=== PATIENT | female | born 1945 | race Two or more races ===

== ENCOUNTER 2018-06-20 12:18 | Inpatient (IN) | payer MEDICARE ==
[~2018-06-20] VITALS: Ht 157.5 cm; Wt 47.4 kg
[2018-06-20] MEDS ORDERED: MAG HYDROX/AL HYDROX/SIMETH 30 ML ORAL.SUSP PO PRN (15:30)
[2018-06-20] MEDS ORDERED: MAGNESIUM HYDROXIDE 2,400 MG/30 ML ORAL.SUSP. PO PRN (15:30)
[2018-06-20] MEDS ORDERED: HEPA500041 IV (16:03)
[2018-06-20] MEDS ORDERED: PANT40TA3 PO (16:03)
[2018-06-20] MEDS ORDERED: ATOR20TA58 PO (16:03)
[2018-06-20] MEDS ORDERED: MECL25TA3 PO (16:03)
[2018-06-20] MEDS ORDERED: NICO1PAT25 TD (16:03)
[2018-06-20] MEDS ORDERED: BUTA1CAP5 PO (16:03)
[2018-06-20] MEDS ORDERED: ZOLP5TAB5 PO (16:03)
[2018-06-20] MEDS ORDERED: ASPI1CPM9 PO (16:03)
[2018-06-20] MEDS ORDERED: LISI-334 PO (16:03)
[2018-06-20 16:13] LABS: BASO % 0 % (0-3); EOS # 0.1 x10^3/uL (0.0-0.7); EOS % 1 % (0-3); HEMATOCRIT 43.7 % (36.0-47.0); HEMOGLOBIN 14.1 g/dL (12.0-15.5); LYMPH # 1.7 x10^3/uL (1.0-4.8); LYMPH % 14 % (24-48); MEAN CORPUSCULAR HEMOGLOBIN 28 pg (25-35); MEAN CORPUSCULAR HGB CONC 32 g/dL (31-37); MEAN CORPUSCULAR VOLUME 85 fL (79-100); MONO % 8 % (0-9); NEUT # 9.7 x10^3uL (1.8-7.7); NEUT % 77 % (31-73); PLATELET COUNT 345 x10^3/uL (140-400); RED BLOOD COUNT 5.13 x10^6/uL (3.50-5.40); RED CELL DISTRIBUTION WIDTH 15.2 % (11.5-14.5); WHITE BLOOD COUNT 12.5 x10^3/uL (4.0-11.0)
[2018-06-20 16:20] LABS: ALBUMIN 3.3 g/dL (3.4-5.0); ALBUMIN/GLOBULIN RATIO 0.8 (1.0-1.7); CALCIUM 9.4 mg/dL (8.5-10.1); CREATININE 0.7 mg/dL (0.6-1.0); GFR 82.5; MAGNESIUM 1.9 mg/dL (1.8-2.4); POTASSIUM 3.6 mmol/L (3.5-5.1); TOTAL BILIRUBIN 0.3 mg/dL (0.2-1.0); TOTAL PROTEIN 7.2 g/dL (6.4-8.2)
[2018-06-20 16:38] VITALS: BP 114/68
[2018-06-20] MEDS ORDERED: BUTALB/APAP/CAFEIN 50/325/40MG TABLET. PO PRN (16:45)
[2018-06-20] MEDS: PANTOPRAZOLE 40 MG TABLET. PO SCH ×2 (17:00→21:01)
[2018-06-20] MEDS: MECLIZINE 12.5 MG TABLET. PO SCH ×2 (21:00→21:01)
[2018-06-20] MEDS: HEPARIN for SUB-Q USE 5,000 UNIT/ML VIAL. SQ SCH ×2 (21:00→21:04)
[2018-06-20] MEDS ORDERED: Influenza vaccine per PROTOCOL. MC PRN (21:00)
[2018-06-20] MEDS: ATORVASTATIN CALCIUM 20 MG TABLET PO SCH (21:01)
[2018-06-20] MEDS: ZOLPIDEM 5 MG TABLET. PO PRN (22:25)
--- NOTE | 2018-06-20 22:44 | PDOC ---
Exam Note: Santosh Note: Please also refer to the separate dictated note~for this date of service dictated separately. Discussed the patient with Nursing staff reviewed the chart.~Reviewed interim history and current functioning. Reviewed vital signs,~ Labs/ Radiology~and current medications noted below. Continue current treatment with the changes noted in the dictated addendum note Assessment: Vital Signs: Vital Signs Date Time Temp Pulse Resp B/P (MAP) Pulse Ox O2 Delivery O2 Flow Rate FiO2 06/20/18 16:38 98.3 87 20 114/68 (83) 95 Labs: Laboratory Tests Test 06/20/18 15:50 White Blood Count 12.5 x10^3/uL (4.0-11.0) H Red Blood Count 5.13 x10^6/uL (3.50-5.40) Hemoglobin 14.1 g/dL (12.0-15.5) Hematocrit 43.7 % (36.0-47.0) Mean Corpuscular Volume 85 fL (79-100) Mean Corpuscular Hemoglobin 28 pg (25-35) Mean Corpuscular Hemoglobin Concent 32 g/dL (31-37) Red Cell Distribution Width 15.2 % (11.5-14.5) H Platelet Count 345 x10^3/uL (140-400) Neutrophils (%) (Auto) 77 % (31-73) H Lymphocytes (%) (Auto) 14 % (24-48) L Monocytes (%) (Auto) 8 % (0-9) Eosinophils (%) (Auto) 1 % (0-3) Basophils (%) (Auto) 0 % (0-3) Neutrophils # (Auto) 9.7 x10^3uL (1.8-7.7) H Lymphocytes # (Auto) 1.7 x10^3/uL (1.0-4.8) Monocytes # (Auto) 1.0 x10^3/uL (0.0-1.1) Eosinophils # (Auto) 0.1 x10^3/uL (0.0-0.7) Basophils # (Auto) 0.0 x10^3/uL (0.0-0.2) Sodium Level 135 mmol/L (136-145) L Potassium Level 3.6 mmol/L (3.5-5.1) Chloride Level 99 mmol/L (98-107) Carbon Dioxide Level 29 mmol/L (21-32) Anion Gap 7 (6-14) Blood Urea Nitrogen 14 mg/dL (7-20) Creatinine 0.7 mg/dL (0.6-1.0) Estimated GFR (Cockcroft-Gault) 82.5 BUN/Creatinine Ratio 20 (6-20) Glucose Level 115 mg/dL (70-99) H Calcium Level 9.4 mg/dL (8.5-10.1) Magnesium Level 1.9 mg/dL (1.8-2.4) Total Bilirubin 0.3 mg/dL (0.2-1.0) Aspartate Amino Transferase (AST) 17 U/L (15-37) Alanine Aminotransferase (ALT) 15 U/L (14-59) Alkaline Phosphatase 87 U/L (46-116) Total Protein 7.2 g/dL (6.4-8.2) Albumin 3.3 g/dL (3.4-5.0) L Albumin/Globulin Ratio 0.8 (1.0-1.7) L Current Medications: Meds: Current Medications Acetaminophen (Tylenol) 650 mg PRN Q6HRS PRN PO PAIN / TEMP; Start 06/20/18 at 15:30 Multi-Ingredient Ointment (Analgesic [place]) 1 paula PRN QID PRN TP MUSCLE PAIN; Start 06/20/18 at 15:30 Al Hydroxide/Mg Hydroxide (Mylanta Plus Xs) 15 ml PRN AFTMEALHC PRN PO DYSPEPSIA; Start 06/20/18 at 15:30 Magnesium Hydroxide (Milk Of Magnesia) 2,400 mg PRN QHS PRN PO CONSTIPATION; Start 06/20/18 at 15:30 Nicotine (Nicoderm Cq 21mg) 1 patch DAILY TD ; Start 06/21/18 at 09:00 Heparin Sodium (Porcine) (Heparin Sodium) 5,000 unit Q12HR SQ ; Start 06/20/18 at 21:00 Atorvastatin Calcium (Lipitor) 20 mg QHS PO Last administered on 06/20/18at 21: 01; Start 06/20/18 at 21:00 Lisinopril (Prinivil) 20 mg DAILY PO ; Start 06/21/18 at 09:00 Zolpidem Tartrate (Ambien) 5 mg PRN QHS PRN PO INSOMNIA Last administered on at 22:25; Start 06/20/18 at 16:15 Acetaminophen/ Butalbital/ Caffeine (Fioricet) 1 tab PRN Q6HRS PRN PO MIGRAINE HEADACHE; Start 06/20/18 at 16:45 Meclizine HCl (Antivert) 25 mg TID PO ; Start 06/20/18 at 21:00 Non-Formulary Medication (Nicotine (NICODERM CQ 14mg)) 1 patch DAILY TD ; Start 06/21/18 at 09:00; Stop 06/21/18 at 09:00; Status DC Pantoprazole Sodium (Protonix) 40 mg BIDWMEALS PO ; Start 06/20/18 at 17:00 Info (FLU VACCINE per PROTOCOL) 1 ea PRN 1X PRN MC PER PROTOCOL; Start at 21:00; Stop 06/20/18 at 21:00; Status DC Influenza Virus Vaccine ([place]uria Trivalent Syringe) 0.5 ml ONCE ONCE VAX IM ; Start 06/20/18 at 21:00; Stop 06/20/18 at 21:16; Status DC Influenza Virus Vaccine (Afluria Trivalent Syringe) 0.5 ml ONCE ONCE VAX IM ; Start 06/22/18 at 09:00; Stop 06/22/18 at 09:01 Active Scripts Active Reported Zolpidem Tartrate 5 Mg Tablet 5 Mg PO HS PRN Protonix (Pantoprazole Sodium) 40 Mg Tablet.dr 40 Mg PO BIDWMEALS NICODERM CQ 14mg (Nicotine) 1 Each Patch.td24 1 Patch TD DAILY Meclizine Hcl 25 Mg Tablet 25 Mg PO TID Lisinopril 20 Mg Tablet 20 Mg PO DAILY Heparin 5,000 Unit/5 ml-Ns (Heparin Sod,Porcine/0.9 % NaCl) 5,000 Unit/5 Ml Syringe 5,000 Unit IV Q12HR Aggrenox 25 Mg-200 Mg Capsule (Aspirin/Dipyridamole) 1 Each Cpmp.12hr 1 Cap PO BID Iowdnbvejt-Nae-Rrcgmoqw Cap (Butalbital/Aspirin/Caffeine) 1 Each Capsule 1 Each PO PRN Q6HRS PRN Atorvastatin Calcium 20 Mg Tablet 20 Mg PO QHS I have reviewed the current psychotropics carefully including drug interactions. Risk benefit ratio favors no change other than as noted in my dictated progress note. Diagnosis: Problems: (1) Major depression with psychotic features (2) Anxiety disorder (3) Impulse control disorder AIME LACKEY MD Jun 20, 2018 22:44
[2018-06-21 01:07] LABS: THYROXINE 6.4 ug/dL (4.5-12.0)
[2018-06-21 02:06] LABS: HEMOGLOBIN A1C 5.8 % (4.8-5.6)
[2018-06-21 06:25] LABS: BACTERIA,URINE 0 /HPF (0-FEW); BILIRUBIN,URINE NEG (NEG); CLARITY,URINE CLEAR; COLOR,URINE YELLOW; GLUCOSE,URINE NEG (NEG); NITRITE,URINE NEG (NEG); RBC,URINE 0 /HPF (0-2); UROBILINOGEN,URINE 0.2 mg/dL (0.2 mg/dL); WBC,URINE 0 /HPF (0-4)
[2018-06-21 06:34] VITALS: BP 128/64
[2018-06-21] MEDS: MECLIZINE 12.5 MG TABLET. PO SCH ×3 (07:51→13:30)
[2018-06-21] MEDS: PANTOPRAZOLE 40 MG TABLET. PO SCH ×2 (07:51→17:19)
[2018-06-21] MEDS: LISINOPRIL 20 MG TABLET PO SCH (07:52)
[2018-06-21] MEDS: HEPARIN for SUB-Q USE 5,000 UNIT/ML VIAL. SQ SCH ×2 (07:54→08:23)
[2018-06-21] MEDS: NICOTINE 21MG PATCH. TD SCH ×2 (08:03→08:23)
--- NOTE | 2018-06-21 08:35 | HP ---
ADMIT DATE: 06/20/2018 PSYCHIATRIC ADMISSION HISTORY/EVALUATION This late entry 06/20/2017 covers elements not covered in my initial note. I met with the patient evening of 06/20/2017 shortly after she arrived on the unit. IDENTIFYING DATA: The patient is a 72-year-old female referred to us from [facility] in [place] after she was admitted there from home where she was taking care of her 91-year-old mother. The patient had been neglecting herself, possibly neglecting her 91-year-old mother. Adult Protective Services were involved with this. She had been depressed, eating bizarre diet of soup and ice, not bathing for 2 years. She had appeared paranoid, psychotic, angry, irritable, labile, unmanageable, at a lower level of care and referred to us from the inpatient stay at [facility] for psychiatric stabilization and further appropriate placement. I met with the patient in her room at length the evening of 06/20/2018. CHIEF COMPLAINT: "My daughter put me here." She has done this in the past. HISTORY OF PRESENT ILLNESS: The patient minimizes most of her symptoms, but from the history available in records from [facility] and the report from the psychologist there, the patient reportedly has had worsening symptoms of depression. She has been withdrawn, irritable, angry, refusing to bath, somewhat paranoid, delusional. She has also had short-term memory deficits, but generally reasonably oriented. No alcohol or drug abuse history. No clear history of bipolar disorder. She has been apathetically motivated and extremely withdrawn, delusional. PAST PSYCHIATRIC HISTORY: As above. MEDICAL HISTORY: Positive for dizziness, right knee pain, repeated falls, status post CVA, hypertension, reflux. PAST SURGICAL HISTORY: Status post hysterectomy. ACCU-CHEKS: None. DIET: Regular. Meds have to be hidden due to her refusal. ALLERGIES: CELEBREX, CODEINE, ERYTHROMYCIN, HYDROCODONE, KETOROLAC, OXYCODONE, PENICILLIN, ROFECOXIB, TETRACYCLINE, TRAMADOL. FAMILY HISTORY: Noncontributory. CODE STATUS: Full code. SOCIAL HISTORY: No history of alcohol, drug abuse, physical, sexual or elder abuse history is noted. Not known to be a perpetrator. REACTION TO HOSPITALIZATION: The patient not entirely agreeable, blaming daughter for this. ASSETS: Supportive family. MENTAL STATUS EXAMINATION: The patient was seen individually evening of 06/20/2017. She is quite adamant, she was very hot in the room. The temperature of the room is at 73 degrees and her roommate is feeling somewhat cold and I addressed this with her. She is oriented to herself, situation extremely irritable, anxious, dismissive. Speech is coherent, has some latency. Abstraction fair, computation impaired, language function intact, attention span short. Mood is depressed, anxious, paranoid, and affect is mood congruent. No active suicidal or homicidal ideation. IMPRESSION: Major depressive disorder with psychotic features; anxiety disorder, unspecified; impulse control disorder, unspecified; cognitive disorder, unspecified. Rest as above. PLAN: Admit to Geropsychiatry Unit at [facility]. I will see the patient daily individually from a psychiatric standpoint, medical followup with Dr. Briseno. Continue the patient on her current psychotropics, Ambien 5 mg at bedtime, but given her significant symptoms of depression, paranoia, we may consider treatment on Cymbalta, which might also help her knee pain and adding Seroquel as an atypical antipsychotic. We will make decisions post baseline assessment. Estimated length of stay 10-12 days. DISPOSITION: To a lower level of care when she is stable. MAN Alexander LACKEY MD DR: DEBRA/alisha JOB#: [id number] / [id number]
[2018-06-21] MEDS ORDERED: NON FORMULARY ITEM (Nicotine (NICODERM CQ 14mg) 1 PATCH) TD SCH (09:00)
[2018-06-21 13:40] LABS: THYROID STIM HORMONE (TSH) 0.692 uIU/mL (0.358-3.740)
[2018-06-21] MEDS ORDERED: MECLIZINE 12.5 MG TABLET. PO PRN (15:30)
[2018-06-21 16:58] VITALS: BP 131/73
[2018-06-21] MEDS: ATORVASTATIN CALCIUM 20 MG TABLET PO SCH (19:31)
--- NOTE | 2018-06-21 21:17 | CONS ---
DATE OF CONSULTATION: 06/21/2018 REASON FOR CONSULTATION: Medical management. HISTORY OF PRESENT ILLNESS: The patient is a 72-year-old female patient who was referred from [facility] in [place] where she was admitted from home. She apparently has been neglecting herself and possibly neglecting her 91-year-old mother. Adult Protective Services were involved with this. She has been depressed, eating bizarre diet of soup and ice, has not bathed for almost 2 years. She apparently was paranoid, psychotic, angry, irritable, labile, unmanageable and was admitted for inpatient psychiatric stabilization. PAST MEDICAL HISTORY: Significant for recurrent falls, severe osteoarthritis with right knee pain, dizziness, CVA, hypertension, and gastroesophageal reflux disease. PAST SURGICAL HISTORY: Significant for cholecystectomy, appendectomy, total abdominal hysterectomy, bilateral salpingo-oophorectomy. ALLERGIES: SHE IS ALLERGIC TO CELEBREX, CODEINE, ERYTHROMYCIN, HYDROCODONE, KETOROLAC, OXYCODONE, PENICILLIN, TETRACYCLINE, AND TRAMADOL. FAMILY HISTORY: Noncontributory. SOCIAL HISTORY: She apparently lives at home and takes care of her 91-year-old. She continue apparently to smoke, but does not drink alcohol or use recreational drugs. PHYSICAL EXAMINATION: GENERAL: When I examined her, she was sitting comfortably in her wheelchair in no apparent respiratory distress. There was no pallor, jaundice, cyanosis. No lymphadenopathy, no thyromegaly. No jugular venous distension. No lower limb edema. VITAL SIGNS: Her heart rate was 118, blood pressure was 128/64, temperature was 98.6, respiratory rate was 20, and oxygen saturation was 94% on room air. HEAD, EYES, EARS, NOSE, THROAT: Showed normocephalic, atraumatic. NECK: Supple. NEUROLOGIC: She was apparently mostly wheelchair bound as she had severe advanced osteoarthritis of right knee joint. LABORATORY DATA: Lab work showed white cell count of 12,500, hemoglobin 14, hematocrit 44, MCV 85, and platelet count of 345,000 with normal manual differential. Her chemistry showed serum sodium 135, potassium 3.6, chloride 99, bicarbonate 29, anion gap of 7, BUN 14, creatinine 0.7, estimated GFR was 82 mL/min. Her glucose was 115. Hemoglobin A1c was 5.8%. Calcium 9.4, magnesium was 1.9. Total bilirubin, AST, ALT, alkaline phosphatase were normal. Total protein was 7.2, albumin 3.3. Her TSH was normal as well as total T4 and total T3. Her serum iron was 29, TIBC was 403, and iron saturation was 7%. Her serum triglyceride was 716, total cholesterol 168, LDL was 94, VLDL was 12, HDL was 62, and ratio was 2. Her urinalysis was essentially unremarkable. MEDICATIONS: The patient is currently on following medications: She is on Nicoderm patch 14 mg topically daily, heparin 5000 units subcutaneous twice a day, atorvastatin calcium 20 mg at bedtime. She is on Aggrenox 25/200 twice a day; lisinopril 20 mg once a day; butalbital, aspirin, caffeine one tablet every 6 hours; Ambien 5 mg at bedtime; meclizine 25 mg 3 times a day; and Protonix 40 mg p.o. b.i.d. ASSESSMENT AND PLAN: In summary, this is a 72-year-old female patient who was admitted as a transfer from [facility] in [place]. She apparently is paranoid, psychotic, angry, irritable, labile, and unmanageable. She apparently lives at home neglecting herself and possibly neglecting her 91-year-old mother. She has been depressed, eating bizarre diet of soup and ice, not bathing for almost 2 years. Medically, however, she seems to be fairly stable. All her vital signs are normal. All her lab works are within acceptable range. I will definitely continue with all her current medications. She claims that she does not have any dizziness or lightheadedness and she does not like meclizine, so I have it administrative assistant change it to an as needed basis. Thank you Dr. Turcios for allowing me to participate in the care of this patient. KAITLIN MATA MD DR: OXANA/alisha JOB#: [id number] / [id number]
[2018-06-21] MEDS: ZOLPIDEM 5 MG TABLET. PO PRN (22:12)
--- NOTE | 2018-06-21 22:42 | PDOC ---
Exam Note: Santosh Note: Please also refer to the separate dictated note~for this date of service dictated separately.~Patient seen individually. Discussed the patient with Nursing staff reviewed the chart.~Reviewed interim history and current functioning. Reviewed vital signs,~Labs/ Radiology~and current medications noted below. Continue current treatment with the changes noted in the dictated addendum note Assessment: Vital Signs: Vital Signs Date Time Temp Pulse Resp B/P (MAP) Pulse Ox O2 Delivery O2 Flow Rate FiO2 06/21/18 16:58 98.1 94 20 131/73 (92) 97 Room Air I&O Intake and Output 06/21/18 07:00 Intake Total 990 ml Balance 990 ml Intake Oral 990 ml # Voids 1 Labs: Laboratory Tests Test 06/21/18 05:15 Urine Collection Type Unknown Urine Color Yellow Urine Clarity Clear Urine pH 6.5 Urine Specific Gary <=1.005 Urine Protein Neg (NEG-TRACE) Urine Glucose (UA) Neg mg/dL (NEG) Urine Ketones (Stick) Neg mg/dL (NEG) Urine Blood Neg (NEG) Urine Nitrite Neg (NEG) Urine Bilirubin Neg (NEG) Urine Urobilinogen Dipstick 0.2 mg/dL (0.2 mg/dL) Urine Leukocyte Esterase Neg (NEG) Urine RBC 0 /HPF (0-2) Urine WBC 0 /HPF (0-4) Urine Squamous Epithelial Cells None /LPF Urine Transitional Epithelial Cells Occ /LPF Urine Bacteria 0 /HPF (0-FEW) Current Medications: Meds: Current Medications Acetaminophen (Tylenol) 650 mg PRN Q6HRS PRN PO PAIN / TEMP; Start 06/20/18 at 15:30 Multi-Ingredient Ointment (Analgesic [place]) 1 paula PRN QID PRN TP MUSCLE PAIN; Start 06/20/18 at 15:30 Al Hydroxide/Mg Hydroxide (Mylanta Plus Xs) 15 ml PRN AFTMEALHC PRN PO DYSPEPSIA; Start 06/20/18 at 15:30 Magnesium Hydroxide (Milk Of Magnesia) 2,400 mg PRN QHS PRN PO CONSTIPATION; Start 06/20/18 at 15:30 Nicotine (Nicoderm Cq 21mg) 1 patch DAILY TD ; Start 06/21/18 at 09:00 Heparin Sodium (Porcine) (Heparin Sodium) 5,000 unit Q12HR SQ ; Start 06/20/18 at 21:00; Stop 06/21/18 at 15:19; Status DC Atorvastatin Calcium (Lipitor) 20 mg QHS PO Last administered on 06/21/18at 19: 31; Start 06/20/18 at 21:00 Lisinopril (Prinivil) 20 mg DAILY PO Last administered on 06/21/18at 07:52; Start 06/21/18 at 09:00 Zolpidem Tartrate (Ambien) 5 mg PRN QHS PRN PO INSOMNIA Last administered on at 22:12; Start 06/20/18 at 16:15 Acetaminophen/ Butalbital/ Caffeine (Fioricet) 1 tab PRN Q6HRS PRN PO MIGRAINE HEADACHE; Start 06/20/18 at 16:45 Meclizine HCl (Antivert) 25 mg TID PO Last administered on 06/21/18at 07:51; Start 06/20/18 at 21:00; Stop 06/21/18 at 15:20; Status DC Non-Formulary Medication (Nicotine (NICODERM CQ 14mg)) 1 patch DAILY TD ; Start 06/21/18 at 09:00; Stop 06/21/18 at 09:00; Status DC Pantoprazole Sodium (Protonix) 40 mg BIDWMEALS PO Last administered on at 17:19; Start 06/20/18 at 17:00 Info (FLU VACCINE per PROTOCOL) 1 ea PRN 1X PRN MC PER PROTOCOL; Start at 21:00; Stop 06/20/18 at 21:00; Status DC Influenza Virus Vaccine (Afluria Trivalent Syringe) 0.5 ml ONCE ONCE VAX IM ; Start 06/20/18 at 21:00; Stop 06/20/18 at 21:16; Status DC Influenza Virus Vaccine (Afluria Trivalent Syringe) 0.5 ml ONCE ONCE VAX IM ; Start 06/22/18 at 09:00; Stop 06/22/18 at 09:01 Meclizine HCl (Antivert) 25 mg PRN TID PRN PO DIZZINESS; Start 06/21/18 at 15: 30 Fluvoxamine Maleate (Luvox) 25 mg QHS PO Last administered on 06/21/18at 19:31; Start 06/21/18 at 21:00 Active Scripts Active Reported Zolpidem Tartrate 5 Mg Tablet 5 Mg PO HS PRN Protonix (Pantoprazole Sodium) 40 Mg Tablet.dr 40 Mg PO BIDWMEALS NICODERM CQ 14mg (Nicotine) 1 Each Patch.td24 1 Patch TD DAILY Meclizine Hcl 25 Mg Tablet 25 Mg PO TID Lisinopril 20 Mg Tablet 20 Mg PO DAILY Heparin 5,000 Unit/5 ml-Ns (Heparin Sod,Porcine/0.9 % NaCl) 5,000 Unit/5 Ml Syringe 5,000 Unit IV Q12HR Aggrenox 25 Mg-200 Mg Capsule (Aspirin/Dipyridamole) 1 Each Cpmp.12hr 1 Cap PO BID [id number]-Ivaqwqzp Cap (Butalbital/Aspirin/Caffeine) 1 Each Capsule 1 Each PO PRN Q6HRS PRN Atorvastatin Calcium 20 Mg Tablet 20 Mg PO QHS I have reviewed the current psychotropics carefully including drug interactions. Risk benefit ratio favors no change other than as noted in my dictated progress note. Diagnosis: Problems: (1) Major depression with psychotic features (2) Anxiety disorder (3) Impulse control disorder AIME LACKEY MD Jun 21, 2018 22:42
[2018-06-22 07:00] VITALS: BP 96/55
[2018-06-22] MEDS: LISINOPRIL 20 MG TABLET PO SCH (09:00)
[2018-06-22] MEDS: NICOTINE 21MG PATCH. TD SCH (09:13)
[2018-06-22] MEDS: PANTOPRAZOLE 40 MG TABLET. PO SCH ×2 (09:13→17:00)
[2018-06-22 16:16] VITALS: BP 150/77
[2018-06-22] MEDS: ATORVASTATIN CALCIUM 20 MG TABLET PO SCH (20:12)
[2018-06-22] MEDS: ZOLPIDEM 5 MG TABLET. PO PRN (20:15)
--- NOTE | 2018-06-22 22:02 | PDOC ---
Exam Note: Santosh Note: Please also refer to the separate dictated note~for this date of service dictated separately.~Patient seen individually. Discussed the patient with Nursing staff reviewed the chart.~Reviewed interim history and current functioning. Reviewed vital signs,~Labs/ Radiology~and current medications noted below. Continue current treatment with the changes noted in the dictated addendum note Assessment: Vital Signs: Vital Signs Date Time Temp Pulse Resp B/P (MAP) Pulse Ox O2 Delivery O2 Flow Rate FiO2 06/22/18 16:16 98.2 94 18 150/77 (101) 96 06/21/18 16:58 Room Air I&O Intake and Output 06/22/18 07:00 Intake Total 1470 ml Balance 1470 ml Intake Oral 1470 ml # Bowel Movements 2 Current Medications: Meds: Current Medications Acetaminophen (Tylenol) 650 mg PRN Q6HRS PRN PO PAIN / TEMP; Start 06/20/18 at 15:30 Multi-Ingredient Ointment (Analgesic [place]) 1 paula PRN QID PRN TP MUSCLE PAIN; Start 06/20/18 at 15:30 Al Hydroxide/Mg Hydroxide (Mylanta Plus Xs) 15 ml PRN AFTMEALHC PRN PO DYSPEPSIA; Start 06/20/18 at 15:30 Magnesium Hydroxide (Milk Of Magnesia) 2,400 mg PRN QHS PRN PO CONSTIPATION; Start 06/20/18 at 15:30 Nicotine (Nicoderm Cq 21mg) 1 patch DAILY TD Last administered on 06/22/18at 09: 13; Start 06/21/18 at 09:00 Heparin Sodium (Porcine) (Heparin Sodium) 5,000 unit Q12HR SQ ; Start 06/20/18 at 21:00; Stop 06/21/18 at 15:19; Status DC Atorvastatin Calcium (Lipitor) 20 mg QHS PO Last administered on 06/22/18at 20: 12; Start 06/20/18 at 21:00 Lisinopril (Prinivil) 20 mg DAILY PO Last administered on 06/21/18at 07:52; Start 06/21/18 at 09:00 Zolpidem Tartrate (Ambien) 5 mg PRN QHS PRN PO INSOMNIA Last administered on at 20:15; Start 06/20/18 at 16:15 Acetaminophen/ Butalbital/ Caffeine (Fioricet) 1 tab PRN Q6HRS PRN PO MIGRAINE HEADACHE; Start 06/20/18 at 16:45 Meclizine HCl (Antivert) 25 mg TID PO Last administered on 06/21/18at 07:51; Start 06/20/18 at 21:00; Stop 06/21/18 at 15:20; Status DC Non-Formulary Medication (Nicotine (NICODERM CQ 14mg)) 1 patch DAILY TD ; Start 06/21/18 at 09:00; Stop 06/21/18 at 09:00; Status DC Pantoprazole Sodium (Protonix) 40 mg BIDWMEALS PO Last administered on at 09:13; Start 06/20/18 at 17:00 Info (FLU VACCINE per PROTOCOL) 1 ea PRN 1X PRN MC PER PROTOCOL; Start at 21:00; Stop 06/20/18 at 21:00; Status DC Influenza Virus Vaccine (Afluria Trivalent Syringe) 0.5 ml ONCE ONCE VAX IM ; Start 06/20/18 at 21:00; Stop 06/20/18 at 21:16; Status DC Influenza Virus Vaccine (Afluria Trivalent Syringe) 0.5 ml ONCE ONCE VAX IM Last administered on 06/22/18at 09:00; Start 06/22/18 at 09:00; Stop at 09:01; Status DC Meclizine HCl (Antivert) 25 mg PRN TID PRN PO DIZZINESS; Start 06/21/18 at 15: 30 Fluvoxamine Maleate (Luvox) 25 mg QHS PO Last administered on 06/22/18at 20:12; Start 06/21/18 at 21:00 Active Scripts Active Reported Zolpidem Tartrate 5 Mg Tablet 5 Mg PO HS PRN Protonix (Pantoprazole Sodium) 40 Mg Tablet.dr 40 Mg PO BIDWMEALS NICODERM CQ 14mg (Nicotine) 1 Each Patch.td24 1 Patch TD DAILY Meclizine Hcl 25 Mg Tablet 25 Mg PO TID Lisinopril 20 Mg Tablet 20 Mg PO DAILY Heparin 5,000 Unit/5 ml-Ns (Heparin Sod,Porcine/0.9 % NaCl) 5,000 Unit/5 Ml Syringe 5,000 Unit IV Q12HR Aggrenox 25 Mg-200 Mg Capsule (Aspirin/Dipyridamole) 1 Each Cpmp.12hr 1 Cap PO BID Nmylmdukaj-Lsz-Sdbowdll Cap (Butalbital/Aspirin/Caffeine) 1 Each Capsule 1 Each PO PRN Q6HRS PRN Atorvastatin Calcium 20 Mg Tablet 20 Mg PO QHS I have reviewed the current psychotropics carefully including drug interactions. Risk benefit ratio favors no change other than as noted in my dictated progress note. Diagnosis: Problems: (1) Major depression with psychotic features (2) Anxiety disorder (3) Impulse control disorder (4) Obsessive compulsive disorder AIME LACKEY MD Jun 22, 2018 22:02
[2018-06-23 06:00] VITALS: BP 115/57
[2018-06-23] MEDS: NICOTINE 21MG PATCH. TD SCH (08:42)
[2018-06-23] MEDS: PANTOPRAZOLE 40 MG TABLET. PO SCH (08:48)
[2018-06-23] MEDS: LISINOPRIL 20 MG TABLET PO SCH (08:49)
[2018-06-23 16:22] VITALS: BP 156/74
[2018-06-23] MEDS: ZOLPIDEM 5 MG TABLET. PO PRN (19:55)
[2018-06-23] MEDS: ATORVASTATIN CALCIUM 20 MG TABLET PO SCH (19:56)
--- NOTE | 2018-06-23 22:42 | PDOC ---
Exam Note: Santosh Note: Please also refer to the separate dictated note~for this date of service dictated separately.~Patient seen individually. Discussed the patient with Nursing staff reviewed the chart.~Reviewed interim history and current functioning. Reviewed vital signs,~Labs/ Radiology~and current medications noted below. Continue current treatment with the changes noted in the dictated addendum note Assessment: Vital Signs: Vital Signs Date Time Temp Pulse Resp B/P (MAP) Pulse Ox O2 Delivery O2 Flow Rate FiO2 06/23/18 16:22 97.8 103 18 156/74 (101) 94 06/21/18 16:58 Room Air I&O Intake and Output 06/23/18 07:00 Intake Total 1260 ml Balance 1260 ml Intake Oral 1260 ml # Bowel Movements 1 Current Medications: Meds: Current Medications Acetaminophen (Tylenol) 650 mg PRN Q6HRS PRN PO PAIN / TEMP; Start 06/20/18 at 15:30 Multi-Ingredient Ointment (Analgesic [place]) 1 paula PRN QID PRN TP MUSCLE PAIN; Start 06/20/18 at 15:30 Al Hydroxide/Mg Hydroxide (Mylanta Plus Xs) 15 ml PRN AFTMEALHC PRN PO DYSPEPSIA; Start 06/20/18 at 15:30 Magnesium Hydroxide (Milk Of Magnesia) 2,400 mg PRN QHS PRN PO CONSTIPATION; Start 06/20/18 at 15:30 Nicotine (Nicoderm Cq 21mg) 1 patch DAILY TD Last administered on 06/22/18at 09: 13; Start 06/21/18 at 09:00 Heparin Sodium (Porcine) (Heparin Sodium) 5,000 unit Q12HR SQ ; Start 06/20/18 at 21:00; Stop 06/21/18 at 15:19; Status DC Atorvastatin Calcium (Lipitor) 20 mg QHS PO Last administered on 06/23/18at 19: 56; Start 06/20/18 at 21:00 Lisinopril (Prinivil) 20 mg DAILY PO Last administered on 06/21/18at 07:52; Start 06/21/18 at 09:00 Zolpidem Tartrate (Ambien) 5 mg PRN QHS PRN PO INSOMNIA Last administered on at 19:55; Start 06/20/18 at 16:15 Acetaminophen/ Butalbital/ Caffeine (Fioricet) 1 tab PRN Q6HRS PRN PO MIGRAINE HEADACHE; Start 06/20/18 at 16:45 Meclizine HCl (Antivert) 25 mg TID PO Last administered on 06/21/18at 07:51; Start 06/20/18 at 21:00; Stop 06/21/18 at 15:20; Status DC Non-Formulary Medication (Nicotine (NICODERM CQ 14mg)) 1 patch DAILY TD ; Start 06/21/18 at 09:00; Stop 06/21/18 at 09:00; Status DC Pantoprazole Sodium (Protonix) 40 mg BIDWMEALS PO Last administered on at 08:48; Start 06/20/18 at 17:00; Stop 06/23/18 at 14:07; Status DC Info (FLU VACCINE per PROTOCOL) 1 ea PRN 1X PRN MC PER PROTOCOL; Start at 21:00; Stop 06/20/18 at 21:00; Status DC Influenza Virus Vaccine (Afluria Trivalent Syringe) 0.5 ml ONCE ONCE VAX IM ; Start 06/20/18 at 21:00; Stop 06/20/18 at 21:16; Status DC Influenza Virus Vaccine (Afluria Trivalent Syringe) 0.5 ml ONCE ONCE VAX IM Last administered on 06/22/18at 09:00; Start 06/22/18 at 09:00; Stop at 09:01; Status DC Meclizine HCl (Antivert) 25 mg PRN TID PRN PO DIZZINESS; Start 06/21/18 at 15: 30 Fluvoxamine Maleate (Luvox) 25 mg QHS PO Last administered on 06/23/18at 19:56; Start 06/21/18 at 21:00 Pantoprazole Sodium (Protonix) 40 mg PRN DAILY PRN PO HEARTBURN / GAS; Start at 09:00 Active Scripts Active Reported Zolpidem Tartrate 5 Mg Tablet 5 Mg PO HS PRN Protonix (Pantoprazole Sodium) 40 Mg Tablet.dr 40 Mg PO BIDWMEALS NICODERM CQ 14mg (Nicotine) 1 Each Patch.td24 1 Patch TD DAILY Meclizine Hcl 25 Mg Tablet 25 Mg PO TID Lisinopril 20 Mg Tablet 20 Mg PO DAILY Heparin 5,000 Unit/5 ml-Ns (Heparin Sod,Porcine/0.9 % NaCl) 5,000 Unit/5 Ml Syringe 5,000 Unit IV Q12HR Aggrenox 25 Mg-200 Mg Capsule (Aspirin/Dipyridamole) 1 Each Cpmp.12hr 1 Cap PO BID Secqlwrobz-Jqo-Sppwyedj Cap (Butalbital/Aspirin/Caffeine) 1 Each Capsule 1 Each PO PRN Q6HRS PRN Atorvastatin Calcium 20 Mg Tablet 20 Mg PO QHS I have reviewed the current psychotropics carefully including drug interactions. Risk benefit ratio favors no change other than as noted in my dictated progress note. Diagnosis: Problems: (1) Major depression with psychotic features (2) Anxiety disorder (3) Impulse control disorder (4) Obsessive compulsive disorder AIME LACKEY MD Jun 23, 2018 22:42
--- NOTE | 2018-06-23 23:33 | PN ---
DATE: 06/21/2018 PSYCHIATRIC PROGRESS NOTE This late entry 06/21/2018 covers elements not covered in my initial note. SUBJECTIVE: I met with the patient in the evening at length. She slept 5 hours previous evening. She is obsessed and wanting ice in a jug right next to her at all times, ruminating about this. Alicia, director of social work has sent me an email from the daughter, showing pictures about the patient's living at home, hoarding things, collecting things, extremely obsessive, compulsive. We will address this from a psychopharmacological standpoint. REVIEW OF SYSTEMS: Impaired ambulation. No CV, , pulmonary, eye system symptoms on review. MENTAL STATUS EXAM: Oriented to herself and situation. Speech has some latency, coherent, often responses monosyllabic. Abstraction fair, computation impaired, language function intact, attention span short. Mood and affect withdrawn, paranoid, psychotic, obsessive. LABORATORY DATA: Reviewed. IMPRESSION: Major depressive disorder, severe with psychotic features, obsessive-compulsive disorder, anxiety disorder, unspecified; cognitive disorder, unspecified. PLAN: Start Luvox 25 mg at bedtime. We will gradually increase this. Maintain Ambien 5 mg at bedtime for insomnia. Rest unchanged for now. AIME LACKEY MD DR: DEBRA/alisha JOB#: [id number] / [id number]
[2018-06-24 06:21] VITALS: BP 162/65
[2018-06-24] MEDS: LISINOPRIL 20 MG TABLET PO SCH (08:27)
[2018-06-24] MEDS: NICOTINE 21MG PATCH. TD SCH ×2 (08:27→08:46)
[2018-06-24] MEDS ORDERED: PANTOPRAZOLE 40 MG TABLET. PO PRN (09:00)
[2018-06-24 16:26] VITALS: BP 144/86
[2018-06-24] MEDS: ASPIRIN/DIPYRIDAMOLE 200/25MG CAP.ER.12H PO SCH (20:09)
[2018-06-24] MEDS: ATORVASTATIN CALCIUM 20 MG TABLET PO SCH (20:09)
[2018-06-24] MEDS: ZOLPIDEM 5 MG TABLET. PO PRN (22:08)
--- NOTE | 2018-06-24 22:30 | PDOC ---
Exam Note: Santosh Note: Please also refer to the separate dictated note~for this date of service dictated separately.~Patient seen individually. Discussed the patient with Nursing staff reviewed the chart.~Reviewed interim history and current functioning. Reviewed vital signs,~Labs/ Radiology~and current medications noted below. Continue current treatment with the changes noted in the dictated addendum note Assessment: Vital Signs: Vital Signs Date Time Temp Pulse Resp B/P (MAP) Pulse Ox O2 Delivery O2 Flow Rate FiO2 06/24/18 16:26 97.8 102 22 144/86 (105) 99 06/21/18 16:58 Room Air I&O Intake and Output 06/24/18 07:00 Intake Total 1200 ml Balance 1200 ml Intake Oral 1200 ml Current Medications: Meds: Current Medications Acetaminophen (Tylenol) 650 mg PRN Q6HRS PRN PO PAIN / TEMP; Start 06/20/18 at 15:30 Multi-Ingredient Ointment (Analgesic [place]) 1 paula PRN QID PRN TP MUSCLE PAIN; Start 06/20/18 at 15:30 Al Hydroxide/Mg Hydroxide (Mylanta Plus Xs) 15 ml PRN AFTMEALHC PRN PO DYSPEPSIA; Start 06/20/18 at 15:30 Magnesium Hydroxide (Milk Of Magnesia) 2,400 mg PRN QHS PRN PO CONSTIPATION; Start 06/20/18 at 15:30 Nicotine (Nicoderm Cq 21mg) 1 patch DAILY TD Last administered on 06/22/18at 09: 13; Start 06/21/18 at 09:00 Heparin Sodium (Porcine) (Heparin Sodium) 5,000 unit Q12HR SQ ; Start 06/20/18 at 21:00; Stop 06/21/18 at 15:19; Status DC Atorvastatin Calcium (Lipitor) 20 mg QHS PO Last administered on 06/24/18at 20: 09; Start 06/20/18 at 21:00 Lisinopril (Prinivil) 20 mg DAILY PO Last administered on 06/24/18at 08:27; Start 06/21/18 at 09:00 Zolpidem Tartrate (Ambien) 5 mg PRN QHS PRN PO INSOMNIA Last administered on at 22:08; Start 06/20/18 at 16:15 Acetaminophen/ Butalbital/ Caffeine (Fioricet) 1 tab PRN Q6HRS PRN PO MIGRAINE HEADACHE; Start 06/20/18 at 16:45 Meclizine HCl (Antivert) 25 mg TID PO Last administered on 06/21/18at 07:51; Start 06/20/18 at 21:00; Stop 06/21/18 at 15:20; Status DC Non-Formulary Medication (Nicotine (NICODERM CQ 14mg)) 1 patch DAILY TD ; Start 06/21/18 at 09:00; Stop 06/21/18 at 09:00; Status DC Pantoprazole Sodium (Protonix) 40 mg BIDWMEALS PO Last administered on at 08:48; Start 06/20/18 at 17:00; Stop 06/23/18 at 14:07; Status DC Info (FLU VACCINE per PROTOCOL) 1 ea PRN 1X PRN MC PER PROTOCOL; Start at 21:00; Stop 06/20/18 at 21:00; Status DC Influenza Virus Vaccine (Afluria Trivalent Syringe) 0.5 ml ONCE ONCE VAX IM ; Start 06/20/18 at 21:00; Stop 06/20/18 at 21:16; Status DC Influenza Virus Vaccine (Afluria Trivalent Syringe) 0.5 ml ONCE ONCE VAX IM Last administered on 06/22/18at 09:00; Start 06/22/18 at 09:00; Stop at 09:01; Status DC Meclizine HCl (Antivert) 25 mg PRN TID PRN PO DIZZINESS; Start 06/21/18 at 15: 30 Fluvoxamine Maleate (Luvox) 25 mg QHS PO Last administered on 06/23/18at 19:56; Start 06/21/18 at 21:00; Stop 06/24/18 at 03:10; Status DC Pantoprazole Sodium (Protonix) 40 mg PRN DAILY PRN PO HEARTBURN / GAS; Start at 09:00 Fluvoxamine Maleate (Luvox) 50 mg QHS PO Last administered on 06/24/18at 20:09; Start 06/24/18 at 21:00 Dipyridamole/ Aspirin (Aggrenox) 1 cap BID PO Last administered on 2/18/19at 20 :09; Start 06/24/18 at 21:00 Active Scripts Active Reported Zolpidem Tartrate 5 Mg Tablet 5 Mg PO HS PRN Protonix (Pantoprazole Sodium) 40 Mg Tablet.dr 40 Mg PO BIDWMEALS NICODERM CQ 14mg (Nicotine) 1 Each Patch.td24 1 Patch TD DAILY Meclizine Hcl 25 Mg Tablet 25 Mg PO TID Lisinopril 20 Mg Tablet 20 Mg PO DAILY Heparin 5,000 Unit/5 ml-Ns (Heparin Sod,Porcine/0.9 % NaCl) 5,000 Unit/5 Ml Syringe 5,000 Unit IV Q12HR Aggrenox 25 Mg-200 Mg Capsule (Aspirin/Dipyridamole) 1 Each Cpmp.12hr 1 Cap PO BID Nipsywnpmx-Cza-Kikpdlht Cap (Butalbital/Aspirin/Caffeine) 1 Each Capsule 1 Each PO PRN Q6HRS PRN Atorvastatin Calcium 20 Mg Tablet 20 Mg PO QHS I have reviewed the current psychotropics carefully including drug interactions. Risk benefit ratio favors no change other than as noted in my dictated progress note. Diagnosis: Problems: (1) Major depression with psychotic features (2) Anxiety disorder (3) Impulse control disorder (4) Obsessive compulsive disorder AIME LACKEY MD Jun 24, 2018 22:30
[2018-06-25 06:08] VITALS: BP 102/55
[2018-06-25] MEDS: NICOTINE 21MG PATCH. TD SCH (07:58)
[2018-06-25] MEDS: ASPIRIN/DIPYRIDAMOLE 200/25MG CAP.ER.12H PO SCH ×2 (08:03→19:51)
[2018-06-25] MEDS: LISINOPRIL 20 MG TABLET PO SCH (08:21)
[2018-06-25 16:33] VITALS: BP 152/72
[2018-06-25] MEDS: ATORVASTATIN CALCIUM 20 MG TABLET PO SCH (19:51)
[2018-06-25] MEDS: ZOLPIDEM 5 MG TABLET. PO PRN (22:13)
--- NOTE | 2018-06-25 22:28 | PN ---
DATE: 06/23/2018 PSYCHIATRIC PROGRESS NOTE This late entry 06/23/2018 covers elements not covered in my initial note. SUBJECTIVE: I met with the patient in the evening. The patient slept 5-3/4 hours previous night. She is obsessed about keeping ice in her mouth and every half hour she wants a new bucket of ice. Nursing staff were intervening with behavior modification. She is quite obsessive about this. REVIEW OF SYSTEMS: Ambulation impaired, in wheelchair, complains of pain in her lower jaw, which is relieved by the ice. No CV, , pulmonary, eye system symptoms on review. MENTAL STATUS EXAM: Oriented to herself and situation. Speech has some latency, coherent. Abstraction fair, computation impaired, language function intact. No suicidal or homicidal ideation. Mood and affect depressed, obsessive. LABORATORY DATA: Reviewed. IMPRESSION: Unchanged from initial note. PLAN: Increase Luvox to 50 mg at bedtime after she has been on 25 for 3 days. Rest unchanged per initial note. MAN Alexander LACKEY MD DR: DEBRA/alisha JOB#: [id number] / [id number]
--- NOTE | 2018-06-25 22:32 | PN ---
DATE: 06/24/2018 PSYCHIATRIC PROGRESS NOTE This late entry 06/24/2018 covers elements not covered in my initial note. SUBJECTIVE: I met with the patient in the evening. The patient slept 6 hours previous night. She remains quite obsessive about ice and spent a long time talking to me that she should be able to get this as often as she wants. REVIEW OF SYSTEMS: Ambulation impaired, in wheelchair. No CV, , pulmonary, eye system symptoms on review. MENTAL STATUS EXAM: Reasonably oriented. Speech is coherent, abstraction fair, computation impaired, language function intact. Attention span short. She is quite obsessive, ruminative as above. No suicidal or homicidal ideation. LABORATORY DATA: Reviewed. IMPRESSION: Obsessive-compulsive disorder, major depressive disorder with psychotic features. Rest unchanged. PLAN: Increase Luvox gradually. Continue rest of psychotropics for now. MAN Alexander LACKEY MD DR: DEBRA/alisha JOB#: [id number] / [id number]
--- NOTE | 2018-06-25 22:46 | PDOC ---
Exam Note: Santosh Note: Please also refer to the separate dictated note~for this date of service dictated separately.~Patient seen individually. Discussed the patient with Nursing staff reviewed the chart.~Reviewed interim history and current functioning. Reviewed vital signs,~Labs/ Radiology~and current medications noted below. Continue current treatment with the changes noted in the dictated addendum note Assessment: Vital Signs: Vital Signs Date Time Temp Pulse Resp B/P (MAP) Pulse Ox O2 Delivery O2 Flow Rate FiO2 06/25/18 16:33 97.8 99 19 152/72 (98) 98 Room Air I&O Intake and Output 06/25/18 07:00 Intake Total 1680 ml Balance 1680 ml Intake Oral 1680 ml Current Medications: Meds: Current Medications Acetaminophen (Tylenol) 650 mg PRN Q6HRS PRN PO PAIN / TEMP; Start 06/20/18 at 15:30 Multi-Ingredient Ointment (Analgesic [place]) 1 paula PRN QID PRN TP MUSCLE PAIN; Start 06/20/18 at 15:30 Al Hydroxide/Mg Hydroxide (Mylanta Plus Xs) 15 ml PRN AFTMEALHC PRN PO DYSPEPSIA Last administered on 06/25/18at 08:21; Start 06/20/18 at 15:30 Magnesium Hydroxide (Milk Of Magnesia) 2,400 mg PRN QHS PRN PO CONSTIPATION; Start 06/20/18 at 15:30 Nicotine (Nicoderm Cq 21mg) 1 patch DAILY TD Last administered on 06/22/18at 09: 13; Start 06/21/18 at 09:00 Heparin Sodium (Porcine) (Heparin Sodium) 5,000 unit Q12HR SQ ; Start 06/20/18 at 21:00; Stop 06/21/18 at 15:19; Status DC Atorvastatin Calcium (Lipitor) 20 mg QHS PO Last administered on 06/25/18at 19: 51; Start 06/20/18 at 21:00 Lisinopril (Prinivil) 20 mg DAILY PO Last administered on 06/24/18at 08:27; Start 06/21/18 at 09:00 Zolpidem Tartrate (Ambien) 5 mg PRN QHS PRN PO INSOMNIA Last administered on at 22:13; Start 06/20/18 at 16:15 Acetaminophen/ Butalbital/ Caffeine (Fioricet) 1 tab PRN Q6HRS PRN PO MIGRAINE HEADACHE; Start 06/20/18 at 16:45 Meclizine HCl (Antivert) 25 mg TID PO Last administered on 06/21/18at 07:51; Start 06/20/18 at 21:00; Stop 06/21/18 at 15:20; Status DC Non-Formulary Medication (Nicotine (NICODERM CQ 14mg)) 1 patch DAILY TD ; Start 06/21/18 at 09:00; Stop 06/21/18 at 09:00; Status DC Pantoprazole Sodium (Protonix) 40 mg BIDWMEALS PO Last administered on at 08:48; Start 06/20/18 at 17:00; Stop 06/23/18 at 14:07; Status DC Info (FLU VACCINE per PROTOCOL) 1 ea PRN 1X PRN MC PER PROTOCOL; Start at 21:00; Stop 06/20/18 at 21:00; Status DC Influenza Virus Vaccine (Afluria Trivalent Syringe) 0.5 ml ONCE ONCE VAX IM ; Start 06/20/18 at 21:00; Stop 06/20/18 at 21:16; Status DC Influenza Virus Vaccine (Afluria Trivalent Syringe) 0.5 ml ONCE ONCE VAX IM Last administered on 06/22/18at 09:00; Start 06/22/18 at 09:00; Stop at 09:01; Status DC Meclizine HCl (Antivert) 25 mg PRN TID PRN PO DIZZINESS; Start 06/21/18 at 15: 30 Fluvoxamine Maleate (Luvox) 25 mg QHS PO Last administered on 06/23/18at 19:56; Start 06/21/18 at 21:00; Stop 06/24/18 at 03:10; Status DC Pantoprazole Sodium (Protonix) 40 mg PRN DAILY PRN PO HEARTBURN / GAS; Start at 09:00 Fluvoxamine Maleate (Luvox) 50 mg QHS PO Last administered on 06/25/18at 20:03; Start 06/24/18 at 21:00; Stop 06/27/18 at 19:00 Dipyridamole/ Aspirin (Aggrenox) 1 cap BID PO Last administered on 06/25/18at 19 :51; Start 06/24/18 at 21:00 Fluvoxamine Maleate (Luvox) 75 mg QHS PO ; Start 06/25/18 at 21:00; Stop at 21:00; Status DC Fluvoxamine Maleate (Luvox) 75 mg QHS PO ; Start 06/27/18 at 21:00 Active Scripts Active Reported Zolpidem Tartrate 5 Mg Tablet 5 Mg PO HS PRN Protonix (Pantoprazole Sodium) 40 Mg Tablet.dr 40 Mg PO BIDWMEALS NICODERM CQ 14mg (Nicotine) 1 Each Patch.td24 1 Patch TD DAILY Meclizine Hcl 25 Mg Tablet 25 Mg PO TID Lisinopril 20 Mg Tablet 20 Mg PO DAILY Heparin 5,000 Unit/5 ml-Ns (Heparin Sod,Porcine/0.9 % NaCl) 5,000 Unit/5 Ml Syringe 5,000 Unit IV Q12HR Aggrenox 25 Mg-200 Mg Capsule (Aspirin/Dipyridamole) 1 Each Cpmp.12hr 1 Cap PO BID Mzdphnzthj-Nym-Svayewdg Cap (Butalbital/Aspirin/Caffeine) 1 Each Capsule 1 Each PO PRN Q6HRS PRN Atorvastatin Calcium 20 Mg Tablet 20 Mg PO QHS I have reviewed the current psychotropics carefully including drug interactions. Risk benefit ratio favors no change other than as noted in my dictated progress note. Diagnosis: Problems: (1) Major depression with psychotic features (2) Anxiety disorder (3) Impulse control disorder (4) Obsessive compulsive disorder AIME LACKEY MD Jun 25, 2018 22:45
[2018-06-26 05:53] VITALS: BP 107/62
[2018-06-26] MEDS: LISINOPRIL 20 MG TABLET PO SCH (07:52)
[2018-06-26] MEDS: NICOTINE 21MG PATCH. TD SCH (07:52)
[2018-06-26] MEDS: ASPIRIN/DIPYRIDAMOLE 200/25MG CAP.ER.12H PO SCH ×2 (07:52→21:02)
[2018-06-26 15:26] VITALS: BP 122/69
[2018-06-26] MEDS: ATORVASTATIN CALCIUM 20 MG TABLET PO SCH (21:02)
[2018-06-26] MEDS: ZOLPIDEM 5 MG TABLET. PO PRN (21:38)
--- NOTE | 2018-06-26 21:50 | PN ---
DATE: 06/25/2018 PSYCHIATRIC PROGRESS NOTE This late entry 06/25/2018 covers elements not covered in my initial note. SUBJECTIVE: I met with the patient at length in the evening. Per nursing report, the patient remains extremely obsessive, he has been obsessed about wanting a Band-Aid and keeping her jug full of ice and wants it refilled every half an hour. She has many somatic reasons for this including pain in the gums, but the nursing observation indicates this is part of her obsessive ritualistic behaviors. She slept 5-1/4 hours, refused the nicotine patch. makes her sick. REVIEW OF SYSTEMS: Ambulation impaired, in wheelchair, complains of discomfort of her gum. No CV, , GI, or pulmonary system symptoms on review. MENTAL STATUS EXAM: Oriented to herself and situation. Speech has some latency, coherent. Abstraction fair, computation impaired, language function intact, attention span short. Mood and affect somewhat anxious, labile, obsessive. No suicidal or homicidal ideation. LABORATORY DATA: Reviewed. IMPRESSION: Unchanged from initial note. PLAN: No change from initial note and after she has been on Luvox 50 mg at bedtime for 3 days, we will increase to 75 mg at bedtime. Maintain Ambien 5 mg at bedtime p.r.n. insomnia. AIME LACKEY MD DR: DEBRA/alisha JOB#: [id number] / [id number]
--- NOTE | 2018-06-26 22:22 | PDOC ---
Exam Note: Santosh Note: Please also refer to the separate dictated note~for this date of service dictated separately.~Patient seen individually. Discussed the patient with Nursing staff reviewed the chart.~Reviewed interim history and current functioning. Reviewed vital signs,~Labs/ Radiology~and current medications noted below. Continue current treatment with the changes noted in the dictated addendum note Assessment: Vital Signs: Vital Signs Date Time Temp Pulse Resp B/P (MAP) Pulse Ox O2 Delivery O2 Flow Rate FiO2 06/26/18 15:26 98.6 106 18 122/69 (86) 98 06/25/18 16:33 Room Air I&O Intake and Output 06/26/18 07:00 Intake Total 2040 ml Balance 2040 ml Intake Oral 2040 ml Current Medications: Meds: Current Medications Acetaminophen (Tylenol) 650 mg PRN Q6HRS PRN PO PAIN / TEMP; Start 06/20/18 at 15:30 Multi-Ingredient Ointment (Analgesic [place]) 1 paula PRN QID PRN TP MUSCLE PAIN; Start 06/20/18 at 15:30 Al Hydroxide/Mg Hydroxide (Mylanta Plus Xs) 15 ml PRN AFTMEALHC PRN PO DYSPEPSIA Last administered on 06/25/18at 08:21; Start 06/20/18 at 15:30 Magnesium Hydroxide (Milk Of Magnesia) 2,400 mg PRN QHS PRN PO CONSTIPATION; Start 06/20/18 at 15:30 Nicotine (Nicoderm Cq 21mg) 1 patch DAILY TD Last administered on 06/22/18at 09: 13; Start 06/21/18 at 09:00; Stop 06/26/18 at 18:55; Status DC Heparin Sodium (Porcine) (Heparin Sodium) 5,000 unit Q12HR SQ ; Start 06/20/18 at 21:00; Stop 06/21/18 at 15:19; Status DC Atorvastatin Calcium (Lipitor) 20 mg QHS PO Last administered on 06/26/18at 21: 02; Start 06/20/18 at 21:00 Lisinopril (Prinivil) 20 mg DAILY PO Last administered on 06/26/18at 07:52; Start 06/21/18 at 09:00 Zolpidem Tartrate (Ambien) 5 mg PRN QHS PRN PO INSOMNIA Last administered on at 21:38; Start 06/20/18 at 16:15 Acetaminophen/ Butalbital/ Caffeine (Fioricet) 1 tab PRN Q6HRS PRN PO MIGRAINE HEADACHE; Start 06/20/18 at 16:45 Meclizine HCl (Antivert) 25 mg TID PO Last administered on 06/21/18at 07:51; Start 06/20/18 at 21:00; Stop 06/21/18 at 15:20; Status DC Non-Formulary Medication (Nicotine (NICODERM CQ 14mg)) 1 patch DAILY TD ; Start 06/21/18 at 09:00; Stop 06/21/18 at 09:00; Status DC Pantoprazole Sodium (Protonix) 40 mg BIDWMEALS PO Last administered on at 08:48; Start 06/20/18 at 17:00; Stop 06/23/18 at 14:07; Status DC Info (FLU VACCINE per PROTOCOL) 1 ea PRN 1X PRN MC PER PROTOCOL; Start at 21:00; Stop 06/20/18 at 21:00; Status DC Influenza Virus Vaccine (foodjunkyuria Trivalent Syringe) 0.5 ml ONCE ONCE VAX IM ; Start 06/20/18 at 21:00; Stop 06/20/18 at 21:16; Status DC Influenza Virus Vaccine ([facility] [place] [facility] Trivalent Syringe) 0.5 ml ONCE ONCE VAX IM Last administered on 06/22/18at 09:00; Start 06/22/18 at 09:00; Stop at 09:01; Status DC Meclizine HCl (Antivert) 25 mg PRN TID PRN PO DIZZINESS; Start 06/21/18 at 15: 30 Fluvoxamine Maleate (Luvox) 25 mg QHS PO Last administered on 06/23/18at 19:56; Start 06/21/18 at 21:00; Stop 06/24/18 at 03:10; Status DC Pantoprazole Sodium (Protonix) 40 mg PRN DAILY PRN PO HEARTBURN / GAS; Start at 09:00 Fluvoxamine Maleate (Luvox) 50 mg QHS PO Last administered on 06/26/18at 21:02; Start 06/24/18 at 21:00; Stop 06/27/18 at 19:00 Dipyridamole/ Aspirin (Aggrenox) 1 cap BID PO Last administered on 06/26/18at 21 :02; Start 06/24/18 at 21:00 Fluvoxamine Maleate (Luvox) 75 mg QHS PO ; Start 06/25/18 at 21:00; Stop at 21:00; Status DC Fluvoxamine Maleate (Luvox) 75 mg QHS PO ; Start 06/27/18 at 21:00 Active Scripts Active Reported Zolpidem Tartrate 5 Mg Tablet 5 Mg PO HS PRN Protonix (Pantoprazole Sodium) 40 Mg Tablet.dr 40 Mg PO BIDWMEALS NICODERM CQ 14mg (Nicotine) 1 Each Patch.td24 1 Patch TD DAILY Meclizine Hcl 25 Mg Tablet 25 Mg PO TID Lisinopril 20 Mg Tablet 20 Mg PO DAILY Heparin 5,000 Unit/5 ml-Ns (Heparin Sod,Porcine/0.9 % NaCl) 5,000 Unit/5 Ml Syringe 5,000 Unit IV Q12HR Aggrenox 25 Mg-200 Mg Capsule (Aspirin/Dipyridamole) 1 Each Cpmp.12hr 1 Cap PO BID Umdhescouw-Dus-Tbnlakxr Cap (Butalbital/Aspirin/Caffeine) 1 Each Capsule 1 Each PO PRN Q6HRS PRN Atorvastatin Calcium 20 Mg Tablet 20 Mg PO QHS I have reviewed the current psychotropics carefully including drug interactions. Risk benefit ratio favors no change other than as noted in my dictated progress note. Diagnosis: Problems: (1) Major depression with psychotic features (2) Anxiety disorder (3) Impulse control disorder (4) Obsessive compulsive disorder AIME LACKEY MD Jun 26, 2018 22:22
[2018-06-27 06:22] VITALS: BP 107/63
[2018-06-27] MEDS: ASPIRIN/DIPYRIDAMOLE 200/25MG CAP.ER.12H PO SCH ×2 (07:59→20:50)
[2018-06-27] MEDS: LISINOPRIL 20 MG TABLET PO SCH (08:00)
[2018-06-27 16:08] VITALS: BP 129/75
[2018-06-27] MEDS: ATORVASTATIN CALCIUM 20 MG TABLET PO SCH (20:50)
[2018-06-27] MEDS: ZOLPIDEM 5 MG TABLET. PO PRN (20:52)
--- NOTE | 2018-06-27 22:20 | PDOC ---
Exam Note: Santosh Note: Please also refer to the separate dictated note~for this date of service dictated separately.~Patient seen individually. Discussed the patient with Nursing staff reviewed the chart.~Reviewed interim history and current functioning. Reviewed vital signs,~Labs/ Radiology~and current medications noted below. Continue current treatment with the changes noted in the dictated addendum note Assessment: Vital Signs: Vital Signs Date Time Temp Pulse Resp B/P (MAP) Pulse Ox O2 Delivery O2 Flow Rate FiO2 06/27/18 16:08 97.4 89 16 129/75 (93) 96 06/25/18 16:33 Room Air I&O Intake and Output 06/27/18 07:00 Intake Total 1340 ml Balance 1340 ml Intake Oral 1340 ml # Voids 1 # Bowel Movements 1 Current Medications: Meds: Current Medications Acetaminophen (Tylenol) 650 mg PRN Q6HRS PRN PO PAIN / TEMP; Start 06/20/18 at 15:30 Multi-Ingredient Ointment (Analgesic [place]) 1 paula PRN QID PRN TP MUSCLE PAIN; Start 06/20/18 at 15:30 Al Hydroxide/Mg Hydroxide (Mylanta Plus Xs) 15 ml PRN AFTMEALHC PRN PO DYSPEPSIA Last administered on 06/25/18at 08:21; Start 06/20/18 at 15:30 Magnesium Hydroxide (Milk Of Magnesia) 2,400 mg PRN QHS PRN PO CONSTIPATION; Start 06/20/18 at 15:30 Nicotine (Nicoderm Cq 21mg) 1 patch DAILY TD Last administered on 06/22/18at 09: 13; Start 06/21/18 at 09:00; Stop 06/26/18 at 18:55; Status DC Heparin Sodium (Porcine) (Heparin Sodium) 5,000 unit Q12HR SQ ; Start 06/20/18 at 21:00; Stop 06/21/18 at 15:19; Status DC Atorvastatin Calcium (Lipitor) 20 mg QHS PO Last administered on 06/27/18at 20: 50; Start 06/20/18 at 21:00 Lisinopril (Prinivil) 20 mg DAILY PO Last administered on 06/27/18at 08:00; Start 06/21/18 at 09:00 Zolpidem Tartrate (Ambien) 5 mg PRN QHS PRN PO INSOMNIA Last administered on at 20:52; Start 06/20/18 at 16:15 Acetaminophen/ Butalbital/ Caffeine (Fioricet) 1 tab PRN Q6HRS PRN PO MIGRAINE HEADACHE; Start 06/20/18 at 16:45 Meclizine HCl (Antivert) 25 mg TID PO Last administered on 06/21/18at 07:51; Start 06/20/18 at 21:00; Stop 06/21/18 at 15:20; Status DC Non-Formulary Medication (Nicotine (NICODERM CQ 14mg)) 1 patch DAILY TD ; Start 06/21/18 at 09:00; Stop 06/21/18 at 09:00; Status DC Pantoprazole Sodium (Protonix) 40 mg BIDWMEALS PO Last administered on at 08:48; Start 06/20/18 at 17:00; Stop 06/23/18 at 14:07; Status DC Info (FLU VACCINE per PROTOCOL) 1 ea PRN 1X PRN MC PER PROTOCOL; Start at 21:00; Stop 06/20/18 at 21:00; Status DC Influenza Virus Vaccine ([place] Trivalent Syringe) 0.5 ml ONCE ONCE VAX IM ; Start 06/20/18 at 21:00; Stop 06/20/18 at 21:16; Status DC Influenza Virus Vaccine ([employer]uria Trivalent Syringe) 0.5 ml ONCE ONCE VAX IM Last administered on 06/22/18at 09:00; Start 06/22/18 at 09:00; Stop at 09:01; Status DC Meclizine HCl (Antivert) 25 mg PRN TID PRN PO DIZZINESS; Start 06/21/18 at 15: 30 Fluvoxamine Maleate (Luvox) 25 mg QHS PO Last administered on 06/23/18at 19:56; Start 06/21/18 at 21:00; Stop 06/24/18 at 03:10; Status DC Pantoprazole Sodium (Protonix) 40 mg PRN DAILY PRN PO HEARTBURN / GAS; Start at 09:00 Fluvoxamine Maleate (Luvox) 50 mg QHS PO Last administered on 06/26/18at 21:02; Start 06/24/18 at 21:00; Stop 06/27/18 at 19:00; Status DC Dipyridamole/ Aspirin (Aggrenox) 1 cap BID PO Last administered on 06/27/18at 20 :50; Start 06/24/18 at 21:00 Fluvoxamine Maleate (Luvox) 75 mg QHS PO ; Start 06/25/18 at 21:00; Stop at 21:00; Status DC Fluvoxamine Maleate (Luvox) 75 mg QHS PO Last administered on 06/27/18at 20:50; Start 06/27/18 at 21:00 Active Scripts Active Reported Zolpidem Tartrate 5 Mg Tablet 5 Mg PO HS PRN Protonix (Pantoprazole Sodium) 40 Mg Tablet.dr 40 Mg PO BIDWMEALS NICODERM CQ 14mg (Nicotine) 1 Each Patch.td24 1 Patch TD DAILY Meclizine Hcl 25 Mg Tablet 25 Mg PO TID Lisinopril 20 Mg Tablet 20 Mg PO DAILY Heparin 5,000 Unit/5 ml-Ns (Heparin Sod,Porcine/0.9 % NaCl) 5,000 Unit/5 Ml Syringe 5,000 Unit IV Q12HR Aggrenox 25 Mg-200 Mg Capsule (Aspirin/Dipyridamole) 1 Each Cpmp.12hr 1 Cap PO BID Muhpjkplvd-Dul-Ackmapks Cap (Butalbital/Aspirin/Caffeine) 1 Each Capsule 1 Each PO PRN Q6HRS PRN Atorvastatin Calcium 20 Mg Tablet 20 Mg PO QHS I have reviewed the current psychotropics carefully including drug interactions. Risk benefit ratio favors no change other than as noted in my dictated progress note. Diagnosis: Problems: (1) Major depression with psychotic features (2) Anxiety disorder (3) Impulse control disorder (4) Obsessive compulsive disorder AIME LACKEY MD Jun 27, 2018 22:20
[2018-06-28 06:31] VITALS: BP 116/62
[2018-06-28 07:53] LABS: BASO # 0.1 x10^3/uL (0.0-0.2); BASO % 1 % (0-3); EOS # 0.1 x10^3/uL (0.0-0.7); EOS % 1 % (0-3); HEMATOCRIT 42.8 % (36.0-47.0); LYMPH # 1.5 x10^3/uL (1.0-4.8); LYMPH % 22 % (24-48); MEAN CORPUSCULAR HEMOGLOBIN 28 pg (25-35); MEAN CORPUSCULAR HGB CONC 33 g/dL (31-37); MEAN CORPUSCULAR VOLUME 84 fL (79-100); MONO # 0.7 x10^3/uL (0.0-1.1); MONO % 11 % (0-9); NEUT # 4.4 x10^3uL (1.8-7.7); NEUT % 65 % (31-73); PLATELET COUNT 378 x10^3/uL (140-400); RED BLOOD COUNT 5.08 x10^6/uL (3.50-5.40); RED CELL DISTRIBUTION WIDTH 14.5 % (11.5-14.5); WHITE BLOOD COUNT 6.7 x10^3/uL (4.0-11.0)
[2018-06-28 08:03] LABS: ALBUMIN 3.2 g/dL (3.4-5.0); ALBUMIN/GLOBULIN RATIO 0.9 (1.0-1.7); CALCIUM 8.9 mg/dL (8.5-10.1); CREATININE 0.7 mg/dL (0.6-1.0); GFR 82.5; POTASSIUM 4.1 mmol/L (3.5-5.1); TOTAL BILIRUBIN 0.3 mg/dL (0.2-1.0); TOTAL PROTEIN 6.7 g/dL (6.4-8.2)
[2018-06-28] MEDS: ASPIRIN/DIPYRIDAMOLE 200/25MG CAP.ER.12H PO SCH ×2 (09:11→21:21)
[2018-06-28] MEDS: LISINOPRIL 20 MG TABLET PO SCH (09:13)
[2018-06-28 16:03] VITALS: BP 125/63
[2018-06-28] MEDS ORDERED: CHOLECALCIFEROL (VITAMIN D3) 50,000 UNIT CAPSULE PO SCH (18:00)
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
[2018-06-28] MEDS: CHOLECALCIFEROL (VITAMIN D3) 50,000 UNIT CAPSULE PO SCH (21:20)
[2018-06-28] MEDS: ATORVASTATIN CALCIUM 20 MG TABLET PO SCH (21:20)
[2018-06-28] MEDS: risperiDONE 0.25 MG TABLET. PO SCH (21:22)
--- NOTE | 2018-06-28 22:05 | PN ---
DATE: 06/27/2018 PSYCHIATRIC PROGRESS NOTE This late entry 06/27/2018 covers elements not covered in my initial note. SUBJECTIVE: I met with the patient in the evening. The patient slept 5 hours previous night. She remains extremely obsessive, ritualistic, wanting the ice bucket changed every half hour. Quite somatically preoccupied, stuffing things in her ear. She came in walking and currently remains in a wheelchair with many somatic symptoms. REVIEW OF SYSTEMS: No specific CV, GI system symptoms on review. MENTAL STATUS EXAM: The patient is reasonably oriented. Speech is coherent, can be rapid at times when he complains against nursing staff for not giving her the ice on times, slept 5 hours previous night. Abstraction fair, computation impaired, language function intact. Mood and affect remains anxious, labile, distractable. LABORATORY DATA: Reviewed. IMPRESSION: Major depressive disorder with psychotic features, obsessive-compulsive disorder, anxiety disorder, unspecified. Rest unchanged. PLAN: Check CBC, CMP in the morning of 06/28/2018. Continue current psychotropics. Consider Risperdal to augment the Luvox for her severe OCD symptoms and psychotic symptoms. We will give another 24 hours and decide. AIME LACKEY MD DR: DEBRA/alisha JOB#: [id number] / [id number]
[2018-06-28] MEDS: ZOLPIDEM 5 MG TABLET. PO PRN (22:10)
--- NOTE | 2018-06-28 22:47 | PDOC ---
Exam Note: Santosh Note: Please also refer to the separate dictated note~for this date of service dictated separately.~Patient seen individually. Discussed the patient with Nursing staff reviewed the chart.~Reviewed interim history and current functioning. Reviewed vital signs,~Labs/ Radiology~and current medications noted below. Continue current treatment with the changes noted in the dictated addendum note Assessment: Vital Signs: Vital Signs Date Time Temp Pulse Resp B/P (MAP) Pulse Ox O2 Delivery O2 Flow Rate FiO2 06/28/18 16:03 97.3 92 18 125/63 (83) 95 06/28/18 06:31 Room Air I&O Intake and Output 06/28/18 07:00 Intake Total 1780 ml Balance 1780 ml Intake Oral 1780 ml # Voids 1 Labs: Laboratory Tests Test 06/28/18 07:32 White Blood Count 6.7 x10^3/uL (4.0-11.0) Red Blood Count 5.08 x10^6/uL (3.50-5.40) Hemoglobin 14.0 g/dL (12.0-15.5) Hematocrit 42.8 % (36.0-47.0) Mean Corpuscular Volume 84 fL (79-100) Mean Corpuscular Hemoglobin 28 pg (25-35) Mean Corpuscular Hemoglobin Concent 33 g/dL (31-37) Red Cell Distribution Width 14.5 % (11.5-14.5) Platelet Count 378 x10^3/uL (140-400) Neutrophils (%) (Auto) 65 % (31-73) Lymphocytes (%) (Auto) 22 % (24-48) L Monocytes (%) (Auto) 11 % (0-9) H Eosinophils (%) (Auto) 1 % (0-3) Basophils (%) (Auto) 1 % (0-3) Neutrophils # (Auto) 4.4 x10^3uL (1.8-7.7) Lymphocytes # (Auto) 1.5 x10^3/uL (1.0-4.8) Monocytes # (Auto) 0.7 x10^3/uL (0.0-1.1) Eosinophils # (Auto) 0.1 x10^3/uL (0.0-0.7) Basophils # (Auto) 0.1 x10^3/uL (0.0-0.2) Sodium Level 135 mmol/L (136-145) L Potassium Level 4.1 mmol/L (3.5-5.1) Chloride Level 100 mmol/L (98-107) Carbon Dioxide Level 25 mmol/L (21-32) Anion Gap 10 (6-14) Blood Urea Nitrogen 12 mg/dL (7-20) Creatinine 0.7 mg/dL (0.6-1.0) Estimated GFR (Cockcroft-Gault) 82.5 BUN/Creatinine Ratio 17 (6-20) Glucose Level 135 mg/dL (70-99) H Calcium Level 8.9 mg/dL (8.5-10.1) Total Bilirubin 0.3 mg/dL (0.2-1.0) Aspartate Amino Transferase (AST) 14 U/L (15-37) L Alanine Aminotransferase (ALT) 15 U/L (14-59) Alkaline Phosphatase 97 U/L (46-116) Total Protein 6.7 g/dL (6.4-8.2) Albumin 3.2 g/dL (3.4-5.0) L Albumin/Globulin Ratio 0.9 (1.0-1.7) L Current Medications: Meds: Current Medications Acetaminophen (Tylenol) 650 mg PRN Q6HRS PRN PO PAIN / TEMP; Start 06/20/18 at 15:30 Multi-Ingredient Ointment (Analgesic [place]) 1 paula PRN QID PRN TP MUSCLE PAIN; Start 06/20/18 at 15:30 Al Hydroxide/Mg Hydroxide (Mylanta Plus Xs) 15 ml PRN AFTMEALHC PRN PO DYSPEPSIA Last administered on 06/25/18at 08:21; Start 06/20/18 at 15:30 Magnesium Hydroxide (Milk Of Magnesia) 2,400 mg PRN QHS PRN PO CONSTIPATION; Start 06/20/18 at 15:30 Nicotine (Nicoderm Cq 21mg) 1 patch DAILY TD Last administered on 06/22/18at 09: 13; Start 06/21/18 at 09:00; Stop 06/26/18 at 18:55; Status DC Heparin Sodium (Porcine) (Heparin Sodium) 5,000 unit Q12HR SQ ; Start 06/20/18 at 21:00; Stop 06/21/18 at 15:19; Status DC Atorvastatin Calcium (Lipitor) 20 mg QHS PO Last administered on 06/28/18at 21: 20; Start 06/20/18 at 21:00 Lisinopril (Prinivil) 20 mg DAILY PO Last administered on 06/28/18at 09:13; Start 06/21/18 at 09:00 Zolpidem Tartrate (Ambien) 5 mg PRN QHS PRN PO INSOMNIA Last administered on at 22:10; Start 06/20/18 at 16:15 Acetaminophen/ Butalbital/ Caffeine (Fioricet) 1 tab PRN Q6HRS PRN PO MIGRAINE HEADACHE; Start 06/20/18 at 16:45 Meclizine HCl (Antivert) 25 mg TID PO Last administered on 06/21/18at 07:51; Start 06/20/18 at 21:00; Stop 06/21/18 at 15:20; Status DC Non-Formulary Medication (Nicotine (NICODERM CQ 14mg)) 1 patch DAILY TD ; Start 06/21/18 at 09:00; Stop 06/21/18 at 09:00; Status DC Pantoprazole Sodium (Protonix) 40 mg BIDWMEALS PO Last administered on at 08:48; Start 06/20/18 at 17:00; Stop 06/23/18 at 14:07; Status DC Info (FLU VACCINE per PROTOCOL) 1 ea PRN 1X PRN MC PER PROTOCOL; Start at 21:00; Stop 06/20/18 at 21:00; Status DC Influenza Virus Vaccine ([place]uria Trivalent Syringe) 0.5 ml ONCE ONCE VAX IM ; Start 06/20/18 at 21:00; Stop 06/20/18 at 21:16; Status DC Influenza Virus Vaccine (Afluria Trivalent Syringe) 0.5 ml ONCE ONCE VAX IM Last administered on 06/22/18at 09:00; Start 06/22/18 at 09:00; Stop at 09:01; Status DC Meclizine HCl (Antivert) 25 mg PRN TID PRN PO DIZZINESS; Start 06/21/18 at 15: 30 Fluvoxamine Maleate (Luvox) 25 mg QHS PO Last administered on 06/23/18at 19:56; Start 06/21/18 at 21:00; Stop 06/24/18 at 03:10; Status DC Pantoprazole Sodium (Protonix) 40 mg PRN DAILY PRN PO HEARTBURN / GAS; Start at 09:00 Fluvoxamine Maleate (Luvox) 50 mg QHS PO Last administered on 06/26/18at 21:02; Start 06/24/18 at 21:00; Stop 06/27/18 at 19:00; Status DC Dipyridamole/ Aspirin (Aggrenox) 1 cap BID PO Last administered on 06/28/18at 21 :21; Start 06/24/18 at 21:00 Fluvoxamine Maleate (Luvox) 75 mg QHS PO ; Start 06/25/18 at 21:00; Stop at 21:00; Status DC Fluvoxamine Maleate (Luvox) 75 mg QHS PO Last administered on 06/28/18at 21:21; Start 06/27/18 at 21:00 Risperidone (RisperDAL) 0.25 mg HS PO Last administered on 06/28/18at 21:22; Start 06/28/18 at 21:00 Vitamin D (Vitamin D3) 50,000 unit WEEKLY PO ; Start 06/28/18 at 18:00; Stop at 18:07; Status DC Vitamin D (Vitamin D3) 50,000 unit WEEKLY PO Last administered on 06/28/18at 21: 20; Start 06/28/18 at 20:00 Active Scripts Active Reported Zolpidem Tartrate 5 Mg Tablet 5 Mg PO HS PRN Protonix (Pantoprazole Sodium) 40 Mg Tablet.dr 40 Mg PO BIDWMEALS NICODERM CQ 14mg (Nicotine) 1 Each Patch.td24 1 Patch TD DAILY Meclizine Hcl 25 Mg Tablet 25 Mg PO TID Lisinopril 20 Mg Tablet 20 Mg PO DAILY Heparin 5,000 Unit/5 ml-Ns (Heparin Sod,Porcine/0.9 % NaCl) 5,000 Unit/5 Ml Syringe 5,000 Unit IV Q12HR Aggrenox 25 Mg-200 Mg Capsule (Aspirin/Dipyridamole) 1 Each Cpmp.12hr 1 Cap PO BID Pbcqimpzui-Ubu-Fnqzwpfx Cap (Butalbital/Aspirin/Caffeine) 1 Each Capsule 1 Each PO PRN Q6HRS PRN Atorvastatin Calcium 20 Mg Tablet 20 Mg PO QHS I have reviewed the current psychotropics carefully including drug interactions. Risk benefit ratio favors no change other than as noted in my dictated progress note. Diagnosis: Problems: (1) Major depression with psychotic features (2) Anxiety disorder (3) Impulse control disorder (4) Obsessive compulsive disorder AIME LACKEY MD Jun 28, 2018 22:47
[2018-06-29 07:17] VITALS: BP 103/52
[2018-06-29] MEDS: ASPIRIN/DIPYRIDAMOLE 200/25MG CAP.ER.12H PO SCH ×2 (08:10→20:57)
[2018-06-29] MEDS: LISINOPRIL 20 MG TABLET PO SCH (08:59)
[2018-06-29 16:13] VITALS: BP 125/60
[2018-06-29] MEDS: ATORVASTATIN CALCIUM 20 MG TABLET PO SCH (20:57)
[2018-06-29] MEDS: risperiDONE 0.25 MG TABLET. PO SCH (20:57)
--- NOTE | 2018-06-29 21:43 | PDOC ---
Exam Note: Santosh Note: Please also refer to the separate dictated note~for this date of service dictated separately.~Patient seen individually. Discussed the patient with Nursing staff reviewed the chart.~Reviewed interim history and current functioning. Reviewed vital signs,~Labs/ Radiology~and current medications noted below. Continue current treatment with the changes noted in the dictated addendum note Assessment: Vital Signs: Vital Signs Date Time Temp Pulse Resp B/P (MAP) Pulse Ox O2 Delivery O2 Flow Rate FiO2 06/29/18 16:13 97.6 91 20 125/60 (81) 94 Room Air I&O Intake and Output 06/29/18 07:00 Intake Total 1260 ml Balance 1260 ml Intake Oral 1260 ml # Voids 1 Current Medications: Meds: Current Medications Acetaminophen (Tylenol) 650 mg PRN Q6HRS PRN PO PAIN / TEMP; Start 06/20/18 at 15:30 Multi-Ingredient Ointment (Analgesic [place]) 1 paula PRN QID PRN TP MUSCLE PAIN; Start 06/20/18 at 15:30 Al Hydroxide/Mg Hydroxide (Mylanta Plus Xs) 15 ml PRN AFTMEALHC PRN PO DYSPEPSIA Last administered on 06/25/18at 08:21; Start 06/20/18 at 15:30 Magnesium Hydroxide (Milk Of Magnesia) 2,400 mg PRN QHS PRN PO CONSTIPATION; Start 06/20/18 at 15:30 Nicotine (Nicoderm Cq 21mg) 1 patch DAILY TD Last administered on 06/22/18at 09: 13; Start 06/21/18 at 09:00; Stop 06/26/18 at 18:55; Status DC Heparin Sodium (Porcine) (Heparin Sodium) 5,000 unit Q12HR SQ ; Start 06/20/18 at 21:00; Stop 06/21/18 at 15:19; Status DC Atorvastatin Calcium (Lipitor) 20 mg QHS PO Last administered on 06/29/18at 20: 57; Start 06/20/18 at 21:00 Lisinopril (Prinivil) 20 mg DAILY PO Last administered on 06/28/18at 09:13; Start 06/21/18 at 09:00 Zolpidem Tartrate (Ambien) 5 mg PRN QHS PRN PO INSOMNIA Last administered on at 22:10; Start 06/20/18 at 16:15 Acetaminophen/ Butalbital/ Caffeine (Fioricet) 1 tab PRN Q6HRS PRN PO MIGRAINE HEADACHE; Start 06/20/18 at 16:45 Meclizine HCl (Antivert) 25 mg TID PO Last administered on 06/21/18at 07:51; Start 06/20/18 at 21:00; Stop 06/21/18 at 15:20; Status DC Non-Formulary Medication (Nicotine (NICODERM CQ 14mg)) 1 patch DAILY TD ; Start 06/21/18 at 09:00; Stop 06/21/18 at 09:00; Status DC Pantoprazole Sodium (Protonix) 40 mg BIDWMEALS PO Last administered on at 08:48; Start 06/20/18 at 17:00; Stop 06/23/18 at 14:07; Status DC Info (FLU VACCINE per PROTOCOL) 1 ea PRN 1X PRN MC PER PROTOCOL; Start at 21:00; Stop 06/20/18 at 21:00; Status DC Influenza Virus Vaccine ([place]uria Trivalent Syringe) 0.5 ml ONCE ONCE VAX IM ; Start 06/20/18 at 21:00; Stop 06/20/18 at 21:16; Status DC Influenza Virus Vaccine ([facility] Trivalent Syringe) 0.5 ml ONCE ONCE VAX IM Last administered on 06/22/18at 09:00; Start 06/22/18 at 09:00; Stop at 09:01; Status DC Meclizine HCl (Antivert) 25 mg PRN TID PRN PO DIZZINESS; Start 06/21/18 at 15: 30 Fluvoxamine Maleate (Luvox) 25 mg QHS PO Last administered on 06/23/18at 19:56; Start 06/21/18 at 21:00; Stop 06/24/18 at 03:10; Status DC Pantoprazole Sodium (Protonix) 40 mg PRN DAILY PRN PO HEARTBURN / GAS; Start at 09:00 Fluvoxamine Maleate (Luvox) 50 mg QHS PO Last administered on 06/26/18at 21:02; Start 06/24/18 at 21:00; Stop 06/27/18 at 19:00; Status DC Dipyridamole/ Aspirin (Aggrenox) 1 cap BID PO Last administered on 06/29/18at 20 :57; Start 06/24/18 at 21:00 Fluvoxamine Maleate (Luvox) 75 mg QHS PO ; Start 06/25/18 at 21:00; Stop at 21:00; Status DC Fluvoxamine Maleate (Luvox) 75 mg QHS PO Last administered on 06/29/18at 20:57; Start 06/27/18 at 21:00 Risperidone (RisperDAL) 0.25 mg HS PO Last administered on 06/29/18 20:57; Start 06/28/18 at 21:00 Vitamin D (Vitamin D3) 50,000 unit WEEKLY PO ; Start 06/28/18 at 18:00; Stop at 18:07; Status DC Vitamin D (Vitamin D3) 50,000 unit WEEKLY PO Last administered on 06/28/18at 21: 20; Start 06/28/18 at 20:00 Active Scripts Active Reported Zolpidem Tartrate 5 Mg Tablet 5 Mg PO HS PRN Protonix (Pantoprazole Sodium) 40 Mg Tablet.dr 40 Mg PO BIDWMEALS NICODERM CQ 14mg (Nicotine) 1 Each Patch.td24 1 Patch TD DAILY Meclizine Hcl 25 Mg Tablet 25 Mg PO TID Lisinopril 20 Mg Tablet 20 Mg PO DAILY Heparin 5,000 Unit/5 ml-Ns (Heparin Sod,Porcine/0.9 % NaCl) 5,000 Unit/5 Ml Syringe 5,000 Unit IV Q12HR Aggrenox 25 Mg-200 Mg Capsule (Aspirin/Dipyridamole) 1 Each Cpmp.12hr 1 Cap PO BID Mkjijptvqe-Tez-Mjpdjk[place] Cap (Butalbital/Aspirin/Caffeine) 1 Each Capsule 1 Each PO PRN Q6HRS PRN Atorvastatin Calcium 20 Mg Tablet 20 Mg PO QHS I have reviewed the current psychotropics carefully including drug interactions. Risk benefit ratio favors no change other than as noted in my dictated progress note. Diagnosis: Problems: (1) Major depression with psychotic features (2) Anxiety disorder (3) Impulse control disorder (4) Obsessive compulsive disorder AIME LACKEY MD Jun 29, 2018 21:43
[2018-06-29] MEDS: ZOLPIDEM 5 MG TABLET. PO PRN (23:25)
[2018-06-30 06:21] VITALS: BP 107/62
[2018-06-30] MEDS: ASPIRIN/DIPYRIDAMOLE 200/25MG CAP.ER.12H PO SCH ×2 (08:26→20:26)
[2018-06-30] MEDS: LISINOPRIL 20 MG TABLET PO SCH (09:00)
[2018-06-30 16:22] VITALS: BP 161/78
--- NOTE | 2018-06-30 19:26 | PN ---
DATE: 06/28/2018 PSYCHIATRIC PROGRESS NOTE This late entry from 06/28/2018 covers elements not covered in my initial note. SUBJECTIVE: I met with the patient in the evening. I met with her in her room at some length. She slept 4-1/2 hours the previous night. She has been encouraged to get out of her wheelchair because she came in walking. She complains of diarrhea, has been "shoving" gauze into her ears and then tissues when the nursing removed the gauze. She is somatically preoccupied, obsessive, and only wants to eat desserts and puddings. Angry that she is not given, several helpings of this. REVIEW OF SYSTEMS: Ambulation impaired, various somatic symptoms, wanting her ice at all times. REVIEW OF SYSTEMS: No CV, , pulmonary, eye system symptoms on review other than above. MENTAL STATUS EXAM: Reasonably oriented. Speech is coherent, somewhat pressured at times. Abstraction fair, computation impaired, language function intact, attention span short. Mood and affect quite obsessive, anxious, and at times labile. LABORATORY DATA: Reviewed. IMPRESSION: Unchanged from initial note. PLAN: No change from initial note. Start Risperdal 0.25 mg p.o. at bedtime to augment the Luvox for her OCD, rest unchanged. Increase Luvox gradually. AIME LACKEY MD DR: DEBRA/alisha JOB#: [id number] / [id number]
--- NOTE | 2018-06-30 19:47 | PDOC ---
Exam Note: Santosh Note: Please also refer to the separate dictated note~for this date of service dictated separately.~Patient seen individually. Discussed the patient with Nursing staff reviewed the chart.~Reviewed interim history and current functioning. Reviewed vital signs,~Labs/ Radiology~and current medications noted below. Continue current treatment with the changes noted in the dictated addendum note Assessment: Vital Signs: Vital Signs Date Time Temp Pulse Resp B/P (MAP) Pulse Ox O2 Delivery O2 Flow Rate FiO2 06/30/18 16:22 98.0 100 20 161/78 (105) 96 06/29/18 16:13 Room Air I&O Intake and Output 06/30/18 06:59 Intake Total 1850 ml Balance 1850 ml Intake Oral 1850 ml # Voids 1 Current Medications: Meds: Current Medications Acetaminophen (Tylenol) 650 mg PRN Q6HRS PRN PO PAIN / TEMP; Start 06/20/18 at 15:30 Multi-Ingredient Ointment (Analgesic [place]) 1 paula PRN QID PRN TP MUSCLE PAIN; Start 06/20/18 at 15:30 Al Hydroxide/Mg Hydroxide (Mylanta Plus Xs) 15 ml PRN AFTMEALHC PRN PO DYSPEPSIA Last administered on 06/25/18at 08:21; Start 06/20/18 at 15:30 Magnesium Hydroxide (Milk Of Magnesia) 2,400 mg PRN QHS PRN PO CONSTIPATION; Start 06/20/18 at 15:30 Nicotine (Nicoderm Cq 21mg) 1 patch DAILY TD Last administered on 06/22/18at 09: 13; Start 06/21/18 at 09:00; Stop 06/26/18 at 18:55; Status DC Heparin Sodium (Porcine) (Heparin Sodium) 5,000 unit Q12HR SQ ; Start 06/20/18 at 21:00; Stop 06/21/18 at 15:19; Status DC Atorvastatin Calcium (Lipitor) 20 mg QHS PO Last administered on 06/29/18at 20: 57; Start 06/20/18 at 21:00 Lisinopril (Prinivil) 20 mg DAILY PO Last administered on 06/28/18at 09:13; Start 06/21/18 at 09:00 Zolpidem Tartrate (Ambien) 5 mg PRN QHS PRN PO INSOMNIA Last administered on at 23:25; Start 06/20/18 at 16:15 Acetaminophen/ Butalbital/ Caffeine (Fioricet) 1 tab PRN Q6HRS PRN PO MIGRAINE HEADACHE; Start 06/20/18 at 16:45 Meclizine HCl (Antivert) 25 mg TID PO Last administered on 06/21/18at 07:51; Start 06/20/18 at 21:00; Stop 06/21/18 at 15:20; Status DC Non-Formulary Medication (Nicotine (NICODERM CQ 14mg)) 1 patch DAILY TD ; Start 06/21/18 at 09:00; Stop 06/21/18 at 09:00; Status DC Pantoprazole Sodium (Protonix) 40 mg BIDWMEALS PO Last administered on at 08:48; Start 06/20/18 at 17:00; Stop 06/23/18 at 14:07; Status DC Info (FLU VACCINE per PROTOCOL) 1 ea PRN 1X PRN MC PER PROTOCOL; Start at 21:00; Stop 06/20/18 at 21:00; Status DC Influenza Virus Vaccine (Pledge51uria Trivalent Syringe) 0.5 ml ONCE ONCE VAX IM ; Start 06/20/18 at 21:00; Stop 06/20/18 at 21:16; Status DC Influenza Virus Vaccine (Pledge51uria Trivalent Syringe) 0.5 ml ONCE ONCE VAX IM Last administered on 06/22/18at 09:00; Start 06/22/18 at 09:00; Stop at 09:01; Status DC Meclizine HCl (Antivert) 25 mg PRN TID PRN PO DIZZINESS; Start 06/21/18 at 15: 30 Fluvoxamine Maleate (Luvox) 25 mg QHS PO Last administered on 06/23/18at 19:56; Start 06/21/18 at 21:00; Stop 06/24/18 at 03:10; Status DC Pantoprazole Sodium (Protonix) 40 mg PRN DAILY PRN PO HEARTBURN / GAS; Start at 09:00 Fluvoxamine Maleate (Luvox) 50 mg QHS PO Last administered on 06/26/18at 21:02; Start 06/24/18 at 21:00; Stop 06/27/18 at 19:00; Status DC Dipyridamole/ Aspirin (Aggrenox) 1 cap BID PO Last administered on 06/30/18at 08 :26; Start 06/24/18 at 21:00 Fluvoxamine Maleate (Luvox) 75 mg QHS PO ; Start 06/25/18 at 21:00; Stop at 21:00; Status DC Fluvoxamine Maleate (Luvox) 75 mg QHS PO Last administered on 06/29/18at 20:57; Start 06/27/18 at 21:00 Risperidone (RisperDAL) 0.25 mg HS PO Last administered on 06/29/18at 20:57; Start 06/28/18 at 21:00 Vitamin D (Vitamin D3) 50,000 unit WEEKLY PO ; Start 06/28/18 at 18:00; Stop at 18:07; Status DC Vitamin D (Vitamin D3) 50,000 unit WEEKLY PO Last administered on 06/28/18at 21: 20; Start 06/28/18 at 20:00 Active Scripts Active Reported Zolpidem Tartrate 5 Mg Tablet 5 Mg PO HS PRN Protonix (Pantoprazole Sodium) 40 Mg Tablet.dr 40 Mg PO BIDWMEALS NICODERM CQ 14mg (Nicotine) 1 Each Patch.td24 1 Patch TD DAILY Meclizine Hcl 25 Mg Tablet 25 Mg PO TID Lisinopril 20 Mg Tablet 20 Mg PO DAILY Heparin 5,000 Unit/5 ml-Ns (Heparin Sod,Porcine/0.9 % NaCl) 5,000 Unit/5 Ml Syringe 5,000 Unit IV Q12HR Aggrenox 25 Mg-200 Mg Capsule (Aspirin/Dipyridamole) 1 Each Cpmp.12hr 1 Cap PO BID Pnrmeaccim-Lxr-Rfylwasy Cap (Butalbital/Aspirin/Caffeine) 1 Each Capsule 1 Each PO PRN Q6HRS PRN Atorvastatin Calcium 20 Mg Tablet 20 Mg PO QHS I have reviewed the current psychotropics carefully including drug interactions. Risk benefit ratio favors no change other than as noted in my dictated progress note. Diagnosis: Problems: (1) Major depression with psychotic features (2) Anxiety disorder (3) Impulse control disorder (4) Obsessive compulsive disorder AIME LACKEY MD Jun 30, 2018 19:47
[2018-06-30] MEDS: ATORVASTATIN CALCIUM 20 MG TABLET PO SCH (20:26)
[2018-06-30] MEDS: risperiDONE 0.25 MG TABLET. PO SCH (20:27)
[2018-06-30] MEDS: ZOLPIDEM 5 MG TABLET. PO PRN (22:36)
[2018-07-01] MEDS: ACETAMINOPHEN 325 MG TABLET PO PRN (00:14)
[2018-07-01 06:16] VITALS: BP 126/56
[2018-07-01] MEDS: ASPIRIN/DIPYRIDAMOLE 200/25MG CAP.ER.12H PO SCH ×2 (08:18→20:25)
[2018-07-01] MEDS: LISINOPRIL 20 MG TABLET PO SCH (09:00)
[2018-07-01] MEDS ORDERED: BENZOCAINE 20% ORAL GEL 11.9GM TUBE. TP PRN (11:30)
[2018-07-01 16:01] VITALS: BP 145/69
[2018-07-01] MEDS ORDERED: traZODone 50 MG TABLET. PO PRN (18:00)
--- NOTE | 2018-07-01 19:02 | PN ---
DATE: 06/30/2018 PSYCHIATRIC PROGRESS NOTE This late entry 06/30/2018 covers elements not covered in my initial note. SUBJECTIVE: I met with the patient in the evening. The patient slept for 3/4 hours previous night. She remains extremely obsessive, anxious, fixated on wanting extra desserts and had stuff tissue paper in her ears. I processed this with her at some length. She has many complains towards nursing staff, behavior modification being instituted for OCD behaviors. No CV, , pulmonary, eye system symptoms on review. MENTAL STATUS EXAM: Oriented reasonably. Speech is coherent, rapid at times. Abstraction fair, computation impaired, language function intact. Mood and affect somewhat anxious, labile. LABORATORY DATA: Reviewed. IMPRESSION: Unchanged from initial note. PLAN: Increase Luvox to 100 mg at bedtime after she has been on 75 for 3 days. Rest unchanged including Risperdal 0.25 mg at bedtime. MAN Alexander LACKEY MD DR: DEBRA/alisha JOB#: [id number] / [id number]
--- NOTE | 2018-07-01 19:03 | PN ---
DATE: 06/29/2018 PSYCHIATRIC PROGRESS NOTE This late entry 06/29/2018 covers elements, not covered in my initial note. SUBJECTIVE: I met with the patient in the evening. The patient slept 6-3/4 hours previous night. She remains somewhat anxious, obsessive, stuffing cotton into her ear, obsessing about wanting Extra Dessert, somewhat withdrawn, received Risperdal at night, which we are starting at 0.25 mg p.o. at bedtime to augment the Luvox for her OCD. REVIEW OF SYSTEMS: Ambulation impaired with walker, wanting constant ice for her perceived pain in the mouth. No CV, , pulmonary, eye system symptoms on review. MENTAL STATUS EXAM: Reasonably oriented. Speech coherent, abstraction fair, computation impaired, language function intact. Mood and affect somewhat labile. IMPRESSION: Unchanged from initial note. PLAN: Start Risperdal 0.25 mg at bedtime. Rest unchanged. AIME LACKEY MD DR: DEBRA/alisha JOB#: [id number] / [id number]
[2018-07-01] MEDS: ATORVASTATIN CALCIUM 20 MG TABLET PO SCH (20:25)
[2018-07-01] MEDS: risperiDONE 0.25 MG TABLET. PO SCH (20:25)
[2018-07-01] MEDS: traZODone 50 MG TABLET. PO SCH (20:27)
[2018-07-01] MEDS: METHYL SALICYLATE/MENTHOL TOPICAL OINTMENT 29GM TUBE. TP PRN (21:20)
--- NOTE | 2018-07-01 22:27 | PDOC ---
Exam Note: Santosh Note: Please also refer to the separate dictated note~for this date of service dictated separately.~Patient seen individually. Discussed the patient with Nursing staff reviewed the chart.~Reviewed interim history and current functioning. Reviewed vital signs,~Labs/ Radiology~and current medications noted below. Continue current treatment with the changes noted in the dictated addendum note Assessment: Vital Signs: Vital Signs Date Time Temp Pulse Resp B/P (MAP) Pulse Ox O2 Delivery O2 Flow Rate FiO2 07/01/18 16:01 99.7 93 18 145/69 (94) 97 06/29/18 16:13 Room Air I&O Intake and Output 07/01/18 07:00 Intake Total 960 ml Balance 960 ml Intake Oral 960 ml # Voids 1 Current Medications: Meds: Current Medications Acetaminophen (Tylenol) 650 mg PRN Q6HRS PRN PO PAIN / TEMP Last administered on 07/01/18 00:14; Start 06/20/18 at 15:30 Multi-Ingredient Ointment (Analgesic [place]) 1 paula PRN QID PRN TP MUSCLE PAIN Last administered on 07/01/18 21:20; Start 06/20/18 at 15:30 Al Hydroxide/Mg Hydroxide (Mylanta Plus Xs) 15 ml PRN AFTMEALHC PRN PO DYSPEPSIA Last administered on 06/25/18 08:21; Start 06/20/18 at 15:30 Magnesium Hydroxide (Milk Of Magnesia) 2,400 mg PRN QHS PRN PO CONSTIPATION; Start 06/20/18 at 15:30 Nicotine (Nicoderm Cq 21mg) 1 patch DAILY TD Last administered on 06/22/18 09: 13; Start 06/21/18 at 09:00; Stop 06/26/18 at 18:55; Status DC Heparin Sodium (Porcine) (Heparin Sodium) 5,000 unit Q12HR SQ ; Start 06/20/18 at 21:00; Stop 06/21/18 at 15:19; Status DC Atorvastatin Calcium (Lipitor) 20 mg QHS PO Last administered on 07/01/18 20: 25; Start 06/20/18 at 21:00 Lisinopril (Prinivil) 20 mg DAILY PO Last administered on 06/28/18 09:13; Start 06/21/18 at 09:00; Stop 07/01/18 at 13:55; Status DC Zolpidem Tartrate (Ambien) 5 mg PRN QHS PRN PO INSOMNIA Last administered on at 22:36; Start 06/20/18 at 16:15 Acetaminophen/ Butalbital/ Caffeine (Fioricet) 1 tab PRN Q6HRS PRN PO MIGRAINE HEADACHE; Start 06/20/18 at 16:45 Meclizine HCl (Antivert) 25 mg TID PO Last administered on 06/21/18at 07:51; Start 06/20/18 at 21:00; Stop 06/21/18 at 15:20; Status DC Non-Formulary Medication (Nicotine (NICODERM CQ 14mg)) 1 patch DAILY TD ; Start 06/21/18 at 09:00; Stop 06/21/18 at 09:00; Status DC Pantoprazole Sodium (Protonix) 40 mg BIDWMEALS PO Last administered on at 08:48; Start 06/20/18 at 17:00; Stop 06/23/18 at 14:07; Status DC Info (FLU VACCINE per PROTOCOL) 1 ea PRN 1X PRN MC PER PROTOCOL; Start at 21:00; Stop 06/20/18 at 21:00; Status DC Influenza Virus Vaccine (Afluria Trivalent Syringe) 0.5 ml ONCE ONCE VAX IM ; Start 06/20/18 at 21:00; Stop 06/20/18 at 21:16; Status DC Influenza Virus Vaccine (Afluria Trivalent Syringe) 0.5 ml ONCE ONCE VAX IM Last administered on 06/22/18at 09:00; Start 06/22/18 at 09:00; Stop at 09:01; Status DC Meclizine HCl (Antivert) 25 mg PRN TID PRN PO DIZZINESS; Start 06/21/18 at 15: 30 Fluvoxamine Maleate (Luvox) 25 mg QHS PO Last administered on 06/23/18at 19:56; Start 06/21/18 at 21:00; Stop 06/24/18 at 03:10; Status DC Pantoprazole Sodium (Protonix) 40 mg PRN DAILY PRN PO HEARTBURN / GAS; Start at 09:00 Fluvoxamine Maleate (Luvox) 50 mg QHS PO Last administered on 06/26/18at 21:02; Start 06/24/18 at 21:00; Stop 06/27/18 at 19:00; Status DC Dipyridamole/ Aspirin (Aggrenox) 1 cap BID PO Last administered on 07/01/18 20 :25; Start 06/24/18 at 21:00 Fluvoxamine Maleate (Luvox) 75 mg QHS PO ; Start 06/25/18 at 21:00; Stop at 21:00; Status DC Fluvoxamine Maleate (Luvox) 75 mg QHS PO Last administered on 06/30/18 20:26; Start 06/27/18 at 21:00; Stop 06/30/18 at 23:24; Status DC Risperidone (RisperDAL) 0.25 mg HS PO Last administered on 07/01/18 20:25; Start 06/28/18 at 21:00 Vitamin D (Vitamin D3) 50,000 unit WEEKLY PO ; Start 06/28/18 at 18:00; Stop at 18:07; Status DC Vitamin D (Vitamin D3) 50,000 unit WEEKLY PO Last administered on 06/28/18at 21: 20; Start 06/28/18 at 20:00 Fluvoxamine Maleate (Luvox) 100 mg QHS PO Last administered on 07/01/18at 20:27 ; Start 07/01/18 at 21:00 Benzocaine (Ora-Jel Maximum) 1 paula PRN QID PRN TP ORAL PAIN; Start 07/01/18 at 11:30 Lisinopril (Prinivil) 10 mg DAILY PO ; Start 07/02/18 at 09:00 Trazodone HCl (Desyrel) 50 mg QHS PO Last administered on 07/01/18at 20:27; Start 07/01/18 at 21:00 Trazodone HCl (Desyrel) 50 mg QHS PRN PO INSOMNIA Last administered on at 21:51; Start 07/01/18 at 18:00 Active Scripts Active Reported Zolpidem Tartrate 5 Mg Tablet 5 Mg PO HS PRN Protonix (Pantoprazole Sodium) 40 Mg Tablet.dr 40 Mg PO BIDWMEALS NICODERM CQ 14mg (Nicotine) 1 Each Patch.td24 1 Patch TD DAILY Meclizine Hcl 25 Mg Tablet 25 Mg PO TID Lisinopril 20 Mg Tablet 20 Mg PO DAILY Heparin 5,000 Unit/5 ml-Ns (Heparin Sod,Porcine/0.9 % NaCl) 5,000 Unit/5 Ml Syringe 5,000 Unit IV Q12HR Aggrenox 25 Mg-200 Mg Capsule (Aspirin/Dipyridamole) 1 Each Cpmp.12hr 1 Cap PO BID Imyhevetlp-Lvg-Qlkrlwzp Cap (Butalbital/Aspirin/Caffeine) 1 Each Capsule 1 Each PO PRN Q6HRS PRN Atorvastatin Calcium 20 Mg Tablet 20 Mg PO QHS I have reviewed the current psychotropics carefully including drug interactions. Risk benefit ratio favors no change other than as noted in my dictated progress note. Diagnosis: Problems: (1) Major depression with psychotic features (2) Anxiety disorder (3) Impulse control disorder (4) Obsessive compulsive disorder AIME LACKEY MD Jul 01, 2018 22:27
[2018-07-01] MEDS: ZOLPIDEM 5 MG TABLET. PO PRN (22:42)
[2018-07-02 06:13] VITALS: BP 94/65
[2018-07-02] MEDS: ASPIRIN/DIPYRIDAMOLE 200/25MG CAP.ER.12H PO SCH ×2 (08:19→21:38)
[2018-07-02 09:10] VITALS: BP 99/60
[2018-07-02] MEDS: LISINOPRIL 10 MG TABLET PO SCH (11:00)
[2018-07-02 16:27] VITALS: BP 126/73
[2018-07-02] MEDS: traZODone 50 MG TABLET. PO SCH (21:38)
[2018-07-02] MEDS: ATORVASTATIN CALCIUM 20 MG TABLET PO SCH (21:38)
[2018-07-02] MEDS: risperiDONE 0.25 MG TABLET. PO SCH (21:38)
--- NOTE | 2018-07-02 22:19 | PN ---
DATE: 07/01/2018 PSYCHIATRIC PROGRESS NOTE This late entry 07/01/2017 covers elements not covered in my initial note. SUBJECTIVE: Met with the patient in the evening in her room at length. The patient had a difficult day, per nursing report. She slept 3-1/2 hours previous night. Nursing staff is instituting behavior modification to help. DICTATION ENDS HERE AIME LACKEY MD DR: DEBRA/alisha JOB#: [id number] / [id number]
--- NOTE | 2018-07-02 22:24 | PN ---
DATE: 07/01/2018 PSYCHIATRIC PROGRESS NOTE This late entry 07/01/2018 covers elements not covered in my initial note. SUBJECTIVE: Met with the patient in the evening at some length in her room. The patient slept 3-1/2 hours previous night. Nursing staff is instituting behavior modification and have removed the ice cup that she was obsessed with. She has been complaining of being more anxious and agitated since then as I met with her, but in fact, seems to be responding to the behavioral modification. She is eating 50% of her meals, frequently wanting extra puddings. REVIEW OF SYSTEMS: She has vague somatic symptoms, impaired ambulation with walker; complains of ear discomfort, wanting to plug it with tissues. Part of her obsessiveness pain, complains of pain in her mouth and wanting the ice for this. No CV, , pulmonary, eye system symptoms on review. MENTAL STATUS EXAM: Reasonably oriented. Speech is coherent, has some latency. Abstraction is fair, computation impaired, language function intact, attention span short. Mood and affect are somewhat obsessive, anxious, at times withdrawn. LABORATORY DATA: Reviewed. IMPRESSION: Unchanged from initial note. PLAN: Start trazodone 50 mg at bedtime schedule, may repeat x 1 for insomnia. Rest is unchanged. Luvox has been increased to 100 mg a day, Risperdal maintain at 0.25 mg at bedtime. MAN Alexander LACKEY MD DR: DEBRA/alisha JOB#: [id number] / [id number]
[2018-07-02] MEDS: ZOLPIDEM 5 MG TABLET. PO PRN (22:32)
--- NOTE | 2018-07-02 22:32 | PDOC ---
Exam Note: Santosh Note: Please also refer to the separate dictated note~for this date of service dictated separately.~Patient seen individually. Discussed the patient with Nursing staff reviewed the chart.~Reviewed interim history and current functioning. Reviewed vital signs,~Labs/ Radiology~and current medications noted below. Continue current treatment with the changes noted in the dictated addendum note Assessment: Vital Signs: Vital Signs Date Time Temp Pulse Resp B/P (MAP) Pulse Ox O2 Delivery O2 Flow Rate FiO2 07/02/18 16:27 98.2 116 18 126/73 (90) 95 07/02/18 09:10 Room Air I&O Intake and Output 07/02/18 06:59 Intake Total 240 ml Balance 240 ml Intake Oral 240 ml Current Medications: Meds: Current Medications Acetaminophen (Tylenol) 650 mg PRN Q6HRS PRN PO PAIN / TEMP Last administered on 07/01/18 00:14; Start 06/20/18 at 15:30 Multi-Ingredient Ointment (Analgesic [place]) 1 paula PRN QID PRN TP MUSCLE PAIN Last administered on 07/01/18 21:20; Start 06/20/18 at 15:30 Al Hydroxide/Mg Hydroxide (Mylanta Plus Xs) 15 ml PRN AFTMEALHC PRN PO DYSPEPSIA Last administered on 06/25/18 08:21; Start 06/20/18 at 15:30 Magnesium Hydroxide (Milk Of Magnesia) 2,400 mg PRN QHS PRN PO CONSTIPATION; Start 06/20/18 at 15:30 Nicotine (Nicoderm Cq 21mg) 1 patch DAILY TD Last administered on 06/22/18 09: 13; Start 06/21/18 at 09:00; Stop 06/26/18 at 18:55; Status DC Heparin Sodium (Porcine) (Heparin Sodium) 5,000 unit Q12HR SQ ; Start 06/20/18 at 21:00; Stop 06/21/18 at 15:19; Status DC Atorvastatin Calcium (Lipitor) 20 mg QHS PO Last administered on 07/02/18at 21: 38; Start 06/20/18 at 21:00 Lisinopril (Prinivil) 20 mg DAILY PO Last administered on 06/28/18 09:13; Start 06/21/18 at 09:00; Stop 07/01/18 at 13:55; Status DC Zolpidem Tartrate (Ambien) 5 mg PRN QHS PRN PO INSOMNIA Last administered on at 22:42; Start 06/20/18 at 16:15 Acetaminophen/ Butalbital/ Caffeine (Fioricet) 1 tab PRN Q6HRS PRN PO MIGRAINE HEADACHE; Start 06/20/18 at 16:45 Meclizine HCl (Antivert) 25 mg TID PO Last administered on 06/21/18at 07:51; Start 06/20/18 at 21:00; Stop 06/21/18 at 15:20; Status DC Non-Formulary Medication (Nicotine (NICODERM CQ 14mg)) 1 patch DAILY TD ; Start 06/21/18 at 09:00; Stop 06/21/18 at 09:00; Status DC Pantoprazole Sodium (Protonix) 40 mg BIDWMEALS PO Last administered on at 08:48; Start 06/20/18 at 17:00; Stop 06/23/18 at 14:07; Status DC Info (FLU VACCINE per PROTOCOL) 1 ea PRN 1X PRN MC PER PROTOCOL; Start at 21:00; Stop 06/20/18 at 21:00; Status DC Influenza Virus Vaccine (Afluria Trivalent Syringe) 0.5 ml ONCE ONCE VAX IM ; Start 06/20/18 at 21:00; Stop 06/20/18 at 21:16; Status DC Influenza Virus Vaccine (Afluria Trivalent Syringe) 0.5 ml ONCE ONCE VAX IM Last administered on 06/22/18at 09:00; Start 06/22/18 at 09:00; Stop at 09:01; Status DC Meclizine HCl (Antivert) 25 mg PRN TID PRN PO DIZZINESS; Start 06/21/18 at 15: 30 Fluvoxamine Maleate (Luvox) 25 mg QHS PO Last administered on 06/23/18at 19:56; Start 06/21/18 at 21:00; Stop 06/24/18 at 03:10; Status DC Pantoprazole Sodium (Protonix) 40 mg PRN DAILY PRN PO HEARTBURN / GAS; Start at 09:00 Fluvoxamine Maleate (Luvox) 50 mg QHS PO Last administered on 06/26/18at 21:02; Start 06/24/18 at 21:00; Stop 06/27/18 at 19:00; Status DC Dipyridamole/ Aspirin (Aggrenox) 1 cap BID PO Last administered on 07/02/18at 21 :38; Start 06/24/18 at 21:00 Fluvoxamine Maleate (Luvox) 75 mg QHS PO ; Start 06/25/18 at 21:00; Stop at 21:00; Status DC Fluvoxamine Maleate (Luvox) 75 mg QHS PO Last administered on 06/30/18 20:26; Start 06/27/18 at 21:00; Stop 06/30/18 at 23:24; Status DC Risperidone (RisperDAL) 0.25 mg HS PO Last administered on 07/02/18 21:38; Start 06/28/18 at 21:00 Vitamin D (Vitamin D3) 50,000 unit WEEKLY PO ; Start 06/28/18 at 18:00; Stop at 18:07; Status DC Vitamin D (Vitamin D3) 50,000 unit WEEKLY PO Last administered on 06/28/18 21: 20; Start 06/28/18 at 20:00 Fluvoxamine Maleate (Luvox) 100 mg QHS PO Last administered on 07/02/18 21:38 ; Start 07/01/18 at 21:00 Benzocaine (Ora-Jel Maximum) 1 paula PRN QID PRN TP ORAL PAIN; Start 07/01/18 at 11:30 Lisinopril (Prinivil) 10 mg DAILY PO ; Start 07/02/18 at 09:00 Trazodone HCl (Desyrel) 50 mg QHS PO Last administered on 07/02/18 21:38; Start 07/01/18 at 21:00 Trazodone HCl (Desyrel) 50 mg QHS PRN PO INSOMNIA Last administered on at 21:51; Start 07/01/18 at 18:00 Active Scripts Active Reported Zolpidem Tartrate 5 Mg Tablet 5 Mg PO HS PRN Protonix (Pantoprazole Sodium) 40 Mg Tablet.dr 40 Mg PO BIDWMEALS NICODERM CQ 14mg (Nicotine) 1 Each Patch.td24 1 Patch TD DAILY Meclizine Hcl 25 Mg Tablet 25 Mg PO TID Lisinopril 20 Mg Tablet 20 Mg PO DAILY Heparin 5,000 Unit/5 ml-Ns (Heparin Sod,Porcine/0.9 % NaCl) 5,000 Unit/5 Ml Syringe 5,000 Unit IV Q12HR Aggrenox 25 Mg-200 Mg Capsule (Aspirin/Dipyridamole) 1 Each Cpmp.12hr 1 Cap PO BID Abkjalzupp-Dyv-Ilzkngly Cap (Butalbital/Aspirin/Caffeine) 1 Each Capsule 1 Each PO PRN Q6HRS PRN Atorvastatin Calcium 20 Mg Tablet 20 Mg PO QHS I have reviewed the current psychotropics carefully including drug interactions. Risk benefit ratio favors no change other than as noted in my dictated progress note. Diagnosis: Problems: (1) Major depression with psychotic features (2) Anxiety disorder (3) Impulse control disorder (4) Obsessive compulsive disorder AIME LACKEY MD Jul 02, 2018 22:32
[2018-07-03 06:09] VITALS: BP 119/46
[2018-07-03] MEDS: ASPIRIN/DIPYRIDAMOLE 200/25MG CAP.ER.12H PO SCH ×2 (08:58→21:04)
[2018-07-03] MEDS: LISINOPRIL 10 MG TABLET PO SCH (09:00)
[2018-07-03 16:07] VITALS: BP 107/58
[2018-07-03] MEDS: risperiDONE 0.25 MG TABLET. PO SCH (21:04)
[2018-07-03] MEDS: ZOLPIDEM 5 MG TABLET. PO PRN (21:04)
[2018-07-03] MEDS: ATORVASTATIN CALCIUM 20 MG TABLET PO SCH (21:04)
--- NOTE | 2018-07-03 21:43 | PN ---
DATE: 07/02/2018 PSYCHIATRIC PROGRESS NOTE This late entry 07/02/2018 covers elements not covered in my initial note. SUBJECTIVE: I met with the patient at length in her room. She is fixated on wanting extra desserts, processed this with her. She slept 4-3/4 hours previous night. Early in the morning, she had many somatic complaints as behavior modification is being instituted her. Ice has been curtailed and she has been encouraged to eat across all food items. She did receive Ambien and trazodone at night. She has not been stuffing her ear with gauze and has been complaining to the nursing staff, "I will dehydrated." REVIEW OF SYSTEMS: Ambulation impaired with walker. No CV, , pulmonary, eye system symptoms on review, vague somatic symptoms. MENTAL STATUS EXAM: Oriented reasonably. Speech coherent, has some latency. Abstraction fair, computation impaired, language function intact, attention span short. Mood and affect remains somewhat anxious, labile, withdrawn at times. LABORATORY DATA: Reviewed. IMPRESSION: Unchanged from initial note. PLAN: No change from initial note. MAN Alexander LACKEY MD DR: DEBRA/alisha JOB#: [id number] / [id number]
--- NOTE | 2018-07-03 22:37 | PDOC ---
Exam Note: Santosh Note: Please also refer to the separate dictated note~for this date of service dictated separately.~Patient seen individually. Discussed the patient with Nursing staff reviewed the chart.~Reviewed interim history and current functioning. Reviewed vital signs,~Labs/ Radiology~and current medications noted below. Continue current treatment with the changes noted in the dictated addendum note Assessment: Vital Signs: Vital Signs Date Time Temp Pulse Resp B/P (MAP) Pulse Ox O2 Delivery O2 Flow Rate FiO2 07/03/18 16:07 98.0 98 18 107/58 (74) 95 07/02/18 09:10 Room Air I&O Intake and Output 07/03/18 06:59 Intake Total 1320 ml Balance 1320 ml Intake Oral 1320 ml Current Medications: Meds: Current Medications Acetaminophen (Tylenol) 650 mg PRN Q6HRS PRN PO PAIN / TEMP Last administered on 07/01/18 00:14; Start 06/20/18 at 15:30 Multi-Ingredient Ointment (Analgesic [place]) 1 paula PRN QID PRN TP MUSCLE PAIN Last administered on 07/01/18 21:20; Start 06/20/18 at 15:30 Al Hydroxide/Mg Hydroxide (Mylanta Plus Xs) 15 ml PRN AFTMEALHC PRN PO DYSPEPSIA Last administered on 06/25/18 08:21; Start 06/20/18 at 15:30 Magnesium Hydroxide (Milk Of Magnesia) 2,400 mg PRN QHS PRN PO CONSTIPATION; Start 06/20/18 at 15:30 Nicotine (Nicoderm Cq 21mg) 1 patch DAILY TD Last administered on 06/22/18 09: 13; Start 06/21/18 at 09:00; Stop 06/26/18 at 18:55; Status DC Heparin Sodium (Porcine) (Heparin Sodium) 5,000 unit Q12HR SQ ; Start 06/20/18 at 21:00; Stop 06/21/18 at 15:19; Status DC Atorvastatin Calcium (Lipitor) 20 mg QHS PO Last administered on 07/03/18 21: 04; Start 06/20/18 at 21:00 Lisinopril (Prinivil) 20 mg DAILY PO Last administered on 06/28/18 09:13; Start 06/21/18 at 09:00; Stop 07/01/18 at 13:55; Status DC Zolpidem Tartrate (Ambien) 5 mg PRN QHS PRN PO INSOMNIA Last administered on at 21:04; Start 06/20/18 at 16:15 Acetaminophen/ Butalbital/ Caffeine (Fioricet) 1 tab PRN Q6HRS PRN PO MIGRAINE HEADACHE; Start 06/20/18 at 16:45 Meclizine HCl (Antivert) 25 mg TID PO Last administered on 06/21/18at 07:51; Start 06/20/18 at 21:00; Stop 06/21/18 at 15:20; Status DC Non-Formulary Medication (Nicotine (NICODERM CQ 14mg)) 1 patch DAILY TD ; Start 06/21/18 at 09:00; Stop 06/21/18 at 09:00; Status DC Pantoprazole Sodium (Protonix) 40 mg BIDWMEALS PO Last administered on at 08:48; Start 06/20/18 at 17:00; Stop 06/23/18 at 14:07; Status DC Info (FLU VACCINE per PROTOCOL) 1 ea PRN 1X PRN MC PER PROTOCOL; Start at 21:00; Stop 06/20/18 at 21:00; Status DC Influenza Virus Vaccine (Afluria Trivalent Syringe) 0.5 ml ONCE ONCE VAX IM ; Start 06/20/18 at 21:00; Stop 06/20/18 at 21:16; Status DC Influenza Virus Vaccine (Afluria Trivalent Syringe) 0.5 ml ONCE ONCE VAX IM Last administered on 06/22/18at 09:00; Start 06/22/18 at 09:00; Stop at 09:01; Status DC Meclizine HCl (Antivert) 25 mg PRN TID PRN PO DIZZINESS; Start 06/21/18 at 15: 30 Fluvoxamine Maleate (Luvox) 25 mg QHS PO Last administered on 06/23/18at 19:56; Start 06/21/18 at 21:00; Stop 06/24/18 at 03:10; Status DC Pantoprazole Sodium (Protonix) 40 mg PRN DAILY PRN PO HEARTBURN / GAS; Start at 09:00 Fluvoxamine Maleate (Luvox) 50 mg QHS PO Last administered on 06/26/18at 21:02; Start 06/24/18 at 21:00; Stop 06/27/18 at 19:00; Status DC Dipyridamole/ Aspirin (Aggrenox) 1 cap BID PO Last administered on 07/03/18at 21 :04; Start 06/24/18 at 21:00 Fluvoxamine Maleate (Luvox) 75 mg QHS PO ; Start 06/25/18 at 21:00; Stop at 21:00; Status DC Fluvoxamine Maleate (Luvox) 75 mg QHS PO Last administered on 06/30/18at 20:26; Start 06/27/18 at 21:00; Stop 06/30/18 at 23:24; Status DC Risperidone (RisperDAL) 0.25 mg HS PO Last administered on 07/03/18at 21:04; Start 06/28/18 at 21:00 Vitamin D (Vitamin D3) 50,000 unit WEEKLY PO ; Start 06/28/18 at 18:00; Stop at 18:07; Status DC Vitamin D (Vitamin D3) 50,000 unit WEEKLY PO Last administered on 06/28/18at 21: 20; Start 06/28/18 at 20:00 Fluvoxamine Maleate (Luvox) 100 mg QHS PO Last administered on 07/03/18at 21:04 ; Start 07/01/18 at 21:00 Benzocaine (Ora-Jel Maximum) 1 paula PRN QID PRN TP ORAL PAIN; Start 07/01/18 at 11:30 Lisinopril (Prinivil) 10 mg DAILY PO ; Start 07/02/18 at 09:00 Trazodone HCl (Desyrel) 50 mg QHS PO Last administered on 07/02/18at 21:38; Start 07/01/18 at 21:00; Stop 07/03/18 at 18:36; Status DC Trazodone HCl (Desyrel) 50 mg QHS PRN PO INSOMNIA Last administered on at 21:51; Start 07/01/18 at 18:00; Stop 07/03/18 at 18:36; Status DC Active Scripts Active Reported Zolpidem Tartrate 5 Mg Tablet 5 Mg PO HS PRN Protonix (Pantoprazole Sodium) 40 Mg Tablet.dr 40 Mg PO BIDWMEALS NICODERM CQ 14mg (Nicotine) 1 Each Patch.td24 1 Patch TD DAILY Meclizine Hcl 25 Mg Tablet 25 Mg PO TID Lisinopril 20 Mg Tablet 20 Mg PO DAILY Heparin 5,000 Unit/5 ml-Ns (Heparin Sod,Porcine/0.9 % NaCl) 5,000 Unit/5 Ml Syringe 5,000 Unit IV Q12HR Aggrenox 25 Mg-200 Mg Capsule (Aspirin/Dipyridamole) 1 Each Cpmp.12hr 1 Cap PO BID Qodijsijah-Ljl-Aylufjim Cap (Butalbital/Aspirin/Caffeine) 1 Each Capsule 1 Each PO PRN Q6HRS PRN Atorvastatin Calcium 20 Mg Tablet 20 Mg PO QHS I have reviewed the current psychotropics carefully including drug interactions. Risk benefit ratio favors no change other than as noted in my dictated progress note. Diagnosis: Problems: (1) Major depression with psychotic features (2) Anxiety disorder (3) Impulse control disorder (4) Obsessive compulsive disorder AIME LACKEY MD Jul 03, 2018 22:37
[2018-07-04 05:52] VITALS: BP 144/60
[2018-07-04] MEDS: LISINOPRIL 10 MG TABLET PO SCH (08:26)
[2018-07-04] MEDS: ASPIRIN/DIPYRIDAMOLE 200/25MG CAP.ER.12H PO SCH ×2 (08:26→20:40)
[2018-07-04 16:31] VITALS: BP 112/58
[2018-07-04] MEDS: risperiDONE 0.25 MG TABLET. PO SCH (20:40)
[2018-07-04] MEDS: ATORVASTATIN CALCIUM 20 MG TABLET PO SCH (20:40)
--- NOTE | 2018-07-04 22:33 | PDOC ---
Exam Note: Santosh Note: Please also refer to the separate dictated note~for this date of service dictated separately.~Patient seen individually. Discussed the patient with Nursing staff reviewed the chart.~Reviewed interim history and current functioning. Reviewed vital signs,~Labs/ Radiology~and current medications noted below. Continue current treatment with the changes noted in the dictated addendum note Assessment: Vital Signs: Vital Signs Date Time Temp Pulse Resp B/P (MAP) Pulse Ox O2 Delivery O2 Flow Rate FiO2 07/04/18 16:31 97.8 54 18 112/58 (76) 96 Room Air I&O Intake and Output 07/04/18 07:00 Intake Total 1320 ml Balance 1320 ml Intake Oral 1320 ml # Voids 1 Current Medications: Meds: Current Medications Acetaminophen (Tylenol) 650 mg PRN Q6HRS PRN PO PAIN / TEMP Last administered on 07/01/18 00:14; Start 06/20/18 at 15:30 Multi-Ingredient Ointment (Analgesic [place]) 1 paula PRN QID PRN TP MUSCLE PAIN Last administered on 07/01/18 21:20; Start 06/20/18 at 15:30 Al Hydroxide/Mg Hydroxide (Mylanta Plus Xs) 15 ml PRN AFTMEALHC PRN PO DYSPEPSIA Last administered on 06/25/18 08:21; Start 06/20/18 at 15:30 Magnesium Hydroxide (Milk Of Magnesia) 2,400 mg PRN QHS PRN PO CONSTIPATION; Start 06/20/18 at 15:30 Nicotine (Nicoderm Cq 21mg) 1 patch DAILY TD Last administered on 06/22/18 09: 13; Start 06/21/18 at 09:00; Stop 06/26/18 at 18:55; Status DC Heparin Sodium (Porcine) (Heparin Sodium) 5,000 unit Q12HR SQ ; Start 06/20/18 at 21:00; Stop 06/21/18 at 15:19; Status DC Atorvastatin Calcium (Lipitor) 20 mg QHS PO Last administered on 07/04/18at 20: 40; Start 06/20/18 at 21:00 Lisinopril (Prinivil) 20 mg DAILY PO Last administered on 06/28/18 09:13; Start 06/21/18 at 09:00; Stop 07/01/18 at 13:55; Status DC Zolpidem Tartrate (Ambien) 5 mg PRN QHS PRN PO INSOMNIA Last administered on at 21:04; Start 06/20/18 at 16:15 Acetaminophen/ Butalbital/ Caffeine (Fioricet) 1 tab PRN Q6HRS PRN PO MIGRAINE HEADACHE; Start 06/20/18 at 16:45 Meclizine HCl (Antivert) 25 mg TID PO Last administered on 06/21/18at 07:51; Start 06/20/18 at 21:00; Stop 06/21/18 at 15:20; Status DC Non-Formulary Medication (Nicotine (NICODERM CQ 14mg)) 1 patch DAILY TD ; Start 06/21/18 at 09:00; Stop 06/21/18 at 09:00; Status DC Pantoprazole Sodium (Protonix) 40 mg BIDWMEALS PO Last administered on at 08:48; Start 06/20/18 at 17:00; Stop 06/23/18 at 14:07; Status DC Info (FLU VACCINE per PROTOCOL) 1 ea PRN 1X PRN MC PER PROTOCOL; Start at 21:00; Stop 06/20/18 at 21:00; Status DC Influenza Virus Vaccine (Afluria Trivalent Syringe) 0.5 ml ONCE ONCE VAX IM ; Start 06/20/18 at 21:00; Stop 06/20/18 at 21:16; Status DC Influenza Virus Vaccine (Afluria Trivalent Syringe) 0.5 ml ONCE ONCE VAX IM Last administered on 06/22/18at 09:00; Start 06/22/18 at 09:00; Stop at 09:01; Status DC Meclizine HCl (Antivert) 25 mg PRN TID PRN PO DIZZINESS; Start 06/21/18 at 15: 30 Fluvoxamine Maleate (Luvox) 25 mg QHS PO Last administered on 06/23/18at 19:56; Start 06/21/18 at 21:00; Stop 06/24/18 at 03:10; Status DC Pantoprazole Sodium (Protonix) 40 mg PRN DAILY PRN PO HEARTBURN / GAS; Start at 09:00 Fluvoxamine Maleate (Luvox) 50 mg QHS PO Last administered on 06/26/18 21:02; Start 06/24/18 at 21:00; Stop 06/27/18 at 19:00; Status DC Dipyridamole/ Aspirin (Aggrenox) 1 cap BID PO Last administered on 07/04/18 20 :40; Start 06/24/18 at 21:00 Fluvoxamine Maleate (Luvox) 75 mg QHS PO ; Start 06/25/18 at 21:00; Stop at 21:00; Status DC Fluvoxamine Maleate (Luvox) 75 mg QHS PO Last administered on 06/30/18 20:26; Start 06/27/18 at 21:00; Stop 06/30/18 at 23:24; Status DC Risperidone (RisperDAL) 0.25 mg HS PO Last administered on 07/04/18 20:40; Start 06/28/18 at 21:00 Vitamin D (Vitamin D3) 50,000 unit WEEKLY PO ; Start 06/28/18 at 18:00; Stop at 18:07; Status DC Vitamin D (Vitamin D3) 50,000 unit WEEKLY PO Last administered on 06/28/18 21: 20; Start 06/28/18 at 20:00 Fluvoxamine Maleate (Luvox) 100 mg QHS PO Last administered on 07/04/18at 20:40 ; Start 07/01/18 at 21:00 Benzocaine (Ora-Jel Maximum) 1 paula PRN QID PRN TP ORAL PAIN; Start 07/01/18 at 11:30 Lisinopril (Prinivil) 10 mg DAILY PO Last administered on 07/04/18 08:26; Start 07/02/18 at 09:00 Trazodone HCl (Desyrel) 50 mg QHS PO Last administered on 07/02/18at 21:38; Start 07/01/18 at 21:00; Stop 07/03/18 at 18:36; Status DC Trazodone HCl (Desyrel) 50 mg QHS PRN PO INSOMNIA Last administered on at 21:51; Start 07/01/18 at 18:00; Stop 07/03/18 at 18:36; Status DC Active Scripts Active Reported Zolpidem Tartrate 5 Mg Tablet 5 Mg PO HS PRN Protonix (Pantoprazole Sodium) 40 Mg Tablet.dr 40 Mg PO BIDWMEALS NICODERM CQ 14mg (Nicotine) 1 Each Patch.td24 1 Patch TD DAILY Meclizine Hcl 25 Mg Tablet 25 Mg PO TID Lisinopril 20 Mg Tablet 20 Mg PO DAILY Heparin 5,000 Unit/5 ml-Ns (Heparin Sod,Porcine/0.9 % NaCl) 5,000 Unit/5 Ml Syringe 5,000 Unit IV Q12HR Aggrenox 25 Mg-200 Mg Capsule (Aspirin/Dipyridamole) 1 Each Cpmp.12hr 1 Cap PO BID Yuhguetune-Nvb-Uknteifp Cap (Butalbital/Aspirin/Caffeine) 1 Each Capsule 1 Each PO PRN Q6HRS PRN Atorvastatin Calcium 20 Mg Tablet 20 Mg PO QHS I have reviewed the current psychotropics carefully including drug interactions. Risk benefit ratio favors no change other than as noted in my dictated progress note. Diagnosis: Problems: (1) Major depression with psychotic features (2) Anxiety disorder (3) Impulse control disorder (4) Obsessive compulsive disorder AIME LACKEY MD Jul 04, 2018 22:33
[2018-07-04] MEDS: ZOLPIDEM 5 MG TABLET. PO PRN (22:46)
[2018-07-05 06:19] VITALS: BP 122/62
[2018-07-05] MEDS: ASPIRIN/DIPYRIDAMOLE 200/25MG CAP.ER.12H PO SCH ×2 (07:38→20:04)
[2018-07-05] MEDS: LISINOPRIL 10 MG TABLET PO SCH (07:39)
[2018-07-05] MEDS: CHOLECALCIFEROL (VITAMIN D3) 50,000 UNIT CAPSULE PO SCH (07:39)
[2018-07-05 15:53] VITALS: BP 147/57
[2018-07-05] MEDS: ATORVASTATIN CALCIUM 20 MG TABLET PO SCH (20:04)
[2018-07-05] MEDS: risperiDONE 0.25 MG TABLET. PO SCH (20:04)
[2018-07-05] MEDS: ZOLPIDEM 5 MG TABLET. PO PRN (21:50)
--- NOTE | 2018-07-05 21:54 | PDOC ---
Exam Note: Santosh Note: Please also refer to the separate dictated note~for this date of service dictated separately.~Patient seen individually. Discussed the patient with Nursing staff reviewed the chart.~Reviewed interim history and current functioning. Reviewed vital signs,~Labs/ Radiology~and current medications noted below. Continue current treatment with the changes noted in the dictated addendum note Assessment: Vital Signs: Vital Signs Date Time Temp Pulse Resp B/P (MAP) Pulse Ox O2 Delivery O2 Flow Rate FiO2 07/05/18 15:53 98.2 98 20 147/57 (87) 95 Room Air I&O Intake and Output 07/05/18 06:59 Intake Total 720 ml Balance 720 ml Intake Oral 720 ml # Voids 1 Current Medications: Meds: Current Medications Acetaminophen (Tylenol) 650 mg PRN Q6HRS PRN PO PAIN / TEMP Last administered on 07/01/18 00:14; Start 06/20/18 at 15:30 Multi-Ingredient Ointment (Analgesic [place]) 1 paula PRN QID PRN TP MUSCLE PAIN Last administered on 07/01/18at 21:20; Start 06/20/18 at 15:30 Al Hydroxide/Mg Hydroxide (Mylanta Plus Xs) 15 ml PRN AFTMEALHC PRN PO DYSPEPSIA Last administered on 06/25/18 08:21; Start 06/20/18 at 15:30 Magnesium Hydroxide (Milk Of Magnesia) 2,400 mg PRN QHS PRN PO CONSTIPATION; Start 06/20/18 at 15:30 Nicotine (Nicoderm Cq 21mg) 1 patch DAILY TD Last administered on 06/22/18 09: 13; Start 06/21/18 at 09:00; Stop 06/26/18 at 18:55; Status DC Heparin Sodium (Porcine) (Heparin Sodium) 5,000 unit Q12HR SQ ; Start 06/20/18 at 21:00; Stop 06/21/18 at 15:19; Status DC Atorvastatin Calcium (Lipitor) 20 mg QHS PO Last administered on 07/05/18 20:04 ; Start 06/20/18 at 21:00 Lisinopril (Prinivil) 20 mg DAILY PO Last administered on 06/28/18 09:13; Start 06/21/18 at 09:00; Stop 07/01/18 at 13:55; Status DC Zolpidem Tartrate (Ambien) 5 mg PRN QHS PRN PO INSOMNIA Last administered on 07/05/18at 21:50; Start 06/20/18 at 16:15 Acetaminophen/ Butalbital/ Caffeine (Fioricet) 1 tab PRN Q6HRS PRN PO MIGRAINE HEADACHE; Start 06/20/18 at 16:45 Meclizine HCl (Antivert) 25 mg TID PO Last administered on 06/21/18at 07:51; Start 06/20/18 at 21:00; Stop 06/21/18 at 15:20; Status DC Non-Formulary Medication (Nicotine (NICODERM CQ 14mg)) 1 patch DAILY TD ; Start 06/21/18 at 09:00; Stop 06/21/18 at 09:00; Status DC Pantoprazole Sodium (Protonix) 40 mg BIDWMEALS PO Last administered on at 08:48; Start 06/20/18 at 17:00; Stop 06/23/18 at 14:07; Status DC Info (FLU VACCINE per PROTOCOL) 1 ea PRN 1X PRN MC PER PROTOCOL; Start at 21:00; Stop 06/20/18 at 21:00; Status DC Influenza Virus Vaccine (Afluria Trivalent Syringe) 0.5 ml ONCE ONCE VAX IM ; Start 06/20/18 at 21:00; Stop 06/20/18 at 21:16; Status DC Influenza Virus Vaccine (Afluria Trivalent Syringe) 0.5 ml ONCE ONCE VAX IM Last administered on 06/22/18at 09:00; Start 06/22/18 at 09:00; Stop at 09:01; Status DC Meclizine HCl (Antivert) 25 mg PRN TID PRN PO DIZZINESS; Start 06/21/18 at 15: 30 Fluvoxamine Maleate (Luvox) 25 mg QHS PO Last administered on 06/23/18at 19:56; Start 06/21/18 at 21:00; Stop 06/24/18 at 03:10; Status DC Pantoprazole Sodium (Protonix) 40 mg PRN DAILY PRN PO HEARTBURN / GAS; Start at 09:00 Fluvoxamine Maleate (Luvox) 50 mg QHS PO Last administered on 06/26/18 21:02; Start 06/24/18 at 21:00; Stop 06/27/18 at 19:00; Status DC Dipyridamole/ Aspirin (Aggrenox) 1 cap BID PO Last administered on 07/05/18 20: 04; Start 06/24/18 at 21:00 Fluvoxamine Maleate (Luvox) 75 mg QHS PO ; Start 06/25/18 at 21:00; Stop at 21:00; Status DC Fluvoxamine Maleate (Luvox) 75 mg QHS PO Last administered on 06/30/18 20:26; Start 06/27/18 at 21:00; Stop 06/30/18 at 23:24; Status DC Risperidone (RisperDAL) 0.25 mg HS PO Last administered on 07/05/18 20:04; Start 06/28/18 at 21:00 Vitamin D (Vitamin D3) 50,000 unit WEEKLY PO ; Start 06/28/18 at 18:00; Stop at 18:07; Status DC Vitamin D (Vitamin D3) 50,000 unit WEEKLY PO Last administered on 07/05/18 07: 39; Start 06/28/18 at 20:00 Fluvoxamine Maleate (Luvox) 100 mg QHS PO Last administered on 07/05/18 20:04; Start 07/01/18 at 21:00 Benzocaine (Ora-Jel Maximum) 1 paula PRN QID PRN TP ORAL PAIN; Start 07/01/18 at 11:30 Lisinopril (Prinivil) 10 mg DAILY PO Last administered on 07/05/18at 07:39; Start 07/02/18 at 09:00 Trazodone HCl (Desyrel) 50 mg QHS PO Last administered on 07/02/18at 21:38; Start 07/01/18 at 21:00; Stop 07/03/18 at 18:36; Status DC Trazodone HCl (Desyrel) 50 mg QHS PRN PO INSOMNIA Last administered on at 21:51; Start 07/01/18 at 18:00; Stop 07/03/18 at 18:36; Status DC Active Scripts Active Reported Zolpidem Tartrate 5 Mg Tablet 5 Mg PO HS PRN Protonix (Pantoprazole Sodium) 40 Mg Tablet.dr 40 Mg PO BIDWMEALS NICODERM CQ 14mg (Nicotine) 1 Each Patch.td24 1 Patch TD DAILY Meclizine Hcl 25 Mg Tablet 25 Mg PO TID Lisinopril 20 Mg Tablet 20 Mg PO DAILY Heparin 5,000 Unit/5 ml-Ns (Heparin Sod,Porcine/0.9 % NaCl) 5,000 Unit/5 Ml Syringe 5,000 Unit IV Q12HR Aggrenox 25 Mg-200 Mg Capsule (Aspirin/Dipyridamole) 1 Each Cpmp.12hr 1 Cap PO BID Mkazlzpzqm-Kvs-Uvnflzar Cap (Butalbital/Aspirin/Caffeine) 1 Each Capsule 1 Each PO PRN Q6HRS PRN Atorvastatin Calcium 20 Mg Tablet 20 Mg PO QHS I have reviewed the current psychotropics carefully including drug interactions. Risk benefit ratio favors no change other than as noted in my dictated progress note. Diagnosis: Problems: (1) Major depression with psychotic features (2) Anxiety disorder (3) Impulse control disorder (4) Obsessive compulsive disorder AIME LACKEY MD Jul 05, 2018 21:54
--- NOTE | 2018-07-05 23:13 | PN ---
DATE: 07/03/2018 PSYCHIATRIC PROGRESS NOTE This is a late entry for 07/03/2018 and covers elements not covered in my initial note. SUBJECTIVE: I met with the patient in the evening. I met with her in her room. She slept 7-1/4 hours. Appetite is little better. She is less obsessive about getting the ice. She slept until 10 in the morning. She is requesting trazodone be discontinued, "I don't want that." We will go ahead and stop it and I have discussed with nursing staff. She continues to have vague somatic symptoms and obsessions about her diet and other things. No CV, , pulmonary, eye system symptoms on review. MENTAL STATUS EXAM: Oriented reasonably. Speech is coherent, abstraction fair, computation impaired, language function intact. Mood and affect is somewhat withdrawn, obsessive, anxious. LABORATORY DATA: Reviewed. IMPRESSION: Unchanged from initial note. PLAN: No change from initial note. AIME LACKEY MD DR: DEBRA/alisha JOB#: [id number] / [id number]
--- NOTE | 2018-07-05 23:17 | PN ---
DATE: 07/04/2018 PSYCHIATRIC PROGRESS NOTE This late entry 07/04/2018 covers elements not covered in my initial note. SUBJECTIVE: I met with the patient in the evening and staffed at a treatment team meeting with the entire team earlier in the day and also met at length with Dr. Bray who is completing the neuropsychological testing on the patient. Dr. Bray met with the entire treatment team. We discussed the patient's progress, results of the testing, background information, reviewed reasons for the testing amongst other things and the family dynamics. REVIEW OF SYSTEMS: Still complains of tiredness. No CV, , pulmonary, eye system symptoms on review, has vague somatic symptoms. MENTAL STATUS EXAM: Oriented. Reasonably speech, has some latency, coherent. Abstraction fair, computation impaired, language function intact, still obsessive, anxious, but no suicidal or homicidal ideation. LABORATORY DATA: Reviewed. IMPRESSION: Unchanged from initial note. PLAN: No change from initial note. We will continue to adjust Luvox gradually along with Risperdal. MAN Alexander LACKEY MD DR: DEBRA/alisha JOB#: [id number] / [id number]
[2018-07-06 05:39] VITALS: BP 155/78
[2018-07-06] MEDS: ASPIRIN/DIPYRIDAMOLE 200/25MG CAP.ER.12H PO SCH ×2 (08:56→19:41)
[2018-07-06] MEDS: LISINOPRIL 10 MG TABLET PO SCH (08:56)
[2018-07-06 15:36] VITALS: BP 144/63
[2018-07-06] MEDS: ATORVASTATIN CALCIUM 20 MG TABLET PO SCH (19:41)
[2018-07-06] MEDS: risperiDONE 0.25 MG TABLET. PO SCH (19:41)
[2018-07-06] MEDS: ZOLPIDEM 5 MG TABLET. PO PRN (21:15)
--- NOTE | 2018-07-06 21:57 | PDOC ---
Exam Note: Santosh Note: Please also refer to the separate dictated note~for this date of service dictated separately.~Patient seen individually. Discussed the patient with Nursing staff reviewed the chart.~Reviewed interim history and current functioning. Reviewed vital signs,~Labs/ Radiology~and current medications noted below. Continue current treatment with the changes noted in the dictated addendum note Assessment: Vital Signs: Vital Signs Date Time Temp Pulse Resp B/P (MAP) Pulse Ox O2 Delivery O2 Flow Rate FiO2 07/06/18 15:36 98.1 105 20 144/63 (90) 95 07/05/18 15:53 Room Air I&O Intake and Output 07/06/18 06:59 Intake Total 1240 ml Balance 1240 ml Intake Oral 1240 ml Current Medications: Meds: Current Medications Acetaminophen (Tylenol) 650 mg PRN Q6HRS PRN PO PAIN / TEMP Last administered on 07/01/18 00:14; Start 06/20/18 at 15:30 Multi-Ingredient Ointment (Analgesic [place]) 1 paula PRN QID PRN TP MUSCLE PAIN Last administered on 07/01/18 21:20; Start 06/20/18 at 15:30 Al Hydroxide/Mg Hydroxide (Mylanta Plus Xs) 15 ml PRN AFTMEALHC PRN PO DYSPEPSIA Last administered on 06/25/18 08:21; Start 06/20/18 at 15:30 Magnesium Hydroxide (Milk Of Magnesia) 2,400 mg PRN QHS PRN PO CONSTIPATION; Start 06/20/18 at 15:30 Nicotine (Nicoderm Cq 21mg) 1 patch DAILY TD Last administered on 06/22/18 09: 13; Start 06/21/18 at 09:00; Stop 06/26/18 at 18:55; Status DC Heparin Sodium (Porcine) (Heparin Sodium) 5,000 unit Q12HR SQ ; Start 06/20/18 at 21:00; Stop 06/21/18 at 15:19; Status DC Atorvastatin Calcium (Lipitor) 20 mg QHS PO Last administered on 07/06/18 19:41 ; Start 06/20/18 at 21:00 Lisinopril (Prinivil) 20 mg DAILY PO Last administered on 06/28/18 09:13; Start 06/21/18 at 09:00; Stop 07/01/18 at 13:55; Status DC Zolpidem Tartrate (Ambien) 5 mg PRN QHS PRN PO INSOMNIA Last administered on 07/06/18at 21:15; Start 06/20/18 at 16:15 Acetaminophen/ Butalbital/ Caffeine (Fioricet) 1 tab PRN Q6HRS PRN PO MIGRAINE HEADACHE; Start 06/20/18 at 16:45 Meclizine HCl (Antivert) 25 mg TID PO Last administered on 06/21/18at 07:51; Start 06/20/18 at 21:00; Stop 06/21/18 at 15:20; Status DC Non-Formulary Medication (Nicotine (NICODERM CQ 14mg)) 1 patch DAILY TD ; Start 06/21/18 at 09:00; Stop 06/21/18 at 09:00; Status DC Pantoprazole Sodium (Protonix) 40 mg BIDWMEALS PO Last administered on at 08:48; Start 06/20/18 at 17:00; Stop 06/23/18 at 14:07; Status DC Info (FLU VACCINE per PROTOCOL) 1 ea PRN 1X PRN MC PER PROTOCOL; Start at 21:00; Stop 06/20/18 at 21:00; Status DC Influenza Virus Vaccine (Afluria Trivalent Syringe) 0.5 ml ONCE ONCE VAX IM ; Start 06/20/18 at 21:00; Stop 06/20/18 at 21:16; Status DC Influenza Virus Vaccine (Afluria Trivalent Syringe) 0.5 ml ONCE ONCE VAX IM Last administered on 06/22/18at 09:00; Start 06/22/18 at 09:00; Stop at 09:01; Status DC Meclizine HCl (Antivert) 25 mg PRN TID PRN PO DIZZINESS; Start 06/21/18 at 15: 30 Fluvoxamine Maleate (Luvox) 25 mg QHS PO Last administered on 06/23/18at 19:56; Start 06/21/18 at 21:00; Stop 06/24/18 at 03:10; Status DC Pantoprazole Sodium (Protonix) 40 mg PRN DAILY PRN PO HEARTBURN / GAS; Start at 09:00 Fluvoxamine Maleate (Luvox) 50 mg QHS PO Last administered on 06/26/18 21:02; Start 06/24/18 at 21:00; Stop 06/27/18 at 19:00; Status DC Dipyridamole/ Aspirin (Aggrenox) 1 cap BID PO Last administered on 07/06/18 19: 41; Start 06/24/18 at 21:00 Fluvoxamine Maleate (Luvox) 75 mg QHS PO ; Start 06/25/18 at 21:00; Stop at 21:00; Status DC Fluvoxamine Maleate (Luvox) 75 mg QHS PO Last administered on 06/30/18 20:26; Start 06/27/18 at 21:00; Stop 06/30/18 at 23:24; Status DC Risperidone (RisperDAL) 0.25 mg HS PO Last administered on 07/06/18 19:41; Start 06/28/18 at 21:00 Vitamin D (Vitamin D3) 50,000 unit WEEKLY PO ; Start 06/28/18 at 18:00; Stop at 18:07; Status DC Vitamin D (Vitamin D3) 50,000 unit WEEKLY PO Last administered on 07/05/18 07: 39; Start 06/28/18 at 20:00 Fluvoxamine Maleate (Luvox) 100 mg QHS PO Last administered on 07/06/18 19:41; Start 07/01/18 at 21:00; Stop 07/06/18 at 20:17; Status DC Benzocaine (Ora-Jel Maximum) 1 paula PRN QID PRN TP ORAL PAIN; Start 07/01/18 at 11:30 Lisinopril (Prinivil) 10 mg DAILY PO Last administered on 07/06/18 08:56; Start 07/02/18 at 09:00 Trazodone HCl (Desyrel) 50 mg QHS PO Last administered on 07/02/18at 21:38; Start 07/01/18 at 21:00; Stop 07/03/18 at 18:36; Status DC Trazodone HCl (Desyrel) 50 mg QHS PRN PO INSOMNIA Last administered on at 21:51; Start 07/01/18 at 18:00; Stop 07/03/18 at 18:36; Status DC Fluvoxamine Maleate (Luvox) 125 mg QHS PO ; Start 07/07/18 at 21:00 Active Scripts Active Reported Zolpidem Tartrate 5 Mg Tablet 5 Mg PO HS PRN Protonix (Pantoprazole Sodium) 40 Mg Tablet.dr 40 Mg PO BIDWMEALS NICODERM CQ 14mg (Nicotine) 1 Each Patch.td24 1 Patch TD DAILY Meclizine Hcl 25 Mg Tablet 25 Mg PO TID Lisinopril 20 Mg Tablet 20 Mg PO DAILY Heparin 5,000 Unit/5 ml-Ns (Heparin Sod,Porcine/0.9 % NaCl) 5,000 Unit/5 Ml Syringe 5,000 Unit IV Q12HR Aggrenox 25 Mg-200 Mg Capsule (Aspirin/Dipyridamole) 1 Each Cpmp.12hr 1 Cap PO BID Kneijexpbj-Ied-Vliylpul Cap (Butalbital/Aspirin/Caffeine) 1 Each Capsule 1 Each PO PRN Q6HRS PRN Atorvastatin Calcium 20 Mg Tablet 20 Mg PO QHS I have reviewed the current psychotropics carefully including drug interactions. Risk benefit ratio favors no change other than as noted in my dictated progress note. Diagnosis: Problems: (1) Major depression with psychotic features (2) Anxiety disorder (3) Impulse control disorder (4) Obsessive compulsive disorder AIME LACKEY MD Jul 06, 2018 21:57
[2018-07-07 05:57] VITALS: BP 130/74
[2018-07-07] MEDS: LISINOPRIL 10 MG TABLET PO SCH (08:10)
[2018-07-07] MEDS: ASPIRIN/DIPYRIDAMOLE 200/25MG CAP.ER.12H PO SCH ×2 (08:10→19:47)
[2018-07-07 08:11] LABS: BASO # 0.1 x10^3/uL (0.0-0.2); BASO % 1 % (0-3); EOS # 0.1 x10^3/uL (0.0-0.7); EOS % 1 % (0-3); HEMATOCRIT 40.9 % (36.0-47.0); HEMOGLOBIN 13.2 g/dL (12.0-15.5); LYMPH # 1.6 x10^3/uL (1.0-4.8); LYMPH % 23 % (24-48); MEAN CORPUSCULAR HEMOGLOBIN 28 pg (25-35); MEAN CORPUSCULAR HGB CONC 32 g/dL (31-37); MEAN CORPUSCULAR VOLUME 86 fL (79-100); MONO # 0.8 x10^3/uL (0.0-1.1); MONO % 12 % (0-9); NEUT # 4.6 x10^3uL (1.8-7.7); NEUT % 64 % (31-73); PLATELET COUNT 401 x10^3/uL (140-400); RED BLOOD COUNT 4.76 x10^6/uL (3.50-5.40); RED CELL DISTRIBUTION WIDTH 14.6 % (11.5-14.5); WHITE BLOOD COUNT 7.2 x10^3/uL (4.0-11.0)
[2018-07-07 08:26] LABS: ALBUMIN 3.3 g/dL (3.4-5.0); ALBUMIN/GLOBULIN RATIO 0.8 (1.0-1.7); CREATININE 0.8 mg/dL (0.6-1.0); GFR 70.7; POTASSIUM 4.6 mmol/L (3.5-5.1); TOTAL BILIRUBIN 0.2 mg/dL (0.2-1.0); TOTAL PROTEIN 7.2 g/dL (6.4-8.2)
[2018-07-07 16:11] VITALS: BP 127/66
[2018-07-07] MEDS: ATORVASTATIN CALCIUM 20 MG TABLET PO SCH (19:47)
[2018-07-07] MEDS: risperiDONE 0.25 MG TABLET. PO SCH (19:47)
--- NOTE | 2018-07-07 22:20 | PN ---
DATE: 07/05/2018 PSYCHIATRIC PROGRESS NOTE This late entry 07/05/2018 covers elements not covered in my initial note. SUBJECTIVE: I met with the patient at length in her room in the evening. The patient slept 7 hours previous night. Quite obsessive about food, believes she is not getting enough, got her an extra desert, but when she saw it was chocolate, she refused saying she wanted vanilla. I went back, brought her vanilla as well; quite sarcastic at times, compliant with medications. REVIEW OF SYSTEMS: Positive for feeling hungry. No CV, , pulmonary system symptoms on review. Complains of ear problems. MENTAL STATUS EXAM: Oriented reasonably. Speech is coherent, has some latency. Abstraction fair, low in volume, computation impaired, language function intact, attention span short. Mood and affect withdrawn, quite obsessive. LABORATORY DATA: Reviewed. IMPRESSION: Unchanged from initial note. PLAN: No change from initial note. AIME LACKEY MD DR: DEBRA/alisha JOB#: [id number] / [id number]
[2018-07-07] MEDS: ZOLPIDEM 5 MG TABLET. PO PRN (22:32)
--- NOTE | 2018-07-07 22:44 | PDOC ---
Exam Note: Santosh Note: Please also refer to the separate dictated note~for this date of service dictated separately.~Patient seen individually. Discussed the patient with Nursing staff reviewed the chart.~Reviewed interim history and current functioning. Reviewed vital signs,~Labs/ Radiology~and current medications noted below. Continue current treatment with the changes noted in the dictated addendum note Assessment: Vital Signs: Vital Signs Date Time Temp Pulse Resp B/P (MAP) Pulse Ox O2 Delivery O2 Flow Rate FiO2 07/07/18 16:11 97.6 104 18 127/66 (86) 95 07/05/18 15:53 Room Air I&O Intake and Output 07/07/18 07:00 Intake Total 1320 ml Balance 1320 ml Intake Oral 1320 ml Labs: Laboratory Tests Test 07/07/18 08:00 White Blood Count 7.2 x10^3/uL (4.0-11.0) Red Blood Count 4.76 x10^6/uL (3.50-5.40) Hemoglobin 13.2 g/dL (12.0-15.5) Hematocrit 40.9 % (36.0-47.0) Mean Corpuscular Volume 86 fL (79-100) Mean Corpuscular Hemoglobin 28 pg (25-35) Mean Corpuscular Hemoglobin Concent 32 g/dL (31-37) Red Cell Distribution Width 14.6 % (11.5-14.5) H Platelet Count 401 x10^3/uL (140-400) H Neutrophils (%) (Auto) 64 % (31-73) Lymphocytes (%) (Auto) 23 % (24-48) L Monocytes (%) (Auto) 12 % (0-9) H Eosinophils (%) (Auto) 1 % (0-3) Basophils (%) (Auto) 1 % (0-3) Neutrophils # (Auto) 4.6 x10^3uL (1.8-7.7) Lymphocytes # (Auto) 1.6 x10^3/uL (1.0-4.8) Monocytes # (Auto) 0.8 x10^3/uL (0.0-1.1) Eosinophils # (Auto) 0.1 x10^3/uL (0.0-0.7) Basophils # (Auto) 0.1 x10^3/uL (0.0-0.2) Sodium Level 137 mmol/L (136-145) Potassium Level 4.6 mmol/L (3.5-5.1) Chloride Level 103 mmol/L (98-107) Carbon Dioxide Level 26 mmol/L (21-32) Anion Gap 8 (6-14) Blood Urea Nitrogen 17 mg/dL (7-20) Creatinine 0.8 mg/dL (0.6-1.0) Estimated GFR (Cockcroft-Gault) 70.7 BUN/Creatinine Ratio 21 (6-20) H Glucose Level 85 mg/dL (70-99) Calcium Level 9.0 mg/dL (8.5-10.1) Total Bilirubin 0.2 mg/dL (0.2-1.0) Aspartate Amino Transferase (AST) 20 U/L (15-37) Alanine Aminotransferase (ALT) 22 U/L (14-59) Alkaline Phosphatase 90 U/L (46-116) Total Protein 7.2 g/dL (6.4-8.2) Albumin 3.3 g/dL (3.4-5.0) L Albumin/Globulin Ratio 0.8 (1.0-1.7) L Current Medications: Meds: Current Medications Acetaminophen (Tylenol) 650 mg PRN Q6HRS PRN PO PAIN / TEMP Last administered on 07/01/18 00:14; Start 06/20/18 at 15:30 Multi-Ingredient Ointment (Analgesic [place]) 1 paula PRN QID PRN TP MUSCLE PAIN Last administered on 07/01/18 21:20; Start 06/20/18 at 15:30 Al Hydroxide/Mg Hydroxide (Mylanta Plus Xs) 15 ml PRN AFTMEALHC PRN PO DYSPEPSIA Last administered on 06/25/18 08:21; Start 06/20/18 at 15:30 Magnesium Hydroxide (Milk Of Magnesia) 2,400 mg PRN QHS PRN PO CONSTIPATION; Start 06/20/18 at 15:30 Nicotine (Nicoderm Cq 21mg) 1 patch DAILY TD Last administered on 06/22/18 09: 13; Start 06/21/18 at 09:00; Stop 06/26/18 at 18:55; Status DC Heparin Sodium (Porcine) (Heparin Sodium) 5,000 unit Q12HR SQ ; Start 06/20/18 at 21:00; Stop 06/21/18 at 15:19; Status DC Atorvastatin Calcium (Lipitor) 20 mg QHS PO Last administered on 07/07/18at 19:47 ; Start 06/20/18 at 21:00 Lisinopril (Prinivil) 20 mg DAILY PO Last administered on 06/28/18at 09:13; Start 06/21/18 at 09:00; Stop 07/01/18 at 13:55; Status DC Zolpidem Tartrate (Ambien) 5 mg PRN QHS PRN PO INSOMNIA Last administered on 07/07/18at 22:32; Start 06/20/18 at 16:15 Acetaminophen/ Butalbital/ Caffeine (Fioricet) 1 tab PRN Q6HRS PRN PO MIGRAINE HEADACHE; Start 06/20/18 at 16:45 Meclizine HCl (Antivert) 25 mg TID PO Last administered on 06/21/18at 07:51; Start 06/20/18 at 21:00; Stop 06/21/18 at 15:20; Status DC Non-Formulary Medication (Nicotine (NICODERM CQ 14mg)) 1 patch DAILY TD ; Start 06/21/18 at 09:00; Stop 06/21/18 at 09:00; Status DC Pantoprazole Sodium (Protonix) 40 mg BIDWMEALS PO Last administered on at 08:48; Start 06/20/18 at 17:00; Stop 06/23/18 at 14:07; Status DC Info (FLU VACCINE per PROTOCOL) 1 ea PRN 1X PRN MC PER PROTOCOL; Start at 21:00; Stop 06/20/18 at 21:00; Status DC Influenza Virus Vaccine ([facility]) 0.5 ml ONCE ONCE VAX IM ; Start 06/20/18 at 21:00; Stop 06/20/18 at 21:16; Status DC Influenza Virus Vaccine ([facility]) 0.5 ml ONCE ONCE VAX IM Last administered on 06/22/18at 09:00; Start 06/22/18 at 09:00; Stop at 09:01; Status DC Meclizine HCl (Antivert) 25 mg PRN TID PRN PO DIZZINESS; Start 06/21/18 at 15: 30 Fluvoxamine Maleate (Luvox) 25 mg QHS PO Last administered on 06/23/18 19:56; Start 06/21/18 at 21:00; Stop 06/24/18 at 03:10; Status DC Pantoprazole Sodium (Protonix) 40 mg PRN DAILY PRN PO HEARTBURN / GAS; Start at 09:00 Fluvoxamine Maleate (Luvox) 50 mg QHS PO Last administered on 06/26/18at 21:02; Start 06/24/18 at 21:00; Stop 06/27/18 at 19:00; Status DC Dipyridamole/ Aspirin (Aggrenox) 1 cap BID PO Last administered on 07/07/18 19: 47; Start 06/24/18 at 21:00 Fluvoxamine Maleate (Luvox) 75 mg QHS PO ; Start 06/25/18 at 21:00; Stop at 21:00; Status DC Fluvoxamine Maleate (Luvox) 75 mg QHS PO Last administered on 06/30/18 20:26; Start 06/27/18 at 21:00; Stop 06/30/18 at 23:24; Status DC Risperidone (RisperDAL) 0.25 mg HS PO Last administered on 07/07/18 19:47; Start 06/28/18 at 21:00 Vitamin D (Vitamin D3) 50,000 unit WEEKLY PO ; Start 06/28/18 at 18:00; Stop at 18:07; Status DC Vitamin D (Vitamin D3) 50,000 unit WEEKLY PO Last administered on 07/05/18 07: 39; Start 06/28/18 at 20:00 Fluvoxamine Maleate (Luvox) 100 mg QHS PO Last administered on 07/06/18 19:41; Start 07/01/18 at 21:00; Stop 07/06/18 at 20:17; Status DC Benzocaine (Ora-Jel Maximum) 1 paula PRN QID PRN TP ORAL PAIN; Start 07/01/18 at 11:30 Lisinopril (Prinivil) 10 mg DAILY PO Last administered on 07/07/18 08:10; Start 07/02/18 at 09:00 Trazodone HCl (Desyrel) 50 mg QHS PO Last administered on 07/02/18at 21:38; Start 07/01/18 at 21:00; Stop 07/03/18 at 18:36; Status DC Trazodone HCl (Desyrel) 50 mg QHS PRN PO INSOMNIA Last administered on at 21:51; Start 07/01/18 at 18:00; Stop 07/03/18 at 18:36; Status DC Fluvoxamine Maleate (Luvox) 125 mg QHS PO Last administered on 07/07/18 19:48; Start 07/07/18 at 21:00 Active Scripts Active Reported Zolpidem Tartrate 5 Mg Tablet 5 Mg PO HS PRN Protonix (Pantoprazole Sodium) 40 Mg Tablet.dr 40 Mg PO BIDWMEALS NICODERM CQ 14mg (Nicotine) 1 Each Patch.td24 1 Patch TD DAILY Meclizine Hcl 25 Mg Tablet 25 Mg PO TID Lisinopril 20 Mg Tablet 20 Mg PO DAILY Heparin 5,000 Unit/5 ml-Ns (Heparin Sod,Porcine/0.9 % NaCl) 5,000 Unit/5 Ml Syringe 5,000 Unit IV Q12HR Aggrenox 25 Mg-200 Mg Capsule (Aspirin/Dipyridamole) 1 Each Cpmp.12hr 1 Cap PO BID Rsqzbqsnih-Xsx-Ehtdmpgk Cap (Butalbital/Aspirin/Caffeine) 1 Each Capsule 1 Each PO PRN Q6HRS PRN Atorvastatin Calcium 20 Mg Tablet 20 Mg PO QHS I have reviewed the current psychotropics carefully including drug interactions. Risk benefit ratio favors no change other than as noted in my dictated progress note. Diagnosis: Problems: (1) Major depression with psychotic features (2) Anxiety disorder (3) Impulse control disorder (4) Obsessive compulsive disorder AIME LACKEY MD Jul 07, 2018 22:44
[2018-07-08 05:49] VITALS: BP 117/70
[2018-07-08] MEDS: ASPIRIN/DIPYRIDAMOLE 200/25MG CAP.ER.12H PO SCH ×2 (07:59→21:00)
[2018-07-08] MEDS: LISINOPRIL 10 MG TABLET PO SCH (08:00)
[2018-07-08 16:07] VITALS: BP 120/65
[2018-07-08] MEDS: ATORVASTATIN CALCIUM 20 MG TABLET PO SCH (20:59)
[2018-07-08] MEDS: risperiDONE 0.25 MG TABLET. PO SCH (21:00)
[2018-07-08] MEDS: ZOLPIDEM 5 MG TABLET. PO PRN (22:07)
--- NOTE | 2018-07-08 22:40 | PDOC ---
Exam Note: Santosh Note: Please also refer to the separate dictated note~for this date of service dictated separately.~Patient seen individually. Discussed the patient with Nursing staff reviewed the chart.~Reviewed interim history and current functioning. Reviewed vital signs,~Labs/ Radiology~and current medications noted below. Continue current treatment with the changes noted in the dictated addendum note Assessment: Vital Signs: Vital Signs Date Time Temp Pulse Resp B/P (MAP) Pulse Ox O2 Delivery O2 Flow Rate FiO2 07/08/18 16:07 97.7 110 18 120/65 (83) 95 07/05/18 15:53 Room Air I&O Intake and Output 07/08/18 07:00 Intake Total 1440 ml Balance 1440 ml Intake Oral 1440 ml Current Medications: Meds: Current Medications Acetaminophen (Tylenol) 650 mg PRN Q6HRS PRN PO PAIN / TEMP Last administered on 07/01/18 00:14; Start 06/20/18 at 15:30 Multi-Ingredient Ointment (Analgesic [place]) 1 paula PRN QID PRN TP MUSCLE PAIN Last administered on 07/01/18 21:20; Start 06/20/18 at 15:30 Al Hydroxide/Mg Hydroxide (Mylanta Plus Xs) 15 ml PRN AFTMEALHC PRN PO DYSPEPSIA Last administered on 06/25/18 08:21; Start 06/20/18 at 15:30 Magnesium Hydroxide (Milk Of Magnesia) 2,400 mg PRN QHS PRN PO CONSTIPATION; Start 06/20/18 at 15:30 Nicotine (Nicoderm Cq 21mg) 1 patch DAILY TD Last administered on 06/22/18 09: 13; Start 06/21/18 at 09:00; Stop 06/26/18 at 18:55; Status DC Heparin Sodium (Porcine) (Heparin Sodium) 5,000 unit Q12HR SQ ; Start 06/20/18 at 21:00; Stop 06/21/18 at 15:19; Status DC Atorvastatin Calcium (Lipitor) 20 mg QHS PO Last administered on 07/08/18 20:59 ; Start 06/20/18 at 21:00 Lisinopril (Prinivil) 20 mg DAILY PO Last administered on 06/28/18 09:13; Start 06/21/18 at 09:00; Stop 07/01/18 at 13:55; Status DC Zolpidem Tartrate (Ambien) 5 mg PRN QHS PRN PO INSOMNIA Last administered on 07/08/18at 22:07; Start 06/20/18 at 16:15 Acetaminophen/ Butalbital/ Caffeine (Fioricet) 1 tab PRN Q6HRS PRN PO MIGRAINE HEADACHE; Start 06/20/18 at 16:45 Meclizine HCl (Antivert) 25 mg TID PO Last administered on 06/21/18at 07:51; Start 06/20/18 at 21:00; Stop 06/21/18 at 15:20; Status DC Non-Formulary Medication (Nicotine (NICODERM CQ 14mg)) 1 patch DAILY TD ; Start 06/21/18 at 09:00; Stop 06/21/18 at 09:00; Status DC Pantoprazole Sodium (Protonix) 40 mg BIDWMEALS PO Last administered on at 08:48; Start 06/20/18 at 17:00; Stop 06/23/18 at 14:07; Status DC Info (FLU VACCINE per PROTOCOL) 1 ea PRN 1X PRN MC PER PROTOCOL; Start at 21:00; Stop 06/20/18 at 21:00; Status DC Influenza Virus Vaccine (Afluria Trivalent Syringe) 0.5 ml ONCE ONCE VAX IM ; Start 06/20/18 at 21:00; Stop 06/20/18 at 21:16; Status DC Influenza Virus Vaccine (Afluria Trivalent Syringe) 0.5 ml ONCE ONCE VAX IM Last administered on 06/22/18at 09:00; Start 06/22/18 at 09:00; Stop at 09:01; Status DC Meclizine HCl (Antivert) 25 mg PRN TID PRN PO DIZZINESS; Start 06/21/18 at 15: 30 Fluvoxamine Maleate (Luvox) 25 mg QHS PO Last administered on 06/23/18at 19:56; Start 06/21/18 at 21:00; Stop 06/24/18 at 03:10; Status DC Pantoprazole Sodium (Protonix) 40 mg PRN DAILY PRN PO HEARTBURN / GAS; Start at 09:00 Fluvoxamine Maleate (Luvox) 50 mg QHS PO Last administered on 06/26/18 21:02; Start 06/24/18 at 21:00; Stop 06/27/18 at 19:00; Status DC Dipyridamole/ Aspirin (Aggrenox) 1 cap BID PO Last administered on 07/08/18 21: 00; Start 06/24/18 at 21:00 Fluvoxamine Maleate (Luvox) 75 mg QHS PO ; Start 06/25/18 at 21:00; Stop at 21:00; Status DC Fluvoxamine Maleate (Luvox) 75 mg QHS PO Last administered on 06/30/18 20:26; Start 06/27/18 at 21:00; Stop 06/30/18 at 23:24; Status DC Risperidone (RisperDAL) 0.25 mg HS PO Last administered on 07/08/18 21:00; Start 06/28/18 at 21:00 Vitamin D (Vitamin D3) 50,000 unit WEEKLY PO ; Start 06/28/18 at 18:00; Stop at 18:07; Status DC Vitamin D (Vitamin D3) 50,000 unit WEEKLY PO Last administered on 07/05/18 07: 39; Start 06/28/18 at 20:00 Fluvoxamine Maleate (Luvox) 100 mg QHS PO Last administered on 07/06/18 19:41; Start 07/01/18 at 21:00; Stop 07/06/18 at 20:17; Status DC Benzocaine (Ora-Jel Maximum) 1 paula PRN QID PRN TP ORAL PAIN; Start 07/01/18 at 11:30 Lisinopril (Prinivil) 10 mg DAILY PO Last administered on 07/08/18 08:00; Start 07/02/18 at 09:00 Trazodone HCl (Desyrel) 50 mg QHS PO Last administered on 07/02/18at 21:38; Start 07/01/18 at 21:00; Stop 07/03/18 at 18:36; Status DC Trazodone HCl (Desyrel) 50 mg QHS PRN PO INSOMNIA Last administered on at 21:51; Start 07/01/18 at 18:00; Stop 07/03/18 at 18:36; Status DC Fluvoxamine Maleate (Luvox) 125 mg QHS PO Last administered on 07/08/18at 20:59; Start 07/07/18 at 21:00 Active Scripts Active Reported Zolpidem Tartrate 5 Mg Tablet 5 Mg PO HS PRN Protonix (Pantoprazole Sodium) 40 Mg Tablet.dr 40 Mg PO BIDWMEALS NICODERM CQ 14mg (Nicotine) 1 Each Patch.td24 1 Patch TD DAILY Meclizine Hcl 25 Mg Tablet 25 Mg PO TID Lisinopril 20 Mg Tablet 20 Mg PO DAILY Heparin 5,000 Unit/5 ml-Ns (Heparin Sod,Porcine/0.9 % NaCl) 5,000 Unit/5 Ml Syringe 5,000 Unit IV Q12HR Aggrenox 25 Mg-200 Mg Capsule (Aspirin/Dipyridamole) 1 Each Cpmp.12hr 1 Cap PO BID Ygpigssmyh-Qxo-Ndwyisyi Cap (Butalbital/Aspirin/Caffeine) 1 Each Capsule 1 Each PO PRN Q6HRS PRN Atorvastatin Calcium 20 Mg Tablet 20 Mg PO QHS I have reviewed the current psychotropics carefully including drug interactions. Risk benefit ratio favors no change other than as noted in my dictated progress note. Diagnosis: Problems: (1) Major depression with psychotic features (2) Anxiety disorder (3) Impulse control disorder (4) Obsessive compulsive disorder AIME LACKEY MD Jul 08, 2018 22:40
--- NOTE | 2018-07-08 22:49 | PN ---
DATE: 07/06/2018 This late entry for 07/06/2018 covers elements not covered in my initial note. SUBJECTIVE: I met with the patient in her room in the evening. The patient slept 5 hours previous night. She is obsessive, anxious, wanting her desserts instead of her meals. I processed this with her. REVIEW OF SYSTEMS: No CV, , pulmonary, eye system symptoms on review. Does have vague somatic symptoms. MENTAL STATUS EXAM: Reasonably oriented. Speech is coherent, abstraction fair, computation impaired, language function intact, attention span short. Mood and affect somewhat withdrawn. LABORATORY DATA: Reviewed. IMPRESSION: Unchanged per initial note. PLAN: Increase Luvox to 125 mg a day after she has been on 100 for 3 days. Rest unchanged. MAN Alexander LACKEY MD DR: DEBRA/alisha JOB#: [id number] / [id number]
--- NOTE | 2018-07-08 22:50 | PN ---
DATE: 07/07/2018 This late entry for 07/07/2018 covers elements not covered in my initial note. SUBJECTIVE: I met with the patient in the evening. The patient slept 6-1/2 hours previous night. She remains anxious, obsessive, fixated on wanting desserts and I processed this with her. I met with her in her room. REVIEW OF SYSTEMS: No CV, , pulmonary, eye system symptoms on review, does complain of weakness, feeling hungry. MENTAL STATUS EXAM: Oriented reasonably. Speech is coherent, has some latency. Abstraction fair, computation impaired, language function intact. Mood and affect somewhat withdrawn, obsessive. LABORATORY DATA: Reviewed. IMPRESSION: Unchanged from initial note. PLAN: No change from initial note. MAN Alexander LACKEY MD DR: DEBRA/alisha JOB#: [id number] / [id number]
[2018-07-08] MEDS: METHYL SALICYLATE/MENTHOL TOPICAL OINTMENT 29GM TUBE. TP PRN (23:12)
[2018-07-09 05:54] VITALS: BP 105/64
[2018-07-09] MEDS: ASPIRIN/DIPYRIDAMOLE 200/25MG CAP.ER.12H PO SCH ×2 (08:13→21:06)
[2018-07-09 10:04] VITALS: BP 94/58
[2018-07-09] MEDS: LISINOPRIL 10 MG TABLET PO SCH (10:26)
[2018-07-09 10:33] LABS: BASO % 1 % (0-3); EOS % 0 % (0-3); HEMATOCRIT 40.8 % (36.0-47.0); HEMOGLOBIN 13.3 g/dL (12.0-15.5); LYMPH # 1.3 x10^3/uL (1.0-4.8); LYMPH % 20 % (24-48); MEAN CORPUSCULAR HEMOGLOBIN 28 pg (25-35); MEAN CORPUSCULAR HGB CONC 33 g/dL (31-37); MEAN CORPUSCULAR VOLUME 85 fL (79-100); MONO # 0.9 x10^3/uL (0.0-1.1); MONO % 14 % (0-9); NEUT # 4.5 x10^3uL (1.8-7.7); NEUT % 66 % (31-73); PLATELET COUNT 407 x10^3/uL (140-400); RED BLOOD COUNT 4.81 x10^6/uL (3.50-5.40); RED CELL DISTRIBUTION WIDTH 15.1 % (11.5-14.5); WHITE BLOOD COUNT 6.8 x10^3/uL (4.0-11.0)
[2018-07-09 10:47] LABS: ALBUMIN 3.4 g/dL (3.4-5.0); ALBUMIN/GLOBULIN RATIO 0.9 (1.0-1.7); CALCIUM 9.9 mg/dL (8.5-10.1); CREATININE 0.7 mg/dL (0.6-1.0); GFR 82.5; POTASSIUM 4.2 mmol/L (3.5-5.1); TOTAL BILIRUBIN 0.2 mg/dL (0.2-1.0); TOTAL PROTEIN 7.2 g/dL (6.4-8.2)
--- NOTE | 2018-07-09 10:50 | RAD ---
EXAM: AP View of the chest DATE: 07/09/2018 9:43 AM INDICATION: tachycardia COMPARISON: No Prior FINDINGS: Patient's chin obscures a portion of the left lung apex. The heart is not enlarged. Atherosclerotic calcifications of the tortuous aorta are seen. Mediastinal and hilar contours are normal. No focal parenchymal airspace opacity. Background of emphysematous change No pleural effusion or pneumothorax. Minimal elevation left hemidiaphragm. Biapical pleural/parenchymal scarring/thickening. IMPRESSION: 1. No radiographic evidence for acute cardiopulmonary process. Electronically signed by: Dago Zurita MD (07/09/2018 10:47 AM) [facility]
[2018-07-09 11:04] LABS: BACTERIA,URINE MOD /HPF (0-FEW); BILIRUBIN,URINE NEG (NEG); CLARITY,URINE HAZY; COLOR,URINE YELLOW; GLUCOSE,URINE NEG (NEG); NITRITE,URINE NEG (NEG); RBC,URINE 0 /HPF (0-2); SQUAMOUS EPITHELIAL CELL,UR OCC /LPF; UROBILINOGEN,URINE 0.2 mg/dL (0.2 mg/dL); WBC,URINE RARE /HPF (0-4)
[2018-07-09 16:25] VITALS: BP 130/70
--- NOTE | 2018-07-09 20:07 | PN ---
DATE: 07/08/2018 PSYCHIATRIC PROGRESS NOTE This late entry 07/08/2018 covers elements not covered in my initial note. SUBJECTIVE: I met with the patient in the evening. The patient slept reasonably previous night. She remains isolated, spends much time in her room, fixated on wanting extra desserts and she states she talked to the dietitian about this. Remains somewhat obsessive. REVIEW OF SYSTEMS: No CV, , pulmonary, eye system symptoms on review other than feeling hungry. MENTAL STATUS EXAM: Oriented reasonably. Speech is coherent, has some latency. Abstraction fair, computation impaired, language function intact, attention span short. Mood and affect withdrawn. LABORATORY DATA: Reviewed. IMPRESSION: Unchanged from initial note, major depressive disorder, recurrent with psychotic features. Rest unchanged. Obsessive-compulsive disorder. PLAN: Continue current psychotropics; Risperdal, Luvox along with Ambien. MAN Alexander LACKEY MD DR: DEBRA/alisha JOB#: [id number] / [id number]
[2018-07-09] MEDS: risperiDONE 0.25 MG TABLET. PO SCH (21:06)
[2018-07-09] MEDS: ATORVASTATIN CALCIUM 20 MG TABLET PO SCH (21:06)
--- NOTE | 2018-07-09 22:12 | PDOC ---
Exam Note: Santosh Note: Please also refer to the separate dictated note~for this date of service dictated separately.~Patient seen individually. Discussed the patient with Nursing staff reviewed the chart.~Reviewed interim history and current functioning. Reviewed vital signs,~Labs/ Radiology~and current medications noted below. Continue current treatment with the changes noted in the dictated addendum note Assessment: Vital Signs: Vital Signs Date Time Temp Pulse Resp B/P (MAP) Pulse Ox O2 Delivery O2 Flow Rate FiO2 07/09/18 16:25 97.5 77 20 130/70 (90) 96 Room Air I&O Intake and Output 07/09/18 06:59 Intake Total 1560 ml Balance 1560 ml Intake Oral 1560 ml Labs: Laboratory Tests Test 07/09/18 10:20 07/09/18 10:25 White Blood Count 6.8 x10^3/uL (4.0-11.0) Red Blood Count 4.81 x10^6/uL (3.50-5.40) Hemoglobin 13.3 g/dL (12.0-15.5) Hematocrit 40.8 % (36.0-47.0) Mean Corpuscular Volume 85 fL (79-100) Mean Corpuscular Hemoglobin 28 pg (25-35) Mean Corpuscular Hemoglobin Concent 33 g/dL (31-37) Red Cell Distribution Width 15.1 % (11.5-14.5) H Platelet Count 407 x10^3/uL (140-400) H Neutrophils (%) (Auto) 66 % (31-73) Lymphocytes (%) (Auto) 20 % (24-48) L Monocytes (%) (Auto) 14 % (0-9) H Eosinophils (%) (Auto) 0 % (0-3) Basophils (%) (Auto) 1 % (0-3) Neutrophils # (Auto) 4.5 x10^3uL (1.8-7.7) Lymphocytes # (Auto) 1.3 x10^3/uL (1.0-4.8) Monocytes # (Auto) 0.9 x10^3/uL (0.0-1.1) Eosinophils # (Auto) 0.0 x10^3/uL (0.0-0.7) Basophils # (Auto) 0.0 x10^3/uL (0.0-0.2) Sodium Level 139 mmol/L (136-145) Potassium Level 4.2 mmol/L (3.5-5.1) Chloride Level 101 mmol/L (98-107) Carbon Dioxide Level 31 mmol/L (21-32) Anion Gap 7 (6-14) Blood Urea Nitrogen 19 mg/dL (7-20) Creatinine 0.7 mg/dL (0.6-1.0) Estimated GFR (Cockcroft-Gault) 82.5 BUN/Creatinine Ratio 27 (6-20) H Glucose Level 82 mg/dL (70-99) Lactic Acid Level 1.6 mmol/L (0.4-2.0) Calcium Level 9.9 mg/dL (8.5-10.1) Total Bilirubin 0.2 mg/dL (0.2-1.0) Aspartate Amino Transferase (AST) 22 U/L (15-37) Alanine Aminotransferase (ALT) 25 U/L (14-59) Alkaline Phosphatase 95 U/L (46-116) Total Protein 7.2 g/dL (6.4-8.2) Albumin 3.4 g/dL (3.4-5.0) Albumin/Globulin Ratio 0.9 (1.0-1.7) L Urine Collection Type Unknown Urine Color Yellow Urine Clarity Hazy Urine pH 7.0 Urine Specific [place] 1.010 Urine Protein Neg (NEG-TRACE) Urine Glucose (UA) Neg mg/dL (NEG) Urine Ketones (Stick) Neg mg/dL (NEG) Urine Blood Mod (NEG) Urine Nitrite Neg (NEG) Urine Bilirubin Neg (NEG) Urine Urobilinogen Dipstick 0.2 mg/dL (0.2 mg/dL) Urine Leukocyte Esterase Trace (NEG) Urine RBC 0 /HPF (0-2) Urine WBC Rare /HPF (0-4) Urine Squamous Epithelial Cells Occ /LPF Urine Bacteria Mod /HPF (0-FEW) Current Medications: Meds: Current Medications Acetaminophen (Tylenol) 650 mg PRN Q6HRS PRN PO PAIN / TEMP Last administered on 07/01/18at 00:14; Start 06/20/18 at 15:30 Multi-Ingredient Ointment (Analgesic [place]) 1 paula PRN QID PRN TP MUSCLE PAIN Last administered on 07/08/18at 23:12; Start 06/20/18 at 15:30 Al Hydroxide/Mg Hydroxide (Mylanta Plus Xs) 15 ml PRN AFTMEALHC PRN PO DYSPEPSIA Last administered on 06/25/18at 08:21; Start 06/20/18 at 15:30 Magnesium Hydroxide (Milk Of Magnesia) 2,400 mg PRN QHS PRN PO CONSTIPATION; Start 06/20/18 at 15:30 Nicotine (Nicoderm Cq 21mg) 1 patch DAILY TD Last administered on 06/22/18at 09: 13; Start 06/21/18 at 09:00; Stop 06/26/18 at 18:55; Status DC Heparin Sodium (Porcine) (Heparin Sodium) 5,000 unit Q12HR SQ ; Start 06/20/18 at 21:00; Stop 06/21/18 at 15:19; Status DC Atorvastatin Calcium (Lipitor) 20 mg QHS PO Last administered on 07/09/18 21:06 ; Start 06/20/18 at 21:00 Lisinopril (Prinivil) 20 mg DAILY PO Last administered on 06/28/18at 09:13; Start 06/21/18 at 09:00; Stop 07/01/18 at 13:55; Status DC Zolpidem Tartrate (Ambien) 5 mg PRN QHS PRN PO INSOMNIA Last administered on 22:07; Start 06/20/18 at 16:15 Acetaminophen/ Butalbital/ Caffeine (Fioricet) 1 tab PRN Q6HRS PRN PO MIGRAINE HEADACHE; Start 06/20/18 at 16:45 Meclizine HCl (Antivert) 25 mg TID PO Last administered on 06/21/18at 07:51; Start 06/20/18 at 21:00; Stop 06/21/18 at 15:20; Status DC Non-Formulary Medication (Nicotine (NICODERM CQ 14mg)) 1 patch DAILY TD ; Start 06/21/18 at 09:00; Stop 06/21/18 at 09:00; Status DC Pantoprazole Sodium (Protonix) 40 mg BIDWMEALS PO Last administered on at 08:48; Start 06/20/18 at 17:00; Stop 06/23/18 at 14:07; Status DC Info (FLU VACCINE per PROTOCOL) 1 ea PRN 1X PRN MC PER PROTOCOL; Start at 21:00; Stop 06/20/18 at 21:00; Status DC Influenza Virus Vaccine ([facility] Trivalent Syringe) 0.5 ml ONCE ONCE VAX IM ; Start 06/20/18 at 21:00; Stop 06/20/18 at 21:16; Status DC Influenza Virus Vaccine ([facility] Trivalent Syringe) 0.5 ml ONCE ONCE VAX IM Last administered on 06/22/18at 09:00; Start 06/22/18 at 09:00; Stop at 09:01; Status DC Meclizine HCl (Antivert) 25 mg PRN TID PRN PO DIZZINESS; Start 06/21/18 at 15: 30 Fluvoxamine Maleate (Luvox) 25 mg QHS PO Last administered on 06/23/18at 19:56; Start 06/21/18 at 21:00; Stop 06/24/18 at 03:10; Status DC Pantoprazole Sodium (Protonix) 40 mg PRN DAILY PRN PO HEARTBURN / GAS; Start at 09:00 Fluvoxamine Maleate (Luvox) 50 mg QHS PO Last administered on 06/26/18at 21:02; Start 06/24/18 at 21:00; Stop 06/27/18 at 19:00; Status DC Dipyridamole/ Aspirin (Aggrenox) 1 cap BID PO Last administered on 07/09/18at 21: 06; Start 06/24/18 at 21:00 Fluvoxamine Maleate (Luvox) 75 mg QHS PO ; Start 06/25/18 at 21:00; Stop at 21:00; Status DC Fluvoxamine Maleate (Luvox) 75 mg QHS PO Last administered on 06/30/18at 20:26; Start 06/27/18 at 21:00; Stop 06/30/18 at 23:24; Status DC Risperidone (RisperDAL) 0.25 mg HS PO Last administered on 07/09/18 21:06; Start 06/28/18 at 21:00 Vitamin D (Vitamin D3) 50,000 unit WEEKLY PO ; Start 06/28/18 at 18:00; Stop at 18:07; Status DC Vitamin D (Vitamin D3) 50,000 unit WEEKLY PO Last administered on 07/05/18at 07: 39; Start 06/28/18 at 20:00 Fluvoxamine Maleate (Luvox) 100 mg QHS PO Last administered on 07/06/18at 19:41; Start 07/01/18 at 21:00; Stop 07/06/18 at 20:17; Status DC Benzocaine (Ora-Jel Maximum) 1 paula PRN QID PRN TP ORAL PAIN; Start 07/01/18 at 11:30 Lisinopril (Prinivil) 10 mg DAILY PO Last administered on 07/08/18 08:00; Start 07/02/18 at 09:00 Trazodone HCl (Desyrel) 50 mg QHS PO Last administered on 07/02/18at 21:38; Start 07/01/18 at 21:00; Stop 07/03/18 at 18:36; Status DC Trazodone HCl (Desyrel) 50 mg QHS PRN PO INSOMNIA Last administered on at 21:51; Start 07/01/18 at 18:00; Stop 07/03/18 at 18:36; Status DC Fluvoxamine Maleate (Luvox) 125 mg QHS PO Last administered on 07/09/18at 21:06; Start 07/07/18 at 21:00 Active Scripts Active Reported Zolpidem Tartrate 5 Mg Tablet 5 Mg PO HS PRN Protonix (Pantoprazole Sodium) 40 Mg Tablet.dr 40 Mg PO BIDWMEALS NICODERM CQ 14mg (Nicotine) 1 Each Patch.td24 1 Patch TD DAILY Meclizine Hcl 25 Mg Tablet 25 Mg PO TID Lisinopril 20 Mg Tablet 20 Mg PO DAILY Heparin 5,000 Unit/5 ml-Ns (Heparin Sod,Porcine/0.9 % NaCl) 5,000 Unit/5 Ml Syringe 5,000 Unit IV Q12HR Aggrenox 25 Mg-200 Mg Capsule (Aspirin/Dipyridamole) 1 Each Cpmp.12hr 1 Cap PO BID Ttclxxlowk-Oed-Fqoxggii Cap (Butalbital/Aspirin/Caffeine) 1 Each Capsule 1 Each PO PRN Q6HRS PRN Atorvastatin Calcium 20 Mg Tablet 20 Mg PO QHS I have reviewed the current psychotropics carefully including drug interactions. Risk benefit ratio favors no change other than as noted in my dictated progress note. Diagnosis: Problems: (1) Major depression with psychotic features (2) Anxiety disorder (3) Impulse control disorder (4) Obsessive compulsive disorder AIME LACKEY MD Jul 09, 2018 22:12
[2018-07-09] MEDS: ZOLPIDEM 5 MG TABLET. PO PRN (22:35)
[2018-07-10 05:51] VITALS: BP 121/72
[2018-07-10] MEDS: ASPIRIN/DIPYRIDAMOLE 200/25MG CAP.ER.12H PO SCH ×2 (09:26→21:22)
[2018-07-10] MEDS: LISINOPRIL 10 MG TABLET PO SCH (09:27)
[2018-07-10 16:21] VITALS: BP 100/60
--- NOTE | 2018-07-10 20:50 | PN ---
DATE: 07/09/2018 PSYCHIATRIC PROGRESS NOTE This late entry 07/09/2018 covers elements not covered in my initial note. SUBJECTIVE: I met with the patient in the evening. The patient did not sleep at night, but she is in a bed most of the day, withdrawn, sleeping. She is still obsessive, fixated on certain foods, wanting desserts, complained of this to me as I met with her in her room in the evening. At one point, she was somewhat tachycardic. Dr. Briseno is addressing it, later this was normal. REVIEW OF SYSTEMS: Positive for feeling hungry for desserts. No CV, , pulmonary, eye system symptoms on review. She has vague somatic symptoms. MENTAL STATUS EXAM: Oriented reasonably. Speech is coherent, has some latency. Abstraction fair, computation impaired, language function intact. Mood and affect somewhat withdrawn. LABORATORY DATA: Reviewed. IMPRESSION: Unchanged from initial note. PLAN: No change from initial note. We will gradually increase the Luvox. She remains on Risperdal along with Itzel ordonez AIME LACKEY MD DR: DEBRA/alisha JOB#: [id number] / [id number]
[2018-07-10] MEDS: risperiDONE 0.25 MG TABLET. PO SCH (21:22)
[2018-07-10] MEDS: ATORVASTATIN CALCIUM 20 MG TABLET PO SCH (21:22)
--- NOTE | 2018-07-10 22:28 | PDOC ---
Exam Note: Santosh Note: Please also refer to the separate dictated note~for this date of service dictated separately.~Patient seen individually. Discussed the patient with Nursing staff reviewed the chart.~Reviewed interim history and current functioning. Reviewed vital signs,~Labs/ Radiology~and current medications noted below. Continue current treatment with the changes noted in the dictated addendum note Assessment: Vital Signs: Vital Signs Date Time Temp Pulse Resp B/P (MAP) Pulse Ox O2 Delivery O2 Flow Rate FiO2 07/10/18 16:21 98.5 94 20 100/60 (73) 98 07/09/18 16:25 Room Air I&O Intake and Output 07/10/18 06:59 Intake Total 1440 ml Balance 1440 ml Intake Oral 1440 ml Current Medications: Meds: Current Medications Acetaminophen (Tylenol) 650 mg PRN Q6HRS PRN PO PAIN / TEMP Last administered on 07/01/18 00:14; Start 06/20/18 at 15:30 Multi-Ingredient Ointment (Analgesic [place]) 1 paula PRN QID PRN TP MUSCLE PAIN Last administered on 07/08/18 23:12; Start 06/20/18 at 15:30 Al Hydroxide/Mg Hydroxide (Mylanta Plus Xs) 15 ml PRN AFTMEALHC PRN PO DYSPEPSIA Last administered on 06/25/18 08:21; Start 06/20/18 at 15:30 Magnesium Hydroxide (Milk Of Magnesia) 2,400 mg PRN QHS PRN PO CONSTIPATION; Start 06/20/18 at 15:30 Nicotine (Nicoderm Cq 21mg) 1 patch DAILY TD Last administered on 06/22/18 09: 13; Start 06/21/18 at 09:00; Stop 06/26/18 at 18:55; Status DC Heparin Sodium (Porcine) (Heparin Sodium) 5,000 unit Q12HR SQ ; Start 06/20/18 at 21:00; Stop 06/21/18 at 15:19; Status DC Atorvastatin Calcium (Lipitor) 20 mg QHS PO Last administered on 07/10/18 21:22 ; Start 06/20/18 at 21:00 Lisinopril (Prinivil) 20 mg DAILY PO Last administered on 06/28/18 09:13; Start 06/21/18 at 09:00; Stop 07/01/18 at 13:55; Status DC Zolpidem Tartrate (Ambien) 5 mg PRN QHS PRN PO INSOMNIA Last administered on 07/09/18at 22:35; Start 06/20/18 at 16:15 Acetaminophen/ Butalbital/ Caffeine (Fioricet) 1 tab PRN Q6HRS PRN PO MIGRAINE HEADACHE; Start 06/20/18 at 16:45 Meclizine HCl (Antivert) 25 mg TID PO Last administered on 06/21/18at 07:51; Start 06/20/18 at 21:00; Stop 06/21/18 at 15:20; Status DC Non-Formulary Medication (Nicotine (NICODERM CQ 14mg)) 1 patch DAILY TD ; Start 06/21/18 at 09:00; Stop 06/21/18 at 09:00; Status DC Pantoprazole Sodium (Protonix) 40 mg BIDWMEALS PO Last administered on at 08:48; Start 06/20/18 at 17:00; Stop 06/23/18 at 14:07; Status DC Info (FLU VACCINE per PROTOCOL) 1 ea PRN 1X PRN MC PER PROTOCOL; Start at 21:00; Stop 06/20/18 at 21:00; Status DC Influenza Virus Vaccine (Afluria Trivalent Syringe) 0.5 ml ONCE ONCE VAX IM ; Start 06/20/18 at 21:00; Stop 06/20/18 at 21:16; Status DC Influenza Virus Vaccine (Afluria Trivalent Syringe) 0.5 ml ONCE ONCE VAX IM Last administered on 06/22/18at 09:00; Start 06/22/18 at 09:00; Stop at 09:01; Status DC Meclizine HCl (Antivert) 25 mg PRN TID PRN PO DIZZINESS; Start 06/21/18 at 15: 30 Fluvoxamine Maleate (Luvox) 25 mg QHS PO Last administered on 06/23/18at 19:56; Start 06/21/18 at 21:00; Stop 06/24/18 at 03:10; Status DC Pantoprazole Sodium (Protonix) 40 mg PRN DAILY PRN PO HEARTBURN / GAS; Start at 09:00 Fluvoxamine Maleate (Luvox) 50 mg QHS PO Last administered on 06/26/18 21:02; Start 06/24/18 at 21:00; Stop 06/27/18 at 19:00; Status DC Dipyridamole/ Aspirin (Aggrenox) 1 cap BID PO Last administered on 07/10/18 21: 22; Start 06/24/18 at 21:00 Fluvoxamine Maleate (Luvox) 75 mg QHS PO ; Start 06/25/18 at 21:00; Stop at 21:00; Status DC Fluvoxamine Maleate (Luvox) 75 mg QHS PO Last administered on 06/30/18at 20:26; Start 06/27/18 at 21:00; Stop 06/30/18 at 23:24; Status DC Risperidone (RisperDAL) 0.25 mg HS PO Last administered on 07/10/18 21:22; Start 06/28/18 at 21:00 Vitamin D (Vitamin D3) 50,000 unit WEEKLY PO ; Start 06/28/18 at 18:00; Stop at 18:07; Status DC Vitamin D (Vitamin D3) 50,000 unit WEEKLY PO Last administered on 07/05/18at 07: 39; Start 06/28/18 at 20:00 Fluvoxamine Maleate (Luvox) 100 mg QHS PO Last administered on 07/06/18 19:41; Start 07/01/18 at 21:00; Stop 07/06/18 at 20:17; Status DC Benzocaine (Ora-Jel Maximum) 1 paula PRN QID PRN TP ORAL PAIN; Start 07/01/18 at 11:30 Lisinopril (Prinivil) 10 mg DAILY PO Last administered on 07/10/18 09:27; Start 07/02/18 at 09:00; Stop 07/10/18 at 18:58; Status DC Trazodone HCl (Desyrel) 50 mg QHS PO Last administered on 07/02/18at 21:38; Start 07/01/18 at 21:00; Stop 07/03/18 at 18:36; Status DC Trazodone HCl (Desyrel) 50 mg QHS PRN PO INSOMNIA Last administered on at 21:51; Start 07/01/18 at 18:00; Stop 07/03/18 at 18:36; Status DC Fluvoxamine Maleate (Luvox) 125 mg QHS PO Last administered on 07/10/18at 21:22; Start 07/07/18 at 21:00; Stop 07/11/18 at 23:50 Fluvoxamine Maleate (Luvox) 150 mg QHS PO ; Start 07/12/18 at 21:00 Lisinopril (Prinivil) 5 mg DAILY PO ; Start 07/11/18 at 09:00 Active Scripts Active Reported Zolpidem Tartrate 5 Mg Tablet 5 Mg PO HS PRN Protonix (Pantoprazole Sodium) 40 Mg Tablet.dr 40 Mg PO BIDWMEALS NICODERM CQ 14mg (Nicotine) 1 Each Patch.td24 1 Patch TD DAILY Meclizine Hcl 25 Mg Tablet 25 Mg PO TID Lisinopril 20 Mg Tablet 20 Mg PO DAILY Heparin 5,000 Unit/5 ml-Ns (Heparin Sod,Porcine/0.9 % NaCl) 5,000 Unit/5 Ml Syringe 5,000 Unit IV Q12HR Aggrenox 25 Mg-200 Mg Capsule (Aspirin/Dipyridamole) 1 Each Cpmp.12hr 1 Cap PO BID Utngxjklmx-Gff-Ebuiojis Cap (Butalbital/Aspirin/Caffeine) 1 Each Capsule 1 Each PO PRN Q6HRS PRN Atorvastatin Calcium 20 Mg Tablet 20 Mg PO QHS I have reviewed the current psychotropics carefully including drug interactions. Risk benefit ratio favors no change other than as noted in my dictated progress note. Diagnosis: Problems: (1) Major depression with psychotic features (2) Anxiety disorder (3) Impulse control disorder (4) Obsessive compulsive disorder AIME LACKEY MD Jul 10, 2018 22:28
[2018-07-10] MEDS: ZOLPIDEM 5 MG TABLET. PO PRN (23:32)
[2018-07-11 06:14] VITALS: BP 98/58
[2018-07-11] MEDS: ASPIRIN/DIPYRIDAMOLE 200/25MG CAP.ER.12H PO SCH ×2 (07:52→21:07)
[2018-07-11] MEDS: LISINOPRIL 5 MG TABLET. PO SCH (07:57)
[2018-07-11 16:30] VITALS: BP 108/66
[2018-07-11] MEDS: ATORVASTATIN CALCIUM 20 MG TABLET PO SCH (21:07)
[2018-07-11] MEDS: risperiDONE 0.25 MG TABLET. PO SCH (21:07)
--- NOTE | 2018-07-11 22:25 | PDOC ---
Exam Note: Santosh Note: Please also refer to the separate dictated note~for this date of service dictated separately.~Patient seen individually. Discussed the patient with Nursing staff reviewed the chart.~Reviewed interim history and current functioning. Reviewed vital signs,~Labs/ Radiology~and current medications noted below. Continue current treatment with the changes noted in the dictated addendum note Assessment: Vital Signs: Vital Signs Date Time Temp Pulse Resp B/P (MAP) Pulse Ox O2 Delivery O2 Flow Rate FiO2 07/11/18 16:30 97.8 108 22 108/66 (80) 96 Room Air I&O Intake and Output 07/11/18 06:59 Intake Total 1200 ml Balance 1200 ml Intake Oral 1200 ml # Voids 1 Current Medications: Meds: Current Medications Acetaminophen (Tylenol) 650 mg PRN Q6HRS PRN PO PAIN / TEMP Last administered on 07/01/18 00:14; Start 06/20/18 at 15:30 Multi-Ingredient Ointment (Analgesic [place]) 1 paula PRN QID PRN TP MUSCLE PAIN Last administered on 07/08/18 23:12; Start 06/20/18 at 15:30 Al Hydroxide/Mg Hydroxide (Mylanta Plus Xs) 15 ml PRN AFTMEALHC PRN PO DYSPEPSIA Last administered on 06/25/18 08:21; Start 06/20/18 at 15:30 Magnesium Hydroxide (Milk Of Magnesia) 2,400 mg PRN QHS PRN PO CONSTIPATION; Start 06/20/18 at 15:30 Nicotine (Nicoderm Cq 21mg) 1 patch DAILY TD Last administered on 06/22/18 09: 13; Start 06/21/18 at 09:00; Stop 06/26/18 at 18:55; Status DC Heparin Sodium (Porcine) (Heparin Sodium) 5,000 unit Q12HR SQ ; Start 06/20/18 at 21:00; Stop 06/21/18 at 15:19; Status DC Atorvastatin Calcium (Lipitor) 20 mg QHS PO Last administered on 07/11/18 21:07 ; Start 06/20/18 at 21:00 Lisinopril (Prinivil) 20 mg DAILY PO Last administered on 06/28/18 09:13; Start 06/21/18 at 09:00; Stop 07/01/18 at 13:55; Status DC Zolpidem Tartrate (Ambien) 5 mg PRN QHS PRN PO INSOMNIA Last administered on 07/10/18at 23:32; Start 06/20/18 at 16:15 Acetaminophen/ Butalbital/ Caffeine (Fioricet) 1 tab PRN Q6HRS PRN PO MIGRAINE HEADACHE; Start 06/20/18 at 16:45 Meclizine HCl (Antivert) 25 mg TID PO Last administered on 06/21/18at 07:51; Start 06/20/18 at 21:00; Stop 06/21/18 at 15:20; Status DC Non-Formulary Medication (Nicotine (NICODERM CQ 14mg)) 1 patch DAILY TD ; Start 06/21/18 at 09:00; Stop 06/21/18 at 09:00; Status DC Pantoprazole Sodium (Protonix) 40 mg BIDWMEALS PO Last administered on at 08:48; Start 06/20/18 at 17:00; Stop 06/23/18 at 14:07; Status DC Info (FLU VACCINE per PROTOCOL) 1 ea PRN 1X PRN MC PER PROTOCOL; Start at 21:00; Stop 06/20/18 at 21:00; Status DC Influenza Virus Vaccine (Afluria Trivalent Syringe) 0.5 ml ONCE ONCE VAX IM ; Start 06/20/18 at 21:00; Stop 06/20/18 at 21:16; Status DC Influenza Virus Vaccine (Afluria Trivalent Syringe) 0.5 ml ONCE ONCE VAX IM Last administered on 06/22/18at 09:00; Start 06/22/18 at 09:00; Stop at 09:01; Status DC Meclizine HCl (Antivert) 25 mg PRN TID PRN PO DIZZINESS; Start 06/21/18 at 15: 30 Fluvoxamine Maleate (Luvox) 25 mg QHS PO Last administered on 06/23/18at 19:56; Start 06/21/18 at 21:00; Stop 06/24/18 at 03:10; Status DC Pantoprazole Sodium (Protonix) 40 mg PRN DAILY PRN PO HEARTBURN / GAS; Start at 09:00 Fluvoxamine Maleate (Luvox) 50 mg QHS PO Last administered on 06/26/18 21:02; Start 06/24/18 at 21:00; Stop 06/27/18 at 19:00; Status DC Dipyridamole/ Aspirin (Aggrenox) 1 cap BID PO Last administered on 07/11/18 21: 07; Start 06/24/18 at 21:00 Fluvoxamine Maleate (Luvox) 75 mg QHS PO ; Start 06/25/18 at 21:00; Stop at 21:00; Status DC Fluvoxamine Maleate (Luvox) 75 mg QHS PO Last administered on 06/30/18 20:26; Start 06/27/18 at 21:00; Stop 06/30/18 at 23:24; Status DC Risperidone (RisperDAL) 0.25 mg HS PO Last administered on 07/11/18 21:07; Start 06/28/18 at 21:00 Vitamin D (Vitamin D3) 50,000 unit WEEKLY PO ; Start 06/28/18 at 18:00; Stop at 18:07; Status DC Vitamin D (Vitamin D3) 50,000 unit WEEKLY PO Last administered on 07/05/18at 07: 39; Start 06/28/18 at 20:00 Fluvoxamine Maleate (Luvox) 100 mg QHS PO Last administered on 07/06/18 19:41; Start 07/01/18 at 21:00; Stop 07/06/18 at 20:17; Status DC Benzocaine (Ora-Jel Maximum) 1 paula PRN QID PRN TP ORAL PAIN; Start 07/01/18 at 11:30 Lisinopril (Prinivil) 10 mg DAILY PO Last administered on 07/10/18at 09:27; Start 07/02/18 at 09:00; Stop 07/10/18 at 18:58; Status DC Trazodone HCl (Desyrel) 50 mg QHS PO Last administered on 07/02/18at 21:38; Start 07/01/18 at 21:00; Stop 07/03/18 at 18:36; Status DC Trazodone HCl (Desyrel) 50 mg QHS PRN PO INSOMNIA Last administered on at 21:51; Start 07/01/18 at 18:00; Stop 07/03/18 at 18:36; Status DC Fluvoxamine Maleate (Luvox) 125 mg QHS PO Last administered on 07/11/18at 21:08; Start 07/07/18 at 21:00; Stop 07/11/18 at 23:50 Fluvoxamine Maleate (Luvox) 150 mg QHS PO ; Start 07/12/18 at 21:00 Lisinopril (Prinivil) 5 mg DAILY PO Last administered on 07/11/18at 07:57; Start 07/11/18 at 09:00 Active Scripts Active Reported Zolpidem Tartrate 5 Mg Tablet 5 Mg PO HS PRN Protonix (Pantoprazole Sodium) 40 Mg Tablet.dr 40 Mg PO BIDWMEALS NICODERM CQ 14mg (Nicotine) 1 Each Patch.td24 1 Patch TD DAILY Meclizine Hcl 25 Mg Tablet 25 Mg PO TID Lisinopril 20 Mg Tablet 20 Mg PO DAILY Heparin 5,000 Unit/5 ml-Ns (Heparin Sod,Porcine/0.9 % NaCl) 5,000 Unit/5 Ml Syringe 5,000 Unit IV Q12HR Aggrenox 25 Mg-200 Mg Capsule (Aspirin/Dipyridamole) 1 Each Cpmp.12hr 1 Cap PO BID Cirhhbyyum-Obw-Meeaxmkb Cap (Butalbital/Aspirin/Caffeine) 1 Each Capsule 1 Each PO PRN Q6HRS PRN Atorvastatin Calcium 20 Mg Tablet 20 Mg PO QHS I have reviewed the current psychotropics carefully including drug interactions. Risk benefit ratio favors no change other than as noted in my dictated progress note. Diagnosis: Problems: (1) Major depression with psychotic features (2) Anxiety disorder (3) Impulse control disorder (4) Obsessive compulsive disorder AIME LACKEY MD Jul 11, 2018 22:25
[2018-07-11] MEDS: ZOLPIDEM 5 MG TABLET. PO PRN (22:45)
[2018-07-12 06:56] VITALS: BP 104/55
[2018-07-12] MEDS: LISINOPRIL 5 MG TABLET. PO SCH (08:31)
[2018-07-12] MEDS: ASPIRIN/DIPYRIDAMOLE 200/25MG CAP.ER.12H PO SCH ×2 (08:31→19:58)
[2018-07-12] MEDS: CHOLECALCIFEROL (VITAMIN D3) 50,000 UNIT CAPSULE PO SCH (08:40)
[2018-07-12 16:22] VITALS: BP 130/76
[2018-07-12] MEDS: risperiDONE 0.25 MG TABLET. PO SCH (19:58)
[2018-07-12] MEDS: ATORVASTATIN CALCIUM 20 MG TABLET PO SCH (19:58)
--- NOTE | 2018-07-12 21:23 | PN ---
DATE: 07/10/2018 PSYCHIATRIC PROGRESS NOTE This late entry 07/10/2018 covers elements not covered in my initial note. SUBJECTIVE: I met with the patient in the evening. I met with her in her room at length. She slept 5 hours previous night. She has been trying to hide her food in her room, stays much of the time in her room. We do not have a chiropractor available to clip her nails, we will defer to Dr. Briseno. She did eat breakfast, then back to her room, refused lunch, obsessed about ice water. REVIEW OF SYSTEMS: Multiple vague somatic symptoms. No CV, , pulmonary, eye system symptoms on review. MENTAL STATUS EXAM: Reasonably oriented. Speech is coherent, has some latency. Abstraction fair, computation impaired. She is quite obsessive, anxious, blames the staff for many things, paranoid. LABORATORY DATA: Reviewed. IMPRESSION: Unchanged from initial note. PLAN: No change from initial note. We will increase the Luvox from 125 at bedtime to 150 at bedtime after she has been on 125 for 5 days. Rest unchanged including Risperdal. MAN Alexander LACKEY MD DR: DEBRA/alisha JOB#: [id number] / [id number]
--- NOTE | 2018-07-12 21:26 | PN ---
DATE: 07/11/2018 PSYCHIATRIC PROGRESS NOTE This late entry 07/11/2018 covers elements not covered in my initial note. SUBJECTIVE: I met with the patient in the evening. The patient was also staffed at a treatment team meeting with the entire team. The patient slept 6-1/2 hours previous night, goes to bed after breakfast. Nursing staff is being blamed for most things, but social service staff is looking for appropriate placement for her. Reportedly, her mother has had a fall and fractured her hip and the patient may be told about it later, but right now she is rather delicate herself psychiatrically for us to do this. REVIEW OF SYSTEMS: Positive for tiredness. No CV, , pulmonary, eye system symptoms on review. MENTAL STATUS EXAM: Oriented reasonably. Speech has some latency, coherent. Abstraction fair, computation impaired, language function intact. Mood and affect withdrawn. LABORATORY DATA: Reviewed. IMPRESSION: Unchanged from initial note. PLAN: No change from initial note. AIME LACKEY MD DR: DEBRA/alisha JOB#: [id number] / [id number]
--- NOTE | 2018-07-12 22:38 | PDOC ---
Exam Note: Santosh Note: Please also refer to the separate dictated note~for this date of service dictated separately.~Patient seen individually. Discussed the patient with Nursing staff reviewed the chart.~Reviewed interim history and current functioning. Reviewed vital signs,~Labs/ Radiology~and current medications noted below. Continue current treatment with the changes noted in the dictated addendum note Assessment: Vital Signs: Vital Signs Date Time Temp Pulse Resp B/P (MAP) Pulse Ox O2 Delivery O2 Flow Rate FiO2 07/12/18 16:22 98.3 88 20 130/76 (94) 93 Room Air I&O Intake and Output 07/12/18 06:59 Intake Total 960 ml Balance 960 ml Intake Oral 960 ml Current Medications: Meds: Current Medications Acetaminophen (Tylenol) 650 mg PRN Q6HRS PRN PO PAIN / TEMP Last administered on 07/01/18 00:14; Start 06/20/18 at 15:30 Multi-Ingredient Ointment (Analgesic Linn) 1 paula PRN QID PRN TP MUSCLE PAIN Last administered on 07/08/18 23:12; Start 06/20/18 at 15:30 Al Hydroxide/Mg Hydroxide (Mylanta Plus Xs) 15 ml PRN AFTMEALHC PRN PO DYSPEPSIA Last administered on 06/25/18 08:21; Start 06/20/18 at 15:30 Magnesium Hydroxide (Milk Of Magnesia) 2,400 mg PRN QHS PRN PO CONSTIPATION; Start 06/20/18 at 15:30 Nicotine (Nicoderm Cq 21mg) 1 patch DAILY TD Last administered on 06/22/18 09: 13; Start 06/21/18 at 09:00; Stop 06/26/18 at 18:55; Status DC Heparin Sodium (Porcine) (Heparin Sodium) 5,000 unit Q12HR SQ ; Start 06/20/18 at 21:00; Stop 06/21/18 at 15:19; Status DC Atorvastatin Calcium (Lipitor) 20 mg QHS PO Last administered on 07/12/18 19:58 ; Start 06/20/18 at 21:00 Lisinopril (Prinivil) 20 mg DAILY PO Last administered on 06/28/18 09:13; Start 06/21/18 at 09:00; Stop 07/01/18 at 13:55; Status DC Zolpidem Tartrate (Ambien) 5 mg PRN QHS PRN PO INSOMNIA Last administered on 07/11/18at 22:45; Start 06/20/18 at 16:15 Acetaminophen/ Butalbital/ Caffeine (Fioricet) 1 tab PRN Q6HRS PRN PO MIGRAINE HEADACHE; Start 06/20/18 at 16:45 Meclizine HCl (Antivert) 25 mg TID PO Last administered on 06/21/18at 07:51; Start 06/20/18 at 21:00; Stop 06/21/18 at 15:20; Status DC Non-Formulary Medication (Nicotine (NICODERM CQ 14mg)) 1 patch DAILY TD ; Start 06/21/18 at 09:00; Stop 06/21/18 at 09:00; Status DC Pantoprazole Sodium (Protonix) 40 mg BIDWMEALS PO Last administered on at 08:48; Start 06/20/18 at 17:00; Stop 06/23/18 at 14:07; Status DC Info (FLU VACCINE per PROTOCOL) 1 ea PRN 1X PRN MC PER PROTOCOL; Start at 21:00; Stop 06/20/18 at 21:00; Status DC Influenza Virus Vaccine (Afluria Trivalent Syringe) 0.5 ml ONCE ONCE VAX IM ; Start 06/20/18 at 21:00; Stop 06/20/18 at 21:16; Status DC Influenza Virus Vaccine (Afluria Trivalent Syringe) 0.5 ml ONCE ONCE VAX IM Last administered on 06/22/18at 09:00; Start 06/22/18 at 09:00; Stop at 09:01; Status DC Meclizine HCl (Antivert) 25 mg PRN TID PRN PO DIZZINESS; Start 06/21/18 at 15: 30 Fluvoxamine Maleate (Luvox) 25 mg QHS PO Last administered on 06/23/18at 19:56; Start 06/21/18 at 21:00; Stop 06/24/18 at 03:10; Status DC Pantoprazole Sodium (Protonix) 40 mg PRN DAILY PRN PO HEARTBURN / GAS; Start at 09:00 Fluvoxamine Maleate (Luvox) 50 mg QHS PO Last administered on 06/26/18 21:02; Start 06/24/18 at 21:00; Stop 06/27/18 at 19:00; Status DC Dipyridamole/ Aspirin (Aggrenox) 1 cap BID PO Last administered on 07/12/18 19: 58; Start 06/24/18 at 21:00 Fluvoxamine Maleate (Luvox) 75 mg QHS PO ; Start 06/25/18 at 21:00; Stop at 21:00; Status DC Fluvoxamine Maleate (Luvox) 75 mg QHS PO Last administered on 06/30/18 20:26; Start 06/27/18 at 21:00; Stop 06/30/18 at 23:24; Status DC Risperidone (RisperDAL) 0.25 mg HS PO Last administered on 07/12/18 19:58; Start 06/28/18 at 21:00 Vitamin D (Vitamin D3) 50,000 unit WEEKLY PO ; Start 06/28/18 at 18:00; Stop at 18:07; Status DC Vitamin D (Vitamin D3) 50,000 unit WEEKLY PO Last administered on 07/12/18 08: 40; Start 06/28/18 at 20:00 Fluvoxamine Maleate (Luvox) 100 mg QHS PO Last administered on 07/06/18 19:41; Start 07/01/18 at 21:00; Stop 07/06/18 at 20:17; Status DC Benzocaine (Ora-Jel Maximum) 1 paula PRN QID PRN TP ORAL PAIN; Start 07/01/18 at 11:30 Lisinopril (Prinivil) 10 mg DAILY PO Last administered on 07/10/18 09:27; Start 07/02/18 at 09:00; Stop 07/10/18 at 18:58; Status DC Trazodone HCl (Desyrel) 50 mg QHS PO Last administered on 07/02/18at 21:38; Start 07/01/18 at 21:00; Stop 07/03/18 at 18:36; Status DC Trazodone HCl (Desyrel) 50 mg QHS PRN PO INSOMNIA Last administered on 21:51; Start 07/01/18 at 18:00; Stop 07/03/18 at 18:36; Status DC Fluvoxamine Maleate (Luvox) 125 mg QHS PO Last administered on 07/11/18at 21:08; Start 07/07/18 at 21:00; Stop 07/11/18 at 23:50; Status DC Fluvoxamine Maleate (Luvox) 150 mg QHS PO Last administered on 07/12/18at 19:59; Start 07/12/18 at 21:00 Lisinopril (Prinivil) 5 mg DAILY PO Last administered on 07/12/18 08:31; Start 07/11/18 at 09:00 Active Scripts Active Reported Zolpidem Tartrate 5 Mg Tablet 5 Mg PO HS PRN Protonix (Pantoprazole Sodium) 40 Mg Tablet.dr 40 Mg PO BIDWMEALS NICODERM CQ 14mg (Nicotine) 1 Each Patch.td24 1 Patch TD DAILY Meclizine Hcl 25 Mg Tablet 25 Mg PO TID Lisinopril 20 Mg Tablet 20 Mg PO DAILY Heparin 5,000 Unit/5 ml-Ns (Heparin Sod,Porcine/0.9 % NaCl) 5,000 Unit/5 Ml Syringe 5,000 Unit IV Q12HR Aggrenox 25 Mg-200 Mg Capsule (Aspirin/Dipyridamole) 1 Each Cpmp.12hr 1 Cap PO BID Kyzzzzdibl-Blb-Hblxtjqe Cap (Butalbital/Aspirin/Caffeine) 1 Each Capsule 1 Each PO PRN Q6HRS PRN Atorvastatin Calcium 20 Mg Tablet 20 Mg PO QHS I have reviewed the current psychotropics carefully including drug interactions. Risk benefit ratio favors no change other than as noted in my dictated progress note. Diagnosis: Problems: (1) Major depression with psychotic features (2) Anxiety disorder (3) Impulse control disorder (4) Obsessive compulsive disorder AIME LACKEY MD Jul 12, 2018 22:38
[2018-07-13 05:59] VITALS: BP 122/72
[2018-07-13] MEDS: ASPIRIN/DIPYRIDAMOLE 200/25MG CAP.ER.12H PO SCH ×2 (08:41→20:31)
[2018-07-13] MEDS: LACTOBACILLUS RHAMNOSUS GG 1 CAPSULE. PO SCH ×2 (08:41→20:31)
[2018-07-13] MEDS: LISINOPRIL 5 MG TABLET. PO SCH (08:42)
[2018-07-13] MEDS: CEFDINIR 300 MG CAPSULE PO SCH ×2 (09:39→20:32)
[2018-07-13 15:42] VITALS: BP 129/74
[2018-07-13] MEDS: ATORVASTATIN CALCIUM 20 MG TABLET PO SCH (20:31)
[2018-07-13] MEDS: risperiDONE 0.25 MG TABLET. PO SCH (20:32)
[2018-07-13] MEDS: ZOLPIDEM 5 MG TABLET. PO PRN (22:33)
--- NOTE | 2018-07-13 23:41 | PN ---
DATE: 07/13/2018 SUBJECTIVE: The patient was seen today, met with the staff, chart reviewed. The patient continues to complain of pain, decreased sleep, but her appetite has improved. The patient continues to be depressed, anxious, obsessive compulsive behaviors, demanding, attention seeking. OBSERVATION: VITAL SIGNS: Temperature 97.6, blood pressure 122/72, pulse 83, respiration 18, O2 sat 94%. Slept about less than an hour. The patient continues to blame others for her problems. The patient also lacking insight to her problems. MEDICATIONS: The patient's current medications include Luvox 150 mg at night, Risperdal 0.25 mg at night. The patient is not having any side effects to the medications. ASSESSMENT: Major depression with psychotic features; generalized anxiety disorder. PLAN: Continue with the treatment plan. CARLOS VELA MD DR: DANIELLE/alisha JOB#: [id number] / [id number]
[2018-07-14 06:39] VITALS: BP 97/54
[2018-07-14] MEDS: LACTOBACILLUS RHAMNOSUS GG 1 CAPSULE. PO SCH ×2 (08:23→19:47)
[2018-07-14] MEDS: ASPIRIN/DIPYRIDAMOLE 200/25MG CAP.ER.12H PO SCH ×2 (08:23→19:47)
[2018-07-14] MEDS: CEFDINIR 300 MG CAPSULE PO SCH ×2 (08:23→19:48)
[2018-07-14] MEDS: LISINOPRIL 5 MG TABLET. PO SCH (09:00)
[2018-07-14 16:34] VITALS: BP 123/72
[2018-07-14] MEDS: risperiDONE 0.25 MG TABLET. PO SCH (19:47)
[2018-07-14] MEDS: ATORVASTATIN CALCIUM 20 MG TABLET PO SCH (19:47)
[2018-07-14] MEDS: ZOLPIDEM 5 MG TABLET. PO PRN (21:56)
--- NOTE | 2018-07-15 00:43 | PN ---
DATE: 07/12/2018 PSYCHIATRIC PROGRESS NOTE This late entry 07/12/2018 covers elements not covered in my initial note. SUBJECTIVE: I met with the patient in the evening in her room at length. The patient slept 6 hours previous night. She remains obsessive, extremely fixated on wanting extra puddings what food items she takes and then says she is always hungry. REVIEW OF SYSTEMS: No CV, , pulmonary, eye, ENT system symptoms on review. MENTAL STATUS EXAM: The patient is reasonably oriented. Speech is coherent, has some latency. Abstraction fair, computation impaired, language function intact, attention span short. Mood and affect somewhat withdrawn. LABORATORY DATA: Reviewed. IMPRESSION: Unchanged from initial note. PLAN: No change from initial note. AIME LACKEY MD DR: DEBRA/alisha JOB#: [id number] / [id number]
--- NOTE | 2018-07-15 02:39 | PN ---
DATE: 07/14/2018 SUBJECTIVE: The patient was seen today, met with the staff, chart reviewed. Staff reports increased behavior problems. She is constantly demanding, argumentative, multiple physical complaints including chronic pain. The patient tends to obsess over her problems and also attention seeking. OBSERVATION: Vital signs are stable. The patient is not sleeping well. Appetite fair. The patient is not having any physical complaints except for pain. No side effects to the medications. CURRENT MEDICATIONS: Include Luvox 150 mg at night, Risperdal 0.25 mg at night. ASSESSMENT: 1. Major depression with psychotic features. 2. Generalized anxiety disorder. PLAN: Continue with the current treatment. CARLOS VELA MD DR: DANIELLE/alisha JOB#: [id number] / [id number]
[2018-07-15 06:12] VITALS: BP 102/55
[2018-07-15] MEDS: ASPIRIN/DIPYRIDAMOLE 200/25MG CAP.ER.12H PO SCH ×2 (08:17→21:40)
[2018-07-15] MEDS: LACTOBACILLUS RHAMNOSUS GG 1 CAPSULE. PO SCH ×2 (08:17→21:40)
[2018-07-15] MEDS: CEFDINIR 300 MG CAPSULE PO SCH ×2 (08:18→21:42)
[2018-07-15] MEDS: LISINOPRIL 5 MG TABLET. PO SCH (09:00)
[2018-07-15 16:32] VITALS: BP 126/74
[2018-07-15] MEDS: ATORVASTATIN CALCIUM 20 MG TABLET PO SCH (21:40)
[2018-07-15] MEDS: risperiDONE 0.25 MG TABLET. PO SCH (21:41)
[2018-07-15] MEDS: ZOLPIDEM 5 MG TABLET. PO PRN (23:02)
--- NOTE | 2018-07-16 04:04 | PN ---
DATE: 07/15/2018 SUBJECTIVE: The patient was seen today, met with the staff, chart reviewed. Staff reports increased isolation, demanding, constantly seeking attention, also complaining of right knee pain and wants to stay in bed. OBSERVATION: VITAL SIGNS: Temperature 97.5, blood pressure 102/55, pulse 88, respirations 16, O2 sat 98%. Slept about 4 hours last night. CURRENT MEDICATIONS: The patient's medication reviewed and she is on Luvox 150 mg at night, Risperdal 0.25 mg at night. ASSESSMENT: 1. Major depression with psychotic features. 2. Generalized anxiety disorder. PLAN: The patient is also on Ambien 5 mg p.r.n. at night for sleep. The patient's Risperdal to be increased to 0.25 mg b.i.d. p.o. and plan is for discharge this week if the placement is available. CARLOS VELA MD DR: DANIELLE/alisha JOB#: [id number] / [id number]
[2018-07-16 06:44] VITALS: BP 96/57
[2018-07-16 08:11] LABS: BASO % 1 % (0-3); EOS # 0.1 x10^3/uL (0.0-0.7); EOS % 2 % (0-3); HEMATOCRIT 42.1 % (36.0-47.0); HEMOGLOBIN 13.7 g/dL (12.0-15.5); LYMPH # 2.1 x10^3/uL (1.0-4.8); LYMPH % 30 % (24-48); MEAN CORPUSCULAR HEMOGLOBIN 28 pg (25-35); MEAN CORPUSCULAR HGB CONC 33 g/dL (31-37); MEAN CORPUSCULAR VOLUME 86 fL (79-100); MONO # 0.8 x10^3/uL (0.0-1.1); MONO % 12 % (0-9); NEUT # 3.9 x10^3uL (1.8-7.7); NEUT % 56 % (31-73); PLATELET COUNT 477 x10^3/uL (140-400); RED BLOOD COUNT 4.88 x10^6/uL (3.50-5.40); RED CELL DISTRIBUTION WIDTH 15.4 % (11.5-14.5)
[2018-07-16] MEDS: ASPIRIN/DIPYRIDAMOLE 200/25MG CAP.ER.12H PO SCH ×2 (08:14→21:34)
[2018-07-16] MEDS: LACTOBACILLUS RHAMNOSUS GG 1 CAPSULE. PO SCH ×2 (08:14→21:34)
[2018-07-16] MEDS: risperiDONE 0.25 MG TABLET. PO SCH ×2 (08:14→21:34)
[2018-07-16] MEDS: CEFDINIR 300 MG CAPSULE PO SCH ×2 (08:14→21:37)
[2018-07-16 08:22] LABS: ALBUMIN 3.6 g/dL (3.4-5.0); CALCIUM 9.3 mg/dL (8.5-10.1); CREATININE 0.9 mg/dL (0.6-1.0); GFR 61.7; POTASSIUM 4.6 mmol/L (3.5-5.1); TOTAL BILIRUBIN 0.3 mg/dL (0.2-1.0); TOTAL PROTEIN 7.3 g/dL (6.4-8.2)
[2018-07-16] MEDS: LISINOPRIL 5 MG TABLET. PO SCH (09:00)
[2018-07-16 16:29] VITALS: BP 126/71
[2018-07-16] MEDS: ATORVASTATIN CALCIUM 20 MG TABLET PO SCH (21:34)
[2018-07-16] MEDS: ZOLPIDEM 5 MG TABLET. PO PRN (23:07)
--- NOTE | 2018-07-17 03:04 | PN ---
DATE: 07/16/2018 SUBJECTIVE: The patient was seen today, met with the staff, chart reviewed. The patient continues to be demanding, attention-seeking, constantly complaining of knee pain, stays in bed. OBSERVATION: VITAL SIGNS: Temperature 97.8, blood pressure 126/71, pulse 100, respirations 18, O2 sat 96%. The patient is not having any side effects. CURRENT MEDICATIONS: Include Ambien, Risperdal. ASSESSMENT: Major depression with psychotic features; generalized anxiety disorder. PLAN: To continue with the treatment. CARLOS VELA MD DR: DANIELLE/alisha JOB#: [id number] / [id number]
[2018-07-17 06:30] VITALS: BP 120/72
[2018-07-17] MEDS: LACTOBACILLUS RHAMNOSUS GG 1 CAPSULE. PO SCH ×2 (08:19→21:23)
[2018-07-17] MEDS: LISINOPRIL 5 MG TABLET. PO SCH (08:19)
[2018-07-17] MEDS: risperiDONE 0.25 MG TABLET. PO SCH ×2 (08:20→21:24)
[2018-07-17] MEDS: ASPIRIN/DIPYRIDAMOLE 200/25MG CAP.ER.12H PO SCH ×2 (08:20→21:23)
[2018-07-17] MEDS: CEFDINIR 300 MG CAPSULE PO SCH ×2 (08:20→21:32)
[2018-07-17 17:33] VITALS: BP 125/63
[2018-07-17] MEDS: ATORVASTATIN CALCIUM 20 MG TABLET PO SCH (21:23)
[2018-07-17] MEDS: ZOLPIDEM 5 MG TABLET. PO PRN (23:08)
[2018-07-18] MEDS: risperiDONE 0.25 MG TABLET. PO SCH ×2 (08:28→20:50)
[2018-07-18] MEDS: LISINOPRIL 5 MG TABLET. PO SCH (08:28)
[2018-07-18] MEDS: ASPIRIN/DIPYRIDAMOLE 200/25MG CAP.ER.12H PO SCH ×2 (08:28→20:48)
[2018-07-18] MEDS: LACTOBACILLUS RHAMNOSUS GG 1 CAPSULE. PO SCH ×2 (08:29→20:50)
[2018-07-18] MEDS: CEFDINIR 300 MG CAPSULE PO SCH ×2 (08:30→20:51)
[2018-07-18 11:18] VITALS: BP 95/55
[2018-07-18 16:36] VITALS: BP 130/65
[2018-07-18] MEDS: ATORVASTATIN CALCIUM 20 MG TABLET PO SCH (20:50)
[2018-07-18] MEDS: ZOLPIDEM 5 MG TABLET. PO PRN (22:42)
--- NOTE | 2018-07-19 00:16 | PN ---
DATE: 07/18/2018 SUBJECTIVE: The patient was seen today, met with the staff, chart reviewed. The patient continues to be withdrawn, isolative, complain of chronic pain, stays in bed most of the time. Also, attention seeking. OBSERVATION: VITAL SIGNS: Temperature ____ , blood pressure 130/65, pulse 96, respirations 20, O2 sat 98%. The patient did not have any major medical issues, no falls. The patient currently on Ambien and Risperdal. ASSESSMENT: 1. Major depression with psychotic features. 2. Generalized anxiety disorder. PLAN: To continue with the treatment. CARLOS VELA MD DR: DANIELLE/alisha JOB#: [id number] / [id number]
[2018-07-19] MEDS: METHYL SALICYLATE/MENTHOL TOPICAL OINTMENT 29GM TUBE. TP PRN ×2 (04:31→19:55)
[2018-07-19 06:11] VITALS: BP 99/61
[2018-07-19] MEDS: CHOLECALCIFEROL (VITAMIN D3) 50,000 UNIT CAPSULE PO SCH (07:41)
[2018-07-19] MEDS: risperiDONE 0.25 MG TABLET. PO SCH ×2 (07:41→19:52)
[2018-07-19] MEDS: ASPIRIN/DIPYRIDAMOLE 200/25MG CAP.ER.12H PO SCH ×2 (07:41→19:52)
[2018-07-19] MEDS: CEFDINIR 300 MG CAPSULE PO SCH ×2 (07:42→19:53)
[2018-07-19] MEDS: LACTOBACILLUS RHAMNOSUS GG 1 CAPSULE. PO SCH ×2 (07:42→19:52)
[2018-07-19] MEDS: LISINOPRIL 5 MG TABLET. PO SCH (07:42)
[2018-07-19 16:21] VITALS: BP 143/65
[2018-07-19] MEDS: ATORVASTATIN CALCIUM 20 MG TABLET PO SCH (19:52)
[2018-07-19] MEDS: ZOLPIDEM 5 MG TABLET. PO PRN (22:20)
--- NOTE | 2018-07-19 23:36 | PN ---
DATE: 07/19/2018 SUBJECTIVE: The patient was seen today, met with the staff, chart reviewed. Staff reports no major problems. She is difficult to redirect and the patient also complaining of chronic pain. PHYSICAL EXAMINATION: VITAL SIGNS: Blood pressure 99/61, pulse 100, respirations 20, O2 sat 97%. GENERAL: Slept about 6 hours last night. LABORATORY DATA: The patient's lab reviewed. The patient is not presenting with any other medical complaints. CURRENT MEDICATIONS: The patient is currently on Ambien and Risperdal. ASSESSMENT: 1. Major depressive disorder with psychotic features. 2. Generalized anxiety disorder. PLAN: To continue with the treatment. CARLOS VELA MD DR: DANIELLE/alisha JOB#: [id number] / [id number]
[2018-07-20 06:03] VITALS: BP 125/80
[2018-07-20] MEDS: ASPIRIN/DIPYRIDAMOLE 200/25MG CAP.ER.12H PO SCH ×2 (08:16→20:39)
[2018-07-20] MEDS: LACTOBACILLUS RHAMNOSUS GG 1 CAPSULE. PO SCH ×2 (08:16→20:39)
[2018-07-20] MEDS: risperiDONE 0.25 MG TABLET. PO SCH ×2 (08:17→20:39)
[2018-07-20] MEDS: LISINOPRIL 5 MG TABLET. PO SCH (08:17)
[2018-07-20 14:25] LABS: BASO % 1 % (0-3); EOS # 0.1 x10^3/uL (0.0-0.7); EOS % 1 % (0-3); HEMATOCRIT 38.2 % (36.0-47.0); HEMOGLOBIN 12.4 g/dL (12.0-15.5); LYMPH # 1.8 x10^3/uL (1.0-4.8); LYMPH % 23 % (24-48); MEAN CORPUSCULAR HEMOGLOBIN 28 pg (25-35); MEAN CORPUSCULAR HGB CONC 33 g/dL (31-37); MEAN CORPUSCULAR VOLUME 86 fL (79-100); MONO # 0.8 x10^3/uL (0.0-1.1); MONO % 10 % (0-9); NEUT # 5.4 x10^3uL (1.8-7.7); NEUT % 66 % (31-73); PLATELET COUNT 412 x10^3/uL (140-400); RED BLOOD COUNT 4.43 x10^6/uL (3.50-5.40); RED CELL DISTRIBUTION WIDTH 15.8 % (11.5-14.5); WHITE BLOOD COUNT 8.2 x10^3/uL (4.0-11.0)
[2018-07-20 14:36] LABS: ALBUMIN 3.2 g/dL (3.4-5.0); CALCIUM 9.1 mg/dL (8.5-10.1); CREATININE 0.9 mg/dL (0.6-1.0); GFR 61.7; POTASSIUM 4.4 mmol/L (3.5-5.1); TOTAL BILIRUBIN 0.1 mg/dL (0.2-1.0); TOTAL PROTEIN 6.5 g/dL (6.4-8.2)
[2018-07-20 16:56] VITALS: BP 119/69
--- NOTE | 2018-07-20 18:30 | PN ---
DATE: 07/20/2018 SUBJECTIVE: The patient was seen today, met with the staff, chart reviewed. The patient stays in bed most of the time. The patient is constantly complaining about pain, mostly lower extremity and also admits to feeling depressed, anxious. She is also irritable and sampson. OBSERVATION: VITAL SIGNS: Temperature 96.8, blood pressure respirations 20, O2 sat 98%. Slept about 5 hours last night. CURRENT MEDICATIONS: The patient states that she is ready to go back home and continue to get help for pain through her doctor. ASSESSMENT: 1. Major depressive disorder with psychotic features. 2. Generalized anxiety disorder. PLAN: To continue with the treatment. CARLOS VELA MD DR: DANIELLE/alisha JOB#: [id number] / [id number]
[2018-07-20] MEDS: ATORVASTATIN CALCIUM 20 MG TABLET PO SCH (20:39)
[2018-07-20] MEDS: ZOLPIDEM 5 MG TABLET. PO PRN (22:46)
[2018-07-21 05:41] VITALS: BP 111/64
[2018-07-21] MEDS: LACTOBACILLUS RHAMNOSUS GG 1 CAPSULE. PO SCH ×2 (08:25→20:58)
[2018-07-21] MEDS: ASPIRIN/DIPYRIDAMOLE 200/25MG CAP.ER.12H PO SCH ×2 (08:25→20:58)
[2018-07-21] MEDS: LISINOPRIL 5 MG TABLET. PO SCH (08:26)
[2018-07-21] MEDS: risperiDONE 0.25 MG TABLET. PO SCH ×2 (08:26→20:58)
[2018-07-21 15:39] VITALS: BP 123/69
[2018-07-21] MEDS: ATORVASTATIN CALCIUM 20 MG TABLET PO SCH (20:58)
--- NOTE | 2018-07-21 22:49 | PDOC ---
Exam Note: Santosh Note: Please also refer to the separate dictated note~for this date of service dictated separately.~Patient seen individually. Discussed the patient with Nursing staff reviewed the chart.~Reviewed interim history and current functioning. Reviewed vital signs,~Labs/ Radiology~and current medications noted below. Continue current treatment with the changes noted in the dictated addendum note Assessment: Vital Signs: Vital Signs Date Time Temp Pulse Resp B/P (MAP) Pulse Ox O2 Delivery O2 Flow Rate FiO2 07/21/18 15:39 97.9 90 20 123/69 (87) 97 Room Air I&O Intake and Output 07/21/18 07:00 Intake Total 1360 ml Balance 1360 ml Intake Oral 1360 ml # Voids 2 Current Medications: Meds: Current Medications Acetaminophen (Tylenol) 650 mg PRN Q6HRS PRN PO PAIN / TEMP Last administered on 07/01/18 00:14; Start 06/20/18 at 15:30 Multi-Ingredient Ointment (Analgesic Forbes) 1 paula PRN QID PRN TP MUSCLE PAIN Last administered on 07/19/18at 19:55; Start 06/20/18 at 15:30 Al Hydroxide/Mg Hydroxide (Mylanta Plus Xs) 15 ml PRN AFTMEALHC PRN PO DYSPEPSIA Last administered on 06/25/18 08:21; Start 06/20/18 at 15:30 Magnesium Hydroxide (Milk Of Magnesia) 2,400 mg PRN QHS PRN PO CONSTIPATION; Start 06/20/18 at 15:30 Nicotine (Nicoderm Cq 21mg) 1 patch DAILY TD Last administered on 06/22/18 09: 13; Start 06/21/18 at 09:00; Stop 06/26/18 at 18:55; Status DC Heparin Sodium (Porcine) (Heparin Sodium) 5,000 unit Q12HR SQ ; Start 06/20/18 at 21:00; Stop 06/21/18 at 15:19; Status DC Atorvastatin Calcium (Lipitor) 20 mg QHS PO Last administered on 07/21/18at 20: 58; Start 06/20/18 at 21:00 Lisinopril (Prinivil) 20 mg DAILY PO Last administered on 06/28/18at 09:13; Start 06/21/18 at 09:00; Stop 07/01/18 at 13:55; Status DC Zolpidem Tartrate (Ambien) 5 mg PRN QHS PRN PO INSOMNIA Last administered on at 22:46; Start 06/20/18 at 16:15 Acetaminophen/ Butalbital/ Caffeine (Fioricet) 1 tab PRN Q6HRS PRN PO MIGRAINE HEADACHE; Start 06/20/18 at 16:45 Meclizine HCl (Antivert) 25 mg TID PO Last administered on 06/21/18at 07:51; Start 06/20/18 at 21:00; Stop 06/21/18 at 15:20; Status DC Non-Formulary Medication (Nicotine (NICODERM CQ 14mg)) 1 patch DAILY TD ; Start 06/21/18 at 09:00; Stop 06/21/18 at 09:00; Status DC Pantoprazole Sodium (Protonix) 40 mg BIDWMEALS PO Last administered on at 08:48; Start 06/20/18 at 17:00; Stop 06/23/18 at 14:07; Status DC Info (FLU VACCINE per PROTOCOL) 1 ea PRN 1X PRN MC PER PROTOCOL; Start at 21:00; Stop 06/20/18 at 21:00; Status DC Influenza Virus Vaccine (Afluria Trivalent Syringe) 0.5 ml ONCE ONCE VAX IM ; Start 06/20/18 at 21:00; Stop 06/20/18 at 21:16; Status DC Influenza Virus Vaccine (Afluria Trivalent Syringe) 0.5 ml ONCE ONCE VAX IM Last administered on 06/22/18at 09:00; Start 06/22/18 at 09:00; Stop at 09:01; Status DC Meclizine HCl (Antivert) 25 mg PRN TID PRN PO DIZZINESS; Start 06/21/18 at 15: 30 Fluvoxamine Maleate (Luvox) 25 mg QHS PO Last administered on 06/23/18at 19:56; Start 06/21/18 at 21:00; Stop 06/24/18 at 03:10; Status DC Pantoprazole Sodium (Protonix) 40 mg PRN DAILY PRN PO HEARTBURN / GAS; Start at 09:00 Fluvoxamine Maleate (Luvox) 50 mg QHS PO Last administered on 06/26/18at 21:02; Start 06/24/18 at 21:00; Stop 06/27/18 at 19:00; Status DC Dipyridamole/ Aspirin (Aggrenox) 1 cap BID PO Last administered on 07/21/18at 20 :58; Start 06/24/18 at 21:00 Fluvoxamine Maleate (Luvox) 75 mg QHS PO ; Start 06/25/18 at 21:00; Stop at 21:00; Status DC Fluvoxamine Maleate (Luvox) 75 mg QHS PO Last administered on 06/30/18at 20:26; Start 06/27/18 at 21:00; Stop 06/30/18 at 23:24; Status DC Risperidone (RisperDAL) 0.25 mg HS PO Last administered on 07/14/18at 19:47; Start 06/28/18 at 21:00; Stop 07/15/18 at 18:11; Status DC Vitamin D (Vitamin D3) 50,000 unit WEEKLY PO ; Start 06/28/18 at 18:00; Stop at 18:07; Status DC Vitamin D (Vitamin D3) 50,000 unit WEEKLY PO Last administered on 07/19/18at 07: 41; Start 06/28/18 at 20:00 Fluvoxamine Maleate (Luvox) 100 mg QHS PO Last administered on 07/06/18at 19:41; Start 07/01/18 at 21:00; Stop 07/06/18 at 20:17; Status DC Benzocaine (Ora-Jel Maximum) 1 paula PRN QID PRN TP ORAL PAIN; Start 07/01/18 at 11:30 Lisinopril (Prinivil) 10 mg DAILY PO Last administered on 07/10/18at 09:27; Start 07/02/18 at 09:00; Stop 07/10/18 at 18:58; Status DC Trazodone HCl (Desyrel) 50 mg QHS PO Last administered on 07/02/18at 21:38; Start 07/01/18 at 21:00; Stop 07/03/18 at 18:36; Status DC Trazodone HCl (Desyrel) 50 mg QHS PRN PO INSOMNIA Last administered on 21:51; Start 07/01/18 at 18:00; Stop 07/03/18 at 18:36; Status DC Fluvoxamine Maleate (Luvox) 125 mg QHS PO Last administered on 07/11/18 21:08; Start 07/07/18 at 21:00; Stop 07/11/18 at 23:50; Status DC Fluvoxamine Maleate (Luvox) 150 mg QHS PO Last administered on 07/21/18at 20:59 ; Start 07/12/18 at 21:00 Lisinopril (Prinivil) 5 mg DAILY PO Last administered on 07/21/18 08:26; Start 07/11/18 at 09:00 Cefdinir (Omnicef) 300 mg BID PO Last administered on 07/19/18 19:53; Start at 09:00; Stop 07/20/18 at 08:59; Status DC Lactobacillus Rhamnosus (Culturelle) 1 cap BID PO Last administered on at 20:58; Start 07/13/18 at 09:00; Stop 07/30/18 at 08:59 Risperidone (RisperDAL) 0.25 mg BID PO Last administered on 07/21/18 20:58; Start 07/15/18 at 21:00 Active Scripts Active Reported Zolpidem Tartrate 5 Mg Tablet 5 Mg PO HS PRN Protonix (Pantoprazole Sodium) 40 Mg Tablet.dr 40 Mg PO BIDWMEALS NICODERM CQ 14mg (Nicotine) 1 Each Patch.td24 1 Patch TD DAILY Meclizine Hcl 25 Mg Tablet 25 Mg PO TID Lisinopril 20 Mg Tablet 20 Mg PO DAILY Heparin 5,000 Unit/5 ml-Ns (Heparin Sod,Porcine/0.9 % NaCl) 5,000 Unit/5 Ml Syringe 5,000 Unit IV Q12HR Aggrenox 25 Mg-200 Mg Capsule (Aspirin/Dipyridamole) 1 Each Cpmp.12hr 1 Cap PO BID Kwklrbrzme-Get-Hdnivwzg Cap (Butalbital/Aspirin/Caffeine) 1 Each Capsule 1 Each PO PRN Q6HRS PRN Atorvastatin Calcium 20 Mg Tablet 20 Mg PO QHS I have reviewed the current psychotropics carefully including drug interactions. Risk benefit ratio favors no change other than as noted in my dictated progress note. Diagnosis: Problems: (1) Major depression with psychotic features (2) Anxiety disorder (3) Impulse control disorder (4) Obsessive compulsive disorder AIME LACKEY MD Jul 21, 2018 22:49
[2018-07-21] MEDS: ZOLPIDEM 5 MG TABLET. PO PRN (23:28)
--- NOTE | 2018-07-21 23:54 | PN ---
DATE: 07/21/2018 SUBJECTIVE: The patient was seen today, met with the staff, chart reviewed. Staff reported that the patient's daughter was very upset because one of her old friends had access to the passcode. The patient currently not presenting with any major behavior problems. Staff also reports and identified the problem, they changed the passcode, but the patient's daughter is still upset. OBSERVATION: VITAL SIGNS: Temperature 98, blood pressure 111/64, pulse 72, respirations 16, O2 sat 96%. Slept only about 2 hours last night. CURRENT MEDICATIONS: The patient's current medications include Risperdal 0.25 mg b.i.d., Luvox 150 mg at night, Ambien 5 mg at night p.r.n. for sleep. The patient is not having any side effects to the medications. The patient has no major physical issues. ASSESSMENT: 1. Major depressive disorder with psychotic features. 2. Generalized anxiety disorder. PLAN: To continue with the treatment. CARLOS VELA MD DR: DANIELLE/alisha JOB#: [id number] / [id number]
[2018-07-22 06:35] VITALS: BP 105/56
[2018-07-22] MEDS: LACTOBACILLUS RHAMNOSUS GG 1 CAPSULE. PO SCH ×2 (08:28→21:28)
[2018-07-22] MEDS: ASPIRIN/DIPYRIDAMOLE 200/25MG CAP.ER.12H PO SCH ×2 (08:28→21:28)
[2018-07-22] MEDS: risperiDONE 0.25 MG TABLET. PO SCH ×2 (08:28→21:28)
[2018-07-22] MEDS: LISINOPRIL 5 MG TABLET. PO SCH (09:00)
[2018-07-22 17:44] VITALS: BP 136/69
[2018-07-22] MEDS: ATORVASTATIN CALCIUM 20 MG TABLET PO SCH (21:27)
--- NOTE | 2018-07-22 22:22 | PDOC ---
Exam Note: Santosh Note: "This is a late entry for 07/21/18. The template note for 07/21/18 was completed in error and should be disregarded." Please also refer to the separate dictated note~for this date of service dictated separately.~Patient seen individually. Discussed the patient with Nursing staff reviewed the chart.~ Reviewed interim history and current functioning. Reviewed vital signs,~Labs/ Radiology~and current medications noted below. Continue current treatment with the changes noted in the dictated addendum note Assessment: Vital Signs: Vital Signs Date Time Temp Pulse Resp B/P (MAP) Pulse Ox O2 Delivery O2 Flow Rate FiO2 07/22/18 17:44 98.4 94 18 136/69 (91) 98 07/21/18 15:39 Room Air I&O Intake and Output 07/22/18 07:00 Intake Total 960 ml Balance 960 ml Intake Oral 960 ml Current Medications: Meds: Current Medications Acetaminophen (Tylenol) 650 mg PRN Q6HRS PRN PO PAIN / TEMP Last administered on 07/01/18at 00:14; Start 06/20/18 at 15:30 Multi-Ingredient Ointment (Analgesic [place]) 1 paula PRN QID PRN TP MUSCLE PAIN Last administered on 07/19/18at 19:55; Start 06/20/18 at 15:30 Al Hydroxide/Mg Hydroxide (Mylanta Plus Xs) 15 ml PRN AFTMEALHC PRN PO DYSPEPSIA Last administered on 06/25/18at 08:21; Start 06/20/18 at 15:30 Magnesium Hydroxide (Milk Of Magnesia) 2,400 mg PRN QHS PRN PO CONSTIPATION; Start 06/20/18 at 15:30 Nicotine (Nicoderm Cq 21mg) 1 patch DAILY TD Last administered on 06/22/18at 09: 13; Start 06/21/18 at 09:00; Stop 06/26/18 at 18:55; Status DC Heparin Sodium (Porcine) (Heparin Sodium) 5,000 unit Q12HR SQ ; Start 06/20/18 at 21:00; Stop 06/21/18 at 15:19; Status DC Atorvastatin Calcium (Lipitor) 20 mg QHS PO Last administered on 07/22/18at 21: 27; Start 06/20/18 at 21:00 Lisinopril (Prinivil) 20 mg DAILY PO Last administered on 06/28/18at 09:13; Start 06/21/18 at 09:00; Stop 07/01/18 at 13:55; Status DC Zolpidem Tartrate (Ambien) 5 mg PRN QHS PRN PO INSOMNIA Last administered on at 23:28; Start 06/20/18 at 16:15 Acetaminophen/ Butalbital/ Caffeine (Fioricet) 1 tab PRN Q6HRS PRN PO MIGRAINE HEADACHE; Start 06/20/18 at 16:45 Meclizine HCl (Antivert) 25 mg TID PO Last administered on 06/21/18at 07:51; Start 06/20/18 at 21:00; Stop 06/21/18 at 15:20; Status DC Non-Formulary Medication (Nicotine (NICODERM CQ 14mg)) 1 patch DAILY TD ; Start 06/21/18 at 09:00; Stop 06/21/18 at 09:00; Status DC Pantoprazole Sodium (Protonix) 40 mg BIDWMEALS PO Last administered on at 08:48; Start 06/20/18 at 17:00; Stop 06/23/18 at 14:07; Status DC Info (FLU VACCINE per PROTOCOL) 1 ea PRN 1X PRN MC PER PROTOCOL; Start at 21:00; Stop 06/20/18 at 21:00; Status DC Influenza Virus Vaccine (MakerBoturia Trivalent Syringe) 0.5 ml ONCE ONCE VAX IM ; Start 06/20/18 at 21:00; Stop 06/20/18 at 21:16; Status DC Influenza Virus Vaccine (Afluria Trivalent Syringe) 0.5 ml ONCE ONCE VAX IM Last administered on 06/22/18at 09:00; Start 06/22/18 at 09:00; Stop at 09:01; Status DC Meclizine HCl (Antivert) 25 mg PRN TID PRN PO DIZZINESS; Start 06/21/18 at 15: 30 Fluvoxamine Maleate (Luvox) 25 mg QHS PO Last administered on 06/23/18at 19:56; Start 06/21/18 at 21:00; Stop 06/24/18 at 03:10; Status DC Pantoprazole Sodium (Protonix) 40 mg PRN DAILY PRN PO HEARTBURN / GAS; Start at 09:00 Fluvoxamine Maleate (Luvox) 50 mg QHS PO Last administered on 06/26/18at 21:02; Start 06/24/18 at 21:00; Stop 06/27/18 at 19:00; Status DC Dipyridamole/ Aspirin (Aggrenox) 1 cap BID PO Last administered on 07/22/18 21 :28; Start 06/24/18 at 21:00 Fluvoxamine Maleate (Luvox) 75 mg QHS PO ; Start 06/25/18 at 21:00; Stop at 21:00; Status DC Fluvoxamine Maleate (Luvox) 75 mg QHS PO Last administered on 06/30/18 20:26; Start 06/27/18 at 21:00; Stop 06/30/18 at 23:24; Status DC Risperidone (RisperDAL) 0.25 mg HS PO Last administered on 07/14/18at 19:47; Start 06/28/18 at 21:00; Stop 07/15/18 at 18:11; Status DC Vitamin D (Vitamin D3) 50,000 unit WEEKLY PO ; Start 06/28/18 at 18:00; Stop at 18:07; Status DC Vitamin D (Vitamin D3) 50,000 unit WEEKLY PO Last administered on 07/19/18at 07: 41; Start 06/28/18 at 20:00 Fluvoxamine Maleate (Luvox) 100 mg QHS PO Last administered on 07/06/18 19:41; Start 07/01/18 at 21:00; Stop 07/06/18 at 20:17; Status DC Benzocaine (Ora-Jel Maximum) 1 paula PRN QID PRN TP ORAL PAIN; Start 07/01/18 at 11:30 Lisinopril (Prinivil) 10 mg DAILY PO Last administered on 07/10/18 09:27; Start 07/02/18 at 09:00; Stop 07/10/18 at 18:58; Status DC Trazodone HCl (Desyrel) 50 mg QHS PO Last administered on 07/02/18 21:38; Start 07/01/18 at 21:00; Stop 07/03/18 at 18:36; Status DC Trazodone HCl (Desyrel) 50 mg QHS PRN PO INSOMNIA Last administered on 21:51; Start 07/01/18 at 18:00; Stop 07/03/18 at 18:36; Status DC Fluvoxamine Maleate (Luvox) 125 mg QHS PO Last administered on 07/11/18 21:08; Start 07/07/18 at 21:00; Stop 07/11/18 at 23:50; Status DC Fluvoxamine Maleate (Luvox) 150 mg QHS PO Last administered on 07/22/18 21:27 ; Start 07/12/18 at 21:00 Lisinopril (Prinivil) 5 mg DAILY PO Last administered on 07/21/18 08:26; Start 07/11/18 at 09:00 Cefdinir (Omnicef) 300 mg BID PO Last administered on 07/19/18 19:53; Start at 09:00; Stop 07/20/18 at 08:59; Status DC Lactobacillus Rhamnosus (Culturelle) 1 cap BID PO Last administered on 21:28; Start 07/13/18 at 09:00; Stop 07/30/18 at 08:59 Risperidone (RisperDAL) 0.25 mg BID PO Last administered on 07/22/18 21:28; Start 07/15/18 at 21:00 Active Scripts Active Reported Zolpidem Tartrate 5 Mg Tablet 5 Mg PO HS PRN Protonix (Pantoprazole Sodium) 40 Mg Tablet.dr 40 Mg PO BIDWMEALS NICODERM CQ 14mg (Nicotine) 1 Each Patch.td24 1 Patch TD DAILY Meclizine Hcl 25 Mg Tablet 25 Mg PO TID Lisinopril 20 Mg Tablet 20 Mg PO DAILY Heparin 5,000 Unit/5 ml-Ns (Heparin Sod,Porcine/0.9 % NaCl) 5,000 Unit/5 Ml Syringe 5,000 Unit IV Q12HR Aggrenox 25 Mg-200 Mg Capsule (Aspirin/Dipyridamole) 1 Each Cpmp.12hr 1 Cap PO BID Snnqxuuils-Eoj-Cvnvjwry Cap (Butalbital/Aspirin/Caffeine) 1 Each Capsule 1 Each PO PRN Q6HRS PRN Atorvastatin Calcium 20 Mg Tablet 20 Mg PO QHS I have reviewed the current psychotropics carefully including drug interactions. Risk benefit ratio favors no change other than as noted in my dictated progress note. Diagnosis: Problems: (1) Major depression with psychotic features (2) Anxiety disorder (3) Impulse control disorder (4) Obsessive compulsive disorder AIME LACKEY MD Jul 22, 2018 22:22
--- NOTE | 2018-07-22 23:10 | PDOC ---
Exam Note: Santosh Note: Please also refer to the separate dictated note~for this date of service dictated separately.~Patient seen individually. Discussed the patient with Nursing staff reviewed the chart.~Reviewed interim history and current functioning. Reviewed vital signs,~Labs/ Radiology~and current medications noted below. Continue current treatment with the changes noted in the dictated addendum note Assessment: Vital Signs: Vital Signs Date Time Temp Pulse Resp B/P (MAP) Pulse Ox O2 Delivery O2 Flow Rate FiO2 07/22/18 17:44 98.4 94 18 136/69 (91) 98 07/21/18 15:39 Room Air I&O Intake and Output 07/22/18 07:00 Intake Total 960 ml Balance 960 ml Intake Oral 960 ml Current Medications: Meds: Current Medications Acetaminophen (Tylenol) 650 mg PRN Q6HRS PRN PO PAIN / TEMP Last administered on 07/01/18 00:14; Start 06/20/18 at 15:30 Multi-Ingredient Ointment (Analgesic [place]) 1 paula PRN QID PRN TP MUSCLE PAIN Last administered on 07/19/18 19:55; Start 06/20/18 at 15:30 Al Hydroxide/Mg Hydroxide (Mylanta Plus Xs) 15 ml PRN AFTMEALHC PRN PO DYSPEPSIA Last administered on 06/25/18 08:21; Start 06/20/18 at 15:30 Magnesium Hydroxide (Milk Of Magnesia) 2,400 mg PRN QHS PRN PO CONSTIPATION; Start 06/20/18 at 15:30 Nicotine (Nicoderm Cq 21mg) 1 patch DAILY TD Last administered on 06/22/18 09: 13; Start 06/21/18 at 09:00; Stop 06/26/18 at 18:55; Status DC Heparin Sodium (Porcine) (Heparin Sodium) 5,000 unit Q12HR SQ ; Start 06/20/18 at 21:00; Stop 06/21/18 at 15:19; Status DC Atorvastatin Calcium (Lipitor) 20 mg QHS PO Last administered on 07/22/18 21: 27; Start 06/20/18 at 21:00 Lisinopril (Prinivil) 20 mg DAILY PO Last administered on 06/28/18 09:13; Start 06/21/18 at 09:00; Stop 07/01/18 at 13:55; Status DC Zolpidem Tartrate (Ambien) 5 mg PRN QHS PRN PO INSOMNIA Last administered on at 23:28; Start 06/20/18 at 16:15 Acetaminophen/ Butalbital/ Caffeine (Fioricet) 1 tab PRN Q6HRS PRN PO MIGRAINE HEADACHE; Start 06/20/18 at 16:45 Meclizine HCl (Antivert) 25 mg TID PO Last administered on 06/21/18at 07:51; Start 06/20/18 at 21:00; Stop 06/21/18 at 15:20; Status DC Non-Formulary Medication (Nicotine (NICODERM CQ 14mg)) 1 patch DAILY TD ; Start 06/21/18 at 09:00; Stop 06/21/18 at 09:00; Status DC Pantoprazole Sodium (Protonix) 40 mg BIDWMEALS PO Last administered on at 08:48; Start 06/20/18 at 17:00; Stop 06/23/18 at 14:07; Status DC Info (FLU VACCINE per PROTOCOL) 1 ea PRN 1X PRN MC PER PROTOCOL; Start at 21:00; Stop 06/20/18 at 21:00; Status DC Influenza Virus Vaccine (Afluria Trivalent Syringe) 0.5 ml ONCE ONCE VAX IM ; Start 06/20/18 at 21:00; Stop 06/20/18 at 21:16; Status DC Influenza Virus Vaccine (Afluria Trivalent Syringe) 0.5 ml ONCE ONCE VAX IM Last administered on 06/22/18at 09:00; Start 06/22/18 at 09:00; Stop at 09:01; Status DC Meclizine HCl (Antivert) 25 mg PRN TID PRN PO DIZZINESS; Start 06/21/18 at 15: 30 Fluvoxamine Maleate (Luvox) 25 mg QHS PO Last administered on 06/23/18at 19:56; Start 06/21/18 at 21:00; Stop 06/24/18 at 03:10; Status DC Pantoprazole Sodium (Protonix) 40 mg PRN DAILY PRN PO HEARTBURN / GAS; Start at 09:00 Fluvoxamine Maleate (Luvox) 50 mg QHS PO Last administered on 06/26/18 21:02; Start 06/24/18 at 21:00; Stop 06/27/18 at 19:00; Status DC Dipyridamole/ Aspirin (Aggrenox) 1 cap BID PO Last administered on 07/22/18 21 :28; Start 06/24/18 at 21:00 Fluvoxamine Maleate (Luvox) 75 mg QHS PO ; Start 06/25/18 at 21:00; Stop at 21:00; Status DC Fluvoxamine Maleate (Luvox) 75 mg QHS PO Last administered on 06/30/18at 20:26; Start 06/27/18 at 21:00; Stop 06/30/18 at 23:24; Status DC Risperidone (RisperDAL) 0.25 mg HS PO Last administered on 07/14/18at 19:47; Start 06/28/18 at 21:00; Stop 07/15/18 at 18:11; Status DC Vitamin D (Vitamin D3) 50,000 unit WEEKLY PO ; Start 06/28/18 at 18:00; Stop at 18:07; Status DC Vitamin D (Vitamin D3) 50,000 unit WEEKLY PO Last administered on 07/19/18at 07: 41; Start 06/28/18 at 20:00 Fluvoxamine Maleate (Luvox) 100 mg QHS PO Last administered on 07/06/18at 19:41; Start 07/01/18 at 21:00; Stop 07/06/18 at 20:17; Status DC Benzocaine (Ora-Jel Maximum) 1 paula PRN QID PRN TP ORAL PAIN; Start 07/01/18 at 11:30 Lisinopril (Prinivil) 10 mg DAILY PO Last administered on 07/10/18at 09:27; Start 07/02/18 at 09:00; Stop 07/10/18 at 18:58; Status DC Trazodone HCl (Desyrel) 50 mg QHS PO Last administered on 07/02/18at 21:38; Start 07/01/18 at 21:00; Stop 07/03/18 at 18:36; Status DC Trazodone HCl (Desyrel) 50 mg QHS PRN PO INSOMNIA Last administered on 21:51; Start 07/01/18 at 18:00; Stop 07/03/18 at 18:36; Status DC Fluvoxamine Maleate (Luvox) 125 mg QHS PO Last administered on 07/11/18 21:08; Start 07/07/18 at 21:00; Stop 07/11/18 at 23:50; Status DC Fluvoxamine Maleate (Luvox) 150 mg QHS PO Last administered on 07/22/18 21:27 ; Start 07/12/18 at 21:00 Lisinopril (Prinivil) 5 mg DAILY PO Last administered on 07/21/18 08:26; Start 07/11/18 at 09:00 Cefdinir (Omnicef) 300 mg BID PO Last administered on 07/19/18 19:53; Start at 09:00; Stop 07/20/18 at 08:59; Status DC Lactobacillus Rhamnosus (Culturelle) 1 cap BID PO Last administered on 21:28; Start 07/13/18 at 09:00; Stop 07/30/18 at 08:59 Risperidone (RisperDAL) 0.25 mg BID PO Last administered on 07/22/18 21:28; Start 07/15/18 at 21:00 Active Scripts Active Reported Zolpidem Tartrate 5 Mg Tablet 5 Mg PO HS PRN Protonix (Pantoprazole Sodium) 40 Mg Tablet.dr 40 Mg PO BIDWMEALS NICODERM CQ 14mg (Nicotine) 1 Each Patch.td24 1 Patch TD DAILY Meclizine Hcl 25 Mg Tablet 25 Mg PO TID Lisinopril 20 Mg Tablet 20 Mg PO DAILY Heparin 5,000 Unit/5 ml-Ns (Heparin Sod,Porcine/0.9 % NaCl) 5,000 Unit/5 Ml Syringe 5,000 Unit IV Q12HR Aggrenox 25 Mg-200 Mg Capsule (Aspirin/Dipyridamole) 1 Each Cpmp.12hr 1 Cap PO BID Dodoyptsbd-Sak-Euglqqru Cap (Butalbital/Aspirin/Caffeine) 1 Each Capsule 1 Each PO PRN Q6HRS PRN Atorvastatin Calcium 20 Mg Tablet 20 Mg PO QHS I have reviewed the current psychotropics carefully including drug interactions. Risk benefit ratio favors no change other than as noted in my dictated progress note. Diagnosis: Problems: (1) Major depression with psychotic features (2) Anxiety disorder (3) Impulse control disorder (4) Obsessive compulsive disorder AIME LACKEY MD Jul 22, 2018 23:10
[2018-07-22] MEDS: ZOLPIDEM 5 MG TABLET. PO PRN (23:23)
[2018-07-23 06:40] VITALS: BP 121/67
[2018-07-23] MEDS: risperiDONE 0.25 MG TABLET. PO SCH ×2 (07:49→21:06)
[2018-07-23] MEDS: LISINOPRIL 5 MG TABLET. PO SCH (07:49)
[2018-07-23] MEDS: ASPIRIN/DIPYRIDAMOLE 200/25MG CAP.ER.12H PO SCH ×2 (07:49→21:06)
[2018-07-23] MEDS: LACTOBACILLUS RHAMNOSUS GG 1 CAPSULE. PO SCH ×2 (07:49→21:06)
[2018-07-23 16:34] VITALS: BP 103/62
[2018-07-23] MEDS: ATORVASTATIN CALCIUM 20 MG TABLET PO SCH (21:06)
[2018-07-23] MEDS: ZOLPIDEM 5 MG TABLET. PO PRN (22:41)
[2018-07-23] MEDS: METHYL SALICYLATE/MENTHOL TOPICAL OINTMENT 29GM TUBE. TP PRN (22:41)
--- NOTE | 2018-07-23 22:51 | PN ---
DATE: 07/22/2018 PSYCHIATRIC PROGRESS NOTE This late entry 07/22/2018 covers elements not covered in my initial note. SUBJECTIVE: I met with the patient in the evening in her room. Reviewed information from Dr. Tubbs, who covered for me for the past several days. The patient slept 4-1/2 hours previous night. She did well at night and did reasonably well during the day, less obsessive, but isolates in her room. Still complaining about not getting adequate amount of desserts. She has been less obsessed with wanting ice. REVIEW OF SYSTEMS: Ambulation impaired. No CV, , pulmonary, eye system symptoms on review. MENTAL STATUS EXAM: Reasonably oriented. Speech has some latency, coherent. Abstraction fair, computation impaired, language function intact. Mood and affect withdrawn. LABORATORY DATA: Reviewed. IMPRESSION: Unchanged from initial note. PLAN: No change from initial note. MAN Alexander LACKEY MD DR: DEBRA/alisha JOB#: [id number] / [id number]
--- NOTE | 2018-07-23 23:06 | PDOC ---
Exam Note: Santosh Note: Please also refer to the separate dictated note~for this date of service dictated separately.~Patient seen individually. Discussed the patient with Nursing staff reviewed the chart.~Reviewed interim history and current functioning. Reviewed vital signs,~Labs/ Radiology~and current medications noted below. Continue current treatment with the changes noted in the dictated addendum note Assessment: Vital Signs: Vital Signs Date Time Temp Pulse Resp B/P (MAP) Pulse Ox O2 Delivery O2 Flow Rate FiO2 07/23/18 16:34 97.7 82 20 103/62 (76) 99 Room Air I&O Intake and Output 07/23/18 06:59 Intake Total 920 ml Balance 920 ml Intake Oral 920 ml Current Medications: Meds: Current Medications Acetaminophen (Tylenol) 650 mg PRN Q6HRS PRN PO PAIN / TEMP Last administered on 07/01/18at 00:14; Start 06/20/18 at 15:30 Multi-Ingredient Ointment (Analgesic [place]) 1 paula PRN QID PRN TP MUSCLE PAIN Last administered on 07/23/18at 22:41; Start 06/20/18 at 15:30 Al Hydroxide/Mg Hydroxide (Mylanta Plus Xs) 15 ml PRN AFTMEALHC PRN PO DYSPEPSIA Last administered on 06/25/18 08:21; Start 06/20/18 at 15:30 Magnesium Hydroxide (Milk Of Magnesia) 2,400 mg PRN QHS PRN PO CONSTIPATION; Start 06/20/18 at 15:30 Nicotine (Nicoderm Cq 21mg) 1 patch DAILY TD Last administered on 06/22/18 09: 13; Start 06/21/18 at 09:00; Stop 06/26/18 at 18:55; Status DC Heparin Sodium (Porcine) (Heparin Sodium) 5,000 unit Q12HR SQ ; Start 06/20/18 at 21:00; Stop 06/21/18 at 15:19; Status DC Atorvastatin Calcium (Lipitor) 20 mg QHS PO Last administered on 07/23/18 21: 06; Start 06/20/18 at 21:00 Lisinopril (Prinivil) 20 mg DAILY PO Last administered on 06/28/18 09:13; Start 06/21/18 at 09:00; Stop 07/01/18 at 13:55; Status DC Zolpidem Tartrate (Ambien) 5 mg PRN QHS PRN PO INSOMNIA Last administered on at 22:41; Start 06/20/18 at 16:15 Acetaminophen/ Butalbital/ Caffeine (Fioricet) 1 tab PRN Q6HRS PRN PO MIGRAINE HEADACHE; Start 06/20/18 at 16:45 Meclizine HCl (Antivert) 25 mg TID PO Last administered on 06/21/18at 07:51; Start 06/20/18 at 21:00; Stop 06/21/18 at 15:20; Status DC Non-Formulary Medication (Nicotine (NICODERM CQ 14mg)) 1 patch DAILY TD ; Start 06/21/18 at 09:00; Stop 06/21/18 at 09:00; Status DC Pantoprazole Sodium (Protonix) 40 mg BIDWMEALS PO Last administered on at 08:48; Start 06/20/18 at 17:00; Stop 06/23/18 at 14:07; Status DC Info (FLU VACCINE per PROTOCOL) 1 ea PRN 1X PRN MC PER PROTOCOL; Start at 21:00; Stop 06/20/18 at 21:00; Status DC Influenza Virus Vaccine (Afluria Trivalent Syringe) 0.5 ml ONCE ONCE VAX IM ; Start 06/20/18 at 21:00; Stop 06/20/18 at 21:16; Status DC Influenza Virus Vaccine (Afluria Trivalent Syringe) 0.5 ml ONCE ONCE VAX IM Last administered on 06/22/18at 09:00; Start 06/22/18 at 09:00; Stop at 09:01; Status DC Meclizine HCl (Antivert) 25 mg PRN TID PRN PO DIZZINESS; Start 06/21/18 at 15: 30 Fluvoxamine Maleate (Luvox) 25 mg QHS PO Last administered on 06/23/18at 19:56; Start 06/21/18 at 21:00; Stop 06/24/18 at 03:10; Status DC Pantoprazole Sodium (Protonix) 40 mg PRN DAILY PRN PO HEARTBURN / GAS; Start at 09:00 Fluvoxamine Maleate (Luvox) 50 mg QHS PO Last administered on 06/26/18at 21:02; Start 06/24/18 at 21:00; Stop 06/27/18 at 19:00; Status DC Dipyridamole/ Aspirin (Aggrenox) 1 cap BID PO Last administered on 07/23/18at 21 :06; Start 06/24/18 at 21:00 Fluvoxamine Maleate (Luvox) 75 mg QHS PO ; Start 06/25/18 at 21:00; Stop at 21:00; Status DC Fluvoxamine Maleate (Luvox) 75 mg QHS PO Last administered on 06/30/18at 20:26; Start 06/27/18 at 21:00; Stop 06/30/18 at 23:24; Status DC Risperidone (RisperDAL) 0.25 mg HS PO Last administered on 07/14/18at 19:47; Start 06/28/18 at 21:00; Stop 07/15/18 at 18:11; Status DC Vitamin D (Vitamin D3) 50,000 unit WEEKLY PO ; Start 06/28/18 at 18:00; Stop at 18:07; Status DC Vitamin D (Vitamin D3) 50,000 unit WEEKLY PO Last administered on 07/19/18at 07: 41; Start 06/28/18 at 20:00 Fluvoxamine Maleate (Luvox) 100 mg QHS PO Last administered on 07/06/18at 19:41; Start 07/01/18 at 21:00; Stop 07/06/18 at 20:17; Status DC Benzocaine (Ora-Jel Maximum) 1 paula PRN QID PRN TP ORAL PAIN; Start 07/01/18 at 11:30 Lisinopril (Prinivil) 10 mg DAILY PO Last administered on 07/10/18at 09:27; Start 07/02/18 at 09:00; Stop 07/10/18 at 18:58; Status DC Trazodone HCl (Desyrel) 50 mg QHS PO Last administered on 07/02/18at 21:38; Start 07/01/18 at 21:00; Stop 07/03/18 at 18:36; Status DC Trazodone HCl (Desyrel) 50 mg QHS PRN PO INSOMNIA Last administered on 21:51; Start 07/01/18 at 18:00; Stop 07/03/18 at 18:36; Status DC Fluvoxamine Maleate (Luvox) 125 mg QHS PO Last administered on 07/11/18 21:08; Start 07/07/18 at 21:00; Stop 07/11/18 at 23:50; Status DC Fluvoxamine Maleate (Luvox) 150 mg QHS PO Last administered on 07/23/18 21:09 ; Start 07/12/18 at 21:00 Lisinopril (Prinivil) 5 mg DAILY PO Last administered on 07/23/18 07:49; Start 07/11/18 at 09:00 Cefdinir (Omnicef) 300 mg BID PO Last administered on 07/19/18 19:53; Start at 09:00; Stop 07/20/18 at 08:59; Status DC Lactobacillus Rhamnosus (Culturelle) 1 cap BID PO Last administered on 21:06; Start 07/13/18 at 09:00; Stop 07/30/18 at 08:59 Risperidone (RisperDAL) 0.25 mg BID PO Last administered on 07/23/18 21:06; Start 07/15/18 at 21:00 Active Scripts Active Reported Zolpidem Tartrate 5 Mg Tablet 5 Mg PO HS PRN Protonix (Pantoprazole Sodium) 40 Mg Tablet.dr 40 Mg PO BIDWMEALS NICODERM CQ 14mg (Nicotine) 1 Each Patch.td24 1 Patch TD DAILY Meclizine Hcl 25 Mg Tablet 25 Mg PO TID Lisinopril 20 Mg Tablet 20 Mg PO DAILY Heparin 5,000 Unit/5 ml-Ns (Heparin Sod,Porcine/0.9 % NaCl) 5,000 Unit/5 Ml Syringe 5,000 Unit IV Q12HR Aggrenox 25 Mg-200 Mg Capsule (Aspirin/Dipyridamole) 1 Each Cpmp.12hr 1 Cap PO BID Mlrzcmzkyn-Yae-Vjaotwoz Cap (Butalbital/Aspirin/Caffeine) 1 Each Capsule 1 Each PO PRN Q6HRS PRN Atorvastatin Calcium 20 Mg Tablet 20 Mg PO QHS I have reviewed the current psychotropics carefully including drug interactions. Risk benefit ratio favors no change other than as noted in my dictated progress note. Diagnosis: Problems: (1) Major depression with psychotic features (2) Anxiety disorder (3) Impulse control disorder (4) Obsessive compulsive disorder AIME LACKEY MD Jul 23, 2018 23:06
[2018-07-24 06:27] VITALS: BP 85/48
[2018-07-24] MEDS: ASPIRIN/DIPYRIDAMOLE 200/25MG CAP.ER.12H PO SCH ×2 (08:20→21:16)
[2018-07-24] MEDS: LACTOBACILLUS RHAMNOSUS GG 1 CAPSULE. PO SCH ×2 (08:20→21:16)
[2018-07-24] MEDS: risperiDONE 0.25 MG TABLET. PO SCH ×2 (08:20→21:16)
[2018-07-24] MEDS: LISINOPRIL 5 MG TABLET. PO SCH (08:22)
[2018-07-24 16:47] VITALS: BP 132/68
[2018-07-24] MEDS: ATORVASTATIN CALCIUM 20 MG TABLET PO SCH (21:16)
[2018-07-24] MEDS: ZOLPIDEM 5 MG TABLET. PO PRN (22:47)
--- NOTE | 2018-07-24 22:58 | PDOC ---
Exam Note: Santosh Note: Please also refer to the separate dictated note~for this date of service dictated separately.~Patient seen individually. Discussed the patient with Nursing staff reviewed the chart.~Reviewed interim history and current functioning. Reviewed vital signs,~Labs/ Radiology~and current medications noted below. Continue current treatment with the changes noted in the dictated addendum note Assessment: Vital Signs: Vital Signs Date Time Temp Pulse Resp B/P (MAP) Pulse Ox O2 Delivery O2 Flow Rate FiO2 07/24/18 16:47 98.5 87 18 132/68 (89) 97 07/23/18 16:34 Room Air I&O Intake and Output 07/24/18 07:00 Intake Total 1200 ml Balance 1200 ml Intake Oral 1200 ml Current Medications: Meds: Current Medications Acetaminophen (Tylenol) 650 mg PRN Q6HRS PRN PO PAIN / TEMP Last administered on 07/01/18 00:14; Start 06/20/18 at 15:30 Multi-Ingredient Ointment (Analgesic [place]) 1 paula PRN QID PRN TP MUSCLE PAIN Last administered on 07/23/18at 22:41; Start 06/20/18 at 15:30 Al Hydroxide/Mg Hydroxide (Mylanta Plus Xs) 15 ml PRN AFTMEALHC PRN PO DYSPEPSIA Last administered on 06/25/18 08:21; Start 06/20/18 at 15:30 Magnesium Hydroxide (Milk Of Magnesia) 2,400 mg PRN QHS PRN PO CONSTIPATION; Start 06/20/18 at 15:30 Nicotine (Nicoderm Cq 21mg) 1 patch DAILY TD Last administered on 06/22/18at 09: 13; Start 06/21/18 at 09:00; Stop 06/26/18 at 18:55; Status DC Heparin Sodium (Porcine) (Heparin Sodium) 5,000 unit Q12HR SQ ; Start 06/20/18 at 21:00; Stop 06/21/18 at 15:19; Status DC Atorvastatin Calcium (Lipitor) 20 mg QHS PO Last administered on 07/24/18at 21: 16; Start 06/20/18 at 21:00 Lisinopril (Prinivil) 20 mg DAILY PO Last administered on 06/28/18at 09:13; Start 06/21/18 at 09:00; Stop 07/01/18 at 13:55; Status DC Zolpidem Tartrate (Ambien) 5 mg PRN QHS PRN PO INSOMNIA Last administered on at 22:47; Start 06/20/18 at 16:15 Acetaminophen/ Butalbital/ Caffeine (Fioricet) 1 tab PRN Q6HRS PRN PO MIGRAINE HEADACHE; Start 06/20/18 at 16:45 Meclizine HCl (Antivert) 25 mg TID PO Last administered on 06/21/18at 07:51; Start 06/20/18 at 21:00; Stop 06/21/18 at 15:20; Status DC Non-Formulary Medication (Nicotine (NICODERM CQ 14mg)) 1 patch DAILY TD ; Start 06/21/18 at 09:00; Stop 06/21/18 at 09:00; Status DC Pantoprazole Sodium (Protonix) 40 mg BIDWMEALS PO Last administered on at 08:48; Start 06/20/18 at 17:00; Stop 06/23/18 at 14:07; Status DC Info (FLU VACCINE per PROTOCOL) 1 ea PRN 1X PRN MC PER PROTOCOL; Start at 21:00; Stop 06/20/18 at 21:00; Status DC Influenza Virus Vaccine (Afluria Trivalent Syringe) 0.5 ml ONCE ONCE VAX IM ; Start 06/20/18 at 21:00; Stop 06/20/18 at 21:16; Status DC Influenza Virus Vaccine (Afluria Trivalent Syringe) 0.5 ml ONCE ONCE VAX IM Last administered on 06/22/18at 09:00; Start 06/22/18 at 09:00; Stop at 09:01; Status DC Meclizine HCl (Antivert) 25 mg PRN TID PRN PO DIZZINESS; Start 06/21/18 at 15: 30 Fluvoxamine Maleate (Luvox) 25 mg QHS PO Last administered on 06/23/18at 19:56; Start 06/21/18 at 21:00; Stop 06/24/18 at 03:10; Status DC Pantoprazole Sodium (Protonix) 40 mg PRN DAILY PRN PO HEARTBURN / GAS; Start at 09:00 Fluvoxamine Maleate (Luvox) 50 mg QHS PO Last administered on 06/26/18at 21:02; Start 06/24/18 at 21:00; Stop 06/27/18 at 19:00; Status DC Dipyridamole/ Aspirin (Aggrenox) 1 cap BID PO Last administered on 07/24/18at 21 :16; Start 06/24/18 at 21:00 Fluvoxamine Maleate (Luvox) 75 mg QHS PO ; Start 06/25/18 at 21:00; Stop at 21:00; Status DC Fluvoxamine Maleate (Luvox) 75 mg QHS PO Last administered on 06/30/18at 20:26; Start 06/27/18 at 21:00; Stop 06/30/18 at 23:24; Status DC Risperidone (RisperDAL) 0.25 mg HS PO Last administered on 07/14/18at 19:47; Start 06/28/18 at 21:00; Stop 07/15/18 at 18:11; Status DC Vitamin D (Vitamin D3) 50,000 unit WEEKLY PO ; Start 06/28/18 at 18:00; Stop at 18:07; Status DC Vitamin D (Vitamin D3) 50,000 unit WEEKLY PO Last administered on 07/19/18at 07: 41; Start 06/28/18 at 20:00 Fluvoxamine Maleate (Luvox) 100 mg QHS PO Last administered on 07/06/18at 19:41; Start 07/01/18 at 21:00; Stop 07/06/18 at 20:17; Status DC Benzocaine (Ora-Jel Maximum) 1 paula PRN QID PRN TP ORAL PAIN; Start 07/01/18 at 11:30 Lisinopril (Prinivil) 10 mg DAILY PO Last administered on 07/10/18at 09:27; Start 07/02/18 at 09:00; Stop 07/10/18 at 18:58; Status DC Trazodone HCl (Desyrel) 50 mg QHS PO Last administered on 07/02/18at 21:38; Start 07/01/18 at 21:00; Stop 07/03/18 at 18:36; Status DC Trazodone HCl (Desyrel) 50 mg QHS PRN PO INSOMNIA Last administered on 21:51; Start 07/01/18 at 18:00; Stop 07/03/18 at 18:36; Status DC Fluvoxamine Maleate (Luvox) 125 mg QHS PO Last administered on 07/11/18 21:08; Start 07/07/18 at 21:00; Stop 07/11/18 at 23:50; Status DC Fluvoxamine Maleate (Luvox) 150 mg QHS PO Last administered on 07/24/18at 21:18 ; Start 07/12/18 at 21:00 Lisinopril (Prinivil) 5 mg DAILY PO Last administered on 07/23/18at 07:49; Start 07/11/18 at 09:00 Cefdinir (Omnicef) 300 mg BID PO Last administered on 07/19/18 19:53; Start at 09:00; Stop 07/20/18 at 08:59; Status DC Lactobacillus Rhamnosus (Culturelle) 1 cap BID PO Last administered on 21:16; Start 07/13/18 at 09:00; Stop 07/30/18 at 08:59 Risperidone (RisperDAL) 0.25 mg BID PO Last administered on 07/24/18 21:16; Start 07/15/18 at 21:00 Active Scripts Active Reported Zolpidem Tartrate 5 Mg Tablet 5 Mg PO HS PRN Protonix (Pantoprazole Sodium) 40 Mg Tablet.dr 40 Mg PO BIDWMEALS NICODERM CQ 14mg (Nicotine) 1 Each Patch.td24 1 Patch TD DAILY Meclizine Hcl 25 Mg Tablet 25 Mg PO TID Lisinopril 20 Mg Tablet 20 Mg PO DAILY Heparin 5,000 Unit/5 ml-Ns (Heparin Sod,Porcine/0.9 % NaCl) 5,000 Unit/5 Ml Syringe 5,000 Unit IV Q12HR Aggrenox 25 Mg-200 Mg Capsule (Aspirin/Dipyridamole) 1 Each Cpmp.12hr 1 Cap PO BID Uanqlrjvaq-Ajb-Iycsrtbh Cap (Butalbital/Aspirin/Caffeine) 1 Each Capsule 1 Each PO PRN Q6HRS PRN Atorvastatin Calcium 20 Mg Tablet 20 Mg PO QHS I have reviewed the current psychotropics carefully including drug interactions. Risk benefit ratio favors no change other than as noted in my dictated progress note. Diagnosis: Problems: (1) Major depression with psychotic features (2) Anxiety disorder (3) Impulse control disorder (4) Obsessive compulsive disorder AIME LACKEY MD Jul 24, 2018 22:58
--- NOTE | 2018-07-25 00:27 | PN ---
DATE: 07/23/2018 PSYCHIATRIC PROGRESS NOTE This late entry 07/23/2018 covers elements not covered in my initial note. SUBJECTIVE: I met with the patient in the evening in her room. Per nursing report, the patient slept 8 hours previous night. She is doing better, remains somewhat isolative, has reported to staff that she was "pissed off." She is wanting excessive desserts for her meals. She wants to call her mother and I addressed this with her. REVIEW OF SYSTEMS: Positive for some tiredness. No CV, , pulmonary, eye system symptoms on review. MENTAL STATUS EXAM: Oriented to herself and situation. Speech has moderate latency, often responses monosyllabic. Abstraction fair, computation impaired, language function intact. Mood and affect withdrawn. LABORATORY DATA: Reviewed. IMPRESSION: Unchanged from initial note. PLAN: No change from initial note. MAN Alexander LACKEY MD DR: DEBRA/alisha JOB#: [id number] / [id number]
[2018-07-25] MEDS: METHYL SALICYLATE/MENTHOL TOPICAL OINTMENT 29GM TUBE. TP PRN (02:43)
[2018-07-25 06:24] VITALS: BP 107/63
[2018-07-25] MEDS: ASPIRIN/DIPYRIDAMOLE 200/25MG CAP.ER.12H PO SCH ×2 (08:17→19:47)
[2018-07-25] MEDS: risperiDONE 0.25 MG TABLET. PO SCH ×2 (08:17→19:47)
[2018-07-25] MEDS: LISINOPRIL 5 MG TABLET. PO SCH (08:17)
[2018-07-25] MEDS: LACTOBACILLUS RHAMNOSUS GG 1 CAPSULE. PO SCH ×2 (08:17→19:47)
[2018-07-25 16:12] VITALS: BP 130/72
[2018-07-25] MEDS: ATORVASTATIN CALCIUM 20 MG TABLET PO SCH (19:47)
--- NOTE | 2018-07-25 22:42 | PDOC ---
Exam Note: Santosh Note: Please also refer to the separate dictated note~for this date of service dictated separately.~Patient seen individually. Discussed the patient with Nursing staff reviewed the chart.~Reviewed interim history and current functioning. Reviewed vital signs,~Labs/ Radiology~and current medications noted below. Continue current treatment with the changes noted in the dictated addendum note Assessment: Vital Signs: Vital Signs Date Time Temp Pulse Resp B/P (MAP) Pulse Ox O2 Delivery O2 Flow Rate FiO2 07/25/18 16:12 98.3 77 19 130/72 (91) 96 Room Air I&O Intake and Output 07/25/18 07:00 Intake Total 1200 ml Balance 1200 ml Intake Oral 1200 ml # Bowel Movements 1 Current Medications: Meds: Current Medications Acetaminophen (Tylenol) 650 mg PRN Q6HRS PRN PO PAIN / TEMP Last administered on 07/01/18at 00:14; Start 06/20/18 at 15:30 Multi-Ingredient Ointment (Analgesic [place]) 1 paula PRN QID PRN TP MUSCLE PAIN Last administered on 07/25/18at 02:43; Start 06/20/18 at 15:30 Al Hydroxide/Mg Hydroxide (Mylanta Plus Xs) 15 ml PRN AFTMEALHC PRN PO DYSPEPSIA Last administered on 06/25/18 08:21; Start 06/20/18 at 15:30 Magnesium Hydroxide (Milk Of Magnesia) 2,400 mg PRN QHS PRN PO CONSTIPATION; Start 06/20/18 at 15:30 Nicotine (Nicoderm Cq 21mg) 1 patch DAILY TD Last administered on 06/22/18at 09: 13; Start 06/21/18 at 09:00; Stop 06/26/18 at 18:55; Status DC Heparin Sodium (Porcine) (Heparin Sodium) 5,000 unit Q12HR SQ ; Start 06/20/18 at 21:00; Stop 06/21/18 at 15:19; Status DC Atorvastatin Calcium (Lipitor) 20 mg QHS PO Last administered on 07/25/18at 19: 47; Start 06/20/18 at 21:00 Lisinopril (Prinivil) 20 mg DAILY PO Last administered on 06/28/18 09:13; Start 06/21/18 at 09:00; Stop 07/01/18 at 13:55; Status DC Zolpidem Tartrate (Ambien) 5 mg PRN QHS PRN PO INSOMNIA Last administered on at 22:47; Start 06/20/18 at 16:15 Acetaminophen/ Butalbital/ Caffeine (Fioricet) 1 tab PRN Q6HRS PRN PO MIGRAINE HEADACHE; Start 06/20/18 at 16:45 Meclizine HCl (Antivert) 25 mg TID PO Last administered on 06/21/18at 07:51; Start 06/20/18 at 21:00; Stop 06/21/18 at 15:20; Status DC Non-Formulary Medication (Nicotine (NICODERM CQ 14mg)) 1 patch DAILY TD ; Start 06/21/18 at 09:00; Stop 06/21/18 at 09:00; Status DC Pantoprazole Sodium (Protonix) 40 mg BIDWMEALS PO Last administered on at 08:48; Start 06/20/18 at 17:00; Stop 06/23/18 at 14:07; Status DC Info (FLU VACCINE per PROTOCOL) 1 ea PRN 1X PRN MC PER PROTOCOL; Start at 21:00; Stop 06/20/18 at 21:00; Status DC Influenza Virus Vaccine (Afluria Trivalent Syringe) 0.5 ml ONCE ONCE VAX IM ; Start 06/20/18 at 21:00; Stop 06/20/18 at 21:16; Status DC Influenza Virus Vaccine (Afluria Trivalent Syringe) 0.5 ml ONCE ONCE VAX IM Last administered on 06/22/18at 09:00; Start 06/22/18 at 09:00; Stop at 09:01; Status DC Meclizine HCl (Antivert) 25 mg PRN TID PRN PO DIZZINESS; Start 06/21/18 at 15: 30 Fluvoxamine Maleate (Luvox) 25 mg QHS PO Last administered on 06/23/18at 19:56; Start 06/21/18 at 21:00; Stop 06/24/18 at 03:10; Status DC Pantoprazole Sodium (Protonix) 40 mg PRN DAILY PRN PO HEARTBURN / GAS; Start at 09:00 Fluvoxamine Maleate (Luvox) 50 mg QHS PO Last administered on 06/26/18at 21:02; Start 06/24/18 at 21:00; Stop 06/27/18 at 19:00; Status DC Dipyridamole/ Aspirin (Aggrenox) 1 cap BID PO Last administered on 07/25/18at 19 :47; Start 06/24/18 at 21:00 Fluvoxamine Maleate (Luvox) 75 mg QHS PO ; Start 06/25/18 at 21:00; Stop at 21:00; Status DC Fluvoxamine Maleate (Luvox) 75 mg QHS PO Last administered on 06/30/18at 20:26; Start 06/27/18 at 21:00; Stop 06/30/18 at 23:24; Status DC Risperidone (RisperDAL) 0.25 mg HS PO Last administered on 07/14/18at 19:47; Start 06/28/18 at 21:00; Stop 07/15/18 at 18:11; Status DC Vitamin D (Vitamin D3) 50,000 unit WEEKLY PO ; Start 06/28/18 at 18:00; Stop at 18:07; Status DC Vitamin D (Vitamin D3) 50,000 unit WEEKLY PO Last administered on 07/19/18at 07: 41; Start 06/28/18 at 20:00 Fluvoxamine Maleate (Luvox) 100 mg QHS PO Last administered on 07/06/18at 19:41; Start 07/01/18 at 21:00; Stop 07/06/18 at 20:17; Status DC Benzocaine (Ora-Jel Maximum) 1 paula PRN QID PRN TP ORAL PAIN; Start 07/01/18 at 11:30 Lisinopril (Prinivil) 10 mg DAILY PO Last administered on 07/10/18at 09:27; Start 07/02/18 at 09:00; Stop 07/10/18 at 18:58; Status DC Trazodone HCl (Desyrel) 50 mg QHS PO Last administered on 07/02/18at 21:38; Start 07/01/18 at 21:00; Stop 07/03/18 at 18:36; Status DC Trazodone HCl (Desyrel) 50 mg QHS PRN PO INSOMNIA Last administered on 21:51; Start 07/01/18 at 18:00; Stop 07/03/18 at 18:36; Status DC Fluvoxamine Maleate (Luvox) 125 mg QHS PO Last administered on 07/11/18 21:08; Start 07/07/18 at 21:00; Stop 07/11/18 at 23:50; Status DC Fluvoxamine Maleate (Luvox) 150 mg QHS PO Last administered on 07/25/18 19:48 ; Start 07/12/18 at 21:00 Lisinopril (Prinivil) 5 mg DAILY PO Last administered on 07/25/18 08:17; Start 07/11/18 at 09:00 Cefdinir (Omnicef) 300 mg BID PO Last administered on 07/19/18 19:53; Start at 09:00; Stop 07/20/18 at 08:59; Status DC Lactobacillus Rhamnosus (Culturelle) 1 cap BID PO Last administered on 19:47; Start 07/13/18 at 09:00; Stop 07/30/18 at 08:59 Risperidone (RisperDAL) 0.25 mg BID PO Last administered on 07/25/18 19:47; Start 07/15/18 at 21:00 Active Scripts Active Reported Zolpidem Tartrate 5 Mg Tablet 5 Mg PO HS PRN Protonix (Pantoprazole Sodium) 40 Mg Tablet.dr 40 Mg PO BIDWMEALS NICODERM CQ 14mg (Nicotine) 1 Each Patch.td24 1 Patch TD DAILY Meclizine Hcl 25 Mg Tablet 25 Mg PO TID Lisinopril 20 Mg Tablet 20 Mg PO DAILY Heparin 5,000 Unit/5 ml-Ns (Heparin Sod,Porcine/0.9 % NaCl) 5,000 Unit/5 Ml Syringe 5,000 Unit IV Q12HR Aggrenox 25 Mg-200 Mg Capsule (Aspirin/Dipyridamole) 1 Each Cpmp.12hr 1 Cap PO BID Envziepmrk-Rva-Kgygctve Cap (Butalbital/Aspirin/Caffeine) 1 Each Capsule 1 Each PO PRN Q6HRS PRN Atorvastatin Calcium 20 Mg Tablet 20 Mg PO QHS I have reviewed the current psychotropics carefully including drug interactions. Risk benefit ratio favors no change other than as noted in my dictated progress note. Diagnosis: Problems: (1) Major depression with psychotic features (2) Anxiety disorder (3) Impulse control disorder (4) Obsessive compulsive disorder AIME LACKEY MD Jul 25, 2018 22:42
[2018-07-25] MEDS: ZOLPIDEM 5 MG TABLET. PO PRN (23:26)
[2018-07-26 06:29] VITALS: BP 107/61
[2018-07-26] MEDS: LACTOBACILLUS RHAMNOSUS GG 1 CAPSULE. PO SCH ×2 (07:54→19:36)
[2018-07-26] MEDS: ASPIRIN/DIPYRIDAMOLE 200/25MG CAP.ER.12H PO SCH ×2 (07:54→19:36)
[2018-07-26] MEDS: risperiDONE 0.25 MG TABLET. PO SCH ×2 (07:55→19:36)
[2018-07-26] MEDS: LISINOPRIL 5 MG TABLET. PO SCH (07:55)
[2018-07-26] MEDS: CHOLECALCIFEROL (VITAMIN D3) 50,000 UNIT CAPSULE PO SCH (07:57)
[2018-07-26 08:14] LABS: BASO % 1 % (0-3); EOS # 0.1 x10^3/uL (0.0-0.7); EOS % 2 % (0-3); HEMOGLOBIN 11.8 g/dL (12.0-15.5); LYMPH # 1.5 x10^3/uL (1.0-4.8); LYMPH % 26 % (24-48); MEAN CORPUSCULAR HEMOGLOBIN 29 pg (25-35); MEAN CORPUSCULAR HGB CONC 33 g/dL (31-37); MEAN CORPUSCULAR VOLUME 87 fL (79-100); MONO # 0.7 x10^3/uL (0.0-1.1); MONO % 13 % (0-9); NEUT # 3.5 x10^3uL (1.8-7.7); NEUT % 60 % (31-73); PLATELET COUNT 320 x10^3/uL (140-400); RED BLOOD COUNT 4.14 x10^6/uL (3.50-5.40); RED CELL DISTRIBUTION WIDTH 16.2 % (11.5-14.5); WHITE BLOOD COUNT 5.8 x10^3/uL (4.0-11.0)
[2018-07-26 08:29] LABS: ALBUMIN 2.9 g/dL (3.4-5.0); CALCIUM 9.1 mg/dL (8.5-10.1); CREATININE 0.9 mg/dL (0.6-1.0); GFR 61.7; POTASSIUM 4.4 mmol/L (3.5-5.1); TOTAL BILIRUBIN 0.2 mg/dL (0.2-1.0); TOTAL PROTEIN 5.9 g/dL (6.4-8.2)
[2018-07-26 16:15] VITALS: BP 111/64
--- NOTE | 2018-07-26 19:10 | PN ---
DATE: 07/24/2018 PSYCHIATRIC PROGRESS NOTE This late entry 07/24/2018 covers elements not covered in my initial note. SUBJECTIVE: I met with the patient in the evening in her room at length. The patient slept 5-3/4 hours previous night. She remains quite obsessive about what food she eats, remains withdrawn, and wants puddings. BP was low. Lisinopril held at dinnertime. REVIEW OF SYSTEMS: Positive for some tiredness. No CV, , pulmonary, eye, ENT system symptoms on review. She has vague somatic symptoms. MENTAL STATUS EXAM: Oriented reasonably. Speech is coherent, abstraction fair, computation impaired, language function intact, attention span short. Mood and affect withdrawn, but less so than before. LABORATORY DATA: Reviewed. IMPRESSION: Unchanged from initial note. PLAN: No change from initial note. MAN Alexander LACKEY MD DR: DEBRA/alisha JOB#: [id number] / [id number]
--- NOTE | 2018-07-26 19:16 | PN ---
DATE: 07/25/2018 PSYCHIATRIC PROGRESS NOTE This late entry 07/25/2018 covers elements not covered in my initial note. SUBJECTIVE: I met with the patient in the evening in her room at length and staffed at treatment team meeting earlier in the day. The patient slept 4-1/4 hours, average 5 hours. Appetite 80%. She is quite obsessive about wanting water during the day 07/25/2018. REVIEW OF SYSTEMS: Positive for some tiredness. No CV, , pulmonary, eye, ENT system symptoms on review. MENTAL STATUS EXAM: Oriented to herself and situation. Speech has some latency, coherent. Abstraction fair, computation impaired, language function intact, attention span short. Mood and affect is withdrawn. LABORATORY DATA: Reviewed. IMPRESSION: Unchanged from initial note. PLAN: No change from initial note. MAN Alexander LACKEY MD DR: DEBRA/alisha JOB#: [id number] / [id number]
[2018-07-26] MEDS: ATORVASTATIN CALCIUM 20 MG TABLET PO SCH (19:37)
[2018-07-26] MEDS: ZOLPIDEM 5 MG TABLET. PO PRN (22:31)
[2018-07-26] MEDS: METHYL SALICYLATE/MENTHOL TOPICAL OINTMENT 29GM TUBE. TP PRN (22:31)
--- NOTE | 2018-07-26 22:51 | PDOC ---
Exam Note: Santosh Note: Please also refer to the separate dictated note~for this date of service dictated separately.~Patient seen individually. Discussed the patient with Nursing staff reviewed the chart.~Reviewed interim history and current functioning. Reviewed vital signs,~Labs/ Radiology~and current medications noted below. Continue current treatment with the changes noted in the dictated addendum note Assessment: Vital Signs: Vital Signs Date Time Temp Pulse Resp B/P (MAP) Pulse Ox O2 Delivery O2 Flow Rate FiO2 07/26/18 16:15 99.8 81 16 111/64 (80) 92 Room Air I&O Intake and Output 07/26/18 07:00 Intake Total 1680 ml Balance 1680 ml Intake Oral 1680 ml Labs: Laboratory Tests Test 07/26/18 07:06 White Blood Count 5.8 x10^3/uL (4.0-11.0) Red Blood Count 4.14 x10^6/uL (3.50-5.40) Hemoglobin 11.8 g/dL (12.0-15.5) L Hematocrit 36.0 % (36.0-47.0) Mean Corpuscular Volume 87 fL (79-100) Mean Corpuscular Hemoglobin 29 pg (25-35) Mean Corpuscular Hemoglobin Concent 33 g/dL (31-37) Red Cell Distribution Width 16.2 % (11.5-14.5) H Platelet Count 320 x10^3/uL (140-400) Neutrophils (%) (Auto) 60 % (31-73) Lymphocytes (%) (Auto) 26 % (24-48) Monocytes (%) (Auto) 13 % (0-9) H Eosinophils (%) (Auto) 2 % (0-3) Basophils (%) (Auto) 1 % (0-3) Neutrophils # (Auto) 3.5 x10^3uL (1.8-7.7) Lymphocytes # (Auto) 1.5 x10^3/uL (1.0-4.8) Monocytes # (Auto) 0.7 x10^3/uL (0.0-1.1) Eosinophils # (Auto) 0.1 x10^3/uL (0.0-0.7) Basophils # (Auto) 0.0 x10^3/uL (0.0-0.2) Sodium Level 138 mmol/L (136-145) Potassium Level 4.4 mmol/L (3.5-5.1) Chloride Level 103 mmol/L (98-107) Carbon Dioxide Level 28 mmol/L (21-32) Anion Gap 7 (6-14) Blood Urea Nitrogen 22 mg/dL (7-20) H Creatinine 0.9 mg/dL (0.6-1.0) Estimated GFR (Cockcroft-Gault) 61.7 BUN/Creatinine Ratio 24 (6-20) H Glucose Level 122 mg/dL (70-99) H Calcium Level 9.1 mg/dL (8.5-10.1) Total Bilirubin 0.2 mg/dL (0.2-1.0) Aspartate Amino Transferase (AST) 15 U/L (15-37) Alanine Aminotransferase (ALT) 18 U/L (14-59) Alkaline Phosphatase 76 U/L (46-116) Total Protein 5.9 g/dL (6.4-8.2) L Albumin 2.9 g/dL (3.4-5.0) L Albumin/Globulin Ratio 1.0 (1.0-1.7) Current Medications: Meds: Current Medications Acetaminophen (Tylenol) 650 mg PRN Q6HRS PRN PO PAIN / TEMP Last administered on 07/01/18at 00:14; Start 06/20/18 at 15:30 Multi-Ingredient Ointment (Analgesic [place]) 1 paula PRN QID PRN TP MUSCLE PAIN Last administered on 07/26/18at 22:31; Start 06/20/18 at 15:30 Al Hydroxide/Mg Hydroxide (Mylanta Plus Xs) 15 ml PRN AFTMEALHC PRN PO DYSPEPSIA Last administered on 06/25/18at 08:21; Start 06/20/18 at 15:30 Magnesium Hydroxide (Milk Of Magnesia) 2,400 mg PRN QHS PRN PO CONSTIPATION; Start 06/20/18 at 15:30 Nicotine (Nicoderm Cq 21mg) 1 patch DAILY TD Last administered on 06/22/18at 09: 13; Start 06/21/18 at 09:00; Stop 06/26/18 at 18:55; Status DC Heparin Sodium (Porcine) (Heparin Sodium) 5,000 unit Q12HR SQ ; Start 06/20/18 at 21:00; Stop 06/21/18 at 15:19; Status DC Atorvastatin Calcium (Lipitor) 20 mg QHS PO Last administered on 07/26/18at 19: 37; Start 06/20/18 at 21:00 Lisinopril (Prinivil) 20 mg DAILY PO Last administered on 06/28/18at 09:13; Start 06/21/18 at 09:00; Stop 07/01/18 at 13:55; Status DC Zolpidem Tartrate (Ambien) 5 mg PRN QHS PRN PO INSOMNIA Last administered on at 22:31; Start 06/20/18 at 16:15 Acetaminophen/ Butalbital/ Caffeine (Fioricet) 1 tab PRN Q6HRS PRN PO MIGRAINE HEADACHE; Start 06/20/18 at 16:45 Meclizine HCl (Antivert) 25 mg TID PO Last administered on 06/21/18at 07:51; Start 06/20/18 at 21:00; Stop 06/21/18 at 15:20; Status DC Non-Formulary Medication (Nicotine (NICODERM CQ 14mg)) 1 patch DAILY TD ; Start 06/21/18 at 09:00; Stop 06/21/18 at 09:00; Status DC Pantoprazole Sodium (Protonix) 40 mg BIDWMEALS PO Last administered on at 08:48; Start 06/20/18 at 17:00; Stop 06/23/18 at 14:07; Status DC Info (FLU VACCINE per PROTOCOL) 1 ea PRN 1X PRN MC PER PROTOCOL; Start at 21:00; Stop 06/20/18 at 21:00; Status DC Influenza Virus Vaccine ([place] Trivalent Syringe) 0.5 ml ONCE ONCE VAX IM ; Start 06/20/18 at 21:00; Stop 06/20/18 at 21:16; Status DC Influenza Virus Vaccine ([place] Trivalent Syringe) 0.5 ml ONCE ONCE VAX IM Last administered on 06/22/18at 09:00; Start 06/22/18 at 09:00; Stop at 09:01; Status DC Meclizine HCl (Antivert) 25 mg PRN TID PRN PO DIZZINESS; Start 06/21/18 at 15: 30 Fluvoxamine Maleate (Luvox) 25 mg QHS PO Last administered on 06/23/18 19:56; Start 06/21/18 at 21:00; Stop 06/24/18 at 03:10; Status DC Pantoprazole Sodium (Protonix) 40 mg PRN DAILY PRN PO HEARTBURN / GAS; Start at 09:00 Fluvoxamine Maleate (Luvox) 50 mg QHS PO Last administered on 06/26/18at 21:02; Start 06/24/18 at 21:00; Stop 06/27/18 at 19:00; Status DC Dipyridamole/ Aspirin (Aggrenox) 1 cap BID PO Last administered on 07/26/18 19 :36; Start 06/24/18 at 21:00 Fluvoxamine Maleate (Luvox) 75 mg QHS PO ; Start 06/25/18 at 21:00; Stop at 21:00; Status DC Fluvoxamine Maleate (Luvox) 75 mg QHS PO Last administered on 06/30/18 20:26; Start 06/27/18 at 21:00; Stop 06/30/18 at 23:24; Status DC Risperidone (RisperDAL) 0.25 mg HS PO Last administered on 07/14/18 19:47; Start 06/28/18 at 21:00; Stop 07/15/18 at 18:11; Status DC Vitamin D (Vitamin D3) 50,000 unit WEEKLY PO ; Start 06/28/18 at 18:00; Stop at 18:07; Status DC Vitamin D (Vitamin D3) 50,000 unit WEEKLY PO Last administered on 07/26/18at 07: 57; Start 06/28/18 at 20:00 Fluvoxamine Maleate (Luvox) 100 mg QHS PO Last administered on 07/06/18 19:41; Start 07/01/18 at 21:00; Stop 07/06/18 at 20:17; Status DC Benzocaine (Ora-Jel Maximum) 1 paula PRN QID PRN TP ORAL PAIN; Start 07/01/18 at 11:30 Lisinopril (Prinivil) 10 mg DAILY PO Last administered on 07/10/18 09:27; Start 07/02/18 at 09:00; Stop 07/10/18 at 18:58; Status DC Trazodone HCl (Desyrel) 50 mg QHS PO Last administered on 07/02/18 21:38; Start 07/01/18 at 21:00; Stop 07/03/18 at 18:36; Status DC Trazodone HCl (Desyrel) 50 mg QHS PRN PO INSOMNIA Last administered on 21:51; Start 07/01/18 at 18:00; Stop 07/03/18 at 18:36; Status DC Fluvoxamine Maleate (Luvox) 125 mg QHS PO Last administered on 07/11/18 21:08; Start 07/07/18 at 21:00; Stop 07/11/18 at 23:50; Status DC Fluvoxamine Maleate (Luvox) 150 mg QHS PO Last administered on 07/26/18 19:37 ; Start 07/12/18 at 21:00 Lisinopril (Prinivil) 5 mg DAILY PO Last administered on 07/26/18 07:55; Start 07/11/18 at 09:00 Cefdinir (Omnicef) 300 mg BID PO Last administered on 07/19/18 19:53; Start at 09:00; Stop 07/20/18 at 08:59; Status DC Lactobacillus Rhamnosus (Culturelle) 1 cap BID PO Last administered on 19:36; Start 07/13/18 at 09:00; Stop 07/30/18 at 08:59 Risperidone (RisperDAL) 0.25 mg BID PO Last administered on 07/26/18 19:36; Start 07/15/18 at 21:00 Active Scripts Active Reported Zolpidem Tartrate 5 Mg Tablet 5 Mg PO HS PRN Protonix (Pantoprazole Sodium) 40 Mg Tablet.dr 40 Mg PO BIDWMEALS NICODERM CQ 14mg (Nicotine) 1 Each Patch.td24 1 Patch TD DAILY Meclizine Hcl 25 Mg Tablet 25 Mg PO TID Lisinopril 20 Mg Tablet 20 Mg PO DAILY Heparin 5,000 Unit/5 ml-Ns (Heparin Sod,Porcine/0.9 % NaCl) 5,000 Unit/5 Ml Syringe 5,000 Unit IV Q12HR Aggrenox 25 Mg-200 Mg Capsule (Aspirin/Dipyridamole) 1 Each Cpmp.12hr 1 Cap PO BID Pyuropilll-Uve-Vwpsaull Cap (Butalbital/Aspirin/Caffeine) 1 Each Capsule 1 Each PO PRN Q6HRS PRN Atorvastatin Calcium 20 Mg Tablet 20 Mg PO QHS I have reviewed the current psychotropics carefully including drug interactions. Risk benefit ratio favors no change other than as noted in my dictated progress note. Diagnosis: Problems: (1) Major depression with psychotic features (2) Anxiety disorder (3) Impulse control disorder (4) Obsessive compulsive disorder AIME LACKEY MD Jul 26, 2018 22:51
[2018-07-27] MEDS: METHYL SALICYLATE/MENTHOL TOPICAL OINTMENT 29GM TUBE. TP PRN ×2 (05:32→23:20)
[2018-07-27 05:58] VITALS: BP 104/63
[2018-07-27] MEDS: ASPIRIN/DIPYRIDAMOLE 200/25MG CAP.ER.12H PO SCH ×2 (07:45→19:24)
[2018-07-27] MEDS: LACTOBACILLUS RHAMNOSUS GG 1 CAPSULE. PO SCH ×2 (07:45→19:24)
[2018-07-27] MEDS: risperiDONE 0.25 MG TABLET. PO SCH ×2 (07:45→19:24)
[2018-07-27] MEDS: LISINOPRIL 5 MG TABLET. PO SCH (07:45)
--- NOTE | 2018-07-27 10:22 | PN ---
DATE: 06/22/2018 This is a late entry for date of service 06/22/2018 and covers elements not covered in my initial note of 06/22/2018. I had initially originally dictated the note on 06/23/2017, that note cannot be traced in the electronic medical records and I am redictating the note. SUBJECTIVE: The patient was seen on rounds evening of 06/22/2018 in her room. Discussed with nursing staff, reviewed the chart. The patient slept 5-1/2 hours previous night. She remains somewhat obsessive, wanting frequent refills of ice in her water cup and I addressed this with her individually in her room. REVIEW OF SYSTEMS: No CV, , pulmonary, eye system symptoms on review. She is also very fixated and picky and choosy on what foods she eats and obsesses about getting extra pudding. MENTAL STATUS EXAM: Oriented reasonably. Speech is coherent, has some latency. Abstraction fair, computation impaired, language function intact. Mood and affect withdrawn. LABORATORY DATA: Reviewed. IMPRESSION: Unchanged from initial note. PLAN: No change from initial note and we will continue Luvox 25 mg at bedtime, increase gradually. Maintain Ambien 5 mg at bedtime p.r.n. AIME LACKEY MD DR: DEBRA/alisha JOB#: [id number] / [id number]
[2018-07-27 16:43] VITALS: BP 123/73
[2018-07-27] MEDS: ATORVASTATIN CALCIUM 20 MG TABLET PO SCH (19:24)
--- NOTE | 2018-07-27 19:44 | PN ---
DATE: 07/26/2018 This is late entry 07/26/2018 covers elements not covered in my initial note. SUBJECTIVE: I met with the patient in the evening. The patient slept 6-3/4 hours previous night. I met with her in her room. She has been withdrawn, sleeps all day, slept 6-3/4 hours. She is somewhat more obsessed about wanting, "I sent her water cup every 1 hour and I addressed this with her. No CV, , pulmonary, eye system symptoms on review. MENTAL STATUS EXAM: Oriented reasonably. Speech coherent, abstraction fair, computation reasonable, language function intact, attention span short. Mood and affect still withdrawn, depressed. LABORATORY DATA: Reviewed. IMPRESSION: Unchanged from initial note. PLAN: No change from initial note. MAN Alexander LACKEY MD DR: DEBRA/alisha JOB#: [id number] / [id number]
--- NOTE | 2018-07-27 20:51 | PN ---
DATE: 07/26/2018 PSYCHIATRIC PROGRESS NOTE This is a late entry, 07/26/2018, covers elements not covered in my initial note. SUBJECTIVE: I met with the patient in the evening. The patient slept 6-3/4 hours previous night. She has been withdrawn, spends much time in her room, that is where I met with her. Reportedly, she sleeps all day. In the evening as I met with her, she was fixated and wanting ice for her water cup, somewhat obsessive about this. REVIEW OF SYSTEMS: Positive for vague somatic symptoms. No CV, , pulmonary, eye system symptoms on review. MENTAL STATUS EXAM: Oriented reasonably. DICTATION ENDS HERE. MAN Alexander LACKEY MD DR: DEBRA/alisha JOB#: [id number] / [id number]
[2018-07-27] MEDS: ZOLPIDEM 5 MG TABLET. PO PRN (22:45)
--- NOTE | 2018-07-27 23:18 | PDOC ---
Exam Note: Santosh Note: Please also refer to the separate dictated note~for this date of service dictated separately.~Patient seen individually. Discussed the patient with Nursing staff reviewed the chart.~Reviewed interim history and current functioning. Reviewed vital signs,~Labs/ Radiology~and current medications noted below. Continue current treatment with the changes noted in the dictated addendum note Assessment: Vital Signs: Vital Signs Date Time Temp Pulse Resp B/P (MAP) Pulse Ox O2 Delivery O2 Flow Rate FiO2 07/27/18 16:43 98.6 98 20 123/73 (90) 95 Room Air I&O Intake and Output 07/27/18 07:00 Intake Total 440 ml Balance 440 ml Intake Oral 440 ml Current Medications: Meds: Current Medications Acetaminophen (Tylenol) 650 mg PRN Q6HRS PRN PO PAIN / TEMP Last administered on 07/01/18at 00:14; Start 06/20/18 at 15:30 Multi-Ingredient Ointment (Analgesic [place]) 1 paula PRN QID PRN TP MUSCLE PAIN Last administered on 07/27/18at 05:32; Start 06/20/18 at 15:30 Al Hydroxide/Mg Hydroxide (Mylanta Plus Xs) 15 ml PRN AFTMEALHC PRN PO DYSPEPSIA Last administered on 06/25/18 08:21; Start 06/20/18 at 15:30 Magnesium Hydroxide (Milk Of Magnesia) 2,400 mg PRN QHS PRN PO CONSTIPATION; Start 06/20/18 at 15:30 Nicotine (Nicoderm Cq 21mg) 1 patch DAILY TD Last administered on 06/22/18at 09: 13; Start 06/21/18 at 09:00; Stop 06/26/18 at 18:55; Status DC Heparin Sodium (Porcine) (Heparin Sodium) 5,000 unit Q12HR SQ ; Start 06/20/18 at 21:00; Stop 06/21/18 at 15:19; Status DC Atorvastatin Calcium (Lipitor) 20 mg QHS PO Last administered on 07/27/18at 19: 24; Start 06/20/18 at 21:00 Lisinopril (Prinivil) 20 mg DAILY PO Last administered on 06/28/18at 09:13; Start 06/21/18 at 09:00; Stop 07/01/18 at 13:55; Status DC Zolpidem Tartrate (Ambien) 5 mg PRN QHS PRN PO INSOMNIA Last administered on at 22:45; Start 06/20/18 at 16:15 Acetaminophen/ Butalbital/ Caffeine (Fioricet) 1 tab PRN Q6HRS PRN PO MIGRAINE HEADACHE; Start 06/20/18 at 16:45 Meclizine HCl (Antivert) 25 mg TID PO Last administered on 06/21/18at 07:51; Start 06/20/18 at 21:00; Stop 06/21/18 at 15:20; Status DC Non-Formulary Medication (Nicotine (NICODERM CQ 14mg)) 1 patch DAILY TD ; Start 06/21/18 at 09:00; Stop 06/21/18 at 09:00; Status DC Pantoprazole Sodium (Protonix) 40 mg BIDWMEALS PO Last administered on at 08:48; Start 06/20/18 at 17:00; Stop 06/23/18 at 14:07; Status DC Info (FLU VACCINE per PROTOCOL) 1 ea PRN 1X PRN MC PER PROTOCOL; Start at 21:00; Stop 06/20/18 at 21:00; Status DC Influenza Virus Vaccine (Afluria Trivalent Syringe) 0.5 ml ONCE ONCE VAX IM ; Start 06/20/18 at 21:00; Stop 06/20/18 at 21:16; Status DC Influenza Virus Vaccine (Afluria Trivalent Syringe) 0.5 ml ONCE ONCE VAX IM Last administered on 06/22/18at 09:00; Start 06/22/18 at 09:00; Stop at 09:01; Status DC Meclizine HCl (Antivert) 25 mg PRN TID PRN PO DIZZINESS; Start 06/21/18 at 15: 30 Fluvoxamine Maleate (Luvox) 25 mg QHS PO Last administered on 06/23/18at 19:56; Start 06/21/18 at 21:00; Stop 06/24/18 at 03:10; Status DC Pantoprazole Sodium (Protonix) 40 mg PRN DAILY PRN PO HEARTBURN / GAS; Start at 09:00 Fluvoxamine Maleate (Luvox) 50 mg QHS PO Last administered on 06/26/18at 21:02; Start 06/24/18 at 21:00; Stop 06/27/18 at 19:00; Status DC Dipyridamole/ Aspirin (Aggrenox) 1 cap BID PO Last administered on 07/27/18at 19 :24; Start 06/24/18 at 21:00 Fluvoxamine Maleate (Luvox) 75 mg QHS PO ; Start 06/25/18 at 21:00; Stop at 21:00; Status DC Fluvoxamine Maleate (Luvox) 75 mg QHS PO Last administered on 06/30/18at 20:26; Start 06/27/18 at 21:00; Stop 06/30/18 at 23:24; Status DC Risperidone (RisperDAL) 0.25 mg HS PO Last administered on 07/14/18at 19:47; Start 06/28/18 at 21:00; Stop 07/15/18 at 18:11; Status DC Vitamin D (Vitamin D3) 50,000 unit WEEKLY PO ; Start 06/28/18 at 18:00; Stop at 18:07; Status DC Vitamin D (Vitamin D3) 50,000 unit WEEKLY PO Last administered on 07/26/18at 07: 57; Start 06/28/18 at 20:00 Fluvoxamine Maleate (Luvox) 100 mg QHS PO Last administered on 07/06/18at 19:41; Start 07/01/18 at 21:00; Stop 07/06/18 at 20:17; Status DC Benzocaine (Ora-Jel Maximum) 1 paula PRN QID PRN TP ORAL PAIN; Start 07/01/18 at 11:30 Lisinopril (Prinivil) 10 mg DAILY PO Last administered on 07/10/18at 09:27; Start 07/02/18 at 09:00; Stop 07/10/18 at 18:58; Status DC Trazodone HCl (Desyrel) 50 mg QHS PO Last administered on 07/02/18at 21:38; Start 07/01/18 at 21:00; Stop 07/03/18 at 18:36; Status DC Trazodone HCl (Desyrel) 50 mg QHS PRN PO INSOMNIA Last administered on 21:51; Start 07/01/18 at 18:00; Stop 07/03/18 at 18:36; Status DC Fluvoxamine Maleate (Luvox) 125 mg QHS PO Last administered on 07/11/18 21:08; Start 07/07/18 at 21:00; Stop 07/11/18 at 23:50; Status DC Fluvoxamine Maleate (Luvox) 150 mg QHS PO Last administered on 07/27/18 19:24 ; Start 07/12/18 at 21:00 Lisinopril (Prinivil) 5 mg DAILY PO Last administered on 07/27/18 07:45; Start 07/11/18 at 09:00 Cefdinir (Omnicef) 300 mg BID PO Last administered on 07/19/18 19:53; Start at 09:00; Stop 07/20/18 at 08:59; Status DC Lactobacillus Rhamnosus (Culturelle) 1 cap BID PO Last administered on 19:24; Start 07/13/18 at 09:00; Stop 07/30/18 at 08:59 Risperidone (RisperDAL) 0.25 mg BID PO Last administered on 07/27/18 19:24; Start 07/15/18 at 21:00 Active Scripts Active Reported Zolpidem Tartrate 5 Mg Tablet 5 Mg PO HS PRN Protonix (Pantoprazole Sodium) 40 Mg Tablet.dr 40 Mg PO BIDWMEALS NICODERM CQ 14mg (Nicotine) 1 Each Patch.td24 1 Patch TD DAILY Meclizine Hcl 25 Mg Tablet 25 Mg PO TID Lisinopril 20 Mg Tablet 20 Mg PO DAILY Heparin 5,000 Unit/5 ml-Ns (Heparin Sod,Porcine/0.9 % NaCl) 5,000 Unit/5 Ml Syringe 5,000 Unit IV Q12HR Aggrenox 25 Mg-200 Mg Capsule (Aspirin/Dipyridamole) 1 Each Cpmp.12hr 1 Cap PO BID Lszuawvzod-Mvd-Boktkhob Cap (Butalbital/Aspirin/Caffeine) 1 Each Capsule 1 Each PO PRN Q6HRS PRN Atorvastatin Calcium 20 Mg Tablet 20 Mg PO QHS I have reviewed the current psychotropics carefully including drug interactions. Risk benefit ratio favors no change other than as noted in my dictated progress note. Diagnosis: Problems: (1) Major depression with psychotic features (2) Anxiety disorder (3) Impulse control disorder (4) Obsessive compulsive disorder AIME LACKEY MD Jul 27, 2018 23:18
[2018-07-28] MEDS: METHYL SALICYLATE/MENTHOL TOPICAL OINTMENT 29GM TUBE. TP PRN (03:50)
[2018-07-28 06:13] VITALS: BP 110/64
[2018-07-28] MEDS: LISINOPRIL 5 MG TABLET. PO SCH (07:42)
[2018-07-28] MEDS: LACTOBACILLUS RHAMNOSUS GG 1 CAPSULE. PO SCH ×2 (07:42→19:20)
[2018-07-28] MEDS: ASPIRIN/DIPYRIDAMOLE 200/25MG CAP.ER.12H PO SCH ×2 (07:42→19:19)
[2018-07-28] MEDS: risperiDONE 0.25 MG TABLET. PO SCH ×2 (07:42→19:20)
[2018-07-28 16:56] VITALS: BP 132/71
[2018-07-28] MEDS: ATORVASTATIN CALCIUM 20 MG TABLET PO SCH (19:20)
[2018-07-28] MEDS: ZOLPIDEM 5 MG TABLET. PO PRN (21:13)
--- NOTE | 2018-07-28 23:43 | PDOC ---
Exam Note: Santosh Note: Please also refer to the separate dictated note~for this date of service dictated separately.~Patient seen individually. Discussed the patient with Nursing staff reviewed the chart.~Reviewed interim history and current functioning. Reviewed vital signs,~Labs/ Radiology~and current medications noted below. Continue current treatment with the changes noted in the dictated addendum note Assessment: Vital Signs: Vital Signs Date Time Temp Pulse Resp B/P (MAP) Pulse Ox O2 Delivery O2 Flow Rate FiO2 07/28/18 16:56 97.2 89 19 132/71 (91) 98 Room Air I&O Intake and Output 07/28/18 07:00 Intake Total 1080 ml Balance 1080 ml Intake Oral 1080 ml # Voids 1 Current Medications: Meds: Current Medications Acetaminophen (Tylenol) 650 mg PRN Q6HRS PRN PO PAIN / TEMP Last administered on 07/01/18 00:14; Start 06/20/18 at 15:30 Multi-Ingredient Ointment (Analgesic [place]) 1 paula PRN QID PRN TP MUSCLE PAIN Last administered on 07/28/18at 03:50; Start 06/20/18 at 15:30 Al Hydroxide/Mg Hydroxide (Mylanta Plus Xs) 15 ml PRN AFTMEALHC PRN PO DYSPEPSIA Last administered on 06/25/18 08:21; Start 06/20/18 at 15:30 Magnesium Hydroxide (Milk Of Magnesia) 2,400 mg PRN QHS PRN PO CONSTIPATION; Start 06/20/18 at 15:30 Nicotine (Nicoderm Cq 21mg) 1 patch DAILY TD Last administered on 06/22/18 09: 13; Start 06/21/18 at 09:00; Stop 06/26/18 at 18:55; Status DC Heparin Sodium (Porcine) (Heparin Sodium) 5,000 unit Q12HR SQ ; Start 06/20/18 at 21:00; Stop 06/21/18 at 15:19; Status DC Atorvastatin Calcium (Lipitor) 20 mg QHS PO Last administered on 07/28/18 19: 20; Start 06/20/18 at 21:00 Lisinopril (Prinivil) 20 mg DAILY PO Last administered on 06/28/18 09:13; Start 06/21/18 at 09:00; Stop 07/01/18 at 13:55; Status DC Zolpidem Tartrate (Ambien) 5 mg PRN QHS PRN PO INSOMNIA Last administered on at 21:13; Start 06/20/18 at 16:15 Acetaminophen/ Butalbital/ Caffeine (Fioricet) 1 tab PRN Q6HRS PRN PO MIGRAINE HEADACHE; Start 06/20/18 at 16:45 Meclizine HCl (Antivert) 25 mg TID PO Last administered on 06/21/18at 07:51; Start 06/20/18 at 21:00; Stop 06/21/18 at 15:20; Status DC Non-Formulary Medication (Nicotine (NICODERM CQ 14mg)) 1 patch DAILY TD ; Start 06/21/18 at 09:00; Stop 06/21/18 at 09:00; Status DC Pantoprazole Sodium (Protonix) 40 mg BIDWMEALS PO Last administered on at 08:48; Start 06/20/18 at 17:00; Stop 06/23/18 at 14:07; Status DC Info (FLU VACCINE per PROTOCOL) 1 ea PRN 1X PRN MC PER PROTOCOL; Start at 21:00; Stop 06/20/18 at 21:00; Status DC Influenza Virus Vaccine (Afluria Trivalent Syringe) 0.5 ml ONCE ONCE VAX IM ; Start 06/20/18 at 21:00; Stop 06/20/18 at 21:16; Status DC Influenza Virus Vaccine (Afluria Trivalent Syringe) 0.5 ml ONCE ONCE VAX IM Last administered on 06/22/18at 09:00; Start 06/22/18 at 09:00; Stop at 09:01; Status DC Meclizine HCl (Antivert) 25 mg PRN TID PRN PO DIZZINESS; Start 06/21/18 at 15: 30 Fluvoxamine Maleate (Luvox) 25 mg QHS PO Last administered on 06/23/18at 19:56; Start 06/21/18 at 21:00; Stop 06/24/18 at 03:10; Status DC Pantoprazole Sodium (Protonix) 40 mg PRN DAILY PRN PO HEARTBURN / GAS; Start at 09:00 Fluvoxamine Maleate (Luvox) 50 mg QHS PO Last administered on 06/26/18at 21:02; Start 06/24/18 at 21:00; Stop 06/27/18 at 19:00; Status DC Dipyridamole/ Aspirin (Aggrenox) 1 cap BID PO Last administered on 07/28/18at 19 :19; Start 06/24/18 at 21:00 Fluvoxamine Maleate (Luvox) 75 mg QHS PO ; Start 06/25/18 at 21:00; Stop at 21:00; Status DC Fluvoxamine Maleate (Luvox) 75 mg QHS PO Last administered on 06/30/18at 20:26; Start 06/27/18 at 21:00; Stop 06/30/18 at 23:24; Status DC Risperidone (RisperDAL) 0.25 mg HS PO Last administered on 07/14/18at 19:47; Start 06/28/18 at 21:00; Stop 07/15/18 at 18:11; Status DC Vitamin D (Vitamin D3) 50,000 unit WEEKLY PO ; Start 06/28/18 at 18:00; Stop at 18:07; Status DC Vitamin D (Vitamin D3) 50,000 unit WEEKLY PO Last administered on 07/26/18at 07: 57; Start 06/28/18 at 20:00 Fluvoxamine Maleate (Luvox) 100 mg QHS PO Last administered on 07/06/18at 19:41; Start 07/01/18 at 21:00; Stop 07/06/18 at 20:17; Status DC Benzocaine (Ora-Jel Maximum) 1 paula PRN QID PRN TP ORAL PAIN; Start 07/01/18 at 11:30 Lisinopril (Prinivil) 10 mg DAILY PO Last administered on 07/10/18at 09:27; Start 07/02/18 at 09:00; Stop 07/10/18 at 18:58; Status DC Trazodone HCl (Desyrel) 50 mg QHS PO Last administered on 07/02/18at 21:38; Start 07/01/18 at 21:00; Stop 07/03/18 at 18:36; Status DC Trazodone HCl (Desyrel) 50 mg QHS PRN PO INSOMNIA Last administered on 21:51; Start 07/01/18 at 18:00; Stop 07/03/18 at 18:36; Status DC Fluvoxamine Maleate (Luvox) 125 mg QHS PO Last administered on 07/11/18 21:08; Start 07/07/18 at 21:00; Stop 07/11/18 at 23:50; Status DC Fluvoxamine Maleate (Luvox) 150 mg QHS PO Last administered on 07/28/18 19:20 ; Start 07/12/18 at 21:00 Lisinopril (Prinivil) 5 mg DAILY PO Last administered on 07/28/18 07:42; Start 07/11/18 at 09:00 Cefdinir (Omnicef) 300 mg BID PO Last administered on 07/19/18 19:53; Start at 09:00; Stop 07/20/18 at 08:59; Status DC Lactobacillus Rhamnosus (Culturelle) 1 cap BID PO Last administered on 19:20; Start 07/13/18 at 09:00; Stop 07/30/18 at 08:59 Risperidone (RisperDAL) 0.25 mg BID PO Last administered on 07/28/18 19:20; Start 07/15/18 at 21:00 Active Scripts Active Reported Zolpidem Tartrate 5 Mg Tablet 5 Mg PO HS PRN Protonix (Pantoprazole Sodium) 40 Mg Tablet.dr 40 Mg PO BIDWMEALS NICODERM CQ 14mg (Nicotine) 1 Each Patch.td24 1 Patch TD DAILY Meclizine Hcl 25 Mg Tablet 25 Mg PO TID Lisinopril 20 Mg Tablet 20 Mg PO DAILY Heparin 5,000 Unit/5 ml-Ns (Heparin Sod,Porcine/0.9 % NaCl) 5,000 Unit/5 Ml Syringe 5,000 Unit IV Q12HR Aggrenox 25 Mg-200 Mg Capsule (Aspirin/Dipyridamole) 1 Each Cpmp.12hr 1 Cap PO BID Gfnfvlhpyh-Pyq-Pbmfjjpw Cap (Butalbital/Aspirin/Caffeine) 1 Each Capsule 1 Each PO PRN Q6HRS PRN Atorvastatin Calcium 20 Mg Tablet 20 Mg PO QHS I have reviewed the current psychotropics carefully including drug interactions. Risk benefit ratio favors no change other than as noted in my dictated progress note. Diagnosis: Problems: (1) Major depression with psychotic features (2) Anxiety disorder (3) Impulse control disorder (4) Obsessive compulsive disorder AIME LACKEY MD Jul 28, 2018 23:43
[2018-07-29] MEDS: LACTOBACILLUS RHAMNOSUS GG 1 CAPSULE. PO SCH ×2 (08:08→21:52)
[2018-07-29] MEDS: LISINOPRIL 5 MG TABLET. PO SCH (08:08)
[2018-07-29] MEDS: risperiDONE 0.25 MG TABLET. PO SCH ×2 (08:08→21:52)
[2018-07-29] MEDS: ASPIRIN/DIPYRIDAMOLE 200/25MG CAP.ER.12H PO SCH ×2 (08:09→21:51)
[2018-07-29 09:00] VITALS: BP 95/59
[2018-07-29] MEDS: METHYL SALICYLATE/MENTHOL TOPICAL OINTMENT 29GM TUBE. TP PRN ×2 (15:51→21:57)
[2018-07-29 17:17] VITALS: BP 159/80
--- NOTE | 2018-07-29 21:01 | PN ---
DATE: 07/28/2018 PSYCHIATRIC PROGRESS NOTE This late entry 07/28/2018 covers elements not covered in my initial note. SUBJECTIVE: I met with the patient in the evening. The patient slept 6-1/2 hours previous night. I met with her in her room. She has been somewhat obsessive, per nursing report, complains of right knee pain and we will start her on glucosamine. She is still obsessing about wanting frequent amounts of ice in a water. REVIEW OF SYSTEMS: No CV, , pulmonary, eye system symptoms on review. MENTAL STATUS EXAM: Reasonably oriented. Speech has some latency, coherent. Abstraction fair, computation impaired, language function intact. Mood and affect is withdrawn. LABORATORY DATA: Reviewed. IMPRESSION: Unchanged from initial note. PLAN: No change other than above. MAN Alexander LACKEY MD DR: DEBRA/alisha JOB#: [id number] / [id number]
[2018-07-29] MEDS: ATORVASTATIN CALCIUM 20 MG TABLET PO SCH (21:55)
--- NOTE | 2018-07-29 22:51 | PDOC ---
Exam Note: Santosh Note: Please also refer to the separate dictated note~for this date of service dictated separately.~Patient seen individually. Discussed the patient with Nursing staff reviewed the chart.~Reviewed interim history and current functioning. Reviewed vital signs,~Labs/ Radiology~and current medications noted below. Continue current treatment with the changes noted in the dictated addendum note Assessment: Vital Signs: Vital Signs Date Time Temp Pulse Resp B/P (MAP) Pulse Ox O2 Delivery O2 Flow Rate FiO2 07/29/18 17:17 98.0 85 18 159/80 (106) 99 07/29/18 09:00 Room Air I&O Intake and Output 07/29/18 07:00 Intake Total 680 ml Balance 680 ml Intake Oral 680 ml Current Medications: Meds: Current Medications Acetaminophen (Tylenol) 650 mg PRN Q6HRS PRN PO PAIN / TEMP Last administered on 07/01/18 00:14; Start 06/20/18 at 15:30 Multi-Ingredient Ointment (Analgesic [place]) 1 paula PRN QID PRN TP MUSCLE PAIN Last administered on 07/29/18 21:57; Start 06/20/18 at 15:30 Al Hydroxide/Mg Hydroxide (Mylanta Plus Xs) 15 ml PRN AFTMEALHC PRN PO DYSPEPSIA Last administered on 06/25/18 08:21; Start 06/20/18 at 15:30 Magnesium Hydroxide (Milk Of Magnesia) 2,400 mg PRN QHS PRN PO CONSTIPATION; Start 06/20/18 at 15:30 Nicotine (Nicoderm Cq 21mg) 1 patch DAILY TD Last administered on 06/22/18 09: 13; Start 06/21/18 at 09:00; Stop 06/26/18 at 18:55; Status DC Heparin Sodium (Porcine) (Heparin Sodium) 5,000 unit Q12HR SQ ; Start 06/20/18 at 21:00; Stop 06/21/18 at 15:19; Status DC Atorvastatin Calcium (Lipitor) 20 mg QHS PO Last administered on 07/29/18 21: 55; Start 06/20/18 at 21:00 Lisinopril (Prinivil) 20 mg DAILY PO Last administered on 06/28/18 09:13; Start 06/21/18 at 09:00; Stop 07/01/18 at 13:55; Status DC Zolpidem Tartrate (Ambien) 5 mg PRN QHS PRN PO INSOMNIA Last administered on at 21:13; Start 06/20/18 at 16:15 Acetaminophen/ Butalbital/ Caffeine (Fioricet) 1 tab PRN Q6HRS PRN PO MIGRAINE HEADACHE; Start 06/20/18 at 16:45 Meclizine HCl (Antivert) 25 mg TID PO Last administered on 06/21/18at 07:51; Start 06/20/18 at 21:00; Stop 06/21/18 at 15:20; Status DC Non-Formulary Medication (Nicotine (NICODERM CQ 14mg)) 1 patch DAILY TD ; Start 06/21/18 at 09:00; Stop 06/21/18 at 09:00; Status DC Pantoprazole Sodium (Protonix) 40 mg BIDWMEALS PO Last administered on at 08:48; Start 06/20/18 at 17:00; Stop 06/23/18 at 14:07; Status DC Info (FLU VACCINE per PROTOCOL) 1 ea PRN 1X PRN MC PER PROTOCOL; Start at 21:00; Stop 06/20/18 at 21:00; Status DC Influenza Virus Vaccine (Afluria Trivalent Syringe) 0.5 ml ONCE ONCE VAX IM ; Start 06/20/18 at 21:00; Stop 06/20/18 at 21:16; Status DC Influenza Virus Vaccine (Afluria Trivalent Syringe) 0.5 ml ONCE ONCE VAX IM Last administered on 06/22/18at 09:00; Start 06/22/18 at 09:00; Stop at 09:01; Status DC Meclizine HCl (Antivert) 25 mg PRN TID PRN PO DIZZINESS; Start 06/21/18 at 15: 30 Fluvoxamine Maleate (Luvox) 25 mg QHS PO Last administered on 06/23/18at 19:56; Start 06/21/18 at 21:00; Stop 06/24/18 at 03:10; Status DC Pantoprazole Sodium (Protonix) 40 mg PRN DAILY PRN PO HEARTBURN / GAS; Start at 09:00 Fluvoxamine Maleate (Luvox) 50 mg QHS PO Last administered on 06/26/18at 21:02; Start 06/24/18 at 21:00; Stop 06/27/18 at 19:00; Status DC Dipyridamole/ Aspirin (Aggrenox) 1 cap BID PO Last administered on 07/29/18at 21 :51; Start 06/24/18 at 21:00 Fluvoxamine Maleate (Luvox) 75 mg QHS PO ; Start 06/25/18 at 21:00; Stop at 21:00; Status DC Fluvoxamine Maleate (Luvox) 75 mg QHS PO Last administered on 06/30/18at 20:26; Start 06/27/18 at 21:00; Stop 06/30/18 at 23:24; Status DC Risperidone (RisperDAL) 0.25 mg HS PO Last administered on 07/14/18at 19:47; Start 06/28/18 at 21:00; Stop 07/15/18 at 18:11; Status DC Vitamin D (Vitamin D3) 50,000 unit WEEKLY PO ; Start 06/28/18 at 18:00; Stop at 18:07; Status DC Vitamin D (Vitamin D3) 50,000 unit WEEKLY PO Last administered on 07/26/18at 07: 57; Start 06/28/18 at 20:00 Fluvoxamine Maleate (Luvox) 100 mg QHS PO Last administered on 07/06/18at 19:41; Start 07/01/18 at 21:00; Stop 07/06/18 at 20:17; Status DC Benzocaine (Ora-Jel Maximum) 1 paula PRN QID PRN TP ORAL PAIN; Start 07/01/18 at 11:30 Lisinopril (Prinivil) 10 mg DAILY PO Last administered on 07/10/18at 09:27; Start 07/02/18 at 09:00; Stop 07/10/18 at 18:58; Status DC Trazodone HCl (Desyrel) 50 mg QHS PO Last administered on 07/02/18at 21:38; Start 07/01/18 at 21:00; Stop 07/03/18 at 18:36; Status DC Trazodone HCl (Desyrel) 50 mg QHS PRN PO INSOMNIA Last administered on 21:51; Start 07/01/18 at 18:00; Stop 07/03/18 at 18:36; Status DC Fluvoxamine Maleate (Luvox) 125 mg QHS PO Last administered on 07/11/18 21:08; Start 07/07/18 at 21:00; Stop 07/11/18 at 23:50; Status DC Fluvoxamine Maleate (Luvox) 150 mg QHS PO Last administered on 07/29/18 21:53 ; Start 07/12/18 at 21:00 Lisinopril (Prinivil) 5 mg DAILY PO Last administered on 07/29/18 08:08; Start 07/11/18 at 09:00 Cefdinir (Omnicef) 300 mg BID PO Last administered on 07/19/18 19:53; Start at 09:00; Stop 07/20/18 at 08:59; Status DC Lactobacillus Rhamnosus (Culturelle) 1 cap BID PO Last administered on 21:52; Start 07/13/18 at 09:00; Stop 07/30/18 at 08:59 Risperidone (RisperDAL) 0.25 mg BID PO Last administered on 07/29/18 21:52; Start 07/15/18 at 21:00 Active Scripts Active Reported Zolpidem Tartrate 5 Mg Tablet 5 Mg PO HS PRN Protonix (Pantoprazole Sodium) 40 Mg Tablet.dr 40 Mg PO BIDWMEALS NICODERM CQ 14mg (Nicotine) 1 Each Patch.td24 1 Patch TD DAILY Meclizine Hcl 25 Mg Tablet 25 Mg PO TID Lisinopril 20 Mg Tablet 20 Mg PO DAILY Heparin 5,000 Unit/5 ml-Ns (Heparin Sod,Porcine/0.9 % NaCl) 5,000 Unit/5 Ml Syringe 5,000 Unit IV Q12HR Aggrenox 25 Mg-200 Mg Capsule (Aspirin/Dipyridamole) 1 Each Cpmp.12hr 1 Cap PO BID Ttioshzfue-Mma-Dmbsatjy Cap (Butalbital/Aspirin/Caffeine) 1 Each Capsule 1 Each PO PRN Q6HRS PRN Atorvastatin Calcium 20 Mg Tablet 20 Mg PO QHS I have reviewed the current psychotropics carefully including drug interactions. Risk benefit ratio favors no change other than as noted in my dictated progress note. Diagnosis: Problems: (1) Major depression with psychotic features (2) Anxiety disorder (3) Impulse control disorder (4) Obsessive compulsive disorder AIME LACKEY MD Jul 29, 2018 22:51
[2018-07-29] MEDS: ZOLPIDEM 5 MG TABLET. PO PRN (23:11)
[2018-07-30 06:03] VITALS: BP 103/67
[2018-07-30] MEDS: risperiDONE 0.25 MG TABLET. PO SCH ×2 (07:43→20:55)
[2018-07-30] MEDS: LISINOPRIL 5 MG TABLET. PO SCH (07:43)
[2018-07-30] MEDS: ASPIRIN/DIPYRIDAMOLE 200/25MG CAP.ER.12H PO SCH ×2 (07:44→20:55)
[2018-07-30 16:25] VITALS: BP 134/81
[2018-07-30] MEDS: ATORVASTATIN CALCIUM 20 MG TABLET PO SCH (20:55)
[2018-07-30] MEDS: ZOLPIDEM 5 MG TABLET. PO PRN (22:20)
--- NOTE | 2018-07-30 22:32 | PN ---
DATE: 07/29/2018 PSYCHIATRIC PROGRESS NOTE This late entry 07/29/2018 covers elements not covered in my initial note. SUBJECTIVE: I met with the patient in the evening. The patient slept for 3/4 hours previous night. She spends much of the time in bed, wanting ice in her water cup repeatedly, still somewhat obsessive about this. Also complains of knee pain. REVIEW OF SYSTEMS: No CV, , pulmonary, eye system symptoms on review. MENTAL STATUS EXAM: Oriented reasonably. Speech coherent, has some latency. Abstraction fair, computation impaired, language function intact. Mood and affect still withdrawn, but improved, less obsessive. LABORATORY DATA: Reviewed. IMPRESSION: Unchanged from initial note. PLAN: No change from initial note and social service staff, attempting to transition her as soon as possible. MAN Alexander LACKEY MD DR: DEBRA/alisha JOB#: [id number] / [id number]
--- NOTE | 2018-07-30 23:06 | PDOC ---
Exam Note: Santosh Note: Please also refer to the separate dictated note~for this date of service dictated separately.~Patient seen individually. Discussed the patient with Nursing staff reviewed the chart.~Reviewed interim history and current functioning. Reviewed vital signs,~Labs/ Radiology~and current medications noted below. Continue current treatment with the changes noted in the dictated addendum note Assessment: Vital Signs: Vital Signs Date Time Temp Pulse Resp B/P (MAP) Pulse Ox O2 Delivery O2 Flow Rate FiO2 07/30/18 16:25 98.4 103 16 134/81 (98) 98 Room Air I&O Intake and Output 07/30/18 07:00 Intake Total 1200 ml Balance 1200 ml Intake Oral 1200 ml Current Medications: Meds: Current Medications Acetaminophen (Tylenol) 650 mg PRN Q6HRS PRN PO PAIN / TEMP Last administered on 07/01/18 00:14; Start 06/20/18 at 15:30 Multi-Ingredient Ointment (Analgesic [place]) 1 paula PRN QID PRN TP MUSCLE PAIN Last administered on 07/29/18at 21:57; Start 06/20/18 at 15:30 Al Hydroxide/Mg Hydroxide (Mylanta Plus Xs) 15 ml PRN AFTMEALHC PRN PO DYSPEPSIA Last administered on 06/25/18 08:21; Start 06/20/18 at 15:30 Magnesium Hydroxide (Milk Of Magnesia) 2,400 mg PRN QHS PRN PO CONSTIPATION; Start 06/20/18 at 15:30 Nicotine (Nicoderm Cq 21mg) 1 patch DAILY TD Last administered on 06/22/18 09: 13; Start 06/21/18 at 09:00; Stop 06/26/18 at 18:55; Status DC Heparin Sodium (Porcine) (Heparin Sodium) 5,000 unit Q12HR SQ ; Start 06/20/18 at 21:00; Stop 06/21/18 at 15:19; Status DC Atorvastatin Calcium (Lipitor) 20 mg QHS PO Last administered on 07/30/18at 20: 55; Start 06/20/18 at 21:00 Lisinopril (Prinivil) 20 mg DAILY PO Last administered on 06/28/18at 09:13; Start 06/21/18 at 09:00; Stop 07/01/18 at 13:55; Status DC Zolpidem Tartrate (Ambien) 5 mg PRN QHS PRN PO INSOMNIA Last administered on at 22:20; Start 06/20/18 at 16:15 Acetaminophen/ Butalbital/ Caffeine (Fioricet) 1 tab PRN Q6HRS PRN PO MIGRAINE HEADACHE; Start 06/20/18 at 16:45 Meclizine HCl (Antivert) 25 mg TID PO Last administered on 06/21/18at 07:51; Start 06/20/18 at 21:00; Stop 06/21/18 at 15:20; Status DC Non-Formulary Medication (Nicotine (NICODERM CQ 14mg)) 1 patch DAILY TD ; Start 06/21/18 at 09:00; Stop 06/21/18 at 09:00; Status DC Pantoprazole Sodium (Protonix) 40 mg BIDWMEALS PO Last administered on at 08:48; Start 06/20/18 at 17:00; Stop 06/23/18 at 14:07; Status DC Info (FLU VACCINE per PROTOCOL) 1 ea PRN 1X PRN MC PER PROTOCOL; Start at 21:00; Stop 06/20/18 at 21:00; Status DC Influenza Virus Vaccine (Afluria Trivalent Syringe) 0.5 ml ONCE ONCE VAX IM ; Start 06/20/18 at 21:00; Stop 06/20/18 at 21:16; Status DC Influenza Virus Vaccine (Afluria Trivalent Syringe) 0.5 ml ONCE ONCE VAX IM Last administered on 06/22/18at 09:00; Start 06/22/18 at 09:00; Stop at 09:01; Status DC Meclizine HCl (Antivert) 25 mg PRN TID PRN PO DIZZINESS; Start 06/21/18 at 15: 30 Fluvoxamine Maleate (Luvox) 25 mg QHS PO Last administered on 06/23/18at 19:56; Start 06/21/18 at 21:00; Stop 06/24/18 at 03:10; Status DC Pantoprazole Sodium (Protonix) 40 mg PRN DAILY PRN PO HEARTBURN / GAS; Start at 09:00 Fluvoxamine Maleate (Luvox) 50 mg QHS PO Last administered on 06/26/18at 21:02; Start 06/24/18 at 21:00; Stop 06/27/18 at 19:00; Status DC Dipyridamole/ Aspirin (Aggrenox) 1 cap BID PO Last administered on 07/30/18at 20 :55; Start 06/24/18 at 21:00 Fluvoxamine Maleate (Luvox) 75 mg QHS PO ; Start 06/25/18 at 21:00; Stop at 21:00; Status DC Fluvoxamine Maleate (Luvox) 75 mg QHS PO Last administered on 06/30/18at 20:26; Start 06/27/18 at 21:00; Stop 06/30/18 at 23:24; Status DC Risperidone (RisperDAL) 0.25 mg HS PO Last administered on 07/14/18at 19:47; Start 06/28/18 at 21:00; Stop 07/15/18 at 18:11; Status DC Vitamin D (Vitamin D3) 50,000 unit WEEKLY PO ; Start 06/28/18 at 18:00; Stop at 18:07; Status DC Vitamin D (Vitamin D3) 50,000 unit WEEKLY PO Last administered on 07/26/18at 07: 57; Start 06/28/18 at 20:00 Fluvoxamine Maleate (Luvox) 100 mg QHS PO Last administered on 07/06/18at 19:41; Start 07/01/18 at 21:00; Stop 07/06/18 at 20:17; Status DC Benzocaine (Ora-Jel Maximum) 1 paula PRN QID PRN TP ORAL PAIN; Start 07/01/18 at 11:30 Lisinopril (Prinivil) 10 mg DAILY PO Last administered on 07/10/18at 09:27; Start 07/02/18 at 09:00; Stop 07/10/18 at 18:58; Status DC Trazodone HCl (Desyrel) 50 mg QHS PO Last administered on 07/02/18at 21:38; Start 07/01/18 at 21:00; Stop 07/03/18 at 18:36; Status DC Trazodone HCl (Desyrel) 50 mg QHS PRN PO INSOMNIA Last administered on 21:51; Start 07/01/18 at 18:00; Stop 07/03/18 at 18:36; Status DC Fluvoxamine Maleate (Luvox) 125 mg QHS PO Last administered on 07/11/18 21:08; Start 07/07/18 at 21:00; Stop 07/11/18 at 23:50; Status DC Fluvoxamine Maleate (Luvox) 150 mg QHS PO Last administered on 07/30/18 20:55 ; Start 07/12/18 at 21:00 Lisinopril (Prinivil) 5 mg DAILY PO Last administered on 07/30/18 07:43; Start 07/11/18 at 09:00 Cefdinir (Omnicef) 300 mg BID PO Last administered on 07/19/18 19:53; Start at 09:00; Stop 07/20/18 at 08:59; Status DC Lactobacillus Rhamnosus (Culturelle) 1 cap BID PO Last administered on 21:52; Start 07/13/18 at 09:00; Stop 07/30/18 at 08:59; Status DC Risperidone (RisperDAL) 0.25 mg BID PO Last administered on 07/30/18 20:55; Start 07/15/18 at 21:00 Active Scripts Active Reported Zolpidem Tartrate 5 Mg Tablet 5 Mg PO HS PRN Protonix (Pantoprazole Sodium) 40 Mg Tablet.dr 40 Mg PO BIDWMEALS NICODERM CQ 14mg (Nicotine) 1 Each Patch.td24 1 Patch TD DAILY Meclizine Hcl 25 Mg Tablet 25 Mg PO TID Lisinopril 20 Mg Tablet 20 Mg PO DAILY Heparin 5,000 Unit/5 ml-Ns (Heparin Sod,Porcine/0.9 % NaCl) 5,000 Unit/5 Ml Syringe 5,000 Unit IV Q12HR Aggrenox 25 Mg-200 Mg Capsule (Aspirin/Dipyridamole) 1 Each Cpmp.12hr 1 Cap PO BID Weolwnjuqz-Bvr-Iyxcfrmv Cap (Butalbital/Aspirin/Caffeine) 1 Each Capsule 1 Each PO PRN Q6HRS PRN Atorvastatin Calcium 20 Mg Tablet 20 Mg PO QHS I have reviewed the current psychotropics carefully including drug interactions. Risk benefit ratio favors no change other than as noted in my dictated progress note. Diagnosis: Problems: (1) Major depression with psychotic features (2) Anxiety disorder (3) Impulse control disorder (4) Obsessive compulsive disorder AIME LACKEY MD Jul 30, 2018 23:06
[2018-07-31 06:11] VITALS: BP 130/63
[2018-07-31] MEDS: ASPIRIN/DIPYRIDAMOLE 200/25MG CAP.ER.12H PO SCH ×2 (08:02→19:31)
[2018-07-31] MEDS: risperiDONE 0.25 MG TABLET. PO SCH ×2 (08:02→19:32)
[2018-07-31] MEDS: LISINOPRIL 5 MG TABLET. PO SCH (08:03)
[2018-07-31 16:10] VITALS: BP 131/75
[2018-07-31] MEDS: ATORVASTATIN CALCIUM 20 MG TABLET PO SCH (19:31)
--- NOTE | 2018-07-31 21:33 | PN ---
DATE: 07/30/2018 PSYCHIATRIC PROGRESS NOTE This late entry 07/30/2018 covers elements not covered in my initial note. SUBJECTIVE: Met with the patient in the evening in her room. The patient slept 5 hours previous night. She dumped her putting in the tray during the lunchtime, obsessed about wanting iced water processed with her. REVIEW OF SYSTEMS: No CV, , pulmonary, eye system symptoms on review. She does complain of knee pain, impaired ambulation. MENTAL STATUS EXAM: Reasonably oriented. Speech has some latency, coherent. Abstraction fair, computation is impaired, language function intact. Mood and affect still withdrawn, but she seems to have reached the maximum she can for this hospitalization and the social workers are actively pursuing placement. LABORATORY DATA: Reviewed. IMPRESSION: Unchanged from initial note. PLAN: No change from initial note. MAN Alexander LACKEY MD DR: DEBRA/alisha JOB#: [id number] / [id number]
[2018-07-31] MEDS: ZOLPIDEM 5 MG TABLET. PO PRN (22:38)
--- NOTE | 2018-07-31 23:08 | PDOC ---
Exam Note: Santosh Note: Please also refer to the separate dictated note~for this date of service dictated separately.~Patient seen individually. Discussed the patient with Nursing staff reviewed the chart.~Reviewed interim history and current functioning. Reviewed vital signs,~Labs/ Radiology~and current medications noted below. Continue current treatment with the changes noted in the dictated addendum note Assessment: Vital Signs: Vital Signs Date Time Temp Pulse Resp B/P (MAP) Pulse Ox O2 Delivery O2 Flow Rate FiO2 07/31/18 16:10 97.4 87 20 131/75 (93) 99 Room Air I&O Intake and Output 07/31/18 06:59 Intake Total 1920 ml Balance 1920 ml Intake Oral 1920 ml Current Medications: Meds: Current Medications Acetaminophen (Tylenol) 650 mg PRN Q6HRS PRN PO PAIN / TEMP Last administered on 07/01/18 00:14; Start 06/20/18 at 15:30 Multi-Ingredient Ointment (Analgesic [place]) 1 paula PRN QID PRN TP MUSCLE PAIN Last administered on 07/29/18 21:57; Start 06/20/18 at 15:30 Al Hydroxide/Mg Hydroxide (Mylanta Plus Xs) 15 ml PRN AFTMEALHC PRN PO DYSPEPSIA Last administered on 06/25/18 08:21; Start 06/20/18 at 15:30 Magnesium Hydroxide (Milk Of Magnesia) 2,400 mg PRN QHS PRN PO CONSTIPATION; Start 06/20/18 at 15:30 Nicotine (Nicoderm Cq 21mg) 1 patch DAILY TD Last administered on 06/22/18 09: 13; Start 06/21/18 at 09:00; Stop 06/26/18 at 18:55; Status DC Heparin Sodium (Porcine) (Heparin Sodium) 5,000 unit Q12HR SQ ; Start 06/20/18 at 21:00; Stop 06/21/18 at 15:19; Status DC Atorvastatin Calcium (Lipitor) 20 mg QHS PO Last administered on 07/31/18 19: 31; Start 06/20/18 at 21:00 Lisinopril (Prinivil) 20 mg DAILY PO Last administered on 06/28/18 09:13; Start 06/21/18 at 09:00; Stop 07/01/18 at 13:55; Status DC Zolpidem Tartrate (Ambien) 5 mg PRN QHS PRN PO INSOMNIA Last administered on at 22:38; Start 06/20/18 at 16:15 Acetaminophen/ Butalbital/ Caffeine (Fioricet) 1 tab PRN Q6HRS PRN PO MIGRAINE HEADACHE; Start 06/20/18 at 16:45 Meclizine HCl (Antivert) 25 mg TID PO Last administered on 06/21/18at 07:51; Start 06/20/18 at 21:00; Stop 06/21/18 at 15:20; Status DC Non-Formulary Medication (Nicotine (NICODERM CQ 14mg)) 1 patch DAILY TD ; Start 06/21/18 at 09:00; Stop 06/21/18 at 09:00; Status DC Pantoprazole Sodium (Protonix) 40 mg BIDWMEALS PO Last administered on at 08:48; Start 06/20/18 at 17:00; Stop 06/23/18 at 14:07; Status DC Info (FLU VACCINE per PROTOCOL) 1 ea PRN 1X PRN MC PER PROTOCOL; Start at 21:00; Stop 06/20/18 at 21:00; Status DC Influenza Virus Vaccine (Afluria Trivalent Syringe) 0.5 ml ONCE ONCE VAX IM ; Start 06/20/18 at 21:00; Stop 06/20/18 at 21:16; Status DC Influenza Virus Vaccine (Afluria Trivalent Syringe) 0.5 ml ONCE ONCE VAX IM Last administered on 06/22/18at 09:00; Start 06/22/18 at 09:00; Stop at 09:01; Status DC Meclizine HCl (Antivert) 25 mg PRN TID PRN PO DIZZINESS; Start 06/21/18 at 15: 30 Fluvoxamine Maleate (Luvox) 25 mg QHS PO Last administered on 06/23/18at 19:56; Start 06/21/18 at 21:00; Stop 06/24/18 at 03:10; Status DC Pantoprazole Sodium (Protonix) 40 mg PRN DAILY PRN PO HEARTBURN / GAS; Start at 09:00 Fluvoxamine Maleate (Luvox) 50 mg QHS PO Last administered on 06/26/18at 21:02; Start 06/24/18 at 21:00; Stop 06/27/18 at 19:00; Status DC Dipyridamole/ Aspirin (Aggrenox) 1 cap BID PO Last administered on 07/31/18at 19 :31; Start 06/24/18 at 21:00 Fluvoxamine Maleate (Luvox) 75 mg QHS PO ; Start 06/25/18 at 21:00; Stop at 21:00; Status DC Fluvoxamine Maleate (Luvox) 75 mg QHS PO Last administered on 06/30/18at 20:26; Start 06/27/18 at 21:00; Stop 06/30/18 at 23:24; Status DC Risperidone (RisperDAL) 0.25 mg HS PO Last administered on 07/14/18at 19:47; Start 06/28/18 at 21:00; Stop 07/15/18 at 18:11; Status DC Vitamin D (Vitamin D3) 50,000 unit WEEKLY PO ; Start 06/28/18 at 18:00; Stop at 18:07; Status DC Vitamin D (Vitamin D3) 50,000 unit WEEKLY PO Last administered on 07/26/18at 07: 57; Start 06/28/18 at 20:00 Fluvoxamine Maleate (Luvox) 100 mg QHS PO Last administered on 07/06/18at 19:41; Start 07/01/18 at 21:00; Stop 07/06/18 at 20:17; Status DC Benzocaine (Ora-Jel Maximum) 1 paula PRN QID PRN TP ORAL PAIN; Start 07/01/18 at 11:30 Lisinopril (Prinivil) 10 mg DAILY PO Last administered on 07/10/18at 09:27; Start 07/02/18 at 09:00; Stop 07/10/18 at 18:58; Status DC Trazodone HCl (Desyrel) 50 mg QHS PO Last administered on 07/02/18at 21:38; Start 07/01/18 at 21:00; Stop 07/03/18 at 18:36; Status DC Trazodone HCl (Desyrel) 50 mg QHS PRN PO INSOMNIA Last administered on 21:51; Start 07/01/18 at 18:00; Stop 07/03/18 at 18:36; Status DC Fluvoxamine Maleate (Luvox) 125 mg QHS PO Last administered on 07/11/18 21:08; Start 07/07/18 at 21:00; Stop 07/11/18 at 23:50; Status DC Fluvoxamine Maleate (Luvox) 150 mg QHS PO Last administered on 07/31/18 19:31 ; Start 07/12/18 at 21:00 Lisinopril (Prinivil) 5 mg DAILY PO Last administered on 07/31/18 08:03; Start 07/11/18 at 09:00 Cefdinir (Omnicef) 300 mg BID PO Last administered on 07/19/18 19:53; Start at 09:00; Stop 07/20/18 at 08:59; Status DC Lactobacillus Rhamnosus (Culturelle) 1 cap BID PO Last administered on 21:52; Start 07/13/18 at 09:00; Stop 07/30/18 at 08:59; Status DC Risperidone (RisperDAL) 0.25 mg BID PO Last administered on 07/31/18 19:32; Start 07/15/18 at 21:00 Active Scripts Active Reported Zolpidem Tartrate 5 Mg Tablet 5 Mg PO HS PRN Protonix (Pantoprazole Sodium) 40 Mg Tablet.dr 40 Mg PO BIDWMEALS NICODERM CQ 14mg (Nicotine) 1 Each Patch.td24 1 Patch TD DAILY Meclizine Hcl 25 Mg Tablet 25 Mg PO TID Lisinopril 20 Mg Tablet 20 Mg PO DAILY Heparin 5,000 Unit/5 ml-Ns (Heparin Sod,Porcine/0.9 % NaCl) 5,000 Unit/5 Ml Syringe 5,000 Unit IV Q12HR Aggrenox 25 Mg-200 Mg Capsule (Aspirin/Dipyridamole) 1 Each Cpmp.12hr 1 Cap PO BID Pxhxbwsnug-Blw-Mpdkhufn Cap (Butalbital/Aspirin/Caffeine) 1 Each Capsule 1 Each PO PRN Q6HRS PRN Atorvastatin Calcium 20 Mg Tablet 20 Mg PO QHS I have reviewed the current psychotropics carefully including drug interactions. Risk benefit ratio favors no change other than as noted in my dictated progress note. Diagnosis: Problems: (1) Major depression with psychotic features (2) Anxiety disorder (3) Impulse control disorder (4) Obsessive compulsive disorder AIME LACKEY MD Jul 31, 2018 23:08
[2018-08-01 05:56] VITALS: BP 108/63
[2018-08-01] MEDS: ASPIRIN/DIPYRIDAMOLE 200/25MG CAP.ER.12H PO SCH ×2 (07:34→21:19)
[2018-08-01] MEDS: LISINOPRIL 5 MG TABLET. PO SCH (07:35)
[2018-08-01] MEDS: risperiDONE 0.25 MG TABLET. PO SCH ×2 (07:35→21:19)
[2018-08-01 16:24] VITALS: BP 152/71
[2018-08-01] MEDS: ATORVASTATIN CALCIUM 20 MG TABLET PO SCH (21:19)
[2018-08-01] MEDS: METHYL SALICYLATE/MENTHOL TOPICAL OINTMENT 29GM TUBE. TP PRN (22:37)
[2018-08-01] MEDS: ZOLPIDEM 5 MG TABLET. PO PRN (22:37)
--- NOTE | 2018-08-01 22:46 | PDOC ---
Exam Note: Santosh Note: Please also refer to the separate dictated note~for this date of service dictated separately.~Patient seen individually. Discussed the patient with Nursing staff reviewed the chart.~Reviewed interim history and current functioning. Reviewed vital signs,~Labs/ Radiology~and current medications noted below. Continue current treatment with the changes noted in the dictated addendum note Assessment: Vital Signs: Vital Signs Date Time Temp Pulse Resp B/P (MAP) Pulse Ox O2 Delivery O2 Flow Rate FiO2 08/01/18 16:24 97.4 86 18 152/71 (98) 100 Room Air I&O Intake and Output 08/01/18 06:59 Intake Total 480 ml Balance 480 ml Intake Oral 480 ml # Voids 1 Current Medications: Meds: Current Medications Acetaminophen (Tylenol) 650 mg PRN Q6HRS PRN PO PAIN / TEMP Last administered on 07/01/18 00:14; Start 06/20/18 at 15:30 Multi-Ingredient Ointment (Analgesic [place]) 1 paula PRN QID PRN TP MUSCLE PAIN Last administered on 08/01/18at 22:37; Start 06/20/18 at 15:30 Al Hydroxide/Mg Hydroxide (Mylanta Plus Xs) 15 ml PRN AFTMEALHC PRN PO DYSPEPSIA Last administered on 06/25/18 08:21; Start 06/20/18 at 15:30 Magnesium Hydroxide (Milk Of Magnesia) 2,400 mg PRN QHS PRN PO CONSTIPATION; Start 06/20/18 at 15:30 Nicotine (Nicoderm Cq 21mg) 1 patch DAILY TD Last administered on 06/22/18 09: 13; Start 06/21/18 at 09:00; Stop 06/26/18 at 18:55; Status DC Heparin Sodium (Porcine) (Heparin Sodium) 5,000 unit Q12HR SQ ; Start 06/20/18 at 21:00; Stop 06/21/18 at 15:19; Status DC Atorvastatin Calcium (Lipitor) 20 mg QHS PO Last administered on 08/01/18 21: 19; Start 06/20/18 at 21:00 Lisinopril (Prinivil) 20 mg DAILY PO Last administered on 06/28/18 09:13; Start 06/21/18 at 09:00; Stop 07/01/18 at 13:55; Status DC Zolpidem Tartrate (Ambien) 5 mg PRN QHS PRN PO INSOMNIA Last administered on at 22:37; Start 06/20/18 at 16:15 Acetaminophen/ Butalbital/ Caffeine (Fioricet) 1 tab PRN Q6HRS PRN PO MIGRAINE HEADACHE; Start 06/20/18 at 16:45 Meclizine HCl (Antivert) 25 mg TID PO Last administered on 06/21/18at 07:51; Start 06/20/18 at 21:00; Stop 06/21/18 at 15:20; Status DC Non-Formulary Medication (Nicotine (NICODERM CQ 14mg)) 1 patch DAILY TD ; Start 06/21/18 at 09:00; Stop 06/21/18 at 09:00; Status DC Pantoprazole Sodium (Protonix) 40 mg BIDWMEALS PO Last administered on at 08:48; Start 06/20/18 at 17:00; Stop 06/23/18 at 14:07; Status DC Info (FLU VACCINE per PROTOCOL) 1 ea PRN 1X PRN MC PER PROTOCOL; Start at 21:00; Stop 06/20/18 at 21:00; Status DC Influenza Virus Vaccine (Afluria Trivalent Syringe) 0.5 ml ONCE ONCE VAX IM ; Start 06/20/18 at 21:00; Stop 06/20/18 at 21:16; Status DC Influenza Virus Vaccine (Afluria Trivalent Syringe) 0.5 ml ONCE ONCE VAX IM Last administered on 06/22/18at 09:00; Start 06/22/18 at 09:00; Stop at 09:01; Status DC Meclizine HCl (Antivert) 25 mg PRN TID PRN PO DIZZINESS; Start 06/21/18 at 15: 30 Fluvoxamine Maleate (Luvox) 25 mg QHS PO Last administered on 06/23/18at 19:56; Start 06/21/18 at 21:00; Stop 06/24/18 at 03:10; Status DC Pantoprazole Sodium (Protonix) 40 mg PRN DAILY PRN PO HEARTBURN / GAS; Start at 09:00 Fluvoxamine Maleate (Luvox) 50 mg QHS PO Last administered on 06/26/18at 21:02; Start 06/24/18 at 21:00; Stop 06/27/18 at 19:00; Status DC Dipyridamole/ Aspirin (Aggrenox) 1 cap BID PO Last administered on 08/01/18at 21 :19; Start 06/24/18 at 21:00 Fluvoxamine Maleate (Luvox) 75 mg QHS PO ; Start 06/25/18 at 21:00; Stop at 21:00; Status DC Fluvoxamine Maleate (Luvox) 75 mg QHS PO Last administered on 06/30/18at 20:26; Start 06/27/18 at 21:00; Stop 06/30/18 at 23:24; Status DC Risperidone (RisperDAL) 0.25 mg HS PO Last administered on 07/14/18at 19:47; Start 06/28/18 at 21:00; Stop 07/15/18 at 18:11; Status DC Vitamin D (Vitamin D3) 50,000 unit WEEKLY PO ; Start 06/28/18 at 18:00; Stop at 18:07; Status DC Vitamin D (Vitamin D3) 50,000 unit WEEKLY PO Last administered on 07/26/18at 07: 57; Start 06/28/18 at 20:00 Fluvoxamine Maleate (Luvox) 100 mg QHS PO Last administered on 07/06/18at 19:41; Start 07/01/18 at 21:00; Stop 07/06/18 at 20:17; Status DC Benzocaine (Ora-Jel Maximum) 1 paula PRN QID PRN TP ORAL PAIN; Start 07/01/18 at 11:30 Lisinopril (Prinivil) 10 mg DAILY PO Last administered on 07/10/18at 09:27; Start 07/02/18 at 09:00; Stop 07/10/18 at 18:58; Status DC Trazodone HCl (Desyrel) 50 mg QHS PO Last administered on 07/02/18at 21:38; Start 07/01/18 at 21:00; Stop 07/03/18 at 18:36; Status DC Trazodone HCl (Desyrel) 50 mg QHS PRN PO INSOMNIA Last administered on 21:51; Start 07/01/18 at 18:00; Stop 07/03/18 at 18:36; Status DC Fluvoxamine Maleate (Luvox) 125 mg QHS PO Last administered on 07/11/18 21:08; Start 07/07/18 at 21:00; Stop 07/11/18 at 23:50; Status DC Fluvoxamine Maleate (Luvox) 150 mg QHS PO Last administered on 08/01/18 21:19 ; Start 07/12/18 at 21:00 Lisinopril (Prinivil) 5 mg DAILY PO Last administered on 08/01/18 07:35; Start 07/11/18 at 09:00 Cefdinir (Omnicef) 300 mg BID PO Last administered on 07/19/18 19:53; Start at 09:00; Stop 07/20/18 at 08:59; Status DC Lactobacillus Rhamnosus (Culturelle) 1 cap BID PO Last administered on 21:52; Start 07/13/18 at 09:00; Stop 07/30/18 at 08:59; Status DC Risperidone (RisperDAL) 0.25 mg BID PO Last administered on 08/01/18 21:19; Start 07/15/18 at 21:00 Active Scripts Active Reported Zolpidem Tartrate 5 Mg Tablet 5 Mg PO HS PRN Protonix (Pantoprazole Sodium) 40 Mg Tablet.dr 40 Mg PO BIDWMEALS NICODERM CQ 14mg (Nicotine) 1 Each Patch.td24 1 Patch TD DAILY Meclizine Hcl 25 Mg Tablet 25 Mg PO TID Lisinopril 20 Mg Tablet 20 Mg PO DAILY Heparin 5,000 Unit/5 ml-Ns (Heparin Sod,Porcine/0.9 % NaCl) 5,000 Unit/5 Ml Syringe 5,000 Unit IV Q12HR Aggrenox 25 Mg-200 Mg Capsule (Aspirin/Dipyridamole) 1 Each Cpmp.12hr 1 Cap PO BID Hdostkdltk-Vxv-Cxjomvoq Cap (Butalbital/Aspirin/Caffeine) 1 Each Capsule 1 Each PO PRN Q6HRS PRN Atorvastatin Calcium 20 Mg Tablet 20 Mg PO QHS I have reviewed the current psychotropics carefully including drug interactions. Risk benefit ratio favors no change other than as noted in my dictated progress note. Diagnosis: Problems: (1) Major depression with psychotic features (2) Anxiety disorder (3) Impulse control disorder (4) Obsessive compulsive disorder AIME LACKEY MD Aug 01, 2018 22:45
[2018-08-02] MEDS: ACETAMINOPHEN 325 MG TABLET PO PRN (01:24)
[2018-08-02 06:04] VITALS: BP 101/65
[2018-08-02] MEDS: CHOLECALCIFEROL (VITAMIN D3) 50,000 UNIT CAPSULE PO SCH (08:34)
[2018-08-02] MEDS: ASPIRIN/DIPYRIDAMOLE 200/25MG CAP.ER.12H PO SCH ×2 (08:34→21:17)
[2018-08-02] MEDS: risperiDONE 0.25 MG TABLET. PO SCH ×2 (08:35→21:14)
[2018-08-02] MEDS: LISINOPRIL 5 MG TABLET. PO SCH (08:35)
[2018-08-02 16:07] VITALS: BP 142/69
[2018-08-02] MEDS: ATORVASTATIN CALCIUM 20 MG TABLET PO SCH (21:14)
[2018-08-02] MEDS: ZOLPIDEM 5 MG TABLET. PO PRN (21:14)
--- NOTE | 2018-08-02 21:44 | PN ---
DATE: 07/31/2018 PSYCHIATRIC PROGRESS NOTE This late entry 07/31/2018 covers elements not covered in my initial note. SUBJECTIVE: I met with the patient in the evening at length in her room. She slept 8 hours previous evening. Zak, the chief nursing officer cut her hair. The patient was very appreciative of this. She is obsessive at night about the analgesic balm and micromanaging everything per nursing report. REVIEW OF SYSTEMS: Positive for knee pain. No CV, , pulmonary, eye system symptoms on review. MENTAL STATUS EXAM: Reasonably oriented. Speech is coherent, abstraction fair, computation impaired, language function intact, attention span short. Mood and affect remain somewhat obsessive, anxious. LABORATORY DATA: Reviewed. IMPRESSION: Unchanged from initial note. PLAN: No change from initial note. MAN Alexander LACKEY MD DR: DEBRA/alisha JOB#: [id number] / [id number]
--- NOTE | 2018-08-02 21:45 | PN ---
DATE: 08/01/2018 PSYCHIATRIC PROGRESS NOTE This late entry 08/01/2018 covers elements not covered in my initial note. SUBJECTIVE: I met with the patient in the evening, staffed at a treatment team meeting earlier in the day. The patient remains somewhat withdrawn, but more appropriate, less anxious. REVIEW OF SYSTEMS: No CV, , pulmonary, eye system symptoms on review. Does complain of knee pain. MENTAL STATUS EXAM: Reasonably oriented. Speech coherent, has some latency. Abstraction fair, computation impaired. Mood and affect still withdrawn. LABORATORY DATA: Reviewed. IMPRESSION: Unchanged from initial note. PLAN: No change from initial note. I have again discussed with social service staff about transitioning to a facility and they are working actively to make this happen, but this has gone on some time. Hopefully, she will be able to transition soon. MAN Alexander LACKEY MD DR: DEBRA/alisha JOB#: [id number] / [id number]
[2018-08-02] MEDS: METHYL SALICYLATE/MENTHOL TOPICAL OINTMENT 29GM TUBE. TP PRN (22:18)
--- NOTE | 2018-08-02 22:49 | PDOC ---
Exam Note: Santosh Note: Please also refer to the separate dictated note~for this date of service dictated separately.~Patient seen individually. Discussed the patient with Nursing staff reviewed the chart.~Reviewed interim history and current functioning. Reviewed vital signs,~Labs/ Radiology~and current medications noted below. Continue current treatment with the changes noted in the dictated addendum note Assessment: Vital Signs: Vital Signs Date Time Temp Pulse Resp B/P (MAP) Pulse Ox O2 Delivery O2 Flow Rate FiO2 08/02/18 16:07 97.8 84 19 142/69 (93) 98 Room Air I&O Intake and Output 08/02/18 06:59 Intake Total 1200 ml Balance 1200 ml Intake Oral 1200 ml Current Medications: Meds: Current Medications Acetaminophen (Tylenol) 650 mg PRN Q6HRS PRN PO PAIN / TEMP Last administered on 08/02/18at 01:24; Start 06/20/18 at 15:30 Multi-Ingredient Ointment (Analgesic [place]) 1 paula PRN QID PRN TP MUSCLE PAIN Last administered on 08/02/18 22:18; Start 06/20/18 at 15:30 Al Hydroxide/Mg Hydroxide (Mylanta Plus Xs) 15 ml PRN AFTMEALHC PRN PO DYSPEPSIA Last administered on 06/25/18 08:21; Start 06/20/18 at 15:30 Magnesium Hydroxide (Milk Of Magnesia) 2,400 mg PRN QHS PRN PO CONSTIPATION; Start 06/20/18 at 15:30 Nicotine (Nicoderm Cq 21mg) 1 patch DAILY TD Last administered on 06/22/18 09: 13; Start 06/21/18 at 09:00; Stop 06/26/18 at 18:55; Status DC Heparin Sodium (Porcine) (Heparin Sodium) 5,000 unit Q12HR SQ ; Start 06/20/18 at 21:00; Stop 06/21/18 at 15:19; Status DC Atorvastatin Calcium (Lipitor) 20 mg QHS PO Last administered on 08/02/18 21: 14; Start 06/20/18 at 21:00 Lisinopril (Prinivil) 20 mg DAILY PO Last administered on 06/28/18at 09:13; Start 06/21/18 at 09:00; Stop 07/01/18 at 13:55; Status DC Zolpidem Tartrate (Ambien) 5 mg PRN QHS PRN PO INSOMNIA Last administered on at 21:14; Start 06/20/18 at 16:15 Acetaminophen/ Butalbital/ Caffeine (Fioricet) 1 tab PRN Q6HRS PRN PO MIGRAINE HEADACHE; Start 06/20/18 at 16:45 Meclizine HCl (Antivert) 25 mg TID PO Last administered on 06/21/18at 07:51; Start 06/20/18 at 21:00; Stop 06/21/18 at 15:20; Status DC Non-Formulary Medication (Nicotine (NICODERM CQ 14mg)) 1 patch DAILY TD ; Start 06/21/18 at 09:00; Stop 06/21/18 at 09:00; Status DC Pantoprazole Sodium (Protonix) 40 mg BIDWMEALS PO Last administered on at 08:48; Start 06/20/18 at 17:00; Stop 06/23/18 at 14:07; Status DC Info (FLU VACCINE per PROTOCOL) 1 ea PRN 1X PRN MC PER PROTOCOL; Start at 21:00; Stop 06/20/18 at 21:00; Status DC Influenza Virus Vaccine (Afluria Trivalent Syringe) 0.5 ml ONCE ONCE VAX IM ; Start 06/20/18 at 21:00; Stop 06/20/18 at 21:16; Status DC Influenza Virus Vaccine (Afluria Trivalent Syringe) 0.5 ml ONCE ONCE VAX IM Last administered on 06/22/18at 09:00; Start 06/22/18 at 09:00; Stop at 09:01; Status DC Meclizine HCl (Antivert) 25 mg PRN TID PRN PO DIZZINESS; Start 06/21/18 at 15: 30 Fluvoxamine Maleate (Luvox) 25 mg QHS PO Last administered on 06/23/18at 19:56; Start 06/21/18 at 21:00; Stop 06/24/18 at 03:10; Status DC Pantoprazole Sodium (Protonix) 40 mg PRN DAILY PRN PO HEARTBURN / GAS; Start at 09:00 Fluvoxamine Maleate (Luvox) 50 mg QHS PO Last administered on 06/26/18at 21:02; Start 06/24/18 at 21:00; Stop 06/27/18 at 19:00; Status DC Dipyridamole/ Aspirin (Aggrenox) 1 cap BID PO Last administered on 08/02/18at 21 :17; Start 06/24/18 at 21:00 Fluvoxamine Maleate (Luvox) 75 mg QHS PO ; Start 06/25/18 at 21:00; Stop at 21:00; Status DC Fluvoxamine Maleate (Luvox) 75 mg QHS PO Last administered on 06/30/18at 20:26; Start 06/27/18 at 21:00; Stop 06/30/18 at 23:24; Status DC Risperidone (RisperDAL) 0.25 mg HS PO Last administered on 07/14/18at 19:47; Start 06/28/18 at 21:00; Stop 07/15/18 at 18:11; Status DC Vitamin D (Vitamin D3) 50,000 unit WEEKLY PO ; Start 06/28/18 at 18:00; Stop at 18:07; Status DC Vitamin D (Vitamin D3) 50,000 unit WEEKLY PO Last administered on 08/02/18at 08: 34; Start 06/28/18 at 20:00 Fluvoxamine Maleate (Luvox) 100 mg QHS PO Last administered on 07/06/18at 19:41; Start 07/01/18 at 21:00; Stop 07/06/18 at 20:17; Status DC Benzocaine (Ora-Jel Maximum) 1 paula PRN QID PRN TP ORAL PAIN; Start 07/01/18 at 11:30 Lisinopril (Prinivil) 10 mg DAILY PO Last administered on 07/10/18at 09:27; Start 07/02/18 at 09:00; Stop 07/10/18 at 18:58; Status DC Trazodone HCl (Desyrel) 50 mg QHS PO Last administered on 07/02/18at 21:38; Start 07/01/18 at 21:00; Stop 07/03/18 at 18:36; Status DC Trazodone HCl (Desyrel) 50 mg QHS PRN PO INSOMNIA Last administered on 21:51; Start 07/01/18 at 18:00; Stop 07/03/18 at 18:36; Status DC Fluvoxamine Maleate (Luvox) 125 mg QHS PO Last administered on 07/11/18 21:08; Start 07/07/18 at 21:00; Stop 07/11/18 at 23:50; Status DC Fluvoxamine Maleate (Luvox) 150 mg QHS PO Last administered on 08/02/18 21:14 ; Start 07/12/18 at 21:00 Lisinopril (Prinivil) 5 mg DAILY PO Last administered on 08/02/18 08:35; Start 07/11/18 at 09:00 Cefdinir (Omnicef) 300 mg BID PO Last administered on 07/19/18 19:53; Start at 09:00; Stop 07/20/18 at 08:59; Status DC Lactobacillus Rhamnosus (Culturelle) 1 cap BID PO Last administered on 21:52; Start 07/13/18 at 09:00; Stop 07/30/18 at 08:59; Status DC Risperidone (RisperDAL) 0.25 mg BID PO Last administered on 08/02/18 21:14; Start 07/15/18 at 21:00 Active Scripts Active Reported Zolpidem Tartrate 5 Mg Tablet 5 Mg PO HS PRN Protonix (Pantoprazole Sodium) 40 Mg Tablet.dr 40 Mg PO BIDWMEALS NICODERM CQ 14mg (Nicotine) 1 Each Patch.td24 1 Patch TD DAILY Meclizine Hcl 25 Mg Tablet 25 Mg PO TID Lisinopril 20 Mg Tablet 20 Mg PO DAILY Heparin 5,000 Unit/5 ml-Ns (Heparin Sod,Porcine/0.9 % NaCl) 5,000 Unit/5 Ml Syringe 5,000 Unit IV Q12HR Aggrenox 25 Mg-200 Mg Capsule (Aspirin/Dipyridamole) 1 Each Cpmp.12hr 1 Cap PO BID Tdqlixbihe-Ced-Yvzkczom Cap (Butalbital/Aspirin/Caffeine) 1 Each Capsule 1 Each PO PRN Q6HRS PRN Atorvastatin Calcium 20 Mg Tablet 20 Mg PO QHS I have reviewed the current psychotropics carefully including drug interactions. Risk benefit ratio favors no change other than as noted in my dictated progress note. Diagnosis: Problems: (1) Major depression with psychotic features (2) Anxiety disorder (3) Impulse control disorder (4) Obsessive compulsive disorder AIME LACKEY MD Aug 02, 2018 22:49
[2018-08-03 06:09] VITALS: BP 127/72
[2018-08-03] MEDS: ASPIRIN/DIPYRIDAMOLE 200/25MG CAP.ER.12H PO SCH ×2 (08:30→19:17)
[2018-08-03] MEDS: LISINOPRIL 5 MG TABLET. PO SCH (08:31)
[2018-08-03] MEDS: risperiDONE 0.25 MG TABLET. PO SCH ×2 (08:31→19:17)
[2018-08-03 10:41] LABS: BASO % 1 % (0-3); EOS % 1 % (0-3); HEMATOCRIT 33.4 % (36.0-47.0); HEMOGLOBIN 11.3 g/dL (12.0-15.5); LYMPH # 0.9 x10^3/uL (1.0-4.8); LYMPH % 16 % (24-48); MEAN CORPUSCULAR HEMOGLOBIN 29 pg (25-35); MEAN CORPUSCULAR HGB CONC 34 g/dL (31-37); MEAN CORPUSCULAR VOLUME 86 fL (79-100); MONO # 0.7 x10^3/uL (0.0-1.1); MONO % 14 % (0-9); NEUT # 3.7 x10^3uL (1.8-7.7); NEUT % 69 % (31-73); PLATELET COUNT 278 x10^3/uL (140-400); RED BLOOD COUNT 3.87 x10^6/uL (3.50-5.40); RED CELL DISTRIBUTION WIDTH 16.4 % (11.5-14.5); WHITE BLOOD COUNT 5.4 x10^3/uL (4.0-11.0)
[2018-08-03 10:57] LABS: ALBUMIN 2.7 g/dL (3.4-5.0); ALBUMIN/GLOBULIN RATIO 0.9 (1.0-1.7); ALK PHOS 95 U/L (46-116); ALT (SGPT) 22 U/L (14-59); ANION GAP 10 (6-14); AST (SGOT) 17 U/L (15-37); BLOOD UREA NITROGEN 17 mg/dL (7-20); BUN/CREATININE RATIO 19 (6-20); CALCIUM 8.6 mg/dL (8.5-10.1); CARBON DIOXIDE 24 mmol/L (21-32); CHLORIDE 95 mmol/L (98-107); CREATININE 0.9 mg/dL (0.6-1.0); GFR 61.7; GLUCOSE 177 mg/dL (70-99); POTASSIUM 3.9 mmol/L (3.5-5.1); SODIUM 129 mmol/L (136-145); TOTAL BILIRUBIN < 0.1 mg/dL (0.2-1.0); TOTAL PROTEIN 5.7 g/dL (6.4-8.2)
[2018-08-03 17:27] VITALS: BP 138/65
[2018-08-03] MEDS: ATORVASTATIN CALCIUM 20 MG TABLET PO SCH (19:17)
[2018-08-03] MEDS: ZOLPIDEM 5 MG TABLET. PO PRN (22:23)
--- NOTE | 2018-08-03 22:45 | PDOC ---
Exam Note: Santosh Note: Please also refer to the separate dictated note~for this date of service dictated separately.~Patient seen individually. Discussed the patient with Nursing staff reviewed the chart.~Reviewed interim history and current functioning. Reviewed vital signs,~Labs/ Radiology~and current medications noted below. Continue current treatment with the changes noted in the dictated addendum note Assessment: Vital Signs: Vital Signs Date Time Temp Pulse Resp B/P (MAP) Pulse Ox O2 Delivery O2 Flow Rate FiO2 08/03/18 17:27 97.0 85 20 138/65 (89) 100 08/02/18 16:07 Room Air I&O Intake and Output 08/03/18 07:00 Intake Total 1960 ml Balance 1960 ml Intake Oral 1960 ml # Voids 1 Labs: Laboratory Tests Test 08/03/18 10:22 White Blood Count 5.4 x10^3/uL (4.0-11.0) Red Blood Count 3.87 x10^6/uL (3.50-5.40) Hemoglobin 11.3 g/dL (12.0-15.5) L Hematocrit 33.4 % (36.0-47.0) L Mean Corpuscular Volume 86 fL (79-100) Mean Corpuscular Hemoglobin 29 pg (25-35) Mean Corpuscular Hemoglobin Concent 34 g/dL (31-37) Red Cell Distribution Width 16.4 % (11.5-14.5) H Platelet Count 278 x10^3/uL (140-400) Neutrophils (%) (Auto) 69 % (31-73) Lymphocytes (%) (Auto) 16 % (24-48) L Monocytes (%) (Auto) 14 % (0-9) H Eosinophils (%) (Auto) 1 % (0-3) Basophils (%) (Auto) 1 % (0-3) Neutrophils # (Auto) 3.7 x10^3uL (1.8-7.7) Lymphocytes # (Auto) 0.9 x10^3/uL (1.0-4.8) L Monocytes # (Auto) 0.7 x10^3/uL (0.0-1.1) Eosinophils # (Auto) 0.0 x10^3/uL (0.0-0.7) Basophils # (Auto) 0.0 x10^3/uL (0.0-0.2) Sodium Level 129 mmol/L (136-145) L Potassium Level 3.9 mmol/L (3.5-5.1) Chloride Level 95 mmol/L (98-107) L Carbon Dioxide Level 24 mmol/L (21-32) Anion Gap 10 (6-14) Blood Urea Nitrogen 17 mg/dL (7-20) Creatinine 0.9 mg/dL (0.6-1.0) Estimated GFR (Cockcroft-Gault) 61.7 BUN/Creatinine Ratio 19 (6-20) Glucose Level 177 mg/dL (70-99) H Calcium Level 8.6 mg/dL (8.5-10.1) Total Bilirubin < 0.1 mg/dL (0.2-1.0) L Aspartate Amino Transferase (AST) 17 U/L (15-37) Alanine Aminotransferase (ALT) 22 U/L (14-59) Alkaline Phosphatase 95 U/L (46-116) Total Protein 5.7 g/dL (6.4-8.2) L Albumin 2.7 g/dL (3.4-5.0) L Albumin/Globulin Ratio 0.9 (1.0-1.7) L Current Medications: Meds: Current Medications Acetaminophen (Tylenol) 650 mg PRN Q6HRS PRN PO PAIN / TEMP Last administered on 08/02/18 01:24; Start 06/20/18 at 15:30 Multi-Ingredient Ointment (Analgesic [place]) 1 paula PRN QID PRN TP MUSCLE PAIN Last administered on 08/02/18 22:18; Start 06/20/18 at 15:30 Al Hydroxide/Mg Hydroxide (Mylanta Plus Xs) 15 ml PRN AFTMEALHC PRN PO DYSPEPSIA Last administered on 06/25/18 08:21; Start 06/20/18 at 15:30 Magnesium Hydroxide (Milk Of Magnesia) 2,400 mg PRN QHS PRN PO CONSTIPATION; Start 06/20/18 at 15:30 Nicotine (Nicoderm Cq 21mg) 1 patch DAILY TD Last administered on 06/22/18 09: 13; Start 06/21/18 at 09:00; Stop 06/26/18 at 18:55; Status DC Heparin Sodium (Porcine) (Heparin Sodium) 5,000 unit Q12HR SQ ; Start 06/20/18 at 21:00; Stop 06/21/18 at 15:19; Status DC Atorvastatin Calcium (Lipitor) 20 mg QHS PO Last administered on 08/03/18at 19: 17; Start 06/20/18 at 21:00 Lisinopril (Prinivil) 20 mg DAILY PO Last administered on 06/28/18at 09:13; Start 06/21/18 at 09:00; Stop 07/01/18 at 13:55; Status DC Zolpidem Tartrate (Ambien) 5 mg PRN QHS PRN PO INSOMNIA Last administered on at 22:23; Start 06/20/18 at 16:15 Acetaminophen/ Butalbital/ Caffeine (Fioricet) 1 tab PRN Q6HRS PRN PO MIGRAINE HEADACHE; Start 06/20/18 at 16:45 Meclizine HCl (Antivert) 25 mg TID PO Last administered on 06/21/18at 07:51; Start 06/20/18 at 21:00; Stop 06/21/18 at 15:20; Status DC Non-Formulary Medication (Nicotine (NICODERM CQ 14mg)) 1 patch DAILY TD ; Start 06/21/18 at 09:00; Stop 06/21/18 at 09:00; Status DC Pantoprazole Sodium (Protonix) 40 mg BIDWMEALS PO Last administered on at 08:48; Start 06/20/18 at 17:00; Stop 06/23/18 at 14:07; Status DC Info (FLU VACCINE per PROTOCOL) 1 ea PRN 1X PRN MC PER PROTOCOL; Start at 21:00; Stop 06/20/18 at 21:00; Status DC Influenza Virus Vaccine (Afluria Trivalent [id number] Syringe) 0.5 ml ONCE ONCE VAX IM ; Start 06/20/18 at 21:00; Stop 06/20/18 at 21:16; Status DC Influenza Virus Vaccine (Afluria Trivalent Syringe) 0.5 ml ONCE ONCE VAX IM Last administered on 06/22/18at 09:00; Start 06/22/18 at 09:00; Stop at 09:01; Status DC Meclizine HCl (Antivert) 25 mg PRN TID PRN PO DIZZINESS; Start 06/21/18 at 15: 30 Fluvoxamine Maleate (Luvox) 25 mg QHS PO Last administered on 06/23/18at 19:56; Start 06/21/18 at 21:00; Stop 06/24/18 at 03:10; Status DC Pantoprazole Sodium (Protonix) 40 mg PRN DAILY PRN PO HEARTBURN / GAS; Start at 09:00 Fluvoxamine Maleate (Luvox) 50 mg QHS PO Last administered on 06/26/18at 21:02; Start 06/24/18 at 21:00; Stop 06/27/18 at 19:00; Status DC Dipyridamole/ Aspirin (Aggrenox) 1 cap BID PO Last administered on 08/03/18at 19 :17; Start 06/24/18 at 21:00 Fluvoxamine Maleate (Luvox) 75 mg QHS PO ; Start 06/25/18 at 21:00; Stop at 21:00; Status DC Fluvoxamine Maleate (Luvox) 75 mg QHS PO Last administered on 06/30/18 20:26; Start 06/27/18 at 21:00; Stop 06/30/18 at 23:24; Status DC Risperidone (RisperDAL) 0.25 mg HS PO Last administered on 07/14/18at 19:47; Start 06/28/18 at 21:00; Stop 07/15/18 at 18:11; Status DC Vitamin D (Vitamin D3) 50,000 unit WEEKLY PO ; Start 06/28/18 at 18:00; Stop at 18:07; Status DC Vitamin D (Vitamin D3) 50,000 unit WEEKLY PO Last administered on 08/02/18at 08: 34; Start 06/28/18 at 20:00 Fluvoxamine Maleate (Luvox) 100 mg QHS PO Last administered on 07/06/18at 19:41; Start 07/01/18 at 21:00; Stop 07/06/18 at 20:17; Status DC Benzocaine (Ora-Jel Maximum) 1 paula PRN QID PRN TP ORAL PAIN; Start 07/01/18 at 11:30 Lisinopril (Prinivil) 10 mg DAILY PO Last administered on 07/10/18 09:27; Start 07/02/18 at 09:00; Stop 07/10/18 at 18:58; Status DC Trazodone HCl (Desyrel) 50 mg QHS PO Last administered on 07/02/18 21:38; Start 07/01/18 at 21:00; Stop 07/03/18 at 18:36; Status DC Trazodone HCl (Desyrel) 50 mg QHS PRN PO INSOMNIA Last administered on 21:51; Start 07/01/18 at 18:00; Stop 07/03/18 at 18:36; Status DC Fluvoxamine Maleate (Luvox) 125 mg QHS PO Last administered on 07/11/18 21:08; Start 07/07/18 at 21:00; Stop 07/11/18 at 23:50; Status DC Fluvoxamine Maleate (Luvox) 150 mg QHS PO Last administered on 08/03/18 19:17 ; Start 07/12/18 at 21:00 Lisinopril (Prinivil) 5 mg DAILY PO Last administered on 08/03/18at 08:31; Start 07/11/18 at 09:00 Cefdinir (Omnicef) 300 mg BID PO Last administered on 07/19/18 19:53; Start at 09:00; Stop 07/20/18 at 08:59; Status DC Lactobacillus Rhamnosus (Culturelle) 1 cap BID PO Last administered on 21:52; Start 07/13/18 at 09:00; Stop 07/30/18 at 08:59; Status DC Risperidone (RisperDAL) 0.25 mg BID PO Last administered on 08/03/18 19:17; Start 07/15/18 at 21:00 Active Scripts Active Reported Zolpidem Tartrate 5 Mg Tablet 5 Mg PO HS PRN Protonix (Pantoprazole Sodium) 40 Mg Tablet.dr 40 Mg PO BIDWMEALS NICODERM CQ 14mg (Nicotine) 1 Each Patch.td24 1 Patch TD DAILY Meclizine Hcl 25 Mg Tablet 25 Mg PO TID Lisinopril 20 Mg Tablet 20 Mg PO DAILY Heparin 5,000 Unit/5 ml-Ns (Heparin Sod,Porcine/0.9 % NaCl) 5,000 Unit/5 Ml Syringe 5,000 Unit IV Q12HR Aggrenox 25 Mg-200 Mg Capsule (Aspirin/Dipyridamole) 1 Each Cpmp.12hr 1 Cap PO BID Itzelpsomz-Xsh-Rtruxnbr Cap (Butalbital/Aspirin/Caffeine) 1 Each Capsule 1 Each PO PRN Q6HRS PRN Atorvastatin Calcium 20 Mg Tablet 20 Mg PO QHS I have reviewed the current psychotropics carefully including drug interactions. Risk benefit ratio favors no change other than as noted in my dictated progress note. Diagnosis: Problems: (1) Major depression with psychotic features (2) Anxiety disorder (3) Impulse control disorder (4) Obsessive compulsive disorder AIME LACKEY MD Aug 03, 2018 22:45
[2018-08-04 06:39] VITALS: BP 114/65
[2018-08-04 08:26] LABS: BASO % 0 % (0-3); EOS # 0.1 x10^3/uL (0.0-0.7); EOS % 1 % (0-3); HEMATOCRIT 37.4 % (36.0-47.0); HEMOGLOBIN 12.7 g/dL (12.0-15.5); LYMPH # 1.1 x10^3/uL (1.0-4.8); LYMPH % 19 % (24-48); MEAN CORPUSCULAR HEMOGLOBIN 29 pg (25-35); MEAN CORPUSCULAR HGB CONC 34 g/dL (31-37); MEAN CORPUSCULAR VOLUME 86 fL (79-100); MONO # 0.8 x10^3/uL (0.0-1.1); MONO % 14 % (0-9); NEUT # 3.7 x10^3uL (1.8-7.7); NEUT % 66 % (31-73); PLATELET COUNT 328 x10^3/uL (140-400); RED BLOOD COUNT 4.34 x10^6/uL (3.50-5.40); WHITE BLOOD COUNT 5.6 x10^3/uL (4.0-11.0)
[2018-08-04 08:43] LABS: ALBUMIN 3.3 g/dL (3.4-5.0); ALBUMIN/GLOBULIN RATIO 0.9 (1.0-1.7); CALCIUM 8.9 mg/dL (8.5-10.1); CREATININE 0.7 mg/dL (0.6-1.0); GFR 82.5; POTASSIUM 4.7 mmol/L (3.5-5.1); TOTAL BILIRUBIN 0.1 mg/dL (0.2-1.0); TOTAL PROTEIN 6.8 g/dL (6.4-8.2)
[2018-08-04] MEDS: ASPIRIN/DIPYRIDAMOLE 200/25MG CAP.ER.12H PO SCH ×2 (09:19→19:59)
[2018-08-04] MEDS: risperiDONE 0.25 MG TABLET. PO SCH ×2 (09:20→19:59)
[2018-08-04] MEDS: LISINOPRIL 5 MG TABLET. PO SCH (09:20)
[2018-08-04 15:53] VITALS: BP 128/70
[2018-08-04] MEDS: ATORVASTATIN CALCIUM 20 MG TABLET PO SCH (19:59)
[2018-08-04] MEDS: ZOLPIDEM 5 MG TABLET. PO PRN (22:37)
--- NOTE | 2018-08-04 22:49 | PDOC ---
Exam Note: Santosh Note: Please also refer to the separate dictated note~for this date of service dictated separately.~Patient seen individually. Discussed the patient with Nursing staff reviewed the chart.~Reviewed interim history and current functioning. Reviewed vital signs,~Labs/ Radiology~and current medications noted below. Continue current treatment with the changes noted in the dictated addendum note Assessment: Vital Signs: Vital Signs Date Time Temp Pulse Resp B/P (MAP) Pulse Ox O2 Delivery O2 Flow Rate FiO2 08/04/18 15:53 97.8 84 18 128/70 (89) 98 08/02/18 16:07 Room Air I&O Intake and Output 08/04/18 07:00 Intake Total 1320 ml Balance 1320 ml Intake Oral 1320 ml Labs: Laboratory Tests Test 08/04/18 08:14 White Blood Count 5.6 x10^3/uL (4.0-11.0) Red Blood Count 4.34 x10^6/uL (3.50-5.40) Hemoglobin 12.7 g/dL (12.0-15.5) Hematocrit 37.4 % (36.0-47.0) Mean Corpuscular Volume 86 fL (79-100) Mean Corpuscular Hemoglobin 29 pg (25-35) Mean Corpuscular Hemoglobin Concent 34 g/dL (31-37) Red Cell Distribution Width 16.0 % (11.5-14.5) H Platelet Count 328 x10^3/uL (140-400) Neutrophils (%) (Auto) 66 % (31-73) Lymphocytes (%) (Auto) 19 % (24-48) L Monocytes (%) (Auto) 14 % (0-9) H Eosinophils (%) (Auto) 1 % (0-3) Basophils (%) (Auto) 0 % (0-3) Neutrophils # (Auto) 3.7 x10^3uL (1.8-7.7) Lymphocytes # (Auto) 1.1 x10^3/uL (1.0-4.8) Monocytes # (Auto) 0.8 x10^3/uL (0.0-1.1) Eosinophils # (Auto) 0.1 x10^3/uL (0.0-0.7) Basophils # (Auto) 0.0 x10^3/uL (0.0-0.2) Sodium Level 131 mmol/L (136-145) L Potassium Level 4.7 mmol/L (3.5-5.1) Chloride Level 96 mmol/L (98-107) L Carbon Dioxide Level 25 mmol/L (21-32) Anion Gap 10 (6-14) Blood Urea Nitrogen 15 mg/dL (7-20) Creatinine 0.7 mg/dL (0.6-1.0) Estimated GFR (Cockcroft-Gault) 82.5 BUN/Creatinine Ratio 21 (6-20) H Glucose Level 94 mg/dL (70-99) Calcium Level 8.9 mg/dL (8.5-10.1) Total Bilirubin 0.1 mg/dL (0.2-1.0) L Aspartate Amino Transferase (AST) 18 U/L (15-37) Alanine Aminotransferase (ALT) 21 U/L (14-59) Alkaline Phosphatase 99 U/L (46-116) Total Protein 6.8 g/dL (6.4-8.2) Albumin 3.3 g/dL (3.4-5.0) L Albumin/Globulin Ratio 0.9 (1.0-1.7) L Current Medications: Meds: Current Medications Acetaminophen (Tylenol) 650 mg PRN Q6HRS PRN PO PAIN / TEMP Last administered on 08/02/18 01:24; Start 06/20/18 at 15:30 Multi-Ingredient Ointment (Analgesic [place]) 1 paula PRN QID PRN TP MUSCLE PAIN Last administered on 08/02/18 22:18; Start 06/20/18 at 15:30 Al Hydroxide/Mg Hydroxide (Mylanta Plus Xs) 15 ml PRN AFTMEALHC PRN PO DYSPEPSIA Last administered on 06/25/18 08:21; Start 06/20/18 at 15:30 Magnesium Hydroxide (Milk Of Magnesia) 2,400 mg PRN QHS PRN PO CONSTIPATION; Start 06/20/18 at 15:30 Nicotine (Nicoderm Cq 21mg) 1 patch DAILY TD Last administered on 06/22/18 09: 13; Start 06/21/18 at 09:00; Stop 06/26/18 at 18:55; Status DC Heparin Sodium (Porcine) (Heparin Sodium) 5,000 unit Q12HR SQ ; Start 06/20/18 at 21:00; Stop 06/21/18 at 15:19; Status DC Atorvastatin Calcium (Lipitor) 20 mg QHS PO Last administered on 08/04/18at 19: 59; Start 06/20/18 at 21:00 Lisinopril (Prinivil) 20 mg DAILY PO Last administered on 06/28/18at 09:13; Start 06/21/18 at 09:00; Stop 07/01/18 at 13:55; Status DC Zolpidem Tartrate (Ambien) 5 mg PRN QHS PRN PO INSOMNIA Last administered on at 22:37; Start 06/20/18 at 16:15 Acetaminophen/ Butalbital/ Caffeine (Fioricet) 1 tab PRN Q6HRS PRN PO MIGRAINE HEADACHE; Start 06/20/18 at 16:45 Meclizine HCl (Antivert) 25 mg TID PO Last administered on 06/21/18at 07:51; Start 06/20/18 at 21:00; Stop 06/21/18 at 15:20; Status DC Non-Formulary Medication (Nicotine (NICODERM CQ 14mg)) 1 patch DAILY TD ; Start 06/21/18 at 09:00; Stop 06/21/18 at 09:00; Status DC Pantoprazole Sodium (Protonix) 40 mg BIDWMEALS PO Last administered on at 08:48; Start 06/20/18 at 17:00; Stop 06/23/18 at 14:07; Status DC Info (FLU VACCINE per PROTOCOL) 1 ea PRN 1X PRN MC PER PROTOCOL; Start at 21:00; Stop 06/20/18 at 21:00; Status DC [facility] Virus Vacc[facility]) 0.5 ml ONCE ONCE VAX IM ; Start 06/20/18 at 21:00; Stop 06/20/18 at 21:16; Status DC Influenza Virus Vaccine ([facility]) 0.5 ml ONCE ONCE VAX IM Last administered on 06/22/18at 09:00; Start 06/22/18 at 09:00; Stop at 09:01; Status DC Meclizine HCl (Antivert) 25 mg PRN TID PRN PO DIZZINESS; Start 06/21/18 at 15: 30 Fluvoxamine Maleate (Luvox) 25 mg QHS PO Last administered on 06/23/18at 19:56; Start 06/21/18 at 21:00; Stop 06/24/18 at 03:10; Status DC Pantoprazole Sodium (Protonix) 40 mg PRN DAILY PRN PO HEARTBURN / GAS; Start at 09:00 Fluvoxamine Maleate (Luvox) 50 mg QHS PO Last administered on 06/26/18at 21:02; Start 06/24/18 at 21:00; Stop 06/27/18 at 19:00; Status DC Dipyridamole/ Aspirin (Aggrenox) 1 cap BID PO Last administered on 08/04/18at 19 :59; Start 06/24/18 at 21:00 Fluvoxamine Maleate (Luvox) 75 mg QHS PO ; Start 06/25/18 at 21:00; Stop at 21:00; Status DC Fluvoxamine Maleate (Luvox) 75 mg QHS PO Last administered on 06/30/18 20:26; Start 06/27/18 at 21:00; Stop 06/30/18 at 23:24; Status DC Risperidone (RisperDAL) 0.25 mg HS PO Last administered on 07/14/18at 19:47; Start 06/28/18 at 21:00; Stop 07/15/18 at 18:11; Status DC Vitamin D (Vitamin D3) 50,000 unit WEEKLY PO ; Start 06/28/18 at 18:00; Stop at 18:07; Status DC Vitamin D (Vitamin D3) 50,000 unit WEEKLY PO Last administered on 08/02/18at 08: 34; Start 06/28/18 at 20:00 Fluvoxamine Maleate (Luvox) 100 mg QHS PO Last administered on 07/06/18at 19:41; Start 07/01/18 at 21:00; Stop 07/06/18 at 20:17; Status DC Benzocaine (Ora-Jel Maximum) 1 paula PRN QID PRN TP ORAL PAIN; Start 07/01/18 at 11:30 Lisinopril (Prinivil) 10 mg DAILY PO Last administered on 07/10/18 09:27; Start 07/02/18 at 09:00; Stop 07/10/18 at 18:58; Status DC Trazodone HCl (Desyrel) 50 mg QHS PO Last administered on 07/02/18 21:38; Start 07/01/18 at 21:00; Stop 07/03/18 at 18:36; Status DC Trazodone HCl (Desyrel) 50 mg QHS PRN PO INSOMNIA Last administered on 21:51; Start 07/01/18 at 18:00; Stop 07/03/18 at 18:36; Status DC Fluvoxamine Maleate (Luvox) 125 mg QHS PO Last administered on 07/11/18 21:08; Start 07/07/18 at 21:00; Stop 07/11/18 at 23:50; Status DC Fluvoxamine Maleate (Luvox) 150 mg QHS PO Last administered on 08/04/18 19:59 ; Start 07/12/18 at 21:00 Lisinopril (Prinivil) 5 mg DAILY PO Last administered on 08/04/18 09:20; Start 07/11/18 at 09:00 Cefdinir (Omnicef) 300 mg BID PO Last administered on 07/19/18 19:53; Start at 09:00; Stop 07/20/18 at 08:59; Status DC Lactobacillus Rhamnosus (Culturelle) 1 cap BID PO Last administered on 21:52; Start 07/13/18 at 09:00; Stop 07/30/18 at 08:59; Status DC Risperidone (RisperDAL) 0.25 mg BID PO Last administered on 08/04/18 19:59; Start 07/15/18 at 21:00 Active Scripts Active Reported Zolpidem Tartrate 5 Mg Tablet 5 Mg PO HS PRN Protonix (Pantoprazole Sodium) 40 Mg Tablet.dr 40 Mg PO BIDWMEALS NICODERM CQ 14mg (Nicotine) 1 Each Patch.td24 1 Patch TD DAILY Meclizine Hcl 25 Mg Tablet 25 Mg PO TID Lisinopril 20 Mg Tablet 20 Mg PO DAILY Heparin 5,000 Unit/5 ml-Ns (Heparin Sod,Porcine/0.9 % NaCl) 5,000 Unit/5 Ml Syringe 5,000 Unit IV Q12HR Aggrenox 25 Mg-200 Mg Capsule (Aspirin/Dipyridamole) 1 Each Cpmp.12hr 1 Cap PO BID Msveocodgs-Buk-Iqbnrozv Cap (Butalbital/Aspirin/Caffeine) 1 Each Capsule 1 Each PO PRN Q6HRS PRN Atorvastatin Calcium 20 Mg Tablet 20 Mg PO QHS I have reviewed the current psychotropics carefully including drug interactions. Risk benefit ratio favors no change other than as noted in my dictated progress note. Diagnosis: Problems: (1) Major depression with psychotic features (2) Anxiety disorder (3) Impulse control disorder (4) Obsessive compulsive disorder AIME LACEKY MD Aug 04, 2018 22:49
[2018-08-05 06:41] VITALS: BP 93/62
[2018-08-05 07:57] LABS: ALBUMIN 3.5 g/dL (3.4-5.0); CALCIUM 9.2 mg/dL (8.5-10.1); CREATININE 0.8 mg/dL (0.6-1.0); GFR 70.7; POTASSIUM 4.7 mmol/L (3.5-5.1); TOTAL BILIRUBIN 0.2 mg/dL (0.2-1.0); TOTAL PROTEIN 7.1 g/dL (6.4-8.2)
[2018-08-05] MEDS: ASPIRIN/DIPYRIDAMOLE 200/25MG CAP.ER.12H PO SCH ×2 (08:15→20:09)
[2018-08-05] MEDS: risperiDONE 0.25 MG TABLET. PO SCH ×2 (08:16→20:09)
[2018-08-05] MEDS: LISINOPRIL 5 MG TABLET. PO SCH (09:00)
[2018-08-05 16:29] VITALS: BP 165/78
[2018-08-05] MEDS: ATORVASTATIN CALCIUM 20 MG TABLET PO SCH (20:09)
[2018-08-05] MEDS: ZOLPIDEM 5 MG TABLET. PO PRN (20:09)
--- NOTE | 2018-08-05 20:58 | PN ---
DATE: 08/02/2018 PSYCHIATRIC PROGRESS NOTE This late entry 08/02/2018 covers elements not covered in my initial note. SUBJECTIVE: I met with the patient in the evening. The patient slept 2-1/2 hours previous night, but sleeps off and on during the day. She is withdrawn, met with her in her room. Per nursing report, she has been much more pleasant, which is an improvement and she is less obsessive and anxious, less fixated on wanting ice in her water repeatedly. REVIEW OF SYSTEMS: Positive for knee pain, tiredness. No CV, , pulmonary, eye system symptoms on review. MENTAL STATUS EXAM: The patient is reasonably oriented. Speech has some latency, coherent. Abstraction fair, computation impaired, language function intact, attention span short. Mood and affect still withdrawn, but improved. LABORATORY DATA: Reviewed. IMPRESSION: Unchanged from initial note. PLAN: No change from initial note. MAN Alexander LACKEY MD DR: DEBRA/alisha JOB#: [id number] / [id number]
[2018-08-05] MEDS: METHYL SALICYLATE/MENTHOL TOPICAL OINTMENT 29GM TUBE. TP PRN (21:05)
--- NOTE | 2018-08-05 22:33 | PN ---
DATE: 08/03/2018 PSYCHIATRIC PROGRESS NOTE This late entry 08/03/2018 covers elements not covered in my initial note. SUBJECTIVE: I met with the patient in the evening in her room. She remains somewhat withdrawn, anxious at times, but less labile. She still has complaints of knee pain. REVIEW OF SYSTEMS: No CV, , pulmonary system symptoms on review. MENTAL STATUS EXAM: Reasonably oriented. Speech has some latency, coherent, very appreciative of my visit. No suicidal or homicidal ideation. IMPRESSION: Unchanged from initial note. PLAN: No change from initial note. MAN Alexander LACKEY MD DR: DEBRA/alisha JOB#: [id number] / [id number]
--- NOTE | 2018-08-05 22:34 | PN ---
DATE: 08/04/2018 PSYCHIATRIC PROGRESS NOTE This late entry 08/04/2018 covers elements not covered in my initial note. SUBJECTIVE: I met with the patient in the evening in her room. She slept 7 hours previous night, remains somewhat withdrawn, complains of knee pain, otherwise less obsessed. She is well oriented. Speech has some latency, coherent. Abstraction fair, computation impaired, language function intact. Mood and affect still withdrawn. LABORATORY DATA: Reviewed. IMPRESSION: Unchanged from initial note. PLAN: No change from initial note. MAN Alexander LACKEY MD DR: DEBRA/alisha JOB#: [id number] / [id number]
--- NOTE | 2018-08-05 23:00 | PDOC ---
Exam Note: Santosh Note: Please also refer to the separate dictated note~for this date of service dictated separately.~Patient seen individually. Discussed the patient with Nursing staff reviewed the chart.~Reviewed interim history and current functioning. Reviewed vital signs,~Labs/ Radiology~and current medications noted below. Continue current treatment with the changes noted in the dictated addendum note Assessment: Vital Signs: Vital Signs Date Time Temp Pulse Resp B/P (MAP) Pulse Ox O2 Delivery O2 Flow Rate FiO2 08/05/18 16:29 98.0 109 19 165/78 (107) 96 08/02/18 16:07 Room Air I&O Intake and Output 08/05/18 06:59 Intake Total 920 ml Balance 920 ml Intake Oral 920 ml Labs: Laboratory Tests Test 08/05/18 07:22 Sodium Level 131 mmol/L (136-145) L Potassium Level 4.7 mmol/L (3.5-5.1) Chloride Level 96 mmol/L (98-107) L Carbon Dioxide Level 25 mmol/L (21-32) Anion Gap 10 (6-14) Blood Urea Nitrogen 15 mg/dL (7-20) Creatinine 0.8 mg/dL (0.6-1.0) Estimated GFR (Cockcroft-Gault) 70.7 BUN/Creatinine Ratio 19 (6-20) Glucose Level 103 mg/dL (70-99) H Calcium Level 9.2 mg/dL (8.5-10.1) Total Bilirubin 0.2 mg/dL (0.2-1.0) # Aspartate Amino Transferase (AST) 19 U/L (15-37) Alanine Aminotransferase (ALT) 28 U/L (14-59) Alkaline Phosphatase 108 U/L (46-116) Total Protein 7.1 g/dL (6.4-8.2) Albumin 3.5 g/dL (3.4-5.0) Albumin/Globulin Ratio 1.0 (1.0-1.7) Current Medications: Meds: Current Medications Acetaminophen (Tylenol) 650 mg PRN Q6HRS PRN PO PAIN / TEMP Last administered on 08/02/18at 01:24; Start 06/20/18 at 15:30 Multi-Ingredient Ointment (Analgesic [place]) 1 paula PRN QID PRN TP MUSCLE PAIN Last administered on 08/05/18at 21:05; Start 06/20/18 at 15:30 Al Hydroxide/Mg Hydroxide (Mylanta Plus Xs) 15 ml PRN AFTMEALHC PRN PO DYSPEPSIA Last administered on 06/25/18 08:21; Start 06/20/18 at 15:30 Magnesium Hydroxide (Milk Of Magnesia) 2,400 mg PRN QHS PRN PO CONSTIPATION; Start 06/20/18 at 15:30 Nicotine (Nicoderm Cq 21mg) 1 patch DAILY TD Last administered on 06/22/18 09: 13; Start 06/21/18 at 09:00; Stop 06/26/18 at 18:55; Status DC Heparin Sodium (Porcine) (Heparin Sodium) 5,000 unit Q12HR SQ ; Start 06/20/18 at 21:00; Stop 06/21/18 at 15:19; Status DC Atorvastatin Calcium (Lipitor) 20 mg QHS PO Last administered on 08/05/18 20:09 ; Start 06/20/18 at 21:00 Lisinopril (Prinivil) 20 mg DAILY PO Last administered on 06/28/18at 09:13; Start 06/21/18 at 09:00; Stop 07/01/18 at 13:55; Status DC Zolpidem Tartrate (Ambien) 5 mg PRN QHS PRN PO INSOMNIA Last administered on 20:09; Start 06/20/18 at 16:15 Acetaminophen/ Butalbital/ Caffeine (Fioricet) 1 tab PRN Q6HRS PRN PO MIGRAINE HEADACHE; Start 06/20/18 at 16:45 Meclizine HCl (Antivert) 25 mg TID PO Last administered on 06/21/18 07:51; Start 06/20/18 at 21:00; Stop 06/21/18 at 15:20; Status DC Non-Formulary Medication (Nicotine (NICODERM CQ 14mg)) 1 patch DAILY TD ; Start 06/21/18 at 09:00; Stop 06/21/18 at 09:00; Status DC Pantoprazole Sodium (Protonix) 40 mg BIDWMEALS PO Last administered on at 08:48; Start 06/20/18 at 17:00; Stop 06/23/18 at 14:07; Status DC Info (FLU VACCINE per PROTOCOL) 1 ea PRN 1X PRN MC PER PROTOCOL; Start at 21:00; Stop 06/20/18 at 21:00; Status DC Influenza Virus Vaccine ([facility] Trivalent Syringe) 0.5 ml ONCE ONCE VAX IM ; Start 06/20/18 at 21:00; Stop 06/20/18 at 21:16; Status DC Influenza Virus Vaccine ([facility] Trivalent Syringe) 0.5 ml ONCE ONCE VAX IM Last administered on 06/22/18at 09:00; Start 06/22/18 at 09:00; Stop at 09:01; Status DC Meclizine HCl (Antivert) 25 mg PRN TID PRN PO DIZZINESS; Start 06/21/18 at 15: 30 Fluvoxamine Maleate (Luvox) 25 mg QHS PO Last administered on 06/23/18at 19:56; Start 06/21/18 at 21:00; Stop 06/24/18 at 03:10; Status DC Pantoprazole Sodium (Protonix) 40 mg PRN DAILY PRN PO HEARTBURN / GAS; Start at 09:00 Fluvoxamine Maleate (Luvox) 50 mg QHS PO Last administered on 06/26/18at 21:02; Start 06/24/18 at 21:00; Stop 06/27/18 at 19:00; Status DC Dipyridamole/ Aspirin (Aggrenox) 1 cap BID PO Last administered on 08/05/18at 20: 09; Start 06/24/18 at 21:00 Fluvoxamine Maleate (Luvox) 75 mg QHS PO ; Start 06/25/18 at 21:00; Stop at 21:00; Status DC Fluvoxamine Maleate (Luvox) 75 mg QHS PO Last administered on 06/30/18at 20:26; Start 06/27/18 at 21:00; Stop 06/30/18 at 23:24; Status DC Risperidone (RisperDAL) 0.25 mg HS PO Last administered on 07/14/18at 19:47; Start 06/28/18 at 21:00; Stop 07/15/18 at 18:11; Status DC Vitamin D (Vitamin D3) 50,000 unit WEEKLY PO ; Start 06/28/18 at 18:00; Stop at 18:07; Status DC Vitamin D (Vitamin D3) 50,000 unit WEEKLY PO Last administered on 08/02/18at 08: 34; Start 06/28/18 at 20:00 Fluvoxamine Maleate (Luvox) 100 mg QHS PO Last administered on 07/06/18 19:41; Start 07/01/18 at 21:00; Stop 07/06/18 at 20:17; Status DC Benzocaine (Ora-Jel Maximum) 1 paula PRN QID PRN TP ORAL PAIN; Start 07/01/18 at 11:30 Lisinopril (Prinivil) 10 mg DAILY PO Last administered on 07/10/18 09:27; Start 07/02/18 at 09:00; Stop 07/10/18 at 18:58; Status DC Trazodone HCl (Desyrel) 50 mg QHS PO Last administered on 07/02/18at 21:38; Start 07/01/18 at 21:00; Stop 07/03/18 at 18:36; Status DC Trazodone HCl (Desyrel) 50 mg QHS PRN PO INSOMNIA Last administered on at 21:51; Start 07/01/18 at 18:00; Stop 07/03/18 at 18:36; Status DC Fluvoxamine Maleate (Luvox) 125 mg QHS PO Last administered on 07/11/18 21:08; Start 07/07/18 at 21:00; Stop 07/11/18 at 23:50; Status DC Fluvoxamine Maleate (Luvox) 150 mg QHS PO Last administered on 08/05/18 20:09; Start 07/12/18 at 21:00 Lisinopril (Prinivil) 5 mg DAILY PO Last administered on 08/04/18 09:20; Start 07/11/18 at 09:00 Cefdinir (Omnicef) 300 mg BID PO Last administered on 07/19/18at 19:53; Start at 09:00; Stop 07/20/18 at 08:59; Status DC Lactobacillus Rhamnosus (Culturelle) 1 cap BID PO Last administered on at 21:52; Start 07/13/18 at 09:00; Stop 07/30/18 at 08:59; Status DC Risperidone (RisperDAL) 0.25 mg BID PO Last administered on 08/05/18at 20:09; Start 07/15/18 at 21:00 Active Scripts Active Reported Zolpidem Tartrate 5 Mg Tablet 5 Mg PO HS PRN Protonix (Pantoprazole Sodium) 40 Mg Tablet.dr 40 Mg PO BIDWMEALS NICODERM CQ 14mg (Nicotine) 1 Each Patch.td24 1 Patch TD DAILY Meclizine Hcl 25 Mg Tablet 25 Mg PO TID Lisinopril 20 Mg Tablet 20 Mg PO DAILY Heparin 5,000 Unit/5 ml-Ns (Heparin Sod,Porcine/0.9 % NaCl) 5,000 Unit/5 Ml Syringe 5,000 Unit IV Q12HR Aggrenox 25 Mg-200 Mg Capsule (Aspirin/Dipyridamole) 1 Each Cpmp.12hr 1 Cap PO BID Zgnrktsnkz-Shp-Svaiwmhy Cap (Butalbital/Aspirin/Caffeine) 1 Each Capsule 1 Each PO PRN Q6HRS PRN Atorvastatin Calcium 20 Mg Tablet 20 Mg PO QHS I have reviewed the current psychotropics carefully including drug interactions. Risk benefit ratio favors no change other than as noted in my dictated progress note. Diagnosis: Problems: (1) Major depression with psychotic features (2) Anxiety disorder (3) Impulse control disorder (4) Obsessive compulsive disorder AIME LACKEY MD Aug 05, 2018 23:00
[2018-08-06 06:11] VITALS: BP 116/72
[2018-08-06] MEDS: risperiDONE 0.25 MG TABLET. PO SCH ×2 (10:00→21:14)
[2018-08-06] MEDS: ASPIRIN/DIPYRIDAMOLE 200/25MG CAP.ER.12H PO SCH ×2 (10:00→21:13)
[2018-08-06] MEDS: LISINOPRIL 5 MG TABLET. PO SCH (10:01)
[2018-08-06 15:53] VITALS: BP 145/58
[2018-08-06] MEDS: ATORVASTATIN CALCIUM 20 MG TABLET PO SCH (21:14)
[2018-08-06] MEDS: ZOLPIDEM 5 MG TABLET. PO PRN (22:40)
--- NOTE | 2018-08-06 22:44 | PDOC ---
Exam Note: Santosh Note: Please also refer to the separate dictated note~for this date of service dictated separately.~Patient seen individually. Discussed the patient with Nursing staff reviewed the chart.~Reviewed interim history and current functioning. Reviewed vital signs,~Labs/ Radiology~and current medications noted below. Continue current treatment with the changes noted in the dictated addendum note Assessment: Vital Signs: Vital Signs Date Time Temp Pulse Resp B/P (MAP) Pulse Ox O2 Delivery O2 Flow Rate FiO2 08/06/18 15:53 98.2 101 20 145/58 (87) 98 Room Air I&O Intake and Output 08/06/18 07:00 Intake Total 840 ml Balance 840 ml Intake Oral 840 ml # Voids 1 Current Medications: Meds: Current Medications Acetaminophen (Tylenol) 650 mg PRN Q6HRS PRN PO PAIN / TEMP Last administered on 08/02/18 01:24; Start 06/20/18 at 15:30 Multi-Ingredient Ointment (Analgesic [place]) 1 paula PRN QID PRN TP MUSCLE PAIN Last administered on 08/05/18 21:05; Start 06/20/18 at 15:30 Al Hydroxide/Mg Hydroxide (Mylanta Plus Xs) 15 ml PRN AFTMEALHC PRN PO DYSPEPSIA Last administered on 06/25/18 08:21; Start 06/20/18 at 15:30 Magnesium Hydroxide (Milk Of Magnesia) 2,400 mg PRN QHS PRN PO CONSTIPATION; Start 06/20/18 at 15:30 Nicotine (Nicoderm Cq 21mg) 1 patch DAILY TD Last administered on 06/22/18 09: 13; Start 06/21/18 at 09:00; Stop 06/26/18 at 18:55; Status DC Heparin Sodium (Porcine) (Heparin Sodium) 5,000 unit Q12HR SQ ; Start 06/20/18 at 21:00; Stop 06/21/18 at 15:19; Status DC Atorvastatin Calcium (Lipitor) 20 mg QHS PO Last administered on 08/06/18 21:14 ; Start 06/20/18 at 21:00 Lisinopril (Prinivil) 20 mg DAILY PO Last administered on 06/28/18 09:13; Start 06/21/18 at 09:00; Stop 07/01/18 at 13:55; Status DC Zolpidem Tartrate (Ambien) 5 mg PRN QHS PRN PO INSOMNIA Last administered on 08/06/18at 22:40; Start 06/20/18 at 16:15 Acetaminophen/ Butalbital/ Caffeine (Fioricet) 1 tab PRN Q6HRS PRN PO MIGRAINE HEADACHE; Start 06/20/18 at 16:45 Meclizine HCl (Antivert) 25 mg TID PO Last administered on 06/21/18at 07:51; Start 06/20/18 at 21:00; Stop 06/21/18 at 15:20; Status DC Non-Formulary Medication (Nicotine (NICODERM CQ 14mg)) 1 patch DAILY TD ; Start 06/21/18 at 09:00; Stop 06/21/18 at 09:00; Status DC Pantoprazole Sodium (Protonix) 40 mg BIDWMEALS PO Last administered on at 08:48; Start 06/20/18 at 17:00; Stop 06/23/18 at 14:07; Status DC Info (FLU VACCINE per PROTOCOL) 1 ea PRN 1X PRN MC PER PROTOCOL; Start at 21:00; Stop 06/20/18 at 21:00; Status DC Influenza Virus Vaccine (Afluria Trivalent Syringe) 0.5 ml ONCE ONCE VAX IM ; Start 06/20/18 at 21:00; Stop 06/20/18 at 21:16; Status DC Influenza Virus Vaccine (Afluria Trivalent Syringe) 0.5 ml ONCE ONCE VAX IM Last administered on 06/22/18at 09:00; Start 06/22/18 at 09:00; Stop at 09:01; Status DC Meclizine HCl (Antivert) 25 mg PRN TID PRN PO DIZZINESS; Start 06/21/18 at 15: 30 Fluvoxamine Maleate (Luvox) 25 mg QHS PO Last administered on 06/23/18at 19:56; Start 06/21/18 at 21:00; Stop 06/24/18 at 03:10; Status DC Pantoprazole Sodium (Protonix) 40 mg PRN DAILY PRN PO HEARTBURN / GAS; Start at 09:00 Fluvoxamine Maleate (Luvox) 50 mg QHS PO Last administered on 06/26/18at 21:02; Start 06/24/18 at 21:00; Stop 06/27/18 at 19:00; Status DC Dipyridamole/ Aspirin (Aggrenox) 1 cap BID PO Last administered on 08/06/18 21: 13; Start 06/24/18 at 21:00 Fluvoxamine Maleate (Luvox) 75 mg QHS PO ; Start 06/25/18 at 21:00; Stop at 21:00; Status DC Fluvoxamine Maleate (Luvox) 75 mg QHS PO Last administered on 06/30/18 20:26; Start 06/27/18 at 21:00; Stop 06/30/18 at 23:24; Status DC Risperidone (RisperDAL) 0.25 mg HS PO Last administered on 07/14/18at 19:47; Start 06/28/18 at 21:00; Stop 07/15/18 at 18:11; Status DC Vitamin D (Vitamin D3) 50,000 unit WEEKLY PO ; Start 06/28/18 at 18:00; Stop at 18:07; Status DC Vitamin D (Vitamin D3) 50,000 unit WEEKLY PO Last administered on 08/02/18at 08: 34; Start 06/28/18 at 20:00 Fluvoxamine Maleate (Luvox) 100 mg QHS PO Last administered on 07/06/18at 19:41; Start 07/01/18 at 21:00; Stop 07/06/18 at 20:17; Status DC Benzocaine (Ora-Jel Maximum) 1 paula PRN QID PRN TP ORAL PAIN; Start 07/01/18 at 11:30 Lisinopril (Prinivil) 10 mg DAILY PO Last administered on 07/10/18at 09:27; Start 07/02/18 at 09:00; Stop 07/10/18 at 18:58; Status DC Trazodone HCl (Desyrel) 50 mg QHS PO Last administered on 07/02/18at 21:38; Start 07/01/18 at 21:00; Stop 07/03/18 at 18:36; Status DC Trazodone HCl (Desyrel) 50 mg QHS PRN PO INSOMNIA Last administered on 21:51; Start 07/01/18 at 18:00; Stop 07/03/18 at 18:36; Status DC Fluvoxamine Maleate (Luvox) 125 mg QHS PO Last administered on 07/11/18 21:08; Start 07/07/18 at 21:00; Stop 07/11/18 at 23:50; Status DC Fluvoxamine Maleate (Luvox) 150 mg QHS PO Last administered on 08/06/18 21:14; Start 07/12/18 at 21:00 Lisinopril (Prinivil) 5 mg DAILY PO Last administered on 08/06/18 10:01; Start 07/11/18 at 09:00 Cefdinir (Omnicef) 300 mg BID PO Last administered on 07/19/18 19:53; Start at 09:00; Stop 07/20/18 at 08:59; Status DC Lactobacillus Rhamnosus (Culturelle) 1 cap BID PO Last administered on 21:52; Start 07/13/18 at 09:00; Stop 07/30/18 at 08:59; Status DC Risperidone (RisperDAL) 0.25 mg BID PO Last administered on 08/06/18 21:14; Start 07/15/18 at 21:00 Active Scripts Active Reported Zolpidem Tartrate 5 Mg Tablet 5 Mg PO HS PRN Protonix (Pantoprazole Sodium) 40 Mg Tablet.dr 40 Mg PO BIDWMEALS NICODERM CQ 14mg (Nicotine) 1 Each Patch.td24 1 Patch TD DAILY Meclizine Hcl 25 Mg Tablet 25 Mg PO TID Lisinopril 20 Mg Tablet 20 Mg PO DAILY Heparin 5,000 Unit/5 ml-Ns (Heparin Sod,Porcine/0.9 % NaCl) 5,000 Unit/5 Ml Syringe 5,000 Unit IV Q12HR Aggrenox 25 Mg-200 Mg Capsule (Aspirin/Dipyridamole) 1 Each Cpmp.12hr 1 Cap PO BID Koyshoqbvb-Gis-Uvbffdbr Cap (Butalbital/Aspirin/Caffeine) 1 Each Capsule 1 Each PO PRN Q6HRS PRN Atorvastatin Calcium 20 Mg Tablet 20 Mg PO QHS I have reviewed the current psychotropics carefully including drug interactions. Risk benefit ratio favors no change other than as noted in my dictated progress note. Diagnosis: Problems: (1) Major depression with psychotic features (2) Anxiety disorder (3) Impulse control disorder (4) Obsessive compulsive disorder AIME LACKEY MD Aug 06, 2018 22:44
--- NOTE | 2018-08-07 03:37 | PN ---
DATE: 08/05/2018 This late entry for 08/05/2018 covers elements not covered in my initial note. SUBJECTIVE: I met with the patient in the evening in her room. She slept 6 hours previous night, remains on fluid restriction. Dr. Briseno will reassess this. Sodium 131. Somewhat obsessive, wanting water as I met with her. Complains of knee pain. REVIEW OF SYSTEMS: No CV, , pulmonary, eye system symptoms on review. MENTAL STATUS EXAM: Reasonably oriented. Speech is coherent, abstraction fair, computation impaired. No suicidal or homicidal ideation. LABORATORY DATA: Reviewed. IMPRESSION: Unchanged from initial note. PLAN: No change from initial note. MAN Alexander LACKEY MD DR: DEBRA/laisha JOB#: [id number] / [id number]
[2018-08-07 05:51] VITALS: BP 102/67
[2018-08-07] MEDS: risperiDONE 0.25 MG TABLET. PO SCH ×2 (07:30→19:58)
[2018-08-07] MEDS: LISINOPRIL 5 MG TABLET. PO SCH (07:30)
[2018-08-07] MEDS: ASPIRIN/DIPYRIDAMOLE 200/25MG CAP.ER.12H PO SCH ×2 (07:30→19:57)
[2018-08-07 16:51] VITALS: BP 139/78
[2018-08-07] MEDS: ATORVASTATIN CALCIUM 20 MG TABLET PO SCH (19:58)
--- NOTE | 2018-08-07 21:54 | PN ---
DATE: 08/06/2018 PSYCHIATRIC PROGRESS NOTE This late entry 08/06/2018 covers elements not covered in my initial note. SUBJECTIVE: I met with the patient in the evening. The patient spends much time in her room, sleeps well at night, isolative, obsessive, anxious, but less so than before. He complains of knee pain. REVIEW OF SYSTEMS: No CV, , pulmonary, eye system symptoms on review. Wants water and ice. Sodium is low. Dr. Briseno is monitoring this with fluid restriction. MENTAL STATUS EXAM: Reasonably oriented. Speech is coherent, abstraction fair, computation impaired, language function intact. Mood and affect withdrawn. LABORATORY DATA: Reviewed. IMPRESSION: Unchanged from initial note. PLAN: No change from initial note. MAN Alexander LACKEY MD DR: DEBRA/alisha JOB#: [id number] / [id number]
--- NOTE | 2018-08-07 22:37 | PDOC ---
Exam Note: Santosh Note: Please also refer to the separate dictated note~for this date of service dictated separately.~Patient seen individually. Discussed the patient with Nursing staff reviewed the chart.~Reviewed interim history and current functioning. Reviewed vital signs,~Labs/ Radiology~and current medications noted below. Continue current treatment with the changes noted in the dictated addendum note Assessment: Vital Signs: Vital Signs Date Time Temp Pulse Resp B/P (MAP) Pulse Ox O2 Delivery O2 Flow Rate FiO2 08/07/18 16:51 97.5 85 18 139/78 (98) 95 08/06/18 15:53 Room Air I&O Intake and Output 08/07/18 07:00 Intake Total 1200 ml Balance 1200 ml Intake Oral 1200 ml Current Medications: Meds: Current Medications Acetaminophen (Tylenol) 650 mg PRN Q6HRS PRN PO PAIN / TEMP Last administered on 08/02/18 01:24; Start 06/20/18 at 15:30 Multi-Ingredient Ointment (Analgesic [place]) 1 paula PRN QID PRN TP MUSCLE PAIN Last administered on 08/05/18 21:05; Start 06/20/18 at 15:30 Al Hydroxide/Mg Hydroxide (Mylanta Plus Xs) 15 ml PRN AFTMEALHC PRN PO DYSPEPSIA Last administered on 06/25/18 08:21; Start 06/20/18 at 15:30 Magnesium Hydroxide (Milk Of Magnesia) 2,400 mg PRN QHS PRN PO CONSTIPATION; Start 06/20/18 at 15:30 Nicotine (Nicoderm Cq 21mg) 1 patch DAILY TD Last administered on 06/22/18 09: 13; Start 06/21/18 at 09:00; Stop 06/26/18 at 18:55; Status DC Heparin Sodium (Porcine) (Heparin Sodium) 5,000 unit Q12HR SQ ; Start 06/20/18 at 21:00; Stop 06/21/18 at 15:19; Status DC Atorvastatin Calcium (Lipitor) 20 mg QHS PO Last administered on 08/07/18 19:58 ; Start 06/20/18 at 21:00 Lisinopril (Prinivil) 20 mg DAILY PO Last administered on 06/28/18 09:13; Start 06/21/18 at 09:00; Stop 07/01/18 at 13:55; Status DC Zolpidem Tartrate (Ambien) 5 mg PRN QHS PRN PO INSOMNIA Last administered on 08/06/18at 22:40; Start 06/20/18 at 16:15 Acetaminophen/ Butalbital/ Caffeine (Fioricet) 1 tab PRN Q6HRS PRN PO MIGRAINE HEADACHE; Start 06/20/18 at 16:45 Meclizine HCl (Antivert) 25 mg TID PO Last administered on 06/21/18at 07:51; Start 06/20/18 at 21:00; Stop 06/21/18 at 15:20; Status DC Non-Formulary Medication (Nicotine (NICODERM CQ 14mg)) 1 patch DAILY TD ; Start 06/21/18 at 09:00; Stop 06/21/18 at 09:00; Status DC Pantoprazole Sodium (Protonix) 40 mg BIDWMEALS PO Last administered on at 08:48; Start 06/20/18 at 17:00; Stop 06/23/18 at 14:07; Status DC Info (FLU VACCINE per PROTOCOL) 1 ea PRN 1X PRN MC PER PROTOCOL; Start at 21:00; Stop 06/20/18 at 21:00; Status DC Influenza Virus Vaccine (Afluria Trivalent Syringe) 0.5 ml ONCE ONCE VAX IM ; Start 06/20/18 at 21:00; Stop 06/20/18 at 21:16; Status DC Influenza Virus Vaccine (Afluria Trivalent Syringe) 0.5 ml ONCE ONCE VAX IM Last administered on 06/22/18at 09:00; Start 06/22/18 at 09:00; Stop at 09:01; Status DC Meclizine HCl (Antivert) 25 mg PRN TID PRN PO DIZZINESS; Start 06/21/18 at 15: 30 Fluvoxamine Maleate (Luvox) 25 mg QHS PO Last administered on 06/23/18at 19:56; Start 06/21/18 at 21:00; Stop 06/24/18 at 03:10; Status DC Pantoprazole Sodium (Protonix) 40 mg PRN DAILY PRN PO HEARTBURN / GAS; Start at 09:00 Fluvoxamine Maleate (Luvox) 50 mg QHS PO Last administered on 06/26/18at 21:02; Start 06/24/18 at 21:00; Stop 06/27/18 at 19:00; Status DC Dipyridamole/ Aspirin (Aggrenox) 1 cap BID PO Last administered on 08/07/18 19: 57; Start 06/24/18 at 21:00 Fluvoxamine Maleate (Luvox) 75 mg QHS PO ; Start 06/25/18 at 21:00; Stop at 21:00; Status DC Fluvoxamine Maleate (Luvox) 75 mg QHS PO Last administered on 06/30/18 20:26; Start 06/27/18 at 21:00; Stop 06/30/18 at 23:24; Status DC Risperidone (RisperDAL) 0.25 mg HS PO Last administered on 07/14/18at 19:47; Start 06/28/18 at 21:00; Stop 07/15/18 at 18:11; Status DC Vitamin D (Vitamin D3) 50,000 unit WEEKLY PO ; Start 06/28/18 at 18:00; Stop at 18:07; Status DC Vitamin D (Vitamin D3) 50,000 unit WEEKLY PO Last administered on 08/02/18at 08: 34; Start 06/28/18 at 20:00 Fluvoxamine Maleate (Luvox) 100 mg QHS PO Last administered on 07/06/18at 19:41; Start 07/01/18 at 21:00; Stop 07/06/18 at 20:17; Status DC Benzocaine (Ora-Jel Maximum) 1 paula PRN QID PRN TP ORAL PAIN; Start 07/01/18 at 11:30 Lisinopril (Prinivil) 10 mg DAILY PO Last administered on 07/10/18at 09:27; Start 07/02/18 at 09:00; Stop 07/10/18 at 18:58; Status DC Trazodone HCl (Desyrel) 50 mg QHS PO Last administered on 07/02/18at 21:38; Start 07/01/18 at 21:00; Stop 07/03/18 at 18:36; Status DC Trazodone HCl (Desyrel) 50 mg QHS PRN PO INSOMNIA Last administered on 21:51; Start 07/01/18 at 18:00; Stop 07/03/18 at 18:36; Status DC Fluvoxamine Maleate (Luvox) 125 mg QHS PO Last administered on 07/11/18 21:08; Start 07/07/18 at 21:00; Stop 07/11/18 at 23:50; Status DC Fluvoxamine Maleate (Luvox) 150 mg QHS PO Last administered on 08/07/18 19:58; Start 07/12/18 at 21:00 Lisinopril (Prinivil) 5 mg DAILY PO Last administered on 08/07/18 07:30; Start 07/11/18 at 09:00 Cefdinir (Omnicef) 300 mg BID PO Last administered on 07/19/18 19:53; Start at 09:00; Stop 07/20/18 at 08:59; Status DC Lactobacillus Rhamnosus (Culturelle) 1 cap BID PO Last administered on 21:52; Start 07/13/18 at 09:00; Stop 07/30/18 at 08:59; Status DC Risperidone (RisperDAL) 0.25 mg BID PO Last administered on 08/07/18 19:58; Start 07/15/18 at 21:00 Active Scripts Active Reported Zolpidem Tartrate 5 Mg Tablet 5 Mg PO HS PRN Protonix (Pantoprazole Sodium) 40 Mg Tablet.dr 40 Mg PO BIDWMEALS NICODERM CQ 14mg (Nicotine) 1 Each Patch.td24 1 Patch TD DAILY Meclizine Hcl 25 Mg Tablet 25 Mg PO TID Lisinopril 20 Mg Tablet 20 Mg PO DAILY Heparin 5,000 Unit/5 ml-Ns (Heparin Sod,Porcine/0.9 % NaCl) 5,000 Unit/5 Ml Syringe 5,000 Unit IV Q12HR Aggrenox 25 Mg-200 Mg Capsule (Aspirin/Dipyridamole) 1 Each Cpmp.12hr 1 Cap PO BID Ugnqyebqam-Lkv-Ubuvguye Cap (Butalbital/Aspirin/Caffeine) 1 Each Capsule 1 Each PO PRN Q6HRS PRN Atorvastatin Calcium 20 Mg Tablet 20 Mg PO QHS I have reviewed the current psychotropics carefully including drug interactions. Risk benefit ratio favors no change other than as noted in my dictated progress note. Diagnosis: Problems: (1) Major depression with psychotic features (2) Anxiety disorder (3) Impulse control disorder (4) Obsessive compulsive disorder AIME LACKEY MD Aug 07, 2018 22:37
[2018-08-07] MEDS: ZOLPIDEM 5 MG TABLET. PO PRN (22:42)
[2018-08-08 06:06] VITALS: BP 98/59
[2018-08-08 06:57] LABS: ALBUMIN 2.9 g/dL (3.4-5.0); ALBUMIN/GLOBULIN RATIO 0.9 (1.0-1.7); CALCIUM 8.6 mg/dL (8.5-10.1); CREATININE 0.8 mg/dL (0.6-1.0); GFR 70.7; POTASSIUM 4.7 mmol/L (3.5-5.1); TOTAL BILIRUBIN 0.1 mg/dL (0.2-1.0); TOTAL PROTEIN 6.1 g/dL (6.4-8.2)
[2018-08-08] MEDS: ASPIRIN/DIPYRIDAMOLE 200/25MG CAP.ER.12H PO SCH ×2 (09:41→21:20)
[2018-08-08] MEDS: risperiDONE 0.25 MG TABLET. PO SCH ×2 (09:42→21:20)
[2018-08-08 09:53] VITALS: BP 150/62
[2018-08-08] MEDS: LISINOPRIL 5 MG TABLET. PO SCH (09:54)
[2018-08-08 16:16] VITALS: BP 119/60
[2018-08-08] MEDS: ATORVASTATIN CALCIUM 20 MG TABLET PO SCH (21:22)
[2018-08-08] MEDS: ZOLPIDEM 5 MG TABLET. PO PRN (22:18)
--- NOTE | 2018-08-08 22:44 | PDOC ---
Exam Note: Santosh Note: Please also refer to the separate dictated note~for this date of service dictated separately.~Patient seen individually. Discussed the patient with Nursing staff reviewed the chart.~Reviewed interim history and current functioning. Reviewed vital signs,~Labs/ Radiology~and current medications noted below. Continue current treatment with the changes noted in the dictated addendum note Assessment: Vital Signs: Vital Signs Date Time Temp Pulse Resp B/P (MAP) Pulse Ox O2 Delivery O2 Flow Rate FiO2 08/08/18 16:16 97.6 106 17 119/60 (79) 99 Room Air I&O Intake and Output 08/08/18 07:00 Intake Total 800 ml Balance 800 ml Intake Oral 800 ml Labs: Laboratory Tests Test 08/08/18 06:22 Sodium Level 134 mmol/L (136-145) L Potassium Level 4.7 mmol/L (3.5-5.1) Chloride Level 99 mmol/L (98-107) Carbon Dioxide Level 28 mmol/L (21-32) Anion Gap 7 (6-14) Blood Urea Nitrogen 18 mg/dL (7-20) Creatinine 0.8 mg/dL (0.6-1.0) Estimated GFR (Cockcroft-Gault) 70.7 BUN/Creatinine Ratio 23 (6-20) H Glucose Level 94 mg/dL (70-99) Calcium Level 8.6 mg/dL (8.5-10.1) Total Bilirubin 0.1 mg/dL (0.2-1.0) L Aspartate Amino Transferase (AST) 19 U/L (15-37) Alanine Aminotransferase (ALT) 22 U/L (14-59) Alkaline Phosphatase 89 U/L (46-116) Total Protein 6.1 g/dL (6.4-8.2) L Albumin 2.9 g/dL (3.4-5.0) L Albumin/Globulin Ratio 0.9 (1.0-1.7) L Current Medications: Meds: Current Medications Acetaminophen (Tylenol) 650 mg PRN Q6HRS PRN PO PAIN / TEMP Last administered on 08/02/18at 01:24; Start 06/20/18 at 15:30 Multi-Ingredient Ointment (Analgesic [place]) 1 paula PRN QID PRN TP MUSCLE PAIN Last administered on 08/05/18at 21:05; Start 06/20/18 at 15:30 Al Hydroxide/Mg Hydroxide (Mylanta Plus Xs) 15 ml PRN AFTMEALHC PRN PO DYSPEPSIA Last administered on 06/25/18 08:21; Start 06/20/18 at 15:30 Magnesium Hydroxide (Milk Of Magnesia) 2,400 mg PRN QHS PRN PO CONSTIPATION; Start 06/20/18 at 15:30 Nicotine (Nicoderm Cq 21mg) 1 patch DAILY TD Last administered on 06/22/18at 09: 13; Start 06/21/18 at 09:00; Stop 06/26/18 at 18:55; Status DC Heparin Sodium (Porcine) (Heparin Sodium) 5,000 unit Q12HR SQ ; Start 06/20/18 at 21:00; Stop 06/21/18 at 15:19; Status DC Atorvastatin Calcium (Lipitor) 20 mg QHS PO Last administered on 08/08/18 21:22 ; Start 06/20/18 at 21:00 Lisinopril (Prinivil) 20 mg DAILY PO Last administered on 06/28/18 09:13; Start 06/21/18 at 09:00; Stop 07/01/18 at 13:55; Status DC Zolpidem Tartrate (Ambien) 5 mg PRN QHS PRN PO INSOMNIA Last administered on 22:18; Start 06/20/18 at 16:15 Acetaminophen/ Butalbital/ Caffeine (Fioricet) 1 tab PRN Q6HRS PRN PO MIGRAINE HEADACHE; Start 06/20/18 at 16:45 Meclizine HCl (Antivert) 25 mg TID PO Last administered on 06/21/18 07:51; Start 06/20/18 at 21:00; Stop 06/21/18 at 15:20; Status DC Non-Formulary Medication (Nicotine (NICODERM CQ 14mg)) 1 patch DAILY TD ; Start 06/21/18 at 09:00; Stop 06/21/18 at 09:00; Status DC Pantoprazole Sodium (Protonix) 40 mg BIDWMEALS PO Last administered on at 08:48; Start 06/20/18 at 17:00; Stop 06/23/18 at 14:07; Status DC Info (FLU VACCINE per PROTOCOL) 1 ea PRN 1X PRN MC PER PROTOCOL; Start at 21:00; Stop 06/20/18 at 21:00; Status DC [facility] Virus [facility]) 0.5 ml ONCE ONCE VAX IM ; Start 06/20/18 at 21:00; Stop 06/20/18 at 21:16; Status DC Influenza Virus Vaccine ([facility]) 0.5 ml ONCE ONCE VAX IM Last administered on 06/22/18at 09:00; Start 06/22/18 at 09:00; Stop at 09:01; Status DC Meclizine HCl (Antivert) 25 mg PRN TID PRN PO DIZZINESS; Start 06/21/18 at 15: 30 Fluvoxamine Maleate (Luvox) 25 mg QHS PO Last administered on 06/23/18at 19:56; Start 06/21/18 at 21:00; Stop 06/24/18 at 03:10; Status DC Pantoprazole Sodium (Protonix) 40 mg PRN DAILY PRN PO HEARTBURN / GAS; Start at 09:00 Fluvoxamine Maleate (Luvox) 50 mg QHS PO Last administered on 06/26/18at 21:02; Start 06/24/18 at 21:00; Stop 06/27/18 at 19:00; Status DC Dipyridamole/ Aspirin (Aggrenox) 1 cap BID PO Last administered on 08/08/18at 21: 20; Start 06/24/18 at 21:00 Fluvoxamine Maleate (Luvox) 75 mg QHS PO ; Start 06/25/18 at 21:00; Stop at 21:00; Status DC Fluvoxamine Maleate (Luvox) 75 mg QHS PO Last administered on 06/30/18at 20:26; Start 06/27/18 at 21:00; Stop 06/30/18 at 23:24; Status DC Risperidone (RisperDAL) 0.25 mg HS PO Last administered on 07/14/18at 19:47; Start 06/28/18 at 21:00; Stop 07/15/18 at 18:11; Status DC Vitamin D (Vitamin D3) 50,000 unit WEEKLY PO ; Start 06/28/18 at 18:00; Stop at 18:07; Status DC Vitamin D (Vitamin D3) 50,000 unit WEEKLY PO Last administered on 08/02/18at 08: 34; Start 06/28/18 at 20:00 Fluvoxamine Maleate (Luvox) 100 mg QHS PO Last administered on 07/06/18 19:41; Start 07/01/18 at 21:00; Stop 07/06/18 at 20:17; Status DC Benzocaine (Ora-Jel Maximum) 1 paula PRN QID PRN TP ORAL PAIN; Start 07/01/18 at 11:30 Lisinopril (Prinivil) 10 mg DAILY PO Last administered on 07/10/18 09:27; Start 07/02/18 at 09:00; Stop 07/10/18 at 18:58; Status DC Trazodone HCl (Desyrel) 50 mg QHS PO Last administered on 07/02/18 21:38; Start 07/01/18 at 21:00; Stop 07/03/18 at 18:36; Status DC Trazodone HCl (Desyrel) 50 mg QHS PRN PO INSOMNIA Last administered on 21:51; Start 07/01/18 at 18:00; Stop 07/03/18 at 18:36; Status DC Fluvoxamine Maleate (Luvox) 125 mg QHS PO Last administered on 07/11/18 21:08; Start 07/07/18 at 21:00; Stop 07/11/18 at 23:50; Status DC Fluvoxamine Maleate (Luvox) 150 mg QHS PO Last administered on 08/08/18 21:21; Start 07/12/18 at 21:00 Lisinopril (Prinivil) 5 mg DAILY PO Last administered on 08/08/18 09:54; Start 07/11/18 at 09:00 Cefdinir (Omnicef) 300 mg BID PO Last administered on 07/19/18 19:53; Start at 09:00; Stop 07/20/18 at 08:59; Status DC Lactobacillus Rhamnosus (Culturelle) 1 cap BID PO Last administered on 3/25/ 19at 21:52; Start 07/13/18 at 09:00; Stop 07/30/18 at 08:59; Status DC Risperidone (RisperDAL) 0.25 mg BID PO Last administered on 08/08/18at 21:20; Start 07/15/18 at 21:00 Active Scripts Active Reported Zolpidem Tartrate 5 Mg Tablet 5 Mg PO HS PRN Protonix (Pantoprazole Sodium) 40 Mg Tablet.dr 40 Mg PO BIDWMEALS NICODERM CQ 14mg (Nicotine) 1 Each Patch.td24 1 Patch TD DAILY Meclizine Hcl 25 Mg Tablet 25 Mg PO TID Lisinopril 20 Mg Tablet 20 Mg PO DAILY Heparin 5,000 Unit/5 ml-Ns (Heparin Sod,Porcine/0.9 % NaCl) 5,000 Unit/5 Ml Syringe 5,000 Unit IV Q12HR Aggrenox 25 Mg-200 Mg Capsule (Aspirin/Dipyridamole) 1 Each Cpmp.12hr 1 Cap PO BID Wlrcbaahyb-Opy-Kzrajsbg Cap (Butalbital/Aspirin/Caffeine) 1 Each Capsule 1 Each PO PRN Q6HRS PRN Atorvastatin Calcium 20 Mg Tablet 20 Mg PO QHS I have reviewed the current psychotropics carefully including drug interactions. Risk benefit ratio favors no change other than as noted in my dictated progress note. Diagnosis: Problems: (1) Major depression with psychotic features (2) Anxiety disorder (3) Impulse control disorder (4) Obsessive compulsive disorder AIME LACKEY MD Aug 08, 2018 22:44
[2018-08-09] MEDS ORDERED: ACET325T9 PO (01:48)
[2018-08-09] MEDS ORDERED: BENZ9.352 MM (01:53)
[2018-08-09] MEDS ORDERED: CHOL500050 PO (01:55)
[2018-08-09] MEDS ORDERED: LISI-338 PO (01:56)
[2018-08-09] MEDS ORDERED: MAG30ORA PO (01:58)
[2018-08-09] MEDS ORDERED: MAGN2400 PO (01:59)
[2018-08-09] MEDS ORDERED: METH29OI TP (02:01)
[2018-08-09] MEDS ORDERED: FLUV150C PO (02:03)
[2018-08-09] MEDS ORDERED: RISP0.2519 PO (02:04)
[2018-08-09] MEDS: ACETAMINOPHEN 325 MG TABLET PO PRN (02:06)
[2018-08-09 05:41] VITALS: BP 126/77
[2018-08-09] MEDS: LISINOPRIL 5 MG TABLET. PO SCH (08:14)
[2018-08-09] MEDS: risperiDONE 0.25 MG TABLET. PO SCH ×2 (08:14→21:33)
[2018-08-09] MEDS: ASPIRIN/DIPYRIDAMOLE 200/25MG CAP.ER.12H PO SCH ×2 (08:14→21:32)
[2018-08-09] MEDS: CHOLECALCIFEROL (VITAMIN D3) 50,000 UNIT CAPSULE PO SCH (08:14)
[2018-08-09 16:35] VITALS: BP 148/71
--- NOTE | 2018-08-09 18:43 | PN ---
DATE: 08/07/2018 PSYCHIATRIC PROGRESS NOTE This late entry 08/07/2018 covers elements not covered in my initial note. SUBJECTIVE: I met with the patient in the evening in her room. The patient slept 7 hours previous night. She did well the previous night, ambulating on her own, but complains of knee pain, frequently asking for ice and water, still obsessive, wanting a cup. She is on fluid restriction per Dr. Briseno. MENTAL STATUS EXAM: Oriented reasonably. Speech coherent, has some latency. Abstraction fair, computation impaired, language function intact, attention span short. Mood and affect withdrawn. LABORATORY DATA: Reviewed. IMPRESSION: Unchanged from initial note. PLAN: No change from initial note. AIME LACKEY MD DR: DEBRA/alisha JOB#: [id number] / [id number]
[2018-08-09] MEDS: ATORVASTATIN CALCIUM 20 MG TABLET PO SCH (21:32)
[2018-08-09] MEDS: ZOLPIDEM 5 MG TABLET. PO PRN (21:33)
--- NOTE | 2018-08-09 22:39 | PDOC ---
Exam Note: Santosh Note: Please also refer to the separate dictated note~for this date of service dictated separately.~Patient seen individually. Discussed the patient with Nursing staff reviewed the chart.~Reviewed interim history and current functioning. Reviewed vital signs,~Labs/ Radiology~and current medications noted below. Continue current treatment with the changes noted in the dictated addendum note Assessment: Vital Signs: Vital Signs Date Time Temp Pulse Resp B/P (MAP) Pulse Ox O2 Delivery O2 Flow Rate FiO2 08/09/18 16:35 97.4 96 16 148/71 (96) 95 08/09/18 05:41 Room Air I&O Intake and Output 08/09/18 07:00 Intake Total 710 ml Balance 710 ml Intake Oral 710 ml Current Medications: Meds: Current Medications Acetaminophen (Tylenol) 650 mg PRN Q6HRS PRN PO PAIN / TEMP Last administered on 08/09/18 02:06; Start 06/20/18 at 15:30 Multi-Ingredient Ointment (Analgesic [place]) 1 whitney PRN QID PRN TP MUSCLE PAIN Last administered on 08/05/18 21:05; Start 06/20/18 at 15:30 Al Hydroxide/Mg Hydroxide (Mylanta Plus Xs) 15 ml PRN AFTMEALHC PRN PO DYSPEPSIA Last administered on 06/25/18 08:21; Start 06/20/18 at 15:30 Magnesium Hydroxide (Milk Of Magnesia) 2,400 mg PRN QHS PRN PO CONSTIPATION; Start 06/20/18 at 15:30 Nicotine (Nicoderm Cq 21mg) 1 patch DAILY TD Last administered on 06/22/18 09: 13; Start 06/21/18 at 09:00; Stop 06/26/18 at 18:55; Status DC Heparin Sodium (Porcine) (Heparin Sodium) 5,000 unit Q12HR SQ ; Start 06/20/18 at 21:00; Stop 06/21/18 at 15:19; Status DC Atorvastatin Calcium (Lipitor) 20 mg QHS PO Last administered on 08/09/18 21:32 ; Start 06/20/18 at 21:00 Lisinopril (Prinivil) 20 mg DAILY PO Last administered on 06/28/18 09:13; Start 06/21/18 at 09:00; Stop 07/01/18 at 13:55; Status DC Zolpidem Tartrate (Ambien) 5 mg PRN QHS PRN PO INSOMNIA Last administered on 08/09/18at 21:33; Start 06/20/18 at 16:15 Acetaminophen/ Butalbital/ Caffeine (Fioricet) 1 tab PRN Q6HRS PRN PO MIGRAINE HEADACHE; Start 06/20/18 at 16:45 Meclizine HCl (Antivert) 25 mg TID PO Last administered on 06/21/18at 07:51; Start 06/20/18 at 21:00; Stop 06/21/18 at 15:20; Status DC Non-Formulary Medication (Nicotine (NICODERM CQ 14mg)) 1 patch DAILY TD ; Start 06/21/18 at 09:00; Stop 06/21/18 at 09:00; Status DC Pantoprazole Sodium (Protonix) 40 mg BIDWMEALS PO Last administered on at 08:48; Start 06/20/18 at 17:00; Stop 06/23/18 at 14:07; Status DC Info (FLU VACCINE per PROTOCOL) 1 ea PRN 1X PRN MC PER PROTOCOL; Start at 21:00; Stop 06/20/18 at 21:00; Status DC Influenza Virus Vaccine (Afluria Trivalent Syringe) 0.5 ml ONCE ONCE VAX IM ; Start 06/20/18 at 21:00; Stop 06/20/18 at 21:16; Status DC Influenza Virus Vaccine (Afluria Trivalent Syringe) 0.5 ml ONCE ONCE VAX IM Last administered on 06/22/18at 09:00; Start 06/22/18 at 09:00; Stop at 09:01; Status DC Meclizine HCl (Antivert) 25 mg PRN TID PRN PO DIZZINESS; Start 06/21/18 at 15: 30 Fluvoxamine Maleate (Luvox) 25 mg QHS PO Last administered on 06/23/18at 19:56; Start 06/21/18 at 21:00; Stop 06/24/18 at 03:10; Status DC Pantoprazole Sodium (Protonix) 40 mg PRN DAILY PRN PO HEARTBURN / GAS; Start at 09:00 Fluvoxamine Maleate (Luvox) 50 mg QHS PO Last administered on 06/26/18 21:02; Start 06/24/18 at 21:00; Stop 06/27/18 at 19:00; Status DC Dipyridamole/ Aspirin (Aggrenox) 1 cap BID PO Last administered on 08/09/18 21: 32; Start 06/24/18 at 21:00 Fluvoxamine Maleate (Luvox) 75 mg QHS PO ; Start 06/25/18 at 21:00; Stop at 21:00; Status DC Fluvoxamine Maleate (Luvox) 75 mg QHS PO Last administered on 06/30/18 20:26; Start 06/27/18 at 21:00; Stop 06/30/18 at 23:24; Status DC Risperidone (RisperDAL) 0.25 mg HS PO Last administered on 07/14/18at 19:47; Start 06/28/18 at 21:00; Stop 07/15/18 at 18:11; Status DC Vitamin D (Vitamin D3) 50,000 unit WEEKLY PO ; Start 06/28/18 at 18:00; Stop at 18:07; Status DC Vitamin D (Vitamin D3) 50,000 unit WEEKLY PO Last administered on 08/09/18 08: 14; Start 06/28/18 at 20:00 Fluvoxamine Maleate (Luvox) 100 mg QHS PO Last administered on 07/06/18 19:41; Start 07/01/18 at 21:00; Stop 07/06/18 at 20:17; Status DC Benzocaine (Ora-Jel Maximum) 1 whitney PRN QID PRN TP ORAL PAIN; Start 07/01/18 at 11:30 Lisinopril (Prinivil) 10 mg DAILY PO Last administered on 07/10/18 09:27; Start 07/02/18 at 09:00; Stop 07/10/18 at 18:58; Status DC Trazodone HCl (Desyrel) 50 mg QHS PO Last administered on 07/02/18at 21:38; Start 07/01/18 at 21:00; Stop 07/03/18 at 18:36; Status DC Trazodone HCl (Desyrel) 50 mg QHS PRN PO INSOMNIA Last administered on 21:51; Start 07/01/18 at 18:00; Stop 07/03/18 at 18:36; Status DC Fluvoxamine Maleate (Luvox) 125 mg QHS PO Last administered on 07/11/18 21:08; Start 07/07/18 at 21:00; Stop 07/11/18 at 23:50; Status DC Fluvoxamine Maleate (Luvox) 150 mg QHS PO Last administered on 08/09/18 21:33; Start 07/12/18 at 21:00 Lisinopril (Prinivil) 5 mg DAILY PO Last administered on 08/09/18 08:14; Start 07/11/18 at 09:00 Cefdinir (Omnicef) 300 mg BID PO Last administered on 07/19/18 19:53; Start at 09:00; Stop 07/20/18 at 08:59; Status DC Lactobacillus Rhamnosus (Culturelle) 1 cap BID PO Last administered on 21:52; Start 07/13/18 at 09:00; Stop 07/30/18 at 08:59; Status DC Risperidone (RisperDAL) 0.25 mg BID PO Last administered on 08/09/18 21:33; Start 07/15/18 at 21:00 Active Scripts Active Reported Risperdal (Risperidone) 0.25 Mg Tablet 0.25 Mg PO BID Fluvoxamine Maleate 150 Mg Cap.er.24h 150 Mg PO QHS Analgesic [place] (Methyl Salicylate/Menthol) 28 Gm Oint...g. 1 [place] TP PRN QID PRN Milk Of Magnesia (Magnesium Hydroxide) 2,400 Mg/10 Ml Oral.susp 2,400 Mg PO PRN QHS PRN Mag-Al Plus Suspension (Mag Hydrox/Al Hydrox/Simeth) 30 Ml Oral.susp 15 Ml PO PRN AFTMEALHC PRN Lisinopril 5 Mg Tablet 5 Mg PO DAILY Vitamin D3 (Cholecalciferol (Vitamin D3)) 50,000 Unit Capsule 50,000 Unit PO WEEKLY Oral Pain Relief (Benzocaine) 9.35 Gm Gel..gram. 9.35 Gm MM PRN QID PRN Tylenol (Acetaminophen) 325 Mg Tablet 650 Mg PO PRN Q6HRS PRN Zolpidem Tartrate 5 Mg Tablet 5 Mg PO HS PRN Protonix (Pantoprazole Sodium) 40 Mg Tablet.dr 40 Mg PO PRN DAILY PRN Meclizine Hcl 25 Mg Tablet 25 Mg PO PRN TID PRN Aggrenox 25 Mg-200 Mg Capsule (Aspirin/Dipyridamole) 1 Each Cpmp.12hr 1 Cap PO BID Hlpjxgrldz-Qtt-Rihubrdn Cap (Butalbital/Aspirin/Caffeine) 1 Each Capsule 1 Each PO PRN Q6HRS PRN Atorvastatin Calcium 20 Mg Tablet 20 Mg PO QHS I have reviewed the current psychotropics carefully including drug interactions. Risk benefit ratio favors no change other than as noted in my dictated progress note. Diagnosis: Problems: (1) Major depression with psychotic features (2) Anxiety disorder (3) Impulse control disorder (4) Obsessive compulsive disorder AIME LACKEY MD Aug 09, 2018 22:39
[2018-08-10 06:10] VITALS: BP 123/60
[2018-08-10] MEDS: risperiDONE 0.25 MG TABLET. PO SCH ×2 (07:46→20:49)
[2018-08-10] MEDS: LISINOPRIL 5 MG TABLET. PO SCH (07:46)
[2018-08-10] MEDS: ASPIRIN/DIPYRIDAMOLE 200/25MG CAP.ER.12H PO SCH ×2 (07:46→20:49)
[2018-08-10 17:00] VITALS: BP 149/71
[2018-08-10] MEDS: ZOLPIDEM 5 MG TABLET. PO PRN (20:49)
[2018-08-10] MEDS: ATORVASTATIN CALCIUM 20 MG TABLET PO SCH (20:49)
--- NOTE | 2018-08-10 23:11 | PN ---
DATE: 08/08/2018 PSYCHIATRIC PROGRESS NOTE This late entry 08/08/2018 covers elements not covered in my initial note of 08/08/2018. SUBJECTIVE: I met with the patient in the evening, staffed at treatment team meeting with the entire team here in the day. Reviewed her progress. She remains somewhat withdrawn, spends much time in her room, but less obsessive. She is well oriented. REVIEW OF SYSTEMS: No CV, , pulmonary, eye system symptoms on review, does complain of knee pain. MENTAL STATUS EXAM: Reasonably oriented. Speech has some latency, coherent. Abstraction fair, computation impaired. No suicidal or homicidal ideation. LABORATORY DATA: Reviewed. IMPRESSION: Unchanged from initial note. PLAN: No change from initial note and transition to longterm as soon as arranged by social service staff. MAN Alexander LACKEY MD DR: DEBRA/alisha JOB#: [id number] / [id number]
[2018-08-11] MEDS: ACETAMINOPHEN 325 MG TABLET PO PRN (01:30)
[2018-08-11] MEDS: METHYL SALICYLATE/MENTHOL TOPICAL OINTMENT 29GM TUBE. TP PRN (01:30)
[2018-08-11 05:45] VITALS: BP 122/66
[2018-08-11] MEDS: risperiDONE 0.25 MG TABLET. PO SCH ×2 (07:26→20:43)
[2018-08-11] MEDS: LISINOPRIL 5 MG TABLET. PO SCH (07:26)
[2018-08-11] MEDS: ASPIRIN/DIPYRIDAMOLE 200/25MG CAP.ER.12H PO SCH ×2 (07:26→20:43)
[2018-08-11 08:00] LABS: BASO % 1 % (0-3); EOS # 0.1 x10^3/uL (0.0-0.7); EOS % 2 % (0-3); HEMATOCRIT 36.4 % (36.0-47.0); HEMOGLOBIN 12.2 g/dL (12.0-15.5); LYMPH # 1.3 x10^3/uL (1.0-4.8); LYMPH % 20 % (24-48); MEAN CORPUSCULAR HEMOGLOBIN 29 pg (25-35); MEAN CORPUSCULAR HGB CONC 33 g/dL (31-37); MEAN CORPUSCULAR VOLUME 86 fL (79-100); MONO % 15 % (0-9); NEUT # 4.2 x10^3uL (1.8-7.7); NEUT % 63 % (31-73); PLATELET COUNT 401 x10^3/uL (140-400); RED BLOOD COUNT 4.22 x10^6/uL (3.50-5.40); RED CELL DISTRIBUTION WIDTH 16.2 % (11.5-14.5); WHITE BLOOD COUNT 6.6 x10^3/uL (4.0-11.0)
--- NOTE | 2018-08-11 09:51 | PDOC ---
Exam Note: Santosh Note: Late entry for DOS 08/10/2018. Please also refer to the separate dictated note~ for this date of service dictated separately.~Patient seen individually. Discussed the patient with Nursing staff reviewed the chart.~Reviewed interim history and current functioning. Reviewed vital signs,~Labs/ Radiology~and current medications noted below. Continue current treatment with the changes noted in the dictated addendum note Assessment: Vital Signs: VS - Last 72 Hours, by Label Date Time Temp Pulse Resp B/P (MAP) Pulse Ox O2 Delivery O2 Flow Rate FiO2 08/11/18 07:26 106 122/66 08/11/18 05:45 97.2 106 20 122/66 (84) 98 08/10/18 17:00 97.8 91 19 149/71 (97) 98 Room Air 08/10/18 07:46 111 123/60 08/10/18 06:10 98.7 111 18 123/60 (81) 96 08/09/18 16:35 97.4 96 16 148/71 (96) 95 08/09/18 08:14 95 126/77 08/09/18 05:41 99.0 95 16 126/77 (93) 94 Room Air 08/08/18 16:16 97.6 106 17 119/60 (79) 99 Room Air 08/08/18 09:54 72 150/62 08/08/18 09:53 72 150/62 (91) 97 Room Air Vital Signs Date Time Temp Pulse Resp B/P (MAP) Pulse Ox O2 Delivery O2 Flow Rate FiO2 08/11/18 07:26 106 122/66 08/11/18 05:45 97.2 20 98 08/10/18 17:00 Room Air I&O Intake and Output 08/11/18 07:00 Intake Total 1200 ml Balance 1200 ml Intake Oral 1200 ml # Voids 1 Labs: Laboratory Tests Test 08/11/18 07:43 White Blood Count 6.6 x10^3/uL (4.0-11.0) Red Blood Count 4.22 x10^6/uL (3.50-5.40) Hemoglobin 12.2 g/dL (12.0-15.5) Hematocrit 36.4 % (36.0-47.0) Mean Corpuscular Volume 86 fL (79-100) Mean Corpuscular Hemoglobin 29 pg (25-35) Mean Corpuscular Hemoglobin Concent 33 g/dL (31-37) Red Cell Distribution Width 16.2 % (11.5-14.5) H Platelet Count 401 x10^3/uL (140-400) H Neutrophils (%) (Auto) 63 % (31-73) Lymphocytes (%) (Auto) 20 % (24-48) L Monocytes (%) (Auto) 15 % (0-9) H Eosinophils (%) (Auto) 2 % (0-3) Basophils (%) (Auto) 1 % (0-3) Neutrophils # (Auto) 4.2 x10^3uL (1.8-7.7) Lymphocytes # (Auto) 1.3 x10^3/uL (1.0-4.8) Monocytes # (Auto) 1.0 x10^3/uL (0.0-1.1) Eosinophils # (Auto) 0.1 x10^3/uL (0.0-0.7) Basophils # (Auto) 0.0 x10^3/uL (0.0-0.2) Current Medications: Meds: Current Medications Acetaminophen (Tylenol) 650 mg PRN Q6HRS PRN PO PAIN / TEMP Last administered on 08/11/18 01:30; Start 06/20/18 at 15:30 Multi-Ingredient Ointment (Analgesic [place]) 1 whitney PRN QID PRN TP MUSCLE PAIN Last administered on 08/11/18 01:30; Start 06/20/18 at 15:30 Al Hydroxide/Mg Hydroxide (Mylanta Plus Xs) 15 ml PRN AFTMEALHC PRN PO DYSPEPSIA Last administered on 06/25/18 08:21; Start 06/20/18 at 15:30 Magnesium Hydroxide (Milk Of Magnesia) 2,400 mg PRN QHS PRN PO CONSTIPATION; Start 06/20/18 at 15:30 Nicotine (Nicoderm Cq 21mg) 1 patch DAILY TD Last administered on 06/22/18at 09: 13; Start 06/21/18 at 09:00; Stop 06/26/18 at 18:55; Status DC Heparin Sodium (Porcine) (Heparin Sodium) 5,000 unit Q12HR SQ ; Start 06/20/18 at 21:00; Stop 06/21/18 at 15:19; Status DC Atorvastatin Calcium (Lipitor) 20 mg QHS PO Last administered on 08/10/18at 20:49 ; Start 06/20/18 at 21:00 Lisinopril (Prinivil) 20 mg DAILY PO Last administered on 06/28/18at 09:13; Start 06/21/18 at 09:00; Stop 07/01/18 at 13:55; Status DC Zolpidem Tartrate (Ambien) 5 mg PRN QHS PRN PO INSOMNIA Last administered on 08/10/18at 20:49; Start 06/20/18 at 16:15 Acetaminophen/ Butalbital/ Caffeine (Fioricet) 1 tab PRN Q6HRS PRN PO MIGRAINE HEADACHE; Start 06/20/18 at 16:45 Meclizine HCl (Antivert) 25 mg TID PO Last administered on 06/21/18at 07:51; Start 06/20/18 at 21:00; Stop 06/21/18 at 15:20; Status DC Non-Formulary Medication (Nicotine (NICODERM CQ 14mg)) 1 patch DAILY TD ; Start 06/21/18 at 09:00; Stop 06/21/18 at 09:00; Status DC Pantoprazole Sodium (Protonix) 40 mg BIDWMEALS PO Last administered on at 08:48; Start 06/20/18 at 17:00; Stop 06/23/18 at 14:07; Status DC Info (FLU VACCINE per PROTOCOL) 1 ea PRN 1X PRN MC PER PROTOCOL; Start at 21:00; Stop 06/20/18 at 21:00; Status DC Influenza Virus Vaccine (Afluria Trivalent Syringe) 0.5 ml ONCE ONCE VAX IM ; Start 06/20/18 at 21:00; Stop 06/20/18 at 21:16; Status DC Influenza Virus Vaccine (Afluria Trivalent Syringe) 0.5 ml ONCE ONCE VAX IM Last administered on 06/22/18at 09:00; Start 06/22/18 at 09:00; Stop at 09:01; Status DC Meclizine HCl (Antivert) 25 mg PRN TID PRN PO DIZZINESS; Start 06/21/18 at 15: 30 Fluvoxamine Maleate (Luvox) 25 mg QHS PO Last administered on 06/23/18 19:56; Start 06/21/18 at 21:00; Stop 06/24/18 at 03:10; Status DC Pantoprazole Sodium (Protonix) 40 mg PRN DAILY PRN PO HEARTBURN / GAS; Start at 09:00 Fluvoxamine Maleate (Luvox) 50 mg QHS PO Last administered on 06/26/18at 21:02; Start 06/24/18 at 21:00; Stop 06/27/18 at 19:00; Status DC Dipyridamole/ Aspirin (Aggrenox) 1 cap BID PO Last administered on 08/11/18 07: 26; Start 06/24/18 at 21:00 Fluvoxamine Maleate (Luvox) 75 mg QHS PO ; Start 06/25/18 at 21:00; Stop at 21:00; Status DC Fluvoxamine Maleate (Luvox) 75 mg QHS PO Last administered on 06/30/18 20:26; Start 06/27/18 at 21:00; Stop 06/30/18 at 23:24; Status DC Risperidone (RisperDAL) 0.25 mg HS PO Last administered on 07/14/18 19:47; Start 06/28/18 at 21:00; Stop 07/15/18 at 18:11; Status DC Vitamin D (Vitamin D3) 50,000 unit WEEKLY PO ; Start 06/28/18 at 18:00; Stop at 18:07; Status DC Vitamin D (Vitamin D3) 50,000 unit WEEKLY PO Last administered on 08/09/18 08: 14; Start 06/28/18 at 20:00 Fluvoxamine Maleate (Luvox) 100 mg QHS PO Last administered on 07/06/18 19:41; Start 07/01/18 at 21:00; Stop 07/06/18 at 20:17; Status DC Benzocaine (Ora-Jel Maximum) 1 whitney PRN QID PRN TP ORAL PAIN; Start 07/01/18 at 11:30 Lisinopril (Prinivil) 10 mg DAILY PO Last administered on 07/10/18 09:27; Start 07/02/18 at 09:00; Stop 07/10/18 at 18:58; Status DC Trazodone HCl (Desyrel) 50 mg QHS PO Last administered on 07/02/18 21:38; Start 07/01/18 at 21:00; Stop 07/03/18 at 18:36; Status DC Trazodone HCl (Desyrel) 50 mg QHS PRN PO INSOMNIA Last administered on 21:51; Start 07/01/18 at 18:00; Stop 07/03/18 at 18:36; Status DC Fluvoxamine Maleate (Luvox) 125 mg QHS PO Last administered on 07/11/18 21:08; Start 07/07/18 at 21:00; Stop 07/11/18 at 23:50; Status DC Fluvoxamine Maleate (Luvox) 150 mg QHS PO Last administered on 08/10/18 20:49; Start 07/12/18 at 21:00 Lisinopril (Prinivil) 5 mg DAILY PO Last administered on 08/11/18at 07:26; Start 07/11/18 at 09:00 Cefdinir (Omnicef) 300 mg BID PO Last administered on 07/19/18 19:53; Start at 09:00; Stop 07/20/18 at 08:59; Status DC Lactobacillus Rhamnosus (Culturelle) 1 cap BID PO Last administered on 21:52; Start 07/13/18 at 09:00; Stop 07/30/18 at 08:59; Status DC Risperidone (RisperDAL) 0.25 mg BID PO Last administered on 08/11/18 07:26; Start 07/15/18 at 21:00 Active Scripts Active Reported Risperdal (Risperidone) 0.25 Mg Tablet 0.25 Mg PO BID Fluvoxamine Maleate 150 Mg Cap.er.24h 150 Mg PO QHS Analgesic [place] (Methyl Salicylate/Menthol) 28 Gm Oint...g. 1 Whitney TP PRN QID PRN Milk Of Magnesia (Magnesium Hydroxide) 2,400 Mg/10 Ml Oral.susp 2,400 Mg PO PRN QHS PRN Mag-Al Plus Suspension (Mag Hydrox/Al Hydrox/Simeth) 30 Ml Oral.susp 15 Ml PO PRN AFTMEALHC PRN Lisinopril 5 Mg Tablet 5 Mg PO DAILY Vitamin D3 (Cholecalciferol (Vitamin D3)) 50,000 Unit Capsule 50,000 Unit PO WEEKLY Oral Pain Relief (Benzocaine) 9.35 Gm Gel..gram. 9.35 Gm MM PRN QID PRN Tylenol (Acetaminophen) 325 Mg Tablet 650 Mg PO PRN Q6HRS PRN Zolpidem Tartrate 5 Mg Tablet 5 Mg PO HS PRN Protonix (Pantoprazole Sodium) 40 Mg Tablet.dr 40 Mg PO PRN DAILY PRN Meclizine Hcl 25 Mg Tablet 25 Mg PO PRN TID PRN Aggrenox 25 Mg-200 Mg Capsule (Aspirin/Dipyridamole) 1 Each Cpmp.12hr 1 Cap PO BID Vxruciqdst-Qoy-Kumceogb Cap (Butalbital/Aspirin/Caffeine) 1 Each Capsule 1 Each PO PRN Q6HRS PRN Atorvastatin Calcium 20 Mg Tablet 20 Mg PO QHS I have reviewed the current psychotropics carefully including drug interactions. Risk benefit ratio favors no change other than as noted in my dictated progress note. Diagnosis: Problems: (1) Major depression with psychotic features (2) Anxiety disorder (3) Impulse control disorder (4) Obsessive compulsive disorder AIME LACKEY MD Aug 11, 2018 09:51
--- NOTE | 2018-08-11 10:30 | PN ---
DATE: 08/09/2018 PSYCHIATRIC PROGRESS NOTE This late entry 08/09/2018 covers elements not covered in my initial note. SUBJECTIVE: I met with the patient in the evening in her room. The patient slept 5 hours previous night, remains somewhat withdrawn. Obsessive regarding water, but less so than before. REVIEW OF SYSTEMS: No CV, , pulmonary, eye system symptoms on review. MENTAL STATUS EXAM: Reasonably oriented. Speech is coherent, has some latency. Abstraction fair. No suicidal or homicidal ideation. IMPRESSION: Unchanged from initial note. PLAN: No change from initial note. MAN Alexander LACKEY MD DR: DEBRA/alisha JOB#: [id number] / [id number]
[2018-08-11 16:49] VITALS: BP 143/74
[2018-08-11] MEDS: ATORVASTATIN CALCIUM 20 MG TABLET PO SCH (20:43)
[2018-08-11] MEDS: ZOLPIDEM 5 MG TABLET. PO PRN (20:43)
--- NOTE | 2018-08-11 22:56 | PDOC ---
Exam Note: Santosh Note: Please also refer to the separate dictated note~for this date of service dictated separately.~Patient seen individually. Discussed the patient with Nursing staff reviewed the chart.~Reviewed interim history and current functioning. Reviewed vital signs,~Labs/ Radiology~and current medications noted below. Continue current treatment with the changes noted in the dictated addendum note Assessment: Vital Signs: Vital Signs Date Time Temp Pulse Resp B/P (MAP) Pulse Ox O2 Delivery O2 Flow Rate FiO2 08/11/18 16:49 97.8 105 20 143/74 (97) 96 08/10/18 17:00 Room Air I&O Intake and Output 08/11/18 06:59 Intake Total 1200 ml Balance 1200 ml Intake Oral 1200 ml # Voids 1 Labs: Laboratory Tests Test 08/11/18 07:43 White Blood Count 6.6 x10^3/uL (4.0-11.0) Red Blood Count 4.22 x10^6/uL (3.50-5.40) Hemoglobin 12.2 g/dL (12.0-15.5) Hematocrit 36.4 % (36.0-47.0) Mean Corpuscular Volume 86 fL (79-100) Mean Corpuscular Hemoglobin 29 pg (25-35) Mean Corpuscular Hemoglobin Concent 33 g/dL (31-37) Red Cell Distribution Width 16.2 % (11.5-14.5) H Platelet Count 401 x10^3/uL (140-400) H Neutrophils (%) (Auto) 63 % (31-73) Lymphocytes (%) (Auto) 20 % (24-48) L Monocytes (%) (Auto) 15 % (0-9) H Eosinophils (%) (Auto) 2 % (0-3) Basophils (%) (Auto) 1 % (0-3) Neutrophils # (Auto) 4.2 x10^3uL (1.8-7.7) Lymphocytes # (Auto) 1.3 x10^3/uL (1.0-4.8) Monocytes # (Auto) 1.0 x10^3/uL (0.0-1.1) Eosinophils # (Auto) 0.1 x10^3/uL (0.0-0.7) Basophils # (Auto) 0.0 x10^3/uL (0.0-0.2) Current Medications: Meds: Current Medications Acetaminophen (Tylenol) 650 mg PRN Q6HRS PRN PO PAIN / TEMP Last administered on 08/11/18 01:30; Start 06/20/18 at 15:30 Multi-Ingredient Ointment (Analgesic [place]) 1 whitney PRN QID PRN TP MUSCLE PAIN Last administered on 08/11/18 01:30; Start 06/20/18 at 15:30 Al Hydroxide/Mg Hydroxide (Mylanta Plus Xs) 15 ml PRN AFTMEALHC PRN PO DYSPEPSIA Last administered on 06/25/18 08:21; Start 06/20/18 at 15:30 Magnesium Hydroxide (Milk Of Magnesia) 2,400 mg PRN QHS PRN PO CONSTIPATION; Start 06/20/18 at 15:30 Nicotine (Nicoderm Cq 21mg) 1 patch DAILY TD Last administered on 06/22/18 09: 13; Start 06/21/18 at 09:00; Stop 06/26/18 at 18:55; Status DC Heparin Sodium (Porcine) (Heparin Sodium) 5,000 unit Q12HR SQ ; Start 06/20/18 at 21:00; Stop 06/21/18 at 15:19; Status DC Atorvastatin Calcium (Lipitor) 20 mg QHS PO Last administered on 08/11/18 20:43 ; Start 06/20/18 at 21:00 Lisinopril (Prinivil) 20 mg DAILY PO Last administered on 06/28/18 09:13; Start 06/21/18 at 09:00; Stop 07/01/18 at 13:55; Status DC Zolpidem Tartrate (Ambien) 5 mg PRN QHS PRN PO INSOMNIA Last administered on 20:43; Start 06/20/18 at 16:15 Acetaminophen/ Butalbital/ Caffeine (Fioricet) 1 tab PRN Q6HRS PRN PO MIGRAINE HEADACHE; Start 06/20/18 at 16:45 Meclizine HCl (Antivert) 25 mg TID PO Last administered on 06/21/18 07:51; Start 06/20/18 at 21:00; Stop 06/21/18 at 15:20; Status DC Non-Formulary Medication (Nicotine (NICODERM CQ 14mg)) 1 patch DAILY TD ; Start 06/21/18 at 09:00; Stop 06/21/18 at 09:00; Status DC Pantoprazole Sodium (Protonix) 40 mg BIDWMEALS PO Last administered on at 08:48; Start 06/20/18 at 17:00; Stop 06/23/18 at 14:07; Status DC Info (FLU VACCINE per PROTOCOL) 1 ea PRN 1X PRN MC PER PROTOCOL; Start at 21:00; Stop 06/20/18 at 21:00; Status DC Influenza Virus Vaccine ([facility] Trivalent Syringe) 0.5 ml ONCE ONCE VAX IM ; Start 06/20/18 at 21:00; Stop 06/20/18 at 21:16; Status DC Influenza Virus Vaccine ([facility] Trivalent Syringe) 0.5 ml ONCE ONCE VAX IM Last administered on 06/22/18at 09:00; Start 06/22/18 at 09:00; Stop at 09:01; Status DC Meclizine HCl (Antivert) 25 mg PRN TID PRN PO DIZZINESS; Start 06/21/18 at 15: 30 Fluvoxamine Maleate (Luvox) 25 mg QHS PO Last administered on 06/23/18at 19:56; Start 06/21/18 at 21:00; Stop 06/24/18 at 03:10; Status DC Pantoprazole Sodium (Protonix) 40 mg PRN DAILY PRN PO HEARTBURN / GAS; Start at 09:00 Fluvoxamine Maleate (Luvox) 50 mg QHS PO Last administered on 06/26/18at 21:02; Start 06/24/18 at 21:00; Stop 06/27/18 at 19:00; Status DC Dipyridamole/ Aspirin (Aggrenox) 1 cap BID PO Last administered on 08/11/18at 20: 43; Start 06/24/18 at 21:00 Fluvoxamine Maleate (Luvox) 75 mg QHS PO ; Start 06/25/18 at 21:00; Stop at 21:00; Status DC Fluvoxamine Maleate (Luvox) 75 mg QHS PO Last administered on 06/30/18 20:26; Start 06/27/18 at 21:00; Stop 06/30/18 at 23:24; Status DC Risperidone (RisperDAL) 0.25 mg HS PO Last administered on 07/14/18 19:47; Start 06/28/18 at 21:00; Stop 07/15/18 at 18:11; Status DC Vitamin D (Vitamin D3) 50,000 unit WEEKLY PO ; Start 06/28/18 at 18:00; Stop at 18:07; Status DC Vitamin D (Vitamin D3) 50,000 unit WEEKLY PO Last administered on 08/09/18 08: 14; Start 06/28/18 at 20:00 Fluvoxamine Maleate (Luvox) 100 mg QHS PO Last administered on 07/06/18 19:41; Start 07/01/18 at 21:00; Stop 07/06/18 at 20:17; Status DC Benzocaine (Ora-Jel Maximum) 1 whitney PRN QID PRN TP ORAL PAIN; Start 07/01/18 at 11:30 Lisinopril (Prinivil) 10 mg DAILY PO Last administered on 07/10/18 09:27; Start 07/02/18 at 09:00; Stop 07/10/18 at 18:58; Status DC Trazodone HCl (Desyrel) 50 mg QHS PO Last administered on 07/02/18at 21:38; Start 07/01/18 at 21:00; Stop 07/03/18 at 18:36; Status DC Trazodone HCl (Desyrel) 50 mg QHS PRN PO INSOMNIA Last administered on at 21:51; Start 07/01/18 at 18:00; Stop 07/03/18 at 18:36; Status DC Fluvoxamine Maleate (Luvox) 125 mg QHS PO Last administered on 07/11/18 21:08; Start 07/07/18 at 21:00; Stop 07/11/18 at 23:50; Status DC Fluvoxamine Maleate (Luvox) 150 mg QHS PO Last administered on 08/11/18 20:43; Start 07/12/18 at 21:00 Lisinopril (Prinivil) 5 mg DAILY PO Last administered on 08/11/18at 07:26; Start 07/11/18 at 09:00 Cefdinir (Omnicef) 300 mg BID PO Last administered on 07/19/18at 19:53; Start at 09:00; Stop 07/20/18 at 08:59; Status DC Lactobacillus Rhamnosus (Culturelle) 1 cap BID PO Last administered on at 21:52; Start 07/13/18 at 09:00; Stop 07/30/18 at 08:59; Status DC Risperidone (RisperDAL) 0.25 mg BID PO Last administered on 08/11/18at 20:43; Start 07/15/18 at 21:00 Active Scripts Active Reported Risperdal (Risperidone) 0.25 Mg Tablet 0.25 Mg PO BID Fluvoxamine Maleate 150 Mg Cap.er.24h 150 Mg PO QHS Analgesic [place] (Methyl Salicylate/Menthol) 28 Gm Oint...g. 1 Whitney TP PRN QID PRN Milk Of Magnesia (Magnesium Hydroxide) 2,400 Mg/10 Ml Oral.susp 2,400 Mg PO PRN QHS PRN Mag-Al Plus Suspension (Mag Hydrox/Al Hydrox/Simeth) 30 Ml Oral.susp 15 Ml PO PRN AFTMEALHC PRN Lisinopril 5 Mg Tablet 5 Mg PO DAILY Vitamin D3 (Cholecalciferol (Vitamin D3)) 50,000 Unit Capsule 50,000 Unit PO WEEKLY Oral Pain Relief (Benzocaine) 9.35 Gm Gel..gram. 9.35 Gm MM PRN QID PRN Tylenol (Acetaminophen) 325 Mg Tablet 650 Mg PO PRN Q6HRS PRN Zolpidem Tartrate 5 Mg Tablet 5 Mg PO HS PRN Protonix (Pantoprazole Sodium) 40 Mg Tablet.dr 40 Mg PO PRN DAILY PRN Meclizine Hcl 25 Mg Tablet 25 Mg PO PRN TID PRN Aggrenox 25 Mg-200 Mg Capsule (Aspirin/Dipyridamole) 1 Each Cpmp.12hr 1 Cap PO BID Omsclpojgm-Ipx-Aqtbvnrb Cap (Butalbital/Aspirin/Caffeine) 1 Each Capsule 1 Each PO PRN Q6HRS PRN Atorvastatin Calcium 20 Mg Tablet 20 Mg PO QHS I have reviewed the current psychotropics carefully including drug interactions. Risk benefit ratio favors no change other than as noted in my dictated progress note. Diagnosis: Problems: (1) Major depression with psychotic features (2) Anxiety disorder (3) Impulse control disorder (4) Obsessive compulsive disorder AIME LACKEY MD Aug 11, 2018 22:56
[2018-08-12 05:38] VITALS: BP 101/53
[2018-08-12] MEDS: risperiDONE 0.25 MG TABLET. PO SCH (08:27)
[2018-08-12 08:28] VITALS: BP 101/53
[2018-08-12] MEDS: ASPIRIN/DIPYRIDAMOLE 200/25MG CAP.ER.12H PO SCH (08:28)
[2018-08-12] MEDS: LISINOPRIL 5 MG TABLET. PO SCH (08:28)
--- NOTE | 2018-08-13 08:51 | DS ---
DATE OF DISCHARGE: 08/12/2018 DISCHARGE SUMMARY/PSYCHIATRIC PROGRESS NOTE This late entry 08/12/2018 covers elements not covered in my initial note. REASON FOR ADMISSION: Please refer to the admission history evaluation dictated by me for details. Briefly, the patient is a 72-year-old female referred to us from [facility] in [place] where she went from her home, living with her over 90-year-old mother. She has been increasingly depressed with psychotic features, hoarding, nonfunctional. She was neglecting a 93-year-old mother. Adult Protective Services were involved. She is depressed, eating bizarre diet of soup and ice, not bathing for 2 years. She was depressed, psychotic, obsessive, had failed outpatient psychiatric interventions resulting in this referral. SIGNIFICANT FINDINGS AND CLINICAL COURSE: Following admission, the patient was seen daily individually by myself from a psychiatric standpoint, medical followup with Dr. Briseno. She was extremely paranoid, psychotic, depressed and obsessive initially. She was fixated on wanting water and ice, replaced every hour amongst other things. Adjustments were made in her psychotropics and she seemed to respond to a combination of Risperdal 0.25 mg b.i.d., Luvox 150 mg at bedtime and she was on Ambien 5 mg at bedtime p.r.n. insomnia. It was felt unsafe to have her return home with her 93-year-old mother and large latter part of the hospitalization occurred because appropriate placement could not be obtained for her immediately. The social service staff worked diligently to make this happen and ultimately she was discharged on 08/12/2018. Prior to discharge on 08/12/2018. REVIEW OF SYSTEMS: Positive for knee pain, tiredness. No CV, , pulmonary, eye system symptoms on review. MENTAL STATUS EXAM: The patient is reasonably oriented. Speech coherent, has some latency, often responses monosyllabic. Abstraction fair, computation impaired, language function intact, attention span short. Mood and affect somewhat withdrawn. No suicidal or homicidal ideation at discharge. She did have psychological testing with Dr. Bray during this hospitalization and the reader is referred to that report for details. FINAL DIAGNOSES: Major depressive disorder, recurrent with psychotic features, in partial remission. Obsessive-compulsive disorder, anxiety disorder, unspecified. Rest unchanged from admission. DISCHARGE MEDICATIONS: Please refer to the MRAD. DISCHARGE INSTRUCTIONS: Outpatient psychiatric and medical followup at the retirement. Time for discharge day management is greater than 30 minutes. AIME LACKEY MD DR: DEBRA/alisha JOB#: [id number] / [id number]
--- NOTE | 2018-08-13 09:33 | PN ---
DATE: 08/10/2018 PSYCHIATRIC PROGRESS NOTE This late entry 08/10/2018, covers elements not covered in my initial note. SUBJECTIVE: I met with the patient in the evening in her room. Overall, the patient has done better, keeping to herself most of the day, remains somewhat anxious, obsessive. REVIEW OF SYSTEMS: No CV, , pulmonary, eye system symptoms on review. Does complain of right knee pain. MENTAL STATUS EXAM: Reasonably oriented. Speech coherent, abstraction fair, computation impaired, language function intact, attention span short. Mood and affect still somewhat anxious, obsessive. LABORATORY DATA: Reviewed. IMPRESSION: Unchanged from initial note. PLAN: No change from initial note. Transition to nursing facility as soon as arranged. MAN Alexander LACKEY MD DR: DEBRA/alisha JOB#: [id number] / [id number]
--- NOTE | 2018-08-13 09:35 | PN ---
DATE: 08/11/2018 PSYCHIATRIC PROGRESS NOTE This late entry 08/11/2018, covers elements not covered in my initial note. SUBJECTIVE: I met with the patient in the evening again in her room. Overall, per nursing report, the patient slept 3-1/2 hours previous night, but she remains withdrawn in her room most of the day off and on sleeping. REVIEW OF SYSTEMS: Positive for knee pain. Complains of thirst, wanting ice water. No CV, , pulmonary, eye system symptoms on review. Some of the above obsessiveness with the water as part of her OCD. MENTAL STATUS EXAM: Reasonably oriented. Speech is coherent, has some latency. Abstraction fair, computation impaired, language function intact. Mood and affect showing some improvement, withdrawn, less obsessive. LABORATORY DATA: Reviewed. IMPRESSION: Unchanged from initial note. PLAN: No change from initial note. MAN Alexander LACKEY MD DR: DEBRA/alisha JOB#: [id number] / [id number]
--- NOTE | 2018-08-13 22:40 | PDOC ---
Exam Note: Santosh Note: Please also refer to the separate dictated note~for this date of service dictated separately.~Patient seen individually. Discussed the patient with Nursing staff reviewed the chart.~Reviewed interim history and current functioning. Reviewed vital signs,~Labs/ Radiology~and current medications noted below. Continue current treatment with the changes noted in the dictated addendum note Assessment: Vital Signs: Vital Signs Date Time Temp Pulse Resp B/P (MAP) Pulse Ox O2 Delivery O2 Flow Rate FiO2 08/12/18 08:28 99 101/53 08/12/18 05:38 98.6 20 93 08/10/18 17:00 Room Air I&O Intake and Output 08/13/18 06:59 Intake Total 240 ml Balance 240 ml Intake Oral 240 ml Current Medications: Meds: Current Medications Acetaminophen (Tylenol) 650 mg PRN Q6HRS PRN PO PAIN / TEMP Last administered on 08/11/18 01:30; Start 06/20/18 at 15:30; Stop 08/12/18 at 12:03; Status DC Multi-Ingredient Ointment (Analgesic [place]) 1 whitney PRN QID PRN TP MUSCLE PAIN Last administered on 08/11/18 01:30; Start 06/20/18 at 15:30; Stop 08/12/18 at 12 :03; Status DC Al Hydroxide/Mg Hydroxide (Mylanta Plus Xs) 15 ml PRN AFTMEALHC PRN PO DYSPEPSIA Last administered on 06/25/18 08:21; Start 06/20/18 at 15:30; Stop at 12:03; Status DC Magnesium Hydroxide (Milk Of Magnesia) 2,400 mg PRN QHS PRN PO CONSTIPATION; Start 06/20/18 at 15:30; Stop 08/12/18 at 12:03; Status DC Nicotine (Nicoderm Cq 21mg) 1 patch DAILY TD Last administered on 06/22/18 09: 13; Start 06/21/18 at 09:00; Stop 06/26/18 at 18:55; Status DC Heparin Sodium (Porcine) (Heparin Sodium) 5,000 unit Q12HR SQ ; Start 06/20/18 at 21:00; Stop 06/21/18 at 15:19; Status DC Atorvastatin Calcium (Lipitor) 20 mg QHS PO Last administered on 08/11/18at 20:43 ; Start 06/20/18 at 21:00; Stop 08/12/18 at 12:03; Status DC Lisinopril (Prinivil) 20 mg DAILY PO Last administered on 06/28/18at 09:13; Start 06/21/18 at 09:00; Stop 07/01/18 at 13:55; Status DC Zolpidem Tartrate (Ambien) 5 mg PRN QHS PRN PO INSOMNIA Last administered on 08/11/18at 20:43; Start 06/20/18 at 16:15; Stop 08/12/18 at 12:03; Status DC Acetaminophen/ Butalbital/ Caffeine (Fioricet) 1 tab PRN Q6HRS PRN PO MIGRAINE HEADACHE; Start 06/20/18 at 16:45; Stop 08/12/18 at 12:03; Status DC Meclizine HCl (Antivert) 25 mg TID PO Last administered on 06/21/18at 07:51; Start 06/20/18 at 21:00; Stop 06/21/18 at 15:20; Status DC Non-Formulary Medication (Nicotine (NICODERM CQ 14mg)) 1 patch DAILY TD ; Start 06/21/18 at 09:00; Stop 06/21/18 at 09:00; Status DC Pantoprazole Sodium (Protonix) 40 mg BIDWMEALS PO Last administered on at 08:48; Start 06/20/18 at 17:00; Stop 06/23/18 at 14:07; Status DC Info (FLU VACCINE per PROTOCOL) 1 ea PRN 1X PRN MC PER PROTOCOL; Start at 21:00; Stop 06/20/18 at 21:00; Status DC Influenza Virus Vaccine ([facility] Trivalent Syringe) 0.5 ml ONCE ONCE VAX IM ; Start 06/20/18 at 21:00; Stop 06/20/18 at 21:16; Status DC Influenza Virus Vaccine (Afluria Trivalent Syringe) 0.5 ml ONCE ONCE VAX IM Last administered on 06/22/18at 09:00; Start 06/22/18 at 09:00; Stop at 09:01; Status DC Meclizine HCl (Antivert) 25 mg PRN TID PRN PO DIZZINESS; Start 06/21/18 at 15: 30; Stop 08/12/18 at 12:03; Status DC Fluvoxamine Maleate (Luvox) 25 mg QHS PO Last administered on 06/23/18at 19:56; Start 06/21/18 at 21:00; Stop 06/24/18 at 03:10; Status DC Pantoprazole Sodium (Protonix) 40 mg PRN DAILY PRN PO HEARTBURN / GAS; Start at 09:00; Stop 08/12/18 at 12:03; Status DC Fluvoxamine Maleate (Luvox) 50 mg QHS PO Last administered on 06/26/18at 21:02; Start 06/24/18 at 21:00; Stop 06/27/18 at 19:00; Status DC Dipyridamole/ Aspirin (Aggrenox) 1 cap BID PO Last administered on 08/12/18 08: 28; Start 06/24/18 at 21:00; Stop 08/12/18 at 12:03; Status DC Fluvoxamine Maleate (Luvox) 75 mg QHS PO ; Start 06/25/18 at 21:00; Stop at 21:00; Status DC Fluvoxamine Maleate (Luvox) 75 mg QHS PO Last administered on 06/30/18at 20:26; Start 06/27/18 at 21:00; Stop 06/30/18 at 23:24; Status DC Risperidone (RisperDAL) 0.25 mg HS PO Last administered on 07/14/18 19:47; Start 06/28/18 at 21:00; Stop 07/15/18 at 18:11; Status DC Vitamin D (Vitamin D3) 50,000 unit WEEKLY PO ; Start 06/28/18 at 18:00; Stop at 18:07; Status DC Vitamin D (Vitamin D3) 50,000 unit WEEKLY PO Last administered on 08/09/18 08: 14; Start 06/28/18 at 20:00; Stop 08/12/18 at 12:03; Status DC Fluvoxamine Maleate (Luvox) 100 mg QHS PO Last administered on 07/06/18 19:41; Start 07/01/18 at 21:00; Stop 07/06/18 at 20:17; Status DC Benzocaine (Ora-Jel Maximum) 1 whitney PRN QID PRN TP ORAL PAIN; Start 07/01/18 at 11:30; Stop 08/12/18 at 12:03; Status DC Lisinopril (Prinivil) 10 mg DAILY PO Last administered on 07/10/18 09:27; Start 07/02/18 at 09:00; Stop 07/10/18 at 18:58; Status DC Trazodone HCl (Desyrel) 50 mg QHS PO Last administered on 07/02/18at 21:38; Start 07/01/18 at 21:00; Stop 07/03/18 at 18:36; Status DC Trazodone HCl (Desyrel) 50 mg QHS PRN PO INSOMNIA Last administered on 21:51; Start 07/01/18 at 18:00; Stop 07/03/18 at 18:36; Status DC Fluvoxamine Maleate (Luvox) 125 mg QHS PO Last administered on 07/11/18 21:08; Start 07/07/18 at 21:00; Stop 07/11/18 at 23:50; Status DC Fluvoxamine Maleate (Luvox) 150 mg QHS PO Last administered on 08/11/18 20:43; Start 07/12/18 at 21:00; Stop 08/12/18 at 12:03; Status DC Lisinopril (Prinivil) 5 mg DAILY PO Last administered on 08/12/18 08:28; Start 07/11/18 at 09:00; Stop 08/12/18 at 12:03; Status DC Cefdinir (Omnicef) 300 mg BID PO Last administered on 07/19/18 19:53; Start at 09:00; Stop 07/20/18 at 08:59; Status DC Lactobacillus Rhamnosus (Culturelle) 1 cap BID PO Last administered on 21:52; Start 07/13/18 at 09:00; Stop 07/30/18 at 08:59; Status DC Risperidone (RisperDAL) 0.25 mg BID PO Last administered on 4/8/19at 08:27; Start 07/15/18 at 21:00; Stop 08/12/18 at 12:03; Status DC Active Scripts Active Reported Risperdal (Risperidone) 0.25 Mg Tablet 0.25 Mg PO BID Fluvoxamine Maleate 150 Mg Cap.er.24h 150 Mg PO QHS Analgesic [place] (Methyl Salicylate/Menthol) 28 Gm Oint...g. 1 Whitney TP PRN QID PRN Milk Of Magnesia (Magnesium Hydroxide) 2,400 Mg/10 Ml Oral.susp 2,400 Mg PO PRN QHS PRN Mag-Al Plus Suspension (Mag Hydrox/Al Hydrox/Simeth) 30 Ml Oral.susp 15 Ml PO PRN AFTMEALHC PRN Lisinopril 5 Mg Tablet 5 Mg PO DAILY Vitamin D3 (Cholecalciferol (Vitamin D3)) 50,000 Unit Capsule 50,000 Unit PO WEEKLY Oral Pain Relief (Benzocaine) 9.35 Gm Gel..gram. 9.35 Gm MM PRN QID PRN Tylenol (Acetaminophen) 325 Mg Tablet 650 Mg PO PRN Q6HRS PRN Zolpidem Tartrate 5 Mg Tablet 5 Mg PO HS PRN Protonix (Pantoprazole Sodium) 40 Mg Tablet.dr 40 Mg PO PRN DAILY PRN Meclizine Hcl 25 Mg Tablet 25 Mg PO PRN TID PRN Aggrenox 25 Mg-200 Mg Capsule (Aspirin/Dipyridamole) 1 Each Cpmp.12hr 1 Cap PO BID [id number]-Wbg-Nrhtdebs Cap (Butalbital/Aspirin/Caffeine) 1 Each Capsule 1 Each PO PRN Q6HRS PRN Atorvastatin Calcium 20 Mg Tablet 20 Mg PO QHS I have reviewed the current psychotropics carefully including drug interactions. Risk benefit ratio favors no change other than as noted in my dictated progress note. Diagnosis: Problems: (1) Major depression with psychotic features (2) Anxiety disorder (3) Impulse control disorder (4) Obsessive compulsive disorder AIME LACKEY MD Aug 13, 2018 22:40
== END 2018-08-12 11:50 | DRG 885 ==
LOC: GEROPSY 12:57
PROVIDERS: ADMIT Psychiatry & Neurology Psychiatry; ATTEND Psychiatry & Neurology Psychiatry
DX: F33.3 Major depressive disorder, recurrent, severe with psychotic symptoms (principal); F42.9 Obsessive-compulsive disorder, unspecified; F41.9 Anxiety disorder, unspecified; F63.9 Impulse disorder, unspecified; F41.1 Generalized anxiety disorder; F09 Unspecified mental disorder due to known physiological condition; E86.0 Dehydration; G89.29 Other chronic pain; I10 Essential (primary) hypertension; K21.9 Gastro-esophageal reflux disease without esophagitis; Z86.73 Personal history of transient ischemic attack (TIA), and cerebral infarction without residual deficits; Z90.710 Acquired absence of both cervix and uterus; M19.90 Unspecified osteoarthritis, unspecified site; Z90.49 Acquired absence of other specified parts of digestive tract; Z88.1 Allergy status to other antibiotic agents; Z88.5 Allergy status to narcotic agent; Z88.0 Allergy status to penicillin; Z88.8 Allergy status to other drugs, medicaments and biological substances
CPT/HCPCS: 36415; 71045; 80053; 80061; 81001; 82306; 83036; 83540; 83550; 83605; 83735; 84436; 84443; 84480; 85025; 86592; 87086; 87186; 90471; 90756; J1644; J8597; 97110; 97116; 97530; 97535; Q2035